=== PATIENT | female | born 1935 | race Caucasian/White ===

== ENCOUNTER → 2018-06-25 17:12 | Outpatient (CLI) | payer MEDICARE, SELFPAY ==
[2018-06-25 17:20] LABS: Bacteria Urine None Seen; WBC Urine None Seen (0-5/HPF)
[2018-06-25 17:34] LABS: Add Manual Diff / Slide Review NO; Basophils Percent Auto 0.7 % (0-2); Eosinophils Percent Auto 2.2 % (2-4); Hematocrit 35.7 % (36-46); Hemoglobin 12.2 g/dL (12.0-16.0); Lymphocytes Percent Auto 20.3 % (25-40); Mean Corpuscular HGB Conc 34.1 % (30-36); Mean Corpuscular Hemoglobin 29.2 PG (26-34); Mean Corpuscular Volume 85.8 fL (80-100); Monocytes Percent Auto 6.9 % (3-14); Neutrophils Absolute Auto 4000 /uL (3000-5900); Neutrophils Percent Auto 69.9 % (50-75); Platelet Count 349 X10^3/uL (150-400); Red Blood Cell Count 4.16 X10^6/uL (4.0-5.2); Red Cell Distribution Width 14.9 % (11.6-14.8); White Blood Cell Count 5.7 X10^3/uL (4.5-11.0)
[2018-06-25 17:57] LABS: Alanine Aminotransferase 30 IU/L (9-52); Albumin 4.7 g/dL (3.5-5.0); Albumin Globulin Ratio 1.5 (1.0-2.8); Alkaline Phosphatase 79 U/L (38-126); Aspartate Aminotransferase 36 IU/L (14-36); BUN Creatinine Ratio 23.2 (6-22); Bilirubin Total 0.5 mg/dL (0.2-1.3); Blood Urea Nitrogen 51 mg/dL (7-17); Carbon Dioxide 27 mmol/L (22-32); Chloride 98 mmol/L (98-107); Estimated Glomerular Filt Rate 21.4 mL/min (>60); Globulin 3.1 g/dL (1.7-4.1); Glucose 110 mg/dL (80-110); HEMOLYSIS 15 (0-50); Potassium 4.4 mmol/L (3.4-5.1); Sodium 138 mmol/L (137-145); Total Protein 7.8 g/dL (6.3-8.2)
[2018-06-25 18:21] LABS: Appearance Urine UA CLEAR; Bilirubin Urine UA NEGATIVE (NEGATIVE); Color Urine UA YELLOW; Glucose Urine UA NEGATIVE (Normal); Ketones Urine UA NEGATIVE (NEGATIVE); Leukocyte Esterase Urine UA NEGATIVE (NEGATIVE); Nitrite Urine UA Negative (Negative); Occult Blood Urine UA 3+ (Negative); Protein Urine UA 2+ (Negative); Urobilinogen Urine UA 0.2 E.U./dL (0.2)
[2018-06-25 18:24] LABS: Culture Indicated Urine Cult Not Indicated; RBC Urine 5-10/HPF (0-5/HPF); Squamous Epithelial Cell Urine 5-10 /HPF
[2018-06-25 19:08] LABS: Creatinine Urine Random 52.8 mg/dL; Protein (Total) Urine Random 93 mg/dL (0-12); Protein Creatinine Ratio Urine 1.76 GRAM/24H
[2018-06-28 20:41] LABS: ANCA Screen with reflex Titer Negative (Negative)
== END ==
PROVIDERS: PCP Family Medicine; Visit Provider Specialist
DX: N18.4 Chronic kidney disease, stage 4 (severe) (principal); M31.31 Wegener's granulomatosis with renal involvement
CPT/HCPCS: 36415; 80053; 81001; 82570; 84156; 85025; 86021

== ENCOUNTER → 2018-09-12 14:12 | Outpatient (CLI) | payer MEDICARE, SELFPAY ==
[2018-09-12 15:19] LABS: Add Manual Diff / Slide Review NO; Basophils Percent Auto 1.2 % (0-2); Eosinophils Percent Auto 2.6 % (2-4); Hematocrit 33.7 % (36-46); Hemoglobin 11.1 g/dL (12.0-16.0); Lymphocytes Percent Auto 22.8 % (25-40); Mean Corpuscular HGB Conc 33.1 % (30-36); Mean Corpuscular Hemoglobin 28.8 PG (26-34); Monocytes Percent Auto 7.5 % (3-14); Neutrophils Absolute Auto 3300 /uL (3000-5900); Neutrophils Percent Auto 65.9 % (50-75); Platelet Count 292 X10^3/uL (150-400); Red Blood Cell Count 3.87 X10^6/uL (4.0-5.2); Red Cell Distribution Width 14.5 % (11.6-14.8)
[2018-09-12 16:27] LABS: Alanine Aminotransferase 29 IU/L (9-52); Albumin 4.4 g/dL (3.5-5.0); Albumin Globulin Ratio 1.7 (1.0-2.8); Alkaline Phosphatase 75 U/L (38-126); Aspartate Aminotransferase 32 IU/L (14-36); BUN Creatinine Ratio 18.3 (6-22); Bilirubin Total 0.5 mg/dL (0.2-1.3); Blood Urea Nitrogen 44 mg/dL (7-17); Carbon Dioxide 23 mmol/L (22-32); Chloride 101 mmol/L (98-107); Estimated Glomerular Filt Rate 19.3 mL/min (>60); Globulin 2.6 g/dL (1.7-4.1); Glucose 87 mg/dL (80-110); HEMOLYSIS < 15 (0-50); Potassium 4.5 mmol/L (3.4-5.1); Sodium 140 mmol/L (137-145)
[2018-09-18 19:50] LABS: ANCA Screen Negative (Negative)
== END ==
PROVIDERS: Family Provider Family Medicine; PCP Family Medicine; Visit Provider Specialist
DX: M31.31 Wegener's granulomatosis with renal involvement (principal); N18.4 Chronic kidney disease, stage 4 (severe); N02.8 Recurrent and persistent hematuria with other morphologic changes
CPT/HCPCS: 36415; 80053; 82784; 82785; 85025; 86021

== ENCOUNTER → 2018-09-24 10:18 | Outpatient (CLI) | payer MEDICARE, SELFPAY ==
[2018-09-24 11:06] LABS: Add Manual Diff / Slide Review NO; Eosinophils Percent Auto 1.1 % (2-4); Hematocrit 35.5 % (36-46); Hemoglobin 12.2 g/dL (12.0-16.0); Lymphocytes Percent Auto 13.2 % (25-40); Mean Corpuscular HGB Conc 34.3 % (30-36); Mean Corpuscular Hemoglobin 29.5 PG (26-34); Mean Corpuscular Volume 86.1 fL (80-100); Monocytes Percent Auto 6.6 % (3-14); Neutrophils Absolute Auto 4300 /uL (3000-5900); Neutrophils Percent Auto 78.1 % (50-75); Platelet Count 299 X10^3/uL (150-400); Red Blood Cell Count 4.12 X10^6/uL (4.0-5.2); Red Cell Distribution Width 14.3 % (11.6-14.8); White Blood Cell Count 5.6 X10^3/uL (4.5-11.0)
[2018-09-24 12:25] LABS: Alanine Aminotransferase 29 IU/L (9-52); Albumin 4.6 g/dL (3.5-5.0); Albumin Globulin Ratio 1.5 (1.0-2.8); Alkaline Phosphatase 93 U/L (38-126); Aspartate Aminotransferase 34 IU/L (14-36); BUN Creatinine Ratio 19.2 (6-22); Bilirubin Total 0.5 mg/dL (0.2-1.3); Blood Urea Nitrogen 46 mg/dL (7-17); Calcium 9.7 mg/dL (8.4-10.2); Carbon Dioxide 23 mmol/L (22-32); Chloride 100 mmol/L (98-107); Estimated Glomerular Filt Rate 19.3 mL/min (>60); Glucose 102 mg/dL (80-110); HEMOLYSIS < 15 (0-50); Potassium 4.4 mmol/L (3.4-5.1); Sodium 137 mmol/L (137-145); Total Protein 7.6 g/dL (6.3-8.2)
== END ==
PROVIDERS: PCP Family Medicine; Visit Provider Physician Assistant
DX: R19.7 Diarrhea, unspecified (principal)
CPT/HCPCS: 36415; 80053; 85025

== ENCOUNTER → 2018-09-25 14:03 | Outpatient (CLI) | payer MEDICARE, SELFPAY ==
[2018-09-25 15:36] LABS: Appearance Urine UA CLEAR; Bilirubin Urine UA NEGATIVE (NEGATIVE); Color Urine UA YELLOW; Glucose Urine UA NEGATIVE (Normal); Ketones Urine UA NEGATIVE (NEGATIVE); Leukocyte Esterase Urine UA NEGATIVE (NEGATIVE); Nitrite Urine UA NEGATIVE (Negative); Occult Blood Urine UA 3+ (Negative); Protein Urine UA 1+ (Negative); Urobilinogen Urine UA 0.2 E.U./dL (0.2); pH Urine UA 5.5 (4.5-8.0)
[2018-09-25 15:55] LABS: Bacteria Urine Many (>30); Culture Indicated Urine Specimen Cultured; RBC Urine 10-30/HPF (0-5/HPF); WBC Urine 1-5/HPF (0-5/HPF)
[2018-09-25 16:14] LABS: Occult Blood 1 Positive (Negative); Occult Blood 2 Positive (Negative)
[2018-09-25 16:17] LABS: Sample 1 Time DATE UNKNOWN; Sample 2 time DATE UNKNOWN
== END ==
PROVIDERS: PCP Family Medicine; Visit Provider Physician Assistant
DX: R19.7 Diarrhea, unspecified (principal); R10.12 Left upper quadrant pain
CPT/HCPCS: 81001; 82270; 87015; 87045; 87077; 87086; 87147; 87186; 87427; 87493; 87899

== ENCOUNTER → 2018-09-26 10:24 | Outpatient (CLI) | payer MEDICARE, SELFPAY ==
--- NOTE | 2018-09-26 11:03 | DI.CT.S_ITS ---
PROCEDURE: CT ABDOMEN PELVIS WO CON INDICATIONS: left upper quadrant pain and diarrhea TECHNIQUE: After the administration of oral contrast, 5 mm thick sections acquired from the diaphragms to the symphysis. 5 mm coronal and sagittal reformats were performed. For radiation dose reduction, the following was used: automated exposure control, adjustment of mA and/or kV according to patient size. COMPARISON: [facility], US, ABDOMEN COMPLETE, 03/24/2017, 7:41. [facility], CT, CT-IVP, 02/28/2012, 14:04. CT, KUB - CT (PNL), 10/30/2010, 17:58. FINDINGS: Image quality: Somewhat limited by absence of intravenous contrast. Oral contrast, however, does improve quality of visualization of the bowel.. ABDOMEN: Lung bases: Lung bases are clear. Heart size is normal. Solid organs: Liver is normal in size. Gallbladder is normal. Pancreas is normal in size. Spleen is normal in size. No adrenal nodules. Both kidneys are normal in size, without hydronephrosis or nephrolithiasis. Peritoneum and bowel: Bowel loops demonstrate normal wall thickness and caliber. No free fluid or air. Oral contrast has transited through the abdomen and into the pelvis. There is no suspicion for presence of intestinal obstruction or perforation, or colitis. Nodes and vessels: No retroperitoneal or mesenteric adenopathy by size criteria. Aorta and inferior vena cava are normal in size. Miscellaneous: No ventral hernias. PELVIS: Genitourinary: Bladder wall thickness is normal. Miscellaneous: No inguinal hernias or adenopathy. Bones: No suspicious bony lesions. No vertebral body compression fractures. IMPRESSION: Nonspecific bowel gas pattern, no suspicion for underlying intestinal obstruction or perforation, or colitis. Source of current symptoms is not seen. Quality of visualization is somewhat limited by absence of intravenous contrast. Dictated by: Ervin Valero M.D. on 09/26/2018 at 11:57 Approved by: Ervin Valero M.D. on 09/26/2018 at 11:59
== END ==
PROVIDERS: PCP Family Medicine; Visit Provider Physician Assistant
DX: R10.12 Left upper quadrant pain (principal); R19.7 Diarrhea, unspecified
CPT/HCPCS: 74176

== ENCOUNTER 2018-11-04 19:34 | Emergency (ER) | payer MEDICARE, SELFPAY ==
[2018-11-04 19:44] VITALS: BP 200/83; PULSE 92; RESP 18; TEMP 36.8; O2SAT 98
--- NOTE | 2018-11-04 19:58 | ED_ITS ---
HPI - Nausea/Vomiting/Diarrhea General Chief complaint: Nausea/Vomiting/Diarrhea Stated complaint: vomiting and diarrhea, blood in stool Time Seen by Provider: 11/04/18 19:37 Source: patient Mode of arrival: ambulatory Limitations: no limitations History of Present Illness HPI Narrative: 83F non smoker presents with and chief complaint of some generalized abdominal discomfort that started last evening. The patient has had a few episodes of loose bowel with bright red blood. She thinks maybe at 1 point she passed a clot. She denies that is black and tarry. She has had no vomiting and denies any abdominal pain. She has had no fever or chills. She denies the use of blood thinners or regular use of NSAIDs. She does have a history of internal hemorrhoids. She had a colonoscopy with a automotive fuel injection servicer in [place] a few years ago and he stated she would not need another 1. She had an episode of bright red blood per rectum about 1 month ago and followed up with her primary care provider soon thereafter. The patient is not dizzy or lightheaded but feels a bit fatigued. MD complaint: diarrhea Onset (ago): hour(s) Description of Diarrhea: bloody (bright red) Associated symptoms: fatigue Related Data Home Medications Medication Instructions Recorded Confirmed Travoprost (TRAVATAN OPHTH 0.004%) 1 drp OPHTH HS #0 05/04/11 10/17/18 acetaminophen [Tylenol Extra 0 mg PO PRN PRN #0 07/09/17 10/17/18 Strength] losartan 25 mg tablet 50 mg PO DAILY tab 07/28/18 10/17/18 Previous Rx's Medication Instructions Recorded amlodipine 5 mg tablet 5 mg PO QDAY #90 tab 07/28/18 carvedilol 3.125 mg tablet 3.125 mg PO BID #180 tab 07/28/18 mirtazapine 15 mg tablet 15 mg PO QDAY #90 tabs 07/28/18 tramadol 50 mg tablet 50 mg PO BID #60 tab 07/28/18 omeprazole 20 mg capsule,delayed 20 mg PO DAILY #30 cap 09/26/18 release clonidine HCl 0.1 mg tablet 0.1 mg PO BID #60 tab 10/17/18 Allergies Allergy/AdvReac Type Severity Reaction Status Date / Time adhesive tape [ADHESIVE TAPE] Allergy Mild skin Verified 10/17/18 10:48 reaction gabapentin [GABAPENTIN] Allergy Unknown Swelling/ra Verified 10/17/18 10:48 sh amoxicillin [AMOXICILLIN] AdvReac Intermediate YEAST Verified 10/17/18 10:48 INFECTION doxycycline [DOXYCYCLINE] AdvReac Intermediate YEAST Verified 10/17/18 10:48 SYMPTOMS azithromycin [AZITHROMYCIN] AdvReac Mild DIARRHEA Verified 10/17/18 10:48 estrogens, conjugated AdvReac Mild LOCAL Verified 10/17/18 10:48 [ESTROGENS, CONJUGATED] IRRITATION WHEN TOPICAL hydrocodone [HYDROCODONE] AdvReac Mild GI UPSET Verified 10/17/18 10:48 levofloxacin [LEVOFLOXACIN] AdvReac Mild GI UPSET Verified 10/17/18 10:48 phenazopyridine AdvReac Mild GI UPSET Verified 10/17/18 10:48 [PHENAZOPYRIDINE] Review of Systems Review of Systems All systems reviewed & are unremarkable except as noted in HPI and below Constitutional Denies chills, Denies fever(s), Denies lethargy and Denies weakness Eyes Denies change in vision, Denies eye discharge, Denies irritation and Denies loss of vision ENT Ears, Nose, Mouth, and Throat: Denies change in voice, Denies neck pain and Denies sore throat Cardiovascular Denies chest pain, Denies irregular heart rhythm, Denies lightheadedness, Denies palpitations, Denies dyspnea, Denies dyspnea on exertion and Denies orthopnea Respiratory Denies cough, Denies dyspnea, Denies dyspnea on exertion and Denies wheezing Gastrointestinal Gastrointestinal: Denies abdominal pain, Reports hematochezia, Denies change in bowel habits, Reports diarrhea, Denies nausea and Denies vomiting Genitourinary Denies hematuria, Denies flank pain, Denies urinary incontinence and Denies urinary urgency Musculoskeletal Denies neck pain Integumentary/Breasts Denies pruritus, Denies erythema, Denies rash and Denies wounds Neurologic Denies confusion, Denies loss of vision and Denies weakness Psychiatric Denies anxiety, Denies confusion, Denies depression, Denies homicidal ideation and Denies suicidal ideation Endocrine Denies palpitations Hematologic/Lymphatic Denies easy bruising Allergic/Immunologic Denies wheezing [facility] Medical History CKD (chronic kidney disease) (Chronic Unknown) Diverticular disease (Chronic Unknown) Glaucoma (Chronic Unknown) Hyperlipemia (Chronic Unknown) Hypertension (Chronic Unknown) Osteoporosis (Chronic Unknown) Scoliosis (Chronic Unknown) Spinal stenosis (Chronic Unknown) Vulvar irritation (Chronic Unknown) Colon polyps (Resolved Unknown) Skin cancer (Resolved ~2004) Squamous cell carcinoma (Resolved 12/2017) Surgical History Hx of hysterectomy (Resolved Unknown) History of hip replacement (Unknown) Family History Father Heart disease Mother Osteoporosis Social History Smoking Status: Never smoker alcohol intake: never substance use type: does not use Exam Narrative Exam Narrative: GENERAL: This is a well-nourished, well-developed patient, in mild distress. HEAD: Atraumatic. Normocephalic. No temporal or scalp tenderness. EYES: No conjunctival pallor Pupils equal round and reactive. Extraocular motions intact. No scleral icterus. No injection or drainage. ENT: Nose without bleeding, purulent drainage or septal hematoma. Throat without erythema, tonsillar hypertrophy or exudate. Uvula midline. Airway patent. NECK: Trachea midline. No JVD or lymphadenopathy. Supple, nontender, no meningeal signs. CARDIOVASCULAR: Regular rate and rhythm without murmurs, gallops, or rubs. RESPIRATORY: Clear to auscultation. Breath sounds equal bilaterally. No wheezes , rales, or rhonchi. GASTROINTESTINAL: Abdomen soft, non-tender, nondistended. No hepato-splenomegaly , or palpable masses. No guarding. RECTAL: very minimal, but obvious, blood. No hemorrhoids or fissures noted, no pain on exam EXTREMITIES: No clubbing, cyanosis, or edema. No joint tenderness, effusion, or edema noted. BACK: Nontender without deformity or crepitance. No flank tenderness. NEURO: AOx3. SKIN: No rash or erythema. Initial Vital Signs Initial Vital Signs: Vital Signs Temperature 98.3 F 11/04/18 19:44 Pulse Rate 92 H 11/04/18 19:44 Respiratory Rate 18 11/04/18 19:44 Blood Pressure 200/83 H 11/04/18 19:44 Pulse Oximetry 98 11/04/18 19:44 Course Orders Ordered: ED Orders 11/04/18 19:55 Complete Blood Count AUTO DIFF Stat Comprehensive Metabolic Panel Stat Partial Thromboplastin Time Stat Prothrombin Time INR Stat Type and Screen Stat 11/04/18 20:09 XR acute abdomen series Stat 11/04/18 21:03 EKG-12 Lead Stat Discontinued Medications Ondansetron HCl (Zofran) 4 mg IV Q4HR PRN PRN Reason: Nausea And Vomiting Last Admin: 11/04/18 20:14 Dose: 4 mg Pantoprazole Sodium (Protonix) 40 mg IV NOW ONE Stop: 11/04/18 19:50 Last Admin: 11/04/18 20:13 Dose: 40 mg Reevaluation(s) Reevaluation #1: Patient remains relatively asymptomatic for duration of visit. Just prior to discharge she ambulates to the department and had a max heart rate of 104 in dropped to the low 90s by the time she returned to her bed. She denies dizziness or lightheadedness. Vital Signs - 8 hr 11/04/18 19:44 11/04/18 22:44 11/04/18 23:05 Temperature 98.3 F Pulse Rate 92 H 79 88 Respiratory Rate 18 16 16 Blood Pressure 200/83 H Blood Pressure [Right Arm] 152/60 H 153/73 H Pulse Oximetry 98 94 93 11/04/18 23:56 Temperature Pulse Rate 80 Respiratory Rate 18 Blood Pressure 150/60 H Blood Pressure [Right Arm] Pulse Oximetry 97 MDM - Nausea/Vomiting/Diarrhea Lab Data Result diagrams: 11/04/18 19:55 11/04/18 19:55 Lab Results 11/04/18 11/04/18 11/04/18 Range/Units 19:55 19:55 19:55 WBC 5.8 (4.5-11.0) X10^3/uL RBC 4.39 (4.0-5.2) X10^6/uL Hgb 12.7 (12.0-16.0) g/dL Hct 38.2 (36-46) % MCV 87.0 (80-100) fL MCH 29.0 (26-34) PG MCHC 33.3 (30-36) % RDW 14.8 (11.6-14.8) % Plt Count 295 (150-400) X10^3/uL Neut % (Auto) 76.0 H (50-75) % Lymph % (Auto) 16.0 L (25-40) % [place] % (Auto) 5.8 (3-14) % Eos % (Auto) 1.4 L (2-4) % Baso % (Auto) 0.8 (0-2) % Neut # (Auto) 4400 (2410-4719) /uL PT 10.6 (10.1-12.7) SECONDS INR 0.9 (0.9-1.3) APTT 31 (26.4-36.2) SECONDS Sodium 139 (137-145) mmol/L Potassium 4.2 (3.4-5.1) mmol/L Chloride 102 (98-107) mmol/L Carbon Dioxide 21 L (22-32) mmol/L BUN 42 H (7-17) mg/dL Creatinine 2.20 H (0.52-1.04) mg/dL Estimated GFR 21.4 L (>60) mL/min BUN/Creatinine Ratio 19.1 (6-22) Glucose 116 H (80-110) mg/dL Calcium 9.9 (8.4-10.2) mg/dL Total Bilirubin 0.6 (0.2-1.3) mg/dL AST 32 (14-36) IU/L ALT 30 (9-52) IU/L Alkaline Phosphatase 92 (38-126) U/L Total Protein 8.0 (6.3-8.2) g/dL Albumin 4.8 (3.5-5.0) g/dL Globulin 3.2 (1.7-4.1) g/dL Albumin/Globulin Ratio 1.5 (1.0-2.8) Blood Type 11/04/18 Range/Units 19:55 WBC (4.5-11.0) X10^3/uL RBC (4.0-5.2) X10^6/uL Hgb (12.0-16.0) g/dL Hct (36-46) % MCV (80-100) fL MCH (26-34) PG MCHC (30-36) % RDW (11.6-14.8) % Plt Count (150-400) X10^3/uL Neut % (Auto) (50-75) % Lymph % (Auto) (25-40) % [place] % (Auto) (3-14) % Eos % (Auto) (2-4) % Baso % (Auto) (0-2) % Neut # (Auto) (9578-8500) /uL PT (10.1-12.7) SECONDS INR (0.9-1.3) APTT (26.4-36.2) SECONDS Sodium (137-145) mmol/L Potassium (3.4-5.1) mmol/L Chloride (98-107) mmol/L Carbon Dioxide (22-32) mmol/L BUN (7-17) mg/dL Creatinine (0.52-1.04) mg/dL Estimated GFR (>60) mL/min BUN/Creatinine Ratio (6-22) Glucose (80-110) mg/dL Calcium (8.4-10.2) mg/dL Total Bilirubin (0.2-1.3) mg/dL AST (14-36) IU/L ALT (9-52) IU/L Alkaline Phosphatase (38-126) U/L Total Protein (6.3-8.2) g/dL Albumin (3.5-5.0) g/dL Globulin (1.7-4.1) g/dL Albumin/Globulin Ratio (1.0-2.8) Blood Type O Positive Discharge Plan Departure Patient Disposition: Home Clinical Impression: Rectal bleed Discharge Date/Time: 11/04/18 23:57 Interventions: ED Discharge Assessment Last Done: 11/04/18 23:56 Instructions: DI for Rectal Bleeding Activity Restrictions/Additional Instructions: *You have been diagnosed with [ acute lower GI bleed ] *What to do: *Take medications as directed *Follow up with your primary care provider in 2-3 days, call for an appointment. Let them know you were seen in the Emergency Department and that we ask that you be seen in follow up. It may be worth considering talking about the possibility of a colonoscopy with your automotive fuel injection servicer in [place] *Return to ER if you should have any new, worsening or concerning symptoms , such as [ worsening bleeding, dizziness, weakness, lightheadedness] Prescriptions: No Action losartan 25 mg tablet 50 mg PO DAILY RF: 0 carvedilol [Coreg] 3.125 mg tablet 3.125 mg PO BID Qty: 180 RF: 2 mirtazapine 15 mg tablet 15 mg PO QDAY Qty: 90 RF: 3 amlodipine [Norvasc] 5 mg tablet 5 mg PO QDAY Qty: 90 RF: 1 tramadol 50 mg tablet 50 mg PO BID Qty: 60 RF: 0 clonidine HCl 0.1 mg tablet 0.1 mg PO BID Qty: 60 RF: 3 Travoprost (TRAVATAN OPHTH 0.004%) 1 drp OPHTH HS Qty: 0 RF: 0 acetaminophen [Tylenol Extra Strength] 500 MG tablet PO PRN PRNQty: 0 RF: 0 omeprazole 20 mg capsule,delayed release(DR/EC) 20 mg PO DAILY Qty: 30 RF: 0 Referrals: Ginny Daley DO [Primary Care Provider] -
--- NOTE | 2018-11-04 20:09 | DI.RAD.S_ITS ---
PROCEDURE: XR ACUTE ABDOMEN SERIES INDICATIONS: N/V/D TECHNIQUE: One view chest and two views of the abdomen were acquired. COMPARISON: [facility], , ABDOMEN ACUTE SERIES, 12/18/2008, 9:06. FINDINGS: Surgical changes and devices: None. Chest: Lungs are clear. Heart size is enlarged. Aortic arch calcifications are seen. No pleural effusions. No pneumoperitoneum. Abdomen: Bowel gas pattern is normal. No suspicious calcifications. Visualized solid organ contours appear normal. Bones: No suspicious bony lesions. Moderate levoscoliosis of lower thoracic spine and compensatory moderate to severe dextroscoliosis of lumbar spine is seen. Alignment of spine is unchanged from 2009 study. IMPRESSION: No evidence of bowel obstruction or gross free air. No acute cardiopulmonary pathology. [id number] scoliosis not significantly changed from previous study. Dictated by: Selwyn Colon M.D. on 11/04/2018 at 20:44 Approved by: Selwyn Colon M.D. on 11/04/2018 at 20:45
[2018-11-04] MEDS: PANTOPRAZOLE 40 MG VIAL IV (20:13)
[2018-11-04] MEDS: ONDANSETRON 4 MG/2 ML INJ IV (20:14)
[2018-11-04 20:15] LABS: Add Manual Diff / Slide Review NO; Basophils Percent Auto 0.8 % (0-2); Eosinophils Percent Auto 1.4 % (2-4); Hematocrit 38.2 % (36-46); Hemoglobin 12.7 g/dL (12.0-16.0); INR 0.9 (0.9-1.3); Mean Corpuscular HGB Conc 33.3 % (30-36); Monocytes Percent Auto 5.8 % (3-14); Neutrophils Absolute Auto 4400 /uL (1500-7000); Platelet Count 295 X10^3/uL (150-400); Prothrombin Time 10.6 SECONDS (10.1-12.7); Red Blood Cell Count 4.39 X10^6/uL (4.0-5.2); Red Cell Distribution Width 14.8 % (11.6-14.8); White Blood Cell Count 5.8 X10^3/uL (4.5-11.0)
[2018-11-04 20:17] LABS: Alanine Aminotransferase 30 IU/L (9-52); Albumin 4.8 g/dL (3.5-5.0); Albumin Globulin Ratio 1.5 (1.0-2.8); Alkaline Phosphatase 92 U/L (38-126); Aspartate Aminotransferase 32 IU/L (14-36); BUN Creatinine Ratio 19.1 (6-22); Bilirubin Total 0.6 mg/dL (0.2-1.3); Blood Urea Nitrogen 42 mg/dL (7-17); Calcium 9.9 mg/dL (8.4-10.2); Carbon Dioxide 21 mmol/L (22-32); Chloride 102 mmol/L (98-107); Estimated Glomerular Filt Rate 21.4 mL/min (>60); Globulin 3.2 g/dL (1.7-4.1); Glucose 116 mg/dL (80-110); HEMOLYSIS < 15 (0-50); PTT Partial Thromboplastin Tim 31 SECONDS (26.4-36.2); Potassium 4.2 mmol/L (3.4-5.1); Sodium 139 mmol/L (137-145)
[2018-11-04 22:44] VITALS: BP 152/60; PULSE 79; RESP 16; O2SAT 94
[2018-11-04 23:05] VITALS: BP 153/73; PULSE 88; RESP 16; O2SAT 93
[2018-11-04 23:56] VITALS: BP 150/60; PULSE 80; RESP 18; O2SAT 97
== END 2018-11-04 23:57 | disposition home or self-care (01) ==
PROVIDERS: Emergency Provider Emergency Medicine; PCP Family Medicine
DX: K62.5 Hemorrhage of anus and rectum (principal)
CPT/HCPCS: 36591; 74022; 80053; 85025; 85610; 85730; 86850; 86900; 86901; 93005; 96374; 96375; 99283; 99285; C9113; J2405

== ENCOUNTER → 2018-11-14 15:00 | Outpatient (CLI) | payer MEDICARE, SELFPAY ==
[2018-11-14 16:06] LABS: Add Manual Diff / Slide Review NO; Basophils Percent Auto 1.7 % (0-2); Eosinophils Percent Auto 2.6 % (2-4); Hematocrit 35.7 % (36-46); Hemoglobin 11.7 g/dL (12.0-16.0); Mean Corpuscular HGB Conc 32.9 % (30-36); Mean Corpuscular Hemoglobin 28.8 PG (26-34); Mean Corpuscular Volume 87.4 fL (80-100); Monocytes Percent Auto 7.3 % (3-14); Neutrophils Absolute Auto 3700 /uL (1500-7000); Neutrophils Percent Auto 64.4 % (50-75); Platelet Count 326 X10^3/uL (150-400); Red Blood Cell Count 4.08 X10^6/uL (4.0-5.2); Red Cell Distribution Width 14.8 % (11.6-14.8); White Blood Cell Count 5.7 X10^3/uL (4.5-11.0)
== END ==
PROVIDERS: PCP Family Medicine; Visit Provider Family Medicine
DX: K62.5 Hemorrhage of anus and rectum (principal); Z87.19 Personal history of other diseases of the digestive system
CPT/HCPCS: 36415; 85025

== ENCOUNTER → 2018-12-03 14:47 | Outpatient (CLI) | payer MEDICARE, SELFPAY ==
[2018-12-03 15:20] LABS: Add Manual Diff / Slide Review NO; Basophils Absolute Auto 100 /uL (0-100); Basophils Percent Auto 1.5 % (0-2); Eosinophils Absolute Auto 200 /uL (0-450); Hematocrit 35.1 % (36-46); Lymphocytes Absolute Auto 1200 /uL (1100-4500); Lymphocytes Percent Auto 21.2 % (25-40); Mean Corpuscular HGB Conc 34.1 % (30-36); Mean Corpuscular Hemoglobin 29.5 PG (26-34); Mean Corpuscular Volume 86.4 fL (80-100); Monocytes Absolute Auto 400 /uL (0-900); Monocytes Percent Auto 7.2 % (3-14); Neutrophils Absolute Auto 3900 /uL (1500-7000); Neutrophils Percent Auto 67.1 % (50-75); Platelet Count 303 X10^3/uL (150-400); Red Blood Cell Count 4.06 X10^6/uL (4.0-5.2); Red Cell Distribution Width 14.8 % (11.6-14.8); White Blood Cell Count 5.8 X10^3/uL (4.5-11.0)
[2018-12-03 15:21] LABS: Appearance Urine UA CLEAR; Bilirubin Urine UA NEGATIVE (NEGATIVE); Color Urine UA YELLOW; Glucose Urine UA NEGATIVE (Negative); Ketones Urine UA NEGATIVE (NEGATIVE); Leukocyte Esterase Urine UA NEGATIVE (NEGATIVE); Nitrite Urine UA NEGATIVE (Negative); Occult Blood Urine UA 3+ (Negative); Protein Urine UA 2+ (Negative); Specific Gravity Urine UA 1.015 (1.000-1.035); Urobilinogen Urine UA 0.2 E.U./dL (0.2); pH Urine UA 5.5 (4.5-8.0)
[2018-12-03 15:28] LABS: Bacteria Urine Occasional (0-1); RBC Urine 10-30/HPF (0-5/HPF); Squamous Epithelial Cell Urine 5-10 /HPF; WBC Urine 0-1/HPF (0-5/HPF)
[2018-12-03 15:47] LABS: Protein (Total) Urine Random 82 mg/dL (0-12); Protein Creatinine Ratio Urine 0.97 GRAM/24H
[2018-12-03 15:48] LABS: Alanine Aminotransferase 19 IU/L (9-52); Albumin 4.5 g/dL (3.5-5.0); Albumin Globulin Ratio 1.5 (1.0-2.8); Alkaline Phosphatase 78 U/L (38-126); Aspartate Aminotransferase 28 IU/L (14-36); BUN Creatinine Ratio 16.2 (6-22); Bilirubin Total 0.4 mg/dL (0.2-1.3); Blood Urea Nitrogen 42 mg/dL (7-17); Calcium 9.5 mg/dL (8.4-10.2); Carbon Dioxide 25 mmol/L (22-32); Chloride 98 mmol/L (98-107); Estimated Glomerular Filt Rate 17.6 mL/min (>60); Globulin 3.1 g/dL (1.7-4.1); Glucose 118 mg/dL (80-110); HEMOLYSIS < 15 (0-50); Potassium 4.5 mmol/L (3.4-5.1); Sodium 137 mmol/L (137-145); Total Protein 7.6 g/dL (6.3-8.2)
[2018-12-06 22:04] LABS: ANCA Screen Negative (Negative)
== END ==
PROVIDERS: PCP Family Medicine; Visit Provider Specialist
DX: N18.4 Chronic kidney disease, stage 4 (severe) (principal); M31.31 Wegener's granulomatosis with renal involvement
CPT/HCPCS: 36415; 80053; 81001; 82570; 84156; 85025; 86021

== ENCOUNTER → 2018-12-16 14:13 | Outpatient (CLI) | payer MEDICARE, SELFPAY ==
[2018-12-16 15:39] LABS: Appearance Urine UA SL CLOUDY; Bilirubin Urine UA NEGATIVE (NEGATIVE); Color Urine UA YELLOW; Glucose Urine UA NEGATIVE (Negative); Ketones Urine UA NEGATIVE (NEGATIVE); Leukocyte Esterase Urine UA NEGATIVE (NEGATIVE); Nitrite Urine UA NEGATIVE (Negative); Occult Blood Urine UA 3+ (Negative); Protein Urine UA 1+ (Negative); Urobilinogen Urine UA 0.2 E.U./dL (0.2); pH Urine UA 6.5 (4.5-8.0)
[2018-12-16 16:00] LABS: RBC Urine 5-10/HPF (0-5/HPF); WBC Urine 1-5/HPF (0-5/HPF)
[2018-12-16 16:01] LABS: Amorphous Sediment Urine 1+; Bacteria Urine Moderate (10-30); Squamous Epithelial Cell Urine 10-30 /HPF
[2018-12-16 17:16] LABS: Culture Indicated Urine Cult Not Indicated
== END ==
PROVIDERS: PCP Family Medicine; Visit Provider Nurse Practitioner Family
DX: R19.7 Diarrhea, unspecified (principal); R11.2 Nausea with vomiting, unspecified
CPT/HCPCS: 81001; 81015

== ENCOUNTER → 2019-03-09 16:03 | Outpatient (CLI) | payer MEDICARE, SELFPAY ==
[2019-03-09 17:18] LABS: Add Manual Diff / Slide Review NO; Basophils Absolute Auto 100 /uL (0-100); Basophils Percent Auto 1.7 % (0-2); Eosinophils Absolute Auto 200 /uL (0-450); Eosinophils Percent Auto 3.8 % (2-4); Hematocrit 36.4 % (36-46); Hemoglobin 12.1 g/dL (12.0-16.0); Lymphocytes Absolute Auto 1200 /uL (1100-4500); Lymphocytes Percent Auto 25.5 % (25-40); Mean Corpuscular HGB Conc 33.2 % (30-36); Mean Corpuscular Volume 87.3 fL (80-100); Monocytes Absolute Auto 400 /uL (0-900); Monocytes Percent Auto 8.3 % (3-14); Neutrophils Absolute Auto 2800 /uL (1500-7000); Neutrophils Percent Auto 60.7 % (50-75); Platelet Count 322 X10^3/uL (150-400); Red Blood Cell Count 4.17 X10^6/uL (4.0-5.2); Red Cell Distribution Width 15.2 % (11.6-14.8); White Blood Cell Count 4.7 X10^3/uL (4.5-11.0)
[2019-03-09 19:38] LABS: Alanine Aminotransferase 30 IU/L (9-52); Albumin 4.5 g/dL (3.5-5.0); Albumin Globulin Ratio 1.5 (1.0-2.8); Alkaline Phosphatase 95 U/L (38-126); Aspartate Aminotransferase 29 IU/L (14-36); BUN Creatinine Ratio 18.8 (6-22); Bilirubin Total 0.3 mg/dL (0.2-1.3); Blood Urea Nitrogen 47 mg/dL (7-17); Calcium 9.2 mg/dL (8.4-10.2); Carbon Dioxide 23 mmol/L (22-32); Chloride 99 mmol/L (98-107); Estimated Glomerular Filt Rate 18.4 mL/min (>60); Globulin 3.1 g/dL (1.7-4.1); Glucose 103 mg/dL (80-110); HEMOLYSIS < 15 (0-50); Potassium 4.3 mmol/L (3.4-5.1); Sodium 136 mmol/L (137-145); Total Protein 7.6 g/dL (6.3-8.2)
[2019-03-09 19:39] LABS: Creatinine Urine Random 74.3 mg/dL; Protein (Total) Urine Random 73 mg/dL (0-12); Protein Creatinine Ratio Urine 0.98 GRAM/24H
[2019-03-09 19:52] LABS: Appearance Urine UA CLEAR; Bilirubin Urine UA NEGATIVE (NEGATIVE); Color Urine UA YELLOW; Glucose Urine UA NEGATIVE (Negative); Ketones Urine UA NEGATIVE (NEGATIVE); Leukocyte Esterase Urine UA NEGATIVE (NEGATIVE); Nitrite Urine UA NEGATIVE (Negative); Occult Blood Urine UA 3+ (Negative); Protein Urine UA 1+ (Negative); Specific Gravity Urine UA 1.015 (1.000-1.035); Urobilinogen Urine UA 0.2 E.U./dL (0.2); pH Urine UA 5.5 (4.5-8.0)
[2019-03-09 20:14] LABS: Bacteria Urine Occasional (0-1); RBC Urine 10-30/HPF (0-5/HPF); Squamous Epithelial Cell Urine 5-10 /HPF (0-5/HPF); WBC Urine 0-1/HPF (0-5/HPF)
== END ==
PROVIDERS: Specialist; PCP Family Medicine; Visit Provider Family Medicine
DX: N18.4 Chronic kidney disease, stage 4 (severe) (principal); N02.8 Recurrent and persistent hematuria with other morphologic changes; M31.31 Wegener's granulomatosis with renal involvement
CPT/HCPCS: 36415; 80053; 81001; 82570; 84100; 84156; 85025

== ENCOUNTER → 2019-04-07 14:06 | Outpatient (CLI) | payer MEDICARE, SELFPAY ==
--- NOTE | 2019-04-07 14:08 | DI.MRI.S_ITS ---
PROCEDURE: MR LUMBAR SPINE WO CON INDICATIONS: lumbar stenosis, lumbar radiculopathy TECHNIQUE: Noncontrast sagittal T1 spin echo and T2 fast echo, sagittal STIR, axial T1 and T2 fast spin echo through the lumbar spine. In cases with scoliosis, additional coronal T2 fast spin echo may be performed. COMPARISON: [facility], MR, L-SPINE WITHOUT CONTRAST, 06/25/2017, 15:07. FINDINGS: Image quality: Excellent. Alignment and Curvature: There is left lateral T1-T2 and L1-L2 subluxation. There is right lateral L3-L4 and L4-L5 subluxation. There is mild L3-L4 anterolisthesis. There is 60? of convex right scoliosis. Bone Marrow: Marrow is of normal overall signal. No acute vertebral body compression fractures. Spinal Cord: Conus medullaris terminates at the L1-2 disc level. Visualized cord demonstrates normal signal and size. Paraspinous Soft Tissues: No paravertebral masses. L1-L2: Loss of disc signal and height. Mild, diffuse disc bulge. Mild bilateral facet hypertrophy. Mild narrowing of the central canal. Mild right and moderate left neural foraminal narrowing. No definite neural impingement. L2-L3: Loss of disc signal and height. Mild, diffuse disc bulge. Moderate right and severe left facet hypertrophy. Moderate narrowing of the central canal. Mild right and moderate left neural foraminal narrowing. No definite neural impingement. L3-L4: Loss of disc signal and height. Moderate, diffuse disc bulge. Severe bilateral facet hypertrophy. Severe ligamentum flavum hypertrophy. Severe narrowing he central canal or compression of the nerve roots of the cauda equina. Moderate right and severe left neural foraminal narrowing with compression of the exiting left L3 nerve root. L4-L5: Loss of disc signal. Mild, diffuse disc bulge and severe bilateral facet hypertrophy. Moderate to severe narrowing of the central canal. Moderate right and mild left neural foraminal narrowing. L5-S1: Loss of disc signal and height. Mild diffuse disc bulge. Moderate right and mild left facet hypertrophy. Mild narrowing of the central canal. Severe right neural foraminal narrowing with compression of the exiting right L5 nerve root. IMPRESSION: 1. Severe convex right scoliosis. 2. Multilevel degenerative disease. 3. Multilevel facet arthropathy 4. Severe L3-L4 central canal narrowing. Moderate to severe L4-L5 central canal narrowing. Moderate L2-L3 central canal narrowing. Mild L1-L2 and L5-S1 central canal narrowing. 5. Moderate right and severe left L3-L4 neural foraminal narrowing. Severe right L5-S1 neural foraminal narrowing. Mild right and moderate left L1-L2 and L2-L3 neural foraminal narrowing. Moderate right and mild left L4-L5 neural foraminal narrowing. 6. Compression of exiting left L3 nerve root and the exiting right L5 nerve root secondary to neural foraminal narrowing. 7. Compression of the nerve roots of the cauda equina the level of the L3-L4 disc secondary to central canal narrowing. Dictated by: Heather Bourgeois MD, PhD on 04/07/2019 at 15:31 Approved by: Heather Bourgeois MD, PhD on 04/07/2019 at 15:39
== END ==
PROVIDERS: PCP Family Medicine; Visit Provider Family Medicine
DX: M48.061 Spinal stenosis, lumbar region without neurogenic claudication (principal); M48.07 Spinal stenosis, lumbosacral region; M51.16 Intervertebral disc disorders with radiculopathy, lumbar region; M51.17 Intervertebral disc disorders with radiculopathy, lumbosacral region; M47.26 Other spondylosis with radiculopathy, lumbar region; M47.27 Other spondylosis with radiculopathy, lumbosacral region; M41.9 Scoliosis, unspecified
CPT/HCPCS: 72148

== ENCOUNTER → 2019-04-13 15:08 | Outpatient (CLI) | payer MEDICARE, SELFPAY ==
--- NOTE | 2019-04-13 15:10 | DI.RAD.S_ITS ---
PROCEDURE: XR LUMBAR SPINE MIN 4V INDICATIONS: scoliosis TECHNIQUE: 4 views of the lumbar spine acquired. COMPARISON: [facility], , L-SPINE 2-3 VIEWS, 06/14/2011, 11:06. FINDINGS: Bones: There is diffuse osteopenia, and severe dextroscoliosis centered at the L2 level, this has progressed since the prior study. Multilevel degenerative endplate sclerosis and spurring. Diffuse facet arthropathy. Soft tissues: Overlying bowel gas pattern is normal. No suspicious soft tissue calcifications. Flexion/extension: There is decreased range of motion, with no definite evidence of abnormal motion however evaluation severely limited due to scoliosis and degenerative changes as well as osteopenia IMPRESSION: Interval progression and severe lumbar dextroscoliosis. Diffuse spondylosis and facet arthropathy. Severely suboptimal evaluation given scoliotic changes. Dictated by: Zain Ford M.D. on 04/13/2019 at 16:02 Approved by: Zain Ford M.D. on 04/13/2019 at 16:05
== END ==
PROVIDERS: PCP Family Medicine; Visit Provider Registered Nurse
DX: M41.86 Other forms of scoliosis, lumbar region (principal); M47.27 Other spondylosis with radiculopathy, lumbosacral region; D64.9 Anemia, unspecified
CPT/HCPCS: 72110

== ENCOUNTER 2019-04-21 13:03 | Outpatient (CLI) | payer MEDICARE, SELFPAY ==
[2019-04-21] VITALS (8 sets, daily range): BP systolic 127–161; BP diastolic 48–83; PULSE 71–81; RESP 16; TEMP 36.5; O2SAT 95–99
--- NOTE | 2019-04-21 13:15 | DI.RAD.S_ITS ---
PROCEDURE: PAIN L/S TRANSFORAMINAL INJECT INDICATIONS: SCOLIOSIS FINDINGS: Fluoroscopic spot filming was performed to verify placement of spinal needles at the level(s) as labeled on the films. Appropriate location(s) of the needle tip(s) was confirmed by injection of iodinated contrast. IMPRESSION: Fluoroscopy for pain management. Dictated by: Suman Capellan M.D. on 04/21/2019 at 17:05 Approved by: Suman Capellan M.D. on 04/21/2019 at 17:05
[2019-04-21] MEDS: MIDAZOLAM 5 MG/5 ML VIAL IV (14:03)
[2019-04-21] MEDS: IOPAMIDOL 15 ML VIAL 3 ML INJ (14:11)
[2019-04-21] MEDS: BUPIVACAINE 0.25% (PF) VIAL 2 ML INJ (14:12)
[2019-04-21] MEDS: BETAMETHASONE 30 MG/5 ML MDV 12 MG INJ (14:12)
--- NOTE | 2019-04-21 14:18 | PC.NURSE ---
ASSISTING PT OFF TABLE AND TRANSPORTING TO POST PROC AREA IN STABLE CONDITION
--- NOTE | 2019-04-21 14:25 | PC.NURSE ---
pt returned from post procedure awake and alert via wheelchair. Able to transfer to chair with standby assist. Resumed monitoring from Aline VELASCO.
--- NOTE | 2019-04-21 14:25 | PM.PROC.1 ---
Procedures Date/Time Date of procedure: 04/21/19 Time of procedure: 14:25 General Procedure description: PROVIDER: Daryn Roberts DO Operative Note PREOP DIAGNOSIS 1. FORAMINAL STENOSIS WITH LE SYMPTOMS, POST OP DIAGNOSIS 1. FORAMINAL STENOSIS WITH LE SYMPTOMS, PROCEDURES 1. FLUOROSCOPICALLY GUIDED CONTRAST CONTROLLED TRANSFORAMINAL EPIDURAL STEROID INJECTION - LEFT L2/3 TFESI SURGEON: Daryn Roberts DO INDICATIONS Quique is referred by Dr. Daley for treatment of Foraminal Stenosis with left LE Symptoms FINDINGS Foraminal Nerve Root Compression secondary to disc disease and facet hypertrophy DESCRIPTION OF PROCEDURE Following review of allergy and review of potential side effects and complications, including, but not necessarily limited to, infection, allergic reaction, local tissue breakdown, stroke, temporary or permanent nerve injury, paralysis, and possible , the patient indicated that the patient understood and agreed to proceed. An informed consent document was signed by the patient, witnessed by a nurse, and placed in the patient's chart. Additionally, other treatment options including medications, modalities, and physical therapy were reviewed with the patient. After review of previous anaesthesic history and IV conscious sedation the patient was deemed safe to proceed with todays procedure with IV conscious sedation as ASA class II designation. Safety time-out was performed to confirm patient ID, procedure to be performed and site of procedure. IV sedation was accomplished with a combination of 2mg of Versed was administered by the RN after DO order, titrated to patient comfort during the course of the procedure while the patient remained responsive to all verbal commands In the prone position following sterile prep and drape of the lumbar region, the left L2/3 posterior neuroforamen was identified fluoroscopically. The skin was anesthetized via a 25-gauge 1.5-inch needle with 1% lidocaine solution. At this point, a 25-gauge 3.5-inch spinal needle was atraumatically introduced and advanced under fluoroscopic guidance through the posterior left L2/3 neuroforamen to approximately the anterior aspect of the canal. Depth was confirmed on lateral view. Following negative aspiration, injection of approximately 1.5 cc of Isovue 200 under live fluoroscopy in the AP view confirmed excellent flow along the nerve root, into the epidural space without vascular or intrathecal uptake observed Radiological data, including multiple fluoroscopic views of the lumbosacral spine, reveal a spinal needle at the left L2/3 posterior neuroforamen. Subsequent views show flow of contrast material flowing superiorly and inferiorly along the nerve root confirming epidural flow. Subsequently, a test dose of 1.5 cc of 1% lidocaine solution was administered and patient was observed for two minutes for signs or symptoms of complications, including abdominal pain, shortness of breath, bilateral upper or lower extremity weakness, nausea and vomiting, prior to steroid injection. At this point, a total of 3cc or 18mg of betamethasone was injected without incident. The patient tolerated the procedure well without signs or symptoms of complications prior to transfer to the recovery area continued monitoring without incident. The patient was then transferred to the recovery area where they were observed for an appropriate time after the injection. The patient reported a VAS score of 7 prior to the procedure and a post-procedure VAS of 0. Total Fluoroscopy Time: 24.2 seconds Total Conscious Sedation Time: 24min POST OP INSTRUCTIONS The patient was provided a Pain Log to continue to record their response to the target-specific procedure prior to follow-up visit with their referring physician. Additionally, specific post-injection care instructions and a contact number to our office were provided if concerns arise regarding possible complications associated with the procedure are suspected. Daryn Roberts, Complications: none
--- NOTE | 2019-04-21 14:52 | PC.NURSE ---
Attempted walking and pt sturdy on feet.
== END 2019-04-21 15:15 ==
PROVIDERS: PCP Family Medicine; Visit Provider Physical Medicine & Rehabilitation
DX: M48.061 Spinal stenosis, lumbar region without neurogenic claudication (principal); M51.16 Intervertebral disc disorders with radiculopathy, lumbar region; M47.27 Other spondylosis with radiculopathy, lumbosacral region; M41.9 Scoliosis, unspecified
CPT/HCPCS: 64483; 99152; J0702; J2250; J3010

== ENCOUNTER → 2019-06-10 14:53 | Outpatient (CLI) | payer MEDICARE, SELFPAY ==
[2019-06-10 15:01] LABS: Bacteria Urine None Seen
[2019-06-10 15:21] LABS: Add Manual Diff / Slide Review NO; Basophils Absolute Auto 100 /uL (0-100); Basophils Percent Auto 1.3 % (0-2); Eosinophils Absolute Auto 100 /uL (0-450); Eosinophils Percent Auto 3.1 % (2-4); Hematocrit 36.8 % (36-46); Hemoglobin 12.2 g/dL (12.0-16.0); Lymphocytes Absolute Auto 800 /uL (1100-4500); Lymphocytes Percent Auto 17.8 % (25-40); Mean Corpuscular HGB Conc 33.3 % (30-36); Mean Corpuscular Volume 87.3 fL (80-100); Monocytes Absolute Auto 400 /uL (0-900); Monocytes Percent Auto 8.6 % (3-14); Neutrophils Absolute Auto 3300 /uL (1500-7000); Neutrophils Percent Auto 69.2 % (50-75); Platelet Count 327 X10^3/uL (150-400); Red Blood Cell Count 4.22 X10^6/uL (4.0-5.2); Red Cell Distribution Width 14.8 % (11.6-14.8); White Blood Cell Count 4.7 X10^3/uL (4.5-11.0)
[2019-06-10 15:35] LABS: Appearance Urine UA CLEAR; Bilirubin Urine UA NEGATIVE (NEGATIVE); Color Urine UA YELLOW; Glucose Urine UA NEGATIVE (Negative); Ketones Urine UA NEGATIVE (NEGATIVE); Leukocyte Esterase Urine UA NEGATIVE (NEGATIVE); Nitrite Urine UA NEGATIVE (Negative); Occult Blood Urine UA 3+ (Negative); Protein Urine UA 1+ (Negative); Urobilinogen Urine UA 0.2 E.U./dL (0.2)
[2019-06-10 15:48] LABS: Alanine Aminotransferase 22 IU/L (9-52); Albumin 4.6 g/dL (3.5-5.0); Albumin Globulin Ratio 1.5 (1.0-2.8); Alkaline Phosphatase 96 U/L (38-126); Aspartate Aminotransferase 30 IU/L (14-36); BUN Creatinine Ratio 21.4 (6-22); Bilirubin Total 0.5 mg/dL (0.2-1.3); Blood Urea Nitrogen 47 mg/dL (7-17); Calcium 9.6 mg/dL (8.4-10.2); Carbon Dioxide 22 mmol/L (22-32); Chloride 100 mmol/L (98-107); Estimated Glomerular Filt Rate 21.4 mL/min (>60); Glucose 97 mg/dL (80-110); HEMOLYSIS < 15 (0-50); Phosphorous 4.8 mg/dL (2.8-4.1); Potassium 4.3 mmol/L (3.4-5.1); Sodium 136 mmol/L (137-145); Total Protein 7.6 g/dL (6.3-8.2)
[2019-06-10 16:15] LABS: Hyaline Casts Urine 0-1/LPF; RBC Urine 5-10/HPF (0-5/HPF); Squamous Epithelial Cell Urine 1-5 /HPF (0-5/HPF); WBC Urine 5-10/HPF (0-5/HPF)
[2019-06-12 18:41] LABS: ANCA Screen Negative (Negative)
== END ==
PROVIDERS: PCP Family Medicine; Visit Provider Specialist
DX: N18.4 Chronic kidney disease, stage 4 (severe) (principal); N02.8 Recurrent and persistent hematuria with other morphologic changes
CPT/HCPCS: 36415; 80053; 81001; 84100; 85025; 86021

== ENCOUNTER 2019-09-17 11:15 | Outpatient (RCR) | payer MEDICARE, SELFPAY ==
--- NOTE | 2019-06-11 19:31 | PT.OIE ---
Current Diagnoses Unspecified kyphosis, thoracic region (06/10/19) Scoliosis, unspecified (06/10/19) Other spondylosis with radiculopathy, lumbosacral region (06/10/19) Spondylosis without myelopathy or radiculopathy, site unspecified (06/10/19) Spinal stenosis, site unspecified (06/10/19) Other biomechanical lesions of lumbar region (06/10/19) Past Medical History (Last Reviewed 05/08/19 @ 17:16 by Daryn Roberts DO) CKD (chronic kidney disease) (Chronic Unknown) Diverticular disease (Chronic Unknown) Glaucoma (Chronic Unknown) Hyperlipemia (Chronic Unknown) Hypertension (Chronic Unknown) Osteoporosis (Chronic Unknown) Scoliosis (Chronic Unknown) Spinal stenosis (Chronic Unknown) Vulvar irritation (Chronic Unknown) Colon polyps (Resolved Unknown) Skin cancer (Resolved ~2004) Squamous cell carcinoma (Resolved 12/2017) Past Surgical History (Last Reviewed 05/08/19 @ 17:16 by Daryn Roberts DO) Hx of hysterectomy (Resolved Unknown) History of hip replacement (Unknown) Provider Visit Care Team Role Provider Type Ginny Daley DO Primary Care Provider Physician Specialty: Family Practice Address: [address] [place] [address] Email: [email or web address] Attending Provider Advanced Industrial Relations Officer Specialty: Pain Management Address: [address] [place] [address] Email: [email or web address] Physical Therapy Initial Evaluation PT-OP-A Visit Information Start: 06/10/19 18:41 Freq: Status: Active Protocol: Document 06/10/19 13:45 HH (Rec: 06/10/19 19:01 HH [email or web address]) Out-Patient Physical Therapy Visit Information Visit Information Visit Type Initial Evaluation Visit Start Time 13:45 Visit Stop Time 14:30 Total Visit Minutes 45 Visit Number 1 Number of ENERGY PROJECT ENGINEER Visits 0 Evaluation Information Evaluation Date 06/10/19 PT-OP-B Current Condition Start: 06/10/19 18:41 Freq: Status: Active Protocol: Document 06/10/19 13:45 HH (Rec: 06/10/19 19:01 [email or web address]) Current Condition History of Current Condition Onset Date many years ago Current Complaints Scoliosis, bilateral back pain , B hip pain L>R History of Current Condition Pt presents to clinic with chronic LBP, B hip pain L>R since many years ago with unknown etiology. Pt c/o her symptoms radiating pain to her L leg constantly. She states her pain gets worse by standing / walking > 10-15 mins who has to sit or lay down to reduce her pain. Pt had a anti- inflammatory shot from Dr. Philip a month ago but her symptoms came back a week after. Pt was diagnosed with scoliosis many years ago and had a R hip replacement 7 years ago due to severe OA. Her L hip pain then started getting worse since her R RUMA and she wears heel lift insole occasionally due to LLD R>L. Prior Treatments and Tests R hip replacement 7 years ago Treatment Goals Patient/Caregiver Goals 1. to be pain free during walking and standing 2. To strengthen her L LE for stair and prolonged walking Prior Functional Status Baseline Function- ADL's Independent Baseline Function- Mobility Independent Current Functional Impairments (Reported) Functional Limitations- ADL's unable to wash dishes for more than 5 mins unable to carry heavy objects Functional Limitations- Mobility/Gait step to pattern with the use of handrails for stair climbing Personal Factors Other Personal Factors That May Effect skin cancer (without chemo/ Therapy/Recovery radiation therapy) PT-OP-C Subjective Start: 06/10/19 18:41 Freq: Status: Active Protocol: Document 06/10/19 13:45 HH (Rec: 06/10/19 19:01 [email or web address]) OP-PT Subjective Patient Comments Patient Comments My back bothers me a lot. PT-OP-D Balance Start: 06/10/19 18:41 Freq: Status: Active Protocol: Document 06/10/19 13:45 HH (Rec: 06/10/19 19:01 [email or web address]) OP-PT Balance Assessment Sitting Balance Static Sitting Balance Ability Normal Dynamic Sitting Balance Ability Normal Standing Balance Static Standing Balance Ability Fair Dynamic Standing Balance Ability Fair Balance Tests Single Limb Standing Single Limb- Right 2s Single Limb- Left 4s Barbour Fall Scale Copyright Permission PT-OP-G Mobility & Gait Start: 06/10/19 18:41 Freq: Status: Active Protocol: Document 06/10/19 13:45 HH (Rec: 06/10/19 19:01 [email or web address]) OP Gait Assessment Gait Gait Assistance Required: Independent Gait Deviations General Gait Pattern Antalgic Decreased Stride Length Decreased Feet Clearance Flexed Trunk Lateral Trunk Lean Step-to Gait Stair Climbing Evaluation Technique/Endurance Stair Climbing Direction Ascend and Descend Stair Climbing Technique Step to Step Comments Stair Climbing Comments with B rails PT-OP-H Neuro Start: 06/10/19 18:41 Freq: Status: Active Protocol: Document 06/10/19 13:45 HH (Rec: 06/10/19 19:09 [email or web address]) Deep Tendon Reflex & Clonus Assessment Deep Tendon Reflex Right Achilles Deep Tendon Reflex 2+ Normal Right Patellar Deep Tendon Reflex 2+ Normal Left Achilles Deep Tendon Reflex 2+ Normal Left Patellar Deep Tendon Reflex 1+ Diminished PT-OP-J Posture/Palpation/Skin Start: 06/10/19 18:41 Freq: Status: Active Protocol: Document 06/10/19 13:45 HH (Rec: 06/10/19 19:01 [email or web address]) Posture Evaluation Position Standing Evaluation View Anterior T-Spine Posture Fixed Scoliosis on (L) Increased Kyphosis L-Spine Posture Fixed Scoliosis on (R) Shoulder Posture (R) Elevated Weight Distribution Weight Shifted Right PT-OP-K Range of Motion Start: 06/10/19 18:41 Freq: Status: Active Protocol: Document 06/10/19 13:45 HH (Rec: 06/11/19 12:59 HH [email or web address]) Lumbar Spine Range of Motion Lumbar Spine Active Degrees Testing Position Standing Flexion 45 Extension 10 Rotation Left 25 Rotation Right 23 Lateral Flexion Left 15 Lateral Flexion Right 10 ROM Limitations Soft Tissue Tightness Bony Restriction Pain PT-OP-L Special Tests Start: 06/10/19 18:41 Freq: Status: Active Protocol: Document 06/10/19 13:45 HH (Rec: 06/10/19 19:09 [email or web address]) Special Tests Lumbar Spine Special Tests Straight Leg Raise Test Results +ve on R (pain at buttock) Comments unable to lift on LLE Standing Flexion Test Results +ve Comments L thoracic hump and R lumbar hump PT-OP-M Strength Start: 06/10/19 18:41 Freq: Status: Active Protocol: Document 06/10/19 13:45 HH (Rec: 06/10/19 19:09 [email or web address]) Hip Strength Hip Manual Muscle Testing Right Flexion (L2) 4 Good Extension (S1) 4 Good Abduction 4 Good Adduction 4 Good Left Flexion (L2) 3+ Fair+ Extension (S1) 4- Good- Abduction 3+ Fair+ Knee Strength Knee Manual Muscle Testing Right Flexion (S2) 4 Good Extension (L3) 4 Good Left Flexion (S2) 4 Good Extension (L3) 4 Good PT-OP-Q Treatments Start: 06/10/19 18:41 Freq: Status: Active Protocol: Document 06/10/19 13:45 (Rec: 06/11/19 10:16 [id number]) Therapeutic Exercises Supine Exercises R HS stretch Side right Reps/Minutes 6 x 2 Manual Therapy Treatment Soft Tissue Mobilization piriformis Body Location B piriformis Mobilization Type Cross-Friction Rolling Strumming Intensity/Depth Superficial Body Position Prone gluteal muscles Body Location B hip extensors Mobilization Type Cross-Friction Rolling Strumming Intensity/Depth Superficial Body Position Prone PT-OP-T Assessment and Plan Start: 06/10/19 18:41 Freq: Status: Active Protocol: Document 06/10/19 13:45 (Rec: 06/11/19 10:14 [id number]) Physical Therapy Assessment Rehab Potential Rehabilitation Potential Excellent Evaluation Complexity Number of Personal Factors/Comorbidities 3 or More Number of Body Systems Impaired 4 or More Clinical Presentation at Evaluation Stable Goals activity tolerance Short Term Goal (STG) pt will be able to stand > 15 mins with back pain <5/10 STG Duration 6 weeks Care Home Goal (LTG) pt will be able to stand > 30 mins with back pain <5/10 LTG Duration 12 weeks B LE strength Impairment LE weakness Short Term Goal (STG) pt will increase her B LE strength by 1/2 MMT to allow her negotiating stairs with step over pattern STG Duration 6 weeks Care Home Goal (LTG) pt will increase her B LE strength by 1 MMT to allow her negotiating stairs with step over pattern LTG Duration 12 weeks HEP Impairment Pt does not have a HEP Short Term Goal (STG) Pt will comply to HEP independently with proper mechanics STG Duration 8 weeks Assessment Summary Assessment Pt is a fragile lady presents to clinic with B back pain with radiating pain to her LLE , who also has a hx of scoliosis and R RUMA.. Upon assessment, pt presents significant fixated L thoracic and R lumbar scoliosis, followed by elevated L hip. She also demonstrates limited R hip mobility and weakness at L hip stabilizers, along with increased muscular tension on B gluteal muscles R>L. With her fixated scoliosis, postural anglican will be difficult but she will still be a good candidate for skilled therapy for overall core and trunk stabilization, and B LE strengthening in order to reduce her pain and increase her activity tolerance. Physical Therapy Plan Frequency and Duration Frequency of Treatment 2x/Week Duration of Treatment 12 weeks Plan of Care Start Date 06/10/19 Plan of Care End Date 09/09/19 Therapeutic Interventions Therapeutic Interventions Aquatic Therapy Balance Training Gait Training Home Exercise Program Joint Mobilizations Manual Therapy Neuromuscular Re-education Orthotic/Prosthetic Management Patient/Caregiver Education Self-Care/Home Management Soft Tissue Mobilization Taping Therapeutic Activities Therapeutic Exercises Modalities Cold Pack/Ice Massage Electric Stimulation Hot Packs Infrared Therapy Traction- Mechanical Ultrasound Next Visit Focus/Plan Next Note Type Treatment Note Next Visit Plan check 6 mins walk test, step up test check shoes, single leg balance, tandem finish LBP questionnaire education on posture R hip mob, nerve glide (post) seated reach seated stretch
--- NOTE | 2019-06-11 19:32 | PT.OPPOC ---
Current Diagnoses Unspecified kyphosis, thoracic region (06/10/19) Scoliosis, unspecified (06/10/19) Other spondylosis with radiculopathy, lumbosacral region (06/10/19) Spondylosis without myelopathy or radiculopathy, site unspecified (06/10/19) Spinal stenosis, site unspecified (06/10/19) Other biomechanical lesions of lumbar region (06/10/19) Provider Visit Care Team Role Provider Type Ginny Daley DO Primary Care Provider Physician Specialty: Family Practice Address: [address] [place] [address], [id number] Email: [email or web address] Attending Provider Advanced Cosmetics Machine Operator Specialty: Pain Management Address: [address] [place] [address], [id number] Email: [email or web address] Plan Of Care PT-OP-T Assessment and Plan Start: 06/10/19 18:41 Freq: Status: Active Protocol: Document 06/10/19 13:45 (Rec: 06/11/19 10:14 [email or web address]) Physical Therapy Assessment Rehab Potential Rehabilitation Potential Excellent Evaluation Complexity Number of Personal Factors/Comorbidities 3 or More Number of Body Systems Impaired 4 or More Clinical Presentation at Evaluation Stable Goals activity tolerance Short Term Goal (STG) pt will be able to stand > 15 mins with back pain <5/10 STG Duration 6 weeks Prison Goal (LTG) pt will be able to stand > 30 mins with back pain <5/10 LTG Duration 12 weeks B LE strength Impairment LE weakness Short Term Goal (STG) pt will increase her B LE strength by 1/2 MMT to allow her negotiating stairs with step over pattern STG Duration 6 weeks Health Aid Goal (LTG) pt will increase her B LE strength by 1 MMT to allow her negotiating stairs with step over pattern LTG Duration 12 weeks HEP Impairment Pt does not have a HEP Short Term Goal (STG) Pt will comply to HEP independently with proper mechanics STG Duration 8 weeks Assessment Summary Assessment Pt is a fragile lady presents to clinic with B back pain with radiating pain to her LLE , who also has a hx of scoliosis and R RUMA.. Upon assessment, pt presents significant fixated L thoracic and R lumbar scoliosis, followed by elevated L hip. She also demonstrates limited R hip mobility and weakness at L hip stabilizers, along with increased muscular tension on B gluteal muscles R>L. With her fixated scoliosis, postural mu-ism will be difficult but she will still be a good candidate for skilled therapy for overall core and trunk stabilization, and B LE strengthening in order to reduce her pain and increase her activity tolerance. Physical Therapy Plan Frequency and Duration Frequency of Treatment 2x/Week Duration of Treatment 12 weeks Plan of Care Start Date 06/10/19 Plan of Care End Date 09/09/19 Therapeutic Interventions Therapeutic Interventions Aquatic Therapy Balance Training Gait Training Home Exercise Program Joint Mobilizations Manual Therapy Neuromuscular Re-education Orthotic/Prosthetic Management Patient/Caregiver Education Self-Care/Home Management Soft Tissue Mobilization Taping Therapeutic Activities Therapeutic Exercises Modalities Cold Pack/Ice Massage Electric Stimulation Hot Packs Infrared Therapy Traction- Mechanical Ultrasound Next Visit Focus/Plan Next Note Type Treatment Note Next Visit Plan check 6 mins walk test, step up test check shoes, single leg balance, tandem finish LBP questionnaire education on posture R hip mob, nerve glide (post) seated reach seated stretch Plan of Care Dates Plan of Care Start Date 06/10/19 Plan of Care End Date 09/09/19 Please Sign and Return: I have reviewed this Plan of Care and certify that the skilled therapy services above are required to meet the patient?s needs. Physician Signature Date Printed Name and Credentials Clinical Instructor Signature Printed Name and Credentials
--- NOTE | 2019-06-12 17:05 | PT.OTN ---
Current Diagnoses Unspecified kyphosis, thoracic region (06/10/19) Scoliosis, unspecified (06/10/19) Other spondylosis with radiculopathy, lumbosacral region (06/10/19) Spondylosis without myelopathy or radiculopathy, site unspecified (06/10/19) Spinal stenosis, site unspecified (06/10/19) Other biomechanical lesions of lumbar region (06/10/19) Physical Therapy Treatment Note PT-OP-A Visit Information Start: 06/10/19 18:41 Freq: Status: Active Protocol: Document 06/12/19 14:30 HH (Rec: 06/12/19 17:05 HH [email or web address]) Out-Patient Physical Therapy Visit Information Visit Information Visit Type Treatment Note Visit Start Time 14:30 Visit Stop Time 15:15 Total Visit Minutes 45 Visit Number 2 Number of DIRECTOR CORPORATE COMPLIANCE Visits 0 PT-OP-B Current Condition Start: 06/10/19 18:41 Freq: Status: Active Protocol: Document 06/10/19 13:45 HH (Rec: 06/10/19 19:01 HH [email or web address]) Current Condition History of Current Condition Onset Date many years ago Current Complaints Scoliosis, bilateral back pain , B hip pain L>R History of Current Condition Pt presents to clinic with chronic LBP, B hip pain L>R since many years ago with unknown etiology. Pt c/o her symptoms radiating pain to her L leg constantly. She states her pain gets wose by standing / walking > 10-15 mins who has to sit or lay down to reduce her pain. Pt had a anti- inflammatory shot from Dr. Philip a month ago but her symptoms came back a week after. Pt was diagnosed with scoliosis many years ago and had a R hip replacement 7 years ago due to severe OA. Her L hip pain then started getting worse since her R RUMA and she wears heel lift insole occasionally due to LLD R>L. Prior Treatments and Tests R hip replacement 7 years ago Treatment Goals Patient/Caregiver Goals 1. to be pain free during walking and standing 2. To strengthen her L LE for stair and prolonged walking Prior Functional Status Baseline Function- ADL's Independent Baseline Function- Mobility Independent Current Functional Impairments (Reported) Functional Limitations- ADL's unable to wash dishes for more than 5 mins unable to carry heavy objects Functional Limitations- Mobility/Gait step to pattern with the use of handrails for stair climbing Personal Factors Other Personal Factors That May Effect skin cancer (without chemo/ Therapy/Recovery radiation therapy) PT-OP-C Subjective Start: 06/10/19 18:41 Freq: Status: Active Protocol: Document 06/12/19 14:30 HH (Rec: 06/12/19 17:05 [email or web address]) OP-PT Subjective Patient Comments Patient Comments my back and hip muscles got a bit sore PT-OP-D Balance Start: 06/10/19 18:41 Freq: Status: Active Protocol: Document 06/10/19 13:45 HH (Rec: 06/10/19 19:01 [email or web address]) OP-PT Balance Assessment Sitting Balance Static Sitting Balance Ability Normal Dynamic Sitting Balance Ability Normal Standing Balance Static Standing Balance Ability Fair Dynamic Standing Balance Ability Fair Balance Tests Single Limb Standing Single Limb- Right 2s Single Limb- Left 4s Barbour Fall Scale Copyright Permission PT-OP-G Mobility & Gait Start: 06/10/19 18:41 Freq: Status: Active Protocol: Document 06/10/19 13:45 HH (Rec: 06/10/19 19:01 [email or web address]) OP Gait Assessment Gait Gait Assistance Required: Independent Gait Deviations General Gait Pattern Antalgic Decreased Stride Length Decreased Feet Clearance Flexed Trunk Lateral Trunk Lean Step-to Gait Stair Climbing Evaluation Technique/Endurance Stair Climbing Direction Ascend and Descend Stair Climbing Technique Step to Step Comments Stair Climbing Comments with B rails PT-OP-H Neuro Start: 06/10/19 18:41 Freq: Status: Active Protocol: Document 06/10/19 13:45 HH (Rec: 06/10/19 19:09 [email or web address]) Deep Tendon Reflex & Clonus Assessment Deep Tendon Reflex Right Achilles Deep Tendon Reflex 2+ Normal Right Patellar Deep Tendon Reflex 2+ Normal Left Achilles Deep Tendon Reflex 2+ Normal Left Patellar Deep Tendon Reflex 1+ Diminished PT-OP-J Posture/Palpation/Skin Start: 06/10/19 18:41 Freq: Status: Active Protocol: Document 06/10/19 13:45 HH (Rec: 06/10/19 19:01 [email or web address]) Posture Evaluation Position Standing Evaluation View Anterior T-Spine Posture Fixed Scoliosis on (L) Increased Kyphosis L-Spine Posture Fixed Scoliosis on (R) Shoulder Posture (R) Elevated Weight Distribution Weight Shifted Right PT-OP-K Range of Motion Start: 06/10/19 18:41 Freq: Status: Active Protocol: Document 06/10/19 13:45 HH (Rec: 06/11/19 12:59 HH [email or web address]) Lumbar Spine Range of Motion Lumbar Spine Active Degrees Testing Position Standing Flexion 45 Extension 10 Rotation Left 25 Rotation Right 23 Lateral Flexion Left 15 Lateral Flexion Right 10 ROM Limitations Soft Tissue Tightness Bony Restriction Pain PT-OP-L Special Tests Start: 06/10/19 18:41 Freq: Status: Active Protocol: Document 06/10/19 13:45 HH (Rec: 06/10/19 19:09 [email or web address]) Special Tests Lumbar Spine Special Tests Straight Leg Raise Test Results +ve on R (pain at buttock) Comments unable to lift on LLE Standing Flexion Test Results +ve Comments L thoracic hump and R lumbar hump PT-OP-M Strength Start: 06/10/19 18:41 Freq: Status: Active Protocol: Document 06/10/19 13:45 HH (Rec: 06/10/19 19:09 [email or web address]) Hip Strength Hip Manual Muscle Testing Right Flexion (L2) 4 Good Extension (S1) 4 Good Abduction 4 Good Adduction 4 Good Left Flexion (L2) 3+ Fair+ Extension (S1) 4- Good- Abduction 3+ Fair+ Knee Strength Knee Manual Muscle Testing Right Flexion (S2) 4 Good Extension (L3) 4 Good Left Flexion (S2) 4 Good Extension (L3) 4 Good PT-OP-Q Treatments Start: 06/10/19 18:41 Freq: Status: Active Protocol: Document 06/12/19 14:30 HH (Rec: 06/12/19 17:05 HH [email or web address]) Therapeutic Exercises Supine Exercises hip wipers Side bilateral Reps/Minutes 8 x 4 Comments cues on end range and eccentric control R HS stretch Side right Reps/Minutes 6 x 2 Comments added to be HEP with belt Manual Therapy Treatment Soft Tissue Mobilization L QL Body Location l QL Mobilization Type Cross-Friction Rolling Sustained Pressure Intensity/Depth Superficial Body Position Sidelying piriformis Body Location B piriformis Mobilization Type Cross-Friction Rolling Strumming Intensity/Depth Superficial Body Position Prone Joint Mobilizations pelvic girdle inf glide Direction inferior Grade II Body Position Sidelying Reps/Duration 5 mins hip distraction Direction inferior Grade II Body Position Supine Reps/Duration 5 mins PT-OP-T Assessment and Plan Start: 06/10/19 18:41 Freq: Status: Active Protocol: Document 06/12/19 14:30 HH (Rec: 06/12/19 17:05 HH [email or web address]) Physical Therapy Assessment Assessment Summary Assessment Explained to pt and her regarding her currently scoliosis and posture with models. Added HS stretch with belt and supine hip wipers today. pt cont to be very sensitive to pressure at low back region. will cont focus on hip and lumbar movement dissociation. will add cardio equipment into POC Physical Therapy Plan Next Visit Focus/Plan Next Note Type Treatment Note Next Visit Plan check 6 mins walk test, step up test check shoes, single leg balance, tandem finish LBP questionnaire education on posture R hip mob, nerve glide (post) seated reach seated stretch focus on hip and lumbar movement dissociation. will add cardio equipment into POC
--- NOTE | 2019-06-16 12:07 | PT.OTN ---
Current Diagnoses Unspecified kyphosis, thoracic region (06/16/19) Scoliosis, unspecified (06/16/19) Other spondylosis with radiculopathy, lumbosacral region (06/16/19) Spondylosis without myelopathy or radiculopathy, site unspecified (06/16/19) Spinal stenosis, site unspecified (06/16/19) Other biomechanical lesions of lumbar region (06/16/19) Physical Therapy Treatment Note PT-OP-A Visit Information Start: 06/10/19 18:41 Freq: Status: Active Protocol: Document 06/16/19 10:30 HH (Rec: 06/16/19 11:28 HH [email or web address]) Out-Patient Physical Therapy Visit Information Visit Information Visit Type Treatment Note Visit Start Time 10:30 Visit Stop Time 11:20 Total Visit Minutes 50 Visit Number 3 Number of MANAGER EMPLOYMENT Visits 0 PT-OP-B Current Condition Start: 06/10/19 18:41 Freq: Status: Active Protocol: Document 06/10/19 13:45 HH (Rec: 06/10/19 19:01 HH [email or web address]) Current Condition History of Current Condition Onset Date many years ago Current Complaints Scoliosis, bilateral back pain , B hip pain L>R History of Current Condition Pt presents to clinic with chronic LBP, B hip pain L>R since many years ago with unknown etiology. Pt c/o her symptoms radiating pain to her L leg constantly. She states her pain gets wose by standing / walking > 10-15 mins who has to sit or lay down to reduce her pain. Pt had a anti- inflammatory shot from Dr. Philip a month ago but her symptoms came back a week after. Pt was diagnosed with scoliosis many years ago and had a R hip replacement 7 years ago due to severe OA. Her L hip pain then started getting worse since her R RUMA and she wears heel lift insole occasionally due to LLD R>L. Prior Treatments and Tests R hip replacement 7 years ago Treatment Goals Patient/Caregiver Goals 1. to be pain free during walking and standing 2. To strengthen her L LE for stair and prolonged walking Prior Functional Status Baseline Function- ADL's Independent Baseline Function- Mobility Independent Current Functional Impairments (Reported) Functional Limitations- ADL's unable to wash dishes for more than 5 mins unable to carry heavy objects Functional Limitations- Mobility/Gait step to pattern with the use of handrails for stair climbing Personal Factors Other Personal Factors That May Effect skin cancer (without chemo/ Therapy/Recovery radiation therapy) PT-OP-C Subjective Start: 06/10/19 18:41 Freq: Status: Active Protocol: Document 06/16/19 10:30 HH (Rec: 06/16/19 11:28 HH [email or web address]) OP-PT Subjective Patient Comments Patient Comments My back pain has been the same. I think i rolled my back when i was doing the hip wiper. Patient Reported Progress Same Patient Questionnaires Oswestry Low Back Index Oswestry Score 22 Oswestry Impairment 20 to 39% Impaired (Score 20- 39) PT-OP-D Balance Start: 06/10/19 18:41 Freq: Status: Active Protocol: Document 06/10/19 13:45 HH (Rec: 06/10/19 19:01 [email or web address]) OP-PT Balance Assessment Sitting Balance Static Sitting Balance Ability Normal Dynamic Sitting Balance Ability Normal Standing Balance Static Standing Balance Ability Fair Dynamic Standing Balance Ability Fair Balance Tests Single Limb Standing Single Limb- Right 2s Single Limb- Left 4s Barbour Fall Scale Copyright Permission PT-OP-G Mobility & Gait Start: 06/10/19 18:41 Freq: Status: Active Protocol: Document 06/10/19 13:45 HH (Rec: 06/10/19 19:01 [email or web address]) OP Gait Assessment Gait Gait Assistance Required: Independent Gait Deviations General Gait Pattern Antalgic Decreased Stride Length Decreased Feet Clearance Flexed Trunk Lateral Trunk Lean Step-to Gait Stair Climbing Evaluation Technique/Endurance Stair Climbing Direction Ascend and Descend Stair Climbing Technique Step to Step Comments Stair Climbing Comments with B rails PT-OP-H Neuro Start: 06/10/19 18:41 Freq: Status: Active Protocol: Document 06/10/19 13:45 HH (Rec: 06/10/19 19:09 [email or web address]) Deep Tendon Reflex & Clonus Assessment Deep Tendon Reflex Right Achilles Deep Tendon Reflex 2+ Normal Right Patellar Deep Tendon Reflex 2+ Normal Left Achilles Deep Tendon Reflex 2+ Normal Left Patellar Deep Tendon Reflex 1+ Diminished PT-OP-J Posture/Palpation/Skin Start: 06/10/19 18:41 Freq: Status: Active Protocol: Document 06/10/19 13:45 HH (Rec: 06/10/19 19:01 [email or web address]) Posture Evaluation Position Standing Evaluation View Anterior T-Spine Posture Fixed Scoliosis on (L) Increased Kyphosis L-Spine Posture Fixed Scoliosis on (R) Shoulder Posture (R) Elevated Weight Distribution Weight Shifted Right PT-OP-K Range of Motion Start: 06/10/19 18:41 Freq: Status: Active Protocol: Document 06/10/19 13:45 HH (Rec: 06/11/19 12:59 HH [email or web address]) Lumbar Spine Range of Motion Lumbar Spine Active Degrees Testing Position Standing Flexion 45 Extension 10 Rotation Left 25 Rotation Right 23 Lateral Flexion Left 15 Lateral Flexion Right 10 ROM Limitations Soft Tissue Tightness Bony Restriction Pain PT-OP-L Special Tests Start: 06/10/19 18:41 Freq: Status: Active Protocol: Document 06/10/19 13:45 HH (Rec: 06/10/19 19:09 [email or web address]) Special Tests Lumbar Spine Special Tests Straight Leg Raise Test Results +ve on R (pain at buttock) Comments unable to lift on LLE Standing Flexion Test Results +ve Comments L thoracic hump and R lumbar hump PT-OP-M Strength Start: 06/10/19 18:41 Freq: Status: Active Protocol: Document 06/10/19 13:45 HH (Rec: 06/10/19 19:09 [email or web address]) Hip Strength Hip Manual Muscle Testing Right Flexion (L2) 4 Good Extension (S1) 4 Good Abduction 4 Good Adduction 4 Good Left Flexion (L2) 3+ Fair+ Extension (S1) 4- Good- Abduction 3+ Fair+ Knee Strength Knee Manual Muscle Testing Right Flexion (S2) 4 Good Extension (L3) 4 Good Left Flexion (S2) 4 Good Extension (L3) 4 Good PT-OP-Q Treatments Start: 06/10/19 18:41 Freq: Status: Active Protocol: Document 06/16/19 10:30 HH (Rec: 06/16/19 11:28 [email or web address]) Cardio Equipment Recumbent Bicycle Duration (Minutes) 5 Seat Position 3 Therapeutic Exercises Supine Exercises hip wipers Side bilateral Reps/Minutes 8 x 4 Comments cues on neutral spine, end range and eccentric control R HS stretch Side right Reps/Minutes 8 x2 Comments added to be HEP with belt Sidelying Exercises open book Side bilateral Reps/Minutes 10 x2 Comments provided hip block, cues on thoracic rotation. Sitting Exercises seated knee extension Side bilateral Reps/Minutes 8 x 2 Comments cues on DF Manual Therapy Treatment Soft Tissue Mobilization piriformis Body Location B piriformis Mobilization Type Cross-Friction Rolling Strumming Intensity/Depth Superficial Body Position Prone Nerve Glides seated sciatic nerve glide Nerve sciatic Body Position Sitting Reps/Duration 8 x2 Comments with knee ext, Df, trunk flexion. new HEP as well PT-OP-R Modalities Start: 06/10/19 18:41 Freq: Status: Active Protocol: Document 06/16/19 10:30 HH (Rec: 06/16/19 11:28 HH [email or web address]) Hot Pack/Cold Pack Treatment Hot Pack Location lumbar Patient Position Hooklying Treatment Duration (minutes) 5 Patient Tolerance Good PT-OP-T Assessment and Plan Start: 06/10/19 18:41 Freq: Status: Active Protocol: Document 06/16/19 10:30 HH (Rec: 06/16/19 11:28 HH [email or web address]) Physical Therapy Assessment Goals Oswestry LBP questionnaire Impairment pt scores at 22/50 Mcfp Goal (LTG) Pt will score 1-19% impairment to improve her overall functional mobility with less pain LTG Duration 12 weeks activity tolerance Short Term Goal (STG) pt will be able to stand > 15 mins with back pain <5/10 Hospital Plan Administrator Goal (LTG) pt will be able to stand > 30 mins with back pain <5/10 LTG Duration 12 weeks B LE strength Impairment LE weakness Short Term Goal (STG) pt will increase her B LE strength by 1/2 MMT to allow her negotiating stairs with step over pattern STG Duration 6 weeks Hospital Plan Administrator Goal (LTG) pt will increase her B LE strength by 1 MMT to allow her negotiating stairs with step over pattern LTG Duration 12 weeks HEP Impairment Pt does not have a HEP Short Term Goal (STG) Pt will comply to HEP independently with proper mechanics STG Duration 8 weeks Assessment Summary Assessment cont hip, lumbar, thoracic ROM ex as jessica in supine position. Introduced seated sciatic nerve glide today as a HEP. Pt reports slight fatigue at the end of session. Physical Therapy Plan Next Visit Focus/Plan Next Note Type Treatment Note Next Visit Plan check 6 mins walk test, step up test check shoes, single leg supine /seated position balance, tandem R hip mob, nerve glide (post) seated reach seated stretch focus on hip and lumbar movement dissociation. will add cardio equipment into POC
--- NOTE | 2019-06-19 16:02 | PT.OTN ---
Current Diagnoses Unspecified kyphosis, thoracic region (06/19/19) Scoliosis, unspecified (06/19/19) Other spondylosis with radiculopathy, lumbosacral region (06/19/19) Spondylosis without myelopathy or radiculopathy, site unspecified (06/19/19) Spinal stenosis, site unspecified (06/19/19) Other biomechanical lesions of lumbar region (06/19/19) Physical Therapy Treatment Note PT-OP-A Visit Information Start: 06/10/19 18:41 Freq: Status: Active Protocol: Document 06/19/19 15:15 DCW (Rec: 06/19/19 16:01 DCW [id number]) Out-Patient Physical Therapy Visit Information Visit Information Visit Type Treatment Note Visit Start Time 15:15 Visit Stop Time 16:05 Total Visit Minutes 50 Visit Number 4 Number of CABLEWAY OPERATOR Visits 0 Evaluation Information Evaluation Date 06/10/19 PT-OP-B Current Condition Start: 06/10/19 18:41 Freq: Status: Active Protocol: Document 06/10/19 13:45 HH (Rec: 06/10/19 19:01 HH [email or web address]) Current Condition History of Current Condition Onset Date many years ago Current Complaints Scoliosis, bilateral back pain , B hip pain L>R History of Current Condition Pt presents to clinic with chronic LBP, B hip pain L>R since many years ago with unknown etiology. Pt c/o her symptoms radiating pain to her L leg constantly. She states her pain gets wose by standing / walking > 10-15 mins who has to sit or lay down to reduce her pain. Pt had a anti- inflammatory shot from Dr. Philip a month ago but her symptoms came back a week after. Pt was diagnosed with scoliosis many years ago and had a R hip replacement 7 years ago due to severe OA. Her L hip pain then started getting worse since her R RUMA and she wears heel lift insole occasionally due to LLD R>L. Prior Treatments and Tests R hip replacement 7 years ago Treatment Goals Patient/Caregiver Goals 1. to be pain free during walking and standing 2. To strengthen her L LE for stair and prolonged walking Prior Functional Status Baseline Function- ADL's Independent Baseline Function- Mobility Independent Current Functional Impairments (Reported) Functional Limitations- ADL's unable to wash dishes for more than 5 mins unable to carry heavy objects Functional Limitations- Mobility/Gait step to pattern with the use of handrails for stair climbing Personal Factors Other Personal Factors That May Effect skin cancer (without chemo/ Therapy/Recovery radiation therapy) PT-OP-C Subjective Start: 06/10/19 18:41 Freq: Status: Active Protocol: Document 06/19/19 15:15 DCW (Rec: 06/19/19 16:01 DCW [id number]) OP-PT Subjective Patient Comments Patient Comments It takes me a half hour to go through these three home exercises, so I really don't want any more. Plus, when I'm done, it really seems to hurt my right hip even more. PT-OP-D Balance Start: 06/10/19 18:41 Freq: Status: Active Protocol: Document 06/10/19 13:45 HH (Rec: 06/10/19 19:01 [email or web address]) OP-PT Balance Assessment Sitting Balance Static Sitting Balance Ability Normal Dynamic Sitting Balance Ability Normal Standing Balance Static Standing Balance Ability Fair Dynamic Standing Balance Ability Fair Balance Tests Single Limb Standing Single Limb- Right 2s Single Limb- Left 4s Barbour Fall Scale Copyright Permission PT-OP-G Mobility & Gait Start: 06/10/19 18:41 Freq: Status: Active Protocol: Document 06/10/19 13:45 HH (Rec: 06/10/19 19:01 [email or web address]) OP Gait Assessment Gait Gait Assistance Required: Independent Gait Deviations General Gait Pattern Antalgic Decreased Stride Length Decreased Feet Clearance Flexed Trunk Lateral Trunk Lean Step-to Gait Stair Climbing Evaluation Technique/Endurance Stair Climbing Direction Ascend and Descend Stair Climbing Technique Step to Step Comments Stair Climbing Comments with B rails PT-OP-H Neuro Start: 06/10/19 18:41 Freq: Status: Active Protocol: Document 06/10/19 13:45 HH (Rec: 06/10/19 19:09 [email or web address]) Deep Tendon Reflex & Clonus Assessment Deep Tendon Reflex Right Achilles Deep Tendon Reflex 2+ Normal Right Patellar Deep Tendon Reflex 2+ Normal Left Achilles Deep Tendon Reflex 2+ Normal Left Patellar Deep Tendon Reflex 1+ Diminished PT-OP-J Posture/Palpation/Skin Start: 06/10/19 18:41 Freq: Status: Active Protocol: Document 06/10/19 13:45 HH (Rec: 06/10/19 19:01 HH [email or web address]) Posture Evaluation Position Standing Evaluation View Anterior T-Spine Posture Fixed Scoliosis on (L) Increased Kyphosis L-Spine Posture Fixed Scoliosis on (R) Shoulder Posture (R) Elevated Weight Distribution Weight Shifted Right PT-OP-K Range of Motion Start: 06/10/19 18:41 Freq: Status: Active Protocol: Document 06/10/19 13:45 HH (Rec: 06/11/19 12:59 HH [email or web address]) Lumbar Spine Range of Motion Lumbar Spine Active Degrees Testing Position Standing Flexion 45 Extension 10 Rotation Left 25 Rotation Right 23 Lateral Flexion Left 15 Lateral Flexion Right 10 ROM Limitations Soft Tissue Tightness Bony Restriction Pain PT-OP-L Special Tests Start: 06/10/19 18:41 Freq: Status: Active Protocol: Document 06/10/19 13:45 HH (Rec: 06/10/19 19:09 [email or web address]) Special Tests Lumbar Spine Special Tests Straight Leg Raise Test Results +ve on R (pain at buttock) Comments unable to lift on LLE Standing Flexion Test Results +ve Comments L thoracic hump and R lumbar hump PT-OP-M Strength Start: 06/10/19 18:41 Freq: Status: Active Protocol: Document 06/10/19 13:45 HH (Rec: 06/10/19 19:09 [email or web address]) Hip Strength Hip Manual Muscle Testing Right Flexion (L2) 4 Good Extension (S1) 4 Good Abduction 4 Good Adduction 4 Good Left Flexion (L2) 3+ Fair+ Extension (S1) 4- Good- Abduction 3+ Fair+ Knee Strength Knee Manual Muscle Testing Right Flexion (S2) 4 Good Extension (L3) 4 Good Left Flexion (S2) 4 Good Extension (L3) 4 Good PT-OP-Q Treatments Start: 06/10/19 18:41 Freq: Status: Active Protocol: Document 06/19/19 15:15 DCW (Rec: 06/19/19 16:01 DCW [id number]) Cardio Equipment Recumbent Bicycle Duration (Minutes) 5 Resistance 2 Seat Position 4 Gym Equipment Shuttle Recovery Unilateral Squats Resistance 25# Shuttle Recovery Platform Stable Bilateral Squats Resistance 50# Shuttle Recovery Platform Stable Therapeutic Exercises Supine Exercises hip wipers Side bilateral Reps/Minutes 10x2 Comments cues on neutral spine, end range and eccentric control R HS stretch Side right Reps/Minutes 8 x2 Comments added to be HEP with belt Sidelying Exercises Clamshell Sidelying Exercise Name Clamshell Side bilateral Sitting Exercises seated knee extension Side bilateral Reps/Minutes 8 x 2 Comments cues on DF Manual Therapy Treatment Soft Tissue Mobilization piriformis Body Location B piriformis Mobilization Type Cross-Friction Rolling Strumming Intensity/Depth Superficial Body Position Prone Nerve Glides seated sciatic nerve glide Nerve sciatic Body Position Sitting Reps/Duration 8 x2 Comments with knee ext, Df, trunk flexion. new HEP as well PT-OP-R Modalities Start: 06/10/19 18:41 Freq: Status: Active Protocol: Document 06/19/19 15:15 DCW (Rec: 06/19/19 16:01 DCW [id number]) Hot Pack/Cold Pack Treatment Hot Pack Location lumbar Patient Position Hooklying Treatment Duration (minutes) 10 Patient Tolerance Good PT-OP-T Assessment and Plan Start: 06/10/19 18:41 Freq: Status: Active Protocol: Document 06/19/19 15:15 DCW (Rec: 06/19/19 16:01 DCW [id number]) Physical Therapy Assessment Goals Oswestry LBP questionnaire Impairment pt scores at 22/50 Alf Goal (LTG) Pt will score 1-19% impairment to improve her overall functional mobility with less pain LTG Duration 12 weeks activity tolerance Short Term Goal (STG) pt will be able to stand > 15 mins with back pain <5/10 Program Support Clerk Goal (LTG) pt will be able to stand > 30 mins with back pain <5/10 LTG Duration 12 weeks B LE strength Impairment LE weakness Short Term Goal (STG) pt will increase her B LE strength by 1/2 MMT to allow her negotiating stairs with step over pattern STG Duration 6 weeks Alf Goal (LTG) pt will increase her B LE strength by 1 MMT to allow her negotiating stairs with step over pattern LTG Duration 12 weeks HEP Impairment Pt does not have a HEP Short Term Goal (STG) Pt will comply to HEP independently with proper mechanics STG Duration 8 weeks Assessment Summary Assessment Therapist and pt went over her HEP to evaluate what was causing increased right hip pain. Pt was instructed to decrease the amount of stretch during her hamstring stretch and cut the reps in half, as she was putting too much force behind her pull previously. Assess next time if this has relieved her complaints with her HEP. Physical Therapy Plan Frequency and Duration Frequency of Treatment 2x/Week Duration of Treatment 12 weeks Plan of Care Start Date 06/10/19 Plan of Care End Date 09/09/19 Therapeutic Interventions Therapeutic Interventions Aquatic Therapy Balance Training Gait Training Home Exercise Program Joint Mobilizations Manual Therapy Neuromuscular Re-education Orthotic/Prosthetic Management Patient/Caregiver Education Self-Care/Home Management Soft Tissue Mobilization Taping Therapeutic Activities Therapeutic Exercises Modalities Cold Pack/Ice Massage Electric Stimulation Hot Packs Infrared Therapy Traction- Mechanical Ultrasound Next Visit Focus/Plan Next Note Type Treatment Note Next Visit Plan check 6 mins walk test, step up test check shoes, single leg supine /seated position balance, tandem R hip mob, nerve glide (post) seated reach seated stretch focus on hip and lumbar movement dissociation. will add cardio equipment into POC
--- NOTE | 2019-06-24 18:34 | PT.OTN ---
Current Diagnoses Unspecified kyphosis, thoracic region (06/24/19) Scoliosis, unspecified (06/24/19) Other spondylosis with radiculopathy, lumbosacral region (06/24/19) Spondylosis without myelopathy or radiculopathy, site unspecified (06/24/19) Spinal stenosis, site unspecified (06/24/19) Other biomechanical lesions of lumbar region (06/24/19) Physical Therapy Treatment Note PT-OP-A Visit Information Start: 06/10/19 18:41 Freq: Status: Active Protocol: Document 06/24/19 15:15 HH (Rec: 06/24/19 18:34 HH [email or web address]) Out-Patient Physical Therapy Visit Information Visit Information Visit Type Treatment Note Visit Start Time 15:15 Visit Stop Time 16:00 Total Visit Minutes 45 Visit Number 5 Number of PROP SETTER Visits 0 PT-OP-B Current Condition Start: 06/10/19 18:41 Freq: Status: Active Protocol: Document 06/10/19 13:45 HH (Rec: 06/10/19 19:01 HH [email or web address]) Current Condition History of Current Condition Onset Date many years ago Current Complaints Scoliosis, bilateral back pain , B hip pain L>R History of Current Condition Pt presents to clinic with chronic LBP, B hip pain L>R since many years ago with unknown etiology. Pt c/o her symptoms radiating pain to her L leg constantly. She states her pain gets wose by standing / walking > 10-15 mins who has to sit or lay down to reduce her pain. Pt had a anti- inflammatory shot from Dr. Philip a month ago but her symptoms came back a week after. Pt was diagnosed with scoliosis many years ago and had a R hip replacement 7 years ago due to severe OA. Her L hip pain then started getting worse since her R RUMA and she wears heel lift insole occasionally due to LLD R>L. Prior Treatments and Tests R hip replacement 7 years ago Treatment Goals Patient/Caregiver Goals 1. to be pain free during walking and standing 2. To strengthen her L LE for stair and prolonged walking Prior Functional Status Baseline Function- ADL's Independent Baseline Function- Mobility Independent Current Functional Impairments (Reported) Functional Limitations- ADL's unable to wash dishes for more than 5 mins unable to carry heavy objects Functional Limitations- Mobility/Gait step to pattern with the use of handrails for stair climbing Personal Factors Other Personal Factors That May Effect skin cancer (without chemo/ Therapy/Recovery radiation therapy) PT-OP-C Subjective Start: 06/10/19 18:41 Freq: Status: Active Protocol: Document 06/24/19 15:15 HH (Rec: 06/24/19 18:34 [email or web address]) OP-PT Subjective Patient Comments Patient Comments my back pain is around the same. Have been doing my ex everyday. PT-OP-D Balance Start: 06/10/19 18:41 Freq: Status: Active Protocol: Document 06/10/19 13:45 HH (Rec: 06/10/19 19:01 [email or web address]) OP-PT Balance Assessment Sitting Balance Static Sitting Balance Ability Normal Dynamic Sitting Balance Ability Normal Standing Balance Static Standing Balance Ability Fair Dynamic Standing Balance Ability Fair Balance Tests Single Limb Standing Single Limb- Right 2s Single Limb- Left 4s Barbour Fall Scale Copyright Permission PT-OP-G Mobility & Gait Start: 06/10/19 18:41 Freq: Status: Active Protocol: Document 06/10/19 13:45 HH (Rec: 06/10/19 19:01 [email or web address]) OP Gait Assessment Gait Gait Assistance Required: Independent Gait Deviations General Gait Pattern Antalgic Decreased Stride Length Decreased Feet Clearance Flexed Trunk Lateral Trunk Lean Step-to Gait Stair Climbing Evaluation Technique/Endurance Stair Climbing Direction Ascend and Descend Stair Climbing Technique Step to Step Comments Stair Climbing Comments with B rails PT-OP-H Neuro Start: 06/10/19 18:41 Freq: Status: Active Protocol: Document 06/10/19 13:45 HH (Rec: 06/10/19 19:09 [email or web address]) Deep Tendon Reflex & Clonus Assessment Deep Tendon Reflex Right Achilles Deep Tendon Reflex 2+ Normal Right Patellar Deep Tendon Reflex 2+ Normal Left Achilles Deep Tendon Reflex 2+ Normal Left Patellar Deep Tendon Reflex 1+ Diminished PT-OP-J Posture/Palpation/Skin Start: 06/10/19 18:41 Freq: Status: Active Protocol: Document 06/10/19 13:45 HH (Rec: 06/10/19 19:01 [email or web address]) Posture Evaluation Position Standing Evaluation View Anterior T-Spine Posture Fixed Scoliosis on (L) Increased Kyphosis L-Spine Posture Fixed Scoliosis on (R) Shoulder Posture (R) Elevated Weight Distribution Weight Shifted Right PT-OP-K Range of Motion Start: 06/10/19 18:41 Freq: Status: Active Protocol: Document 06/10/19 13:45 HH (Rec: 06/11/19 12:59 HH [email or web address]) Lumbar Spine Range of Motion Lumbar Spine Active Degrees Testing Position Standing Flexion 45 Extension 10 Rotation Left 25 Rotation Right 23 Lateral Flexion Left 15 Lateral Flexion Right 10 ROM Limitations Soft Tissue Tightness Bony Restriction Pain PT-OP-L Special Tests Start: 06/10/19 18:41 Freq: Status: Active Protocol: Document 06/10/19 13:45 HH (Rec: 06/10/19 19:09 [email or web address]) Special Tests Lumbar Spine Special Tests Straight Leg Raise Test Results +ve on R (pain at buttock) Comments unable to lift on LLE Standing Flexion Test Results +ve Comments L thoracic hump and R lumbar hump PT-OP-M Strength Start: 06/10/19 18:41 Freq: Status: Active Protocol: Document 06/10/19 13:45 HH (Rec: 06/10/19 19:09 HH [email or web address]) Hip Strength Hip Manual Muscle Testing Right Flexion (L2) 4 Good Extension (S1) 4 Good Abduction 4 Good Adduction 4 Good Left Flexion (L2) 3+ Fair+ Extension (S1) 4- Good- Abduction 3+ Fair+ Knee Strength Knee Manual Muscle Testing Right Flexion (S2) 4 Good Extension (L3) 4 Good Left Flexion (S2) 4 Good Extension (L3) 4 Good PT-OP-Q Treatments Start: 06/10/19 18:41 Freq: Status: Active Protocol: Document 06/24/19 15:15 HH (Rec: 06/24/19 18:34 HH [email or web address]) Cardio Equipment Recumbent Stepper (Sci-Fit) Duration (Minutes) 5 Gym Equipment Shuttle Recovery Unilateral Squats Resistance 25# Shuttle Recovery Platform Stable Bilateral Squats Resistance 50# Shuttle Recovery Platform Stable Therapeutic Exercises Supine Exercises supine bridge Side bilateral Reps/Minutes 10 x 3 Comments cues on gluteal engagement hip wipers Side bilateral Reps/Minutes 10x2 Comments cues on neutral spine, end range and eccentric control Sitting Exercises seated table slide Side bilateral Equipment Used towel and table Reps/Minutes 10 x 3 Comments forward and diagonal direction seated trunk reach Side bilateral Equipment Used mendoza therapy ball Reps/Minutes 10 x 3 Comments forward and diagonal direction Manual Therapy Treatment Manual Traction lumbar traction Body Position Hooklying Reps/Duration 20 secs hold x 5 Comments belt behind knees. PT-OP-R Modalities Start: 06/10/19 18:41 Freq: Status: Active Protocol: Document 06/19/19 15:15 DCW (Rec: 06/19/19 16:01 DCW [id number]) Hot Pack/Cold Pack Treatment Hot Pack Location lumbar Patient Position Hooklying Treatment Duration (minutes) 10 Patient Tolerance Good PT-OP-T Assessment and Plan Start: 06/10/19 18:41 Freq: Status: Active Protocol: Document 06/24/19 15:15 HH (Rec: 06/24/19 18:34 HH [email or web address]) Physical Therapy Assessment Goals Oswestry LBP questionnaire Impairment pt scores at 22/50 Intermediate Goal (LTG) Pt will score 1-19% impairment to improve her overall functional mobility with less pain LTG Duration 12 weeks activity tolerance Short Term Goal (STG) pt will be able to stand > 15 mins with back pain <5/10 Intermediate Goal (LTG) pt will be able to stand > 30 mins with back pain <5/10 LTG Duration 12 weeks B LE strength Impairment LE weakness Short Term Goal (STG) pt will increase her B LE strength by 1/2 MMT to allow her negotiating stairs with step over pattern STG Duration 6 weeks Intermediate Goal (LTG) pt will increase her B LE strength by 1 MMT to allow her negotiating stairs with step over pattern LTG Duration 12 weeks HEP Impairment Pt does not have a HEP Short Term Goal (STG) Pt will comply to HEP independently with proper mechanics STG Duration 8 weeks Assessment Summary Assessment Replaced nerve glide with table slide and supine wipers with bridging as HEP. Pt jessica tx well with focus on trunk ROM today. Denies pain and discomfort. Physical Therapy Plan Next Visit Focus/Plan Next Note Type Treatment Note Next Visit Plan cont B LE strengthening hip ROM and trunk ROM as jessica
--- NOTE | 2019-06-26 15:58 | PT.OTN ---
Current Diagnoses Unspecified kyphosis, thoracic region (06/26/19) Scoliosis, unspecified (06/26/19) Other spondylosis with radiculopathy, lumbosacral region (06/26/19) Spondylosis without myelopathy or radiculopathy, site unspecified (06/26/19) Spinal stenosis, site unspecified (06/26/19) Other biomechanical lesions of lumbar region (06/26/19) Physical Therapy Treatment Note PT-OP-A Visit Information Start: 06/10/19 18:41 Freq: Status: Active Protocol: Document 06/26/19 15:15 DCW (Rec: 06/26/19 15:58 DCW [id number]) Out-Patient Physical Therapy Visit Information Visit Information Visit Type Treatment Note Visit Start Time 15:15 Visit Stop Time 16:00 Total Visit Minutes 45 Visit Number 6 Number of SILO OPERATOR Visits 0 Evaluation Information Evaluation Date 06/10/19 PT-OP-B Current Condition Start: 06/10/19 18:41 Freq: Status: Active Protocol: Document 06/10/19 13:45 HH (Rec: 06/10/19 19:01 HH [email or web address]) Current Condition History of Current Condition Onset Date many years ago Current Complaints Scoliosis, bilateral back pain , B hip pain L>R History of Current Condition Pt presents to clinic with chronic LBP, B hip pain L>R since many years ago with unknown etiology. Pt c/o her symptoms radiating pain to her L leg constantly. She states her pain gets wose by standing / walking > 10-15 mins who has to sit or lay down to reduce her pain. Pt had a anti- inflammatory shot from Dr. Philip a month ago but her symptoms came back a week after. Pt was diagnosed with scoliosis many years ago and had a R hip replacement 7 years ago due to severe OA. Her L hip pain then started getting worse since her R RUMA and she wears heel lift insole occasionally due to LLD R>L. Prior Treatments and Tests R hip replacement 7 years ago Treatment Goals Patient/Caregiver Goals 1. to be pain free during walking and standing 2. To strengthen her L LE for stair and prolonged walking Prior Functional Status Baseline Function- ADL's Independent Baseline Function- Mobility Independent Current Functional Impairments (Reported) Functional Limitations- ADL's unable to wash dishes for more than 5 mins unable to carry heavy objects Functional Limitations- Mobility/Gait step to pattern with the use of handrails for stair climbing Personal Factors Other Personal Factors That May Effect skin cancer (without chemo/ Therapy/Recovery radiation therapy) PT-OP-C Subjective Start: 06/10/19 18:41 Freq: Status: Active Protocol: Document 06/26/19 15:15 DCW (Rec: 06/26/19 15:58 DCW [id number]) OP-PT Subjective Patient Comments Patient Comments I'm about the same. PT-OP-D Balance Start: 06/10/19 18:41 Freq: Status: Active Protocol: Document 06/10/19 13:45 HH (Rec: 06/10/19 19:01 [email or web address]) OP-PT Balance Assessment Sitting Balance Static Sitting Balance Ability Normal Dynamic Sitting Balance Ability Normal Standing Balance Static Standing Balance Ability Fair Dynamic Standing Balance Ability Fair Balance Tests Single Limb Standing Single Limb- Right 2s Single Limb- Left 4s Barbour Fall Scale Copyright Permission PT-OP-G Mobility & Gait Start: 06/10/19 18:41 Freq: Status: Active Protocol: Document 06/10/19 13:45 HH (Rec: 06/10/19 19:01 [email or web address]) OP Gait Assessment Gait Gait Assistance Required: Independent Gait Deviations General Gait Pattern Antalgic Decreased Stride Length Decreased Feet Clearance Flexed Trunk Lateral Trunk Lean Step-to Gait Stair Climbing Evaluation Technique/Endurance Stair Climbing Direction Ascend and Descend Stair Climbing Technique Step to Step Comments Stair Climbing Comments with B rails PT-OP-H Neuro Start: 06/10/19 18:41 Freq: Status: Active Protocol: Document 06/10/19 13:45 HH (Rec: 06/10/19 19:09 [email or web address]) Deep Tendon Reflex & Clonus Assessment Deep Tendon Reflex Right Achilles Deep Tendon Reflex 2+ Normal Right Patellar Deep Tendon Reflex 2+ Normal Left Achilles Deep Tendon Reflex 2+ Normal Left Patellar Deep Tendon Reflex 1+ Diminished PT-OP-J Posture/Palpation/Skin Start: 06/10/19 18:41 Freq: Status: Active Protocol: Document 06/10/19 13:45 HH (Rec: 06/10/19 19:01 [email or web address]) Posture Evaluation Position Standing Evaluation View Anterior T-Spine Posture Fixed Scoliosis on (L) Increased Kyphosis L-Spine Posture Fixed Scoliosis on (R) Shoulder Posture (R) Elevated Weight Distribution Weight Shifted Right PT-OP-K Range of Motion Start: 06/10/19 18:41 Freq: Status: Active Protocol: Document 06/10/19 13:45 HH (Rec: 06/11/19 12:59 HH [email or web address]) Lumbar Spine Range of Motion Lumbar Spine Active Degrees Testing Position Standing Flexion 45 Extension 10 Rotation Left 25 Rotation Right 23 Lateral Flexion Left 15 Lateral Flexion Right 10 ROM Limitations Soft Tissue Tightness Bony Restriction Pain PT-OP-L Special Tests Start: 06/10/19 18:41 Freq: Status: Active Protocol: Document 06/10/19 13:45 HH (Rec: 06/10/19 19:09 [email or web address]) Special Tests Lumbar Spine Special Tests Straight Leg Raise Test Results +ve on R (pain at buttock) Comments unable to lift on LLE Standing Flexion Test Results +ve Comments L thoracic hump and R lumbar hump PT-OP-M Strength Start: 06/10/19 18:41 Freq: Status: Active Protocol: Document 06/10/19 13:45 HH (Rec: 06/10/19 19:09 [email or web address]) Hip Strength Hip Manual Muscle Testing Right Flexion (L2) 4 Good Extension (S1) 4 Good Abduction 4 Good Adduction 4 Good Left Flexion (L2) 3+ Fair+ Extension (S1) 4- Good- Abduction 3+ Fair+ Knee Strength Knee Manual Muscle Testing Right Flexion (S2) 4 Good Extension (L3) 4 Good Left Flexion (S2) 4 Good Extension (L3) 4 Good PT-OP-Q Treatments Start: 06/10/19 18:41 Freq: Status: Active Protocol: Document 06/26/19 15:15 DCW (Rec: 06/26/19 15:58 DCW [id number]) Cardio Equipment Recumbent Bicycle Duration (Minutes) 5 Resistance 2 Seat Position 4 Gym Equipment Shuttle Recovery Unilateral Squats Resistance 25# Shuttle Recovery Platform Stable Bilateral Squats Resistance 50# Shuttle Recovery Platform Stable Therapeutic Exercises Supine Exercises supine bridge Side bilateral Reps/Minutes 10 x 3 Comments cues on gluteal engagement hip wipers Side bilateral Reps/Minutes 10x2 R HS stretch Side right Reps/Minutes 30 x2 Sitting Exercises Trunk Flexion Sitting Exercise Name Sun Salutations Resistance 1.1# Ball Reps/Minutes x5 Trunk rotation Sitting Exercise Name Trunk rotation Side bilateral Resistance 1.1# Ball Reps/Minutes x5 seated trunk reach Side bilateral Equipment Used mendoza therapy ball Reps/Minutes 10 x 3 Comments forward and diagonal direction seated knee extension Side bilateral Reps/Minutes 8 x 2 Comments cues on DF PT-OP-R Modalities Start: 06/10/19 18:41 Freq: Status: Active Protocol: Document 06/19/19 15:15 DCW (Rec: 06/19/19 16:01 DCW [id number]) Hot Pack/Cold Pack Treatment Hot Pack Location lumbar Patient Position Hooklying Treatment Duration (minutes) 10 Patient Tolerance Good PT-OP-T Assessment and Plan Start: 06/10/19 18:41 Freq: Status: Active Protocol: Document 06/26/19 15:15 DCW (Rec: 06/26/19 15:58 DCW [id number]) Physical Therapy Assessment Goals Oswestry LBP questionnaire Impairment pt scores at 22/50 Skilled Nursing Goal (LTG) Pt will score 1-19% impairment to improve her overall functional mobility with less pain LTG Duration 12 weeks activity tolerance Short Term Goal (STG) pt will be able to stand > 15 mins with back pain <5/10 Skilled Nursing Goal (LTG) pt will be able to stand > 30 mins with back pain <5/10 LTG Duration 12 weeks B LE strength Impairment LE weakness Short Term Goal (STG) pt will increase her B LE strength by 1/2 MMT to allow her negotiating stairs with step over pattern STG Duration 6 weeks Histology Tech Goal (LTG) pt will increase her B LE strength by 1 MMT to allow her negotiating stairs with step over pattern LTG Duration 12 weeks HEP Impairment Pt does not have a HEP Short Term Goal (STG) Pt will comply to HEP independently with proper mechanics STG Duration 8 weeks Assessment Summary Assessment Pt tolerated treatment well, has no current complaints or concerns. Physical Therapy Plan Frequency and Duration Frequency of Treatment 2x/Week Duration of Treatment 12 weeks Plan of Care Start Date 06/10/19 Plan of Care End Date 09/09/19 Therapeutic Interventions Therapeutic Interventions Aquatic Therapy Balance Training Gait Training Home Exercise Program Joint Mobilizations Manual Therapy Neuromuscular Re-education Orthotic/Prosthetic Management Patient/Caregiver Education Self-Care/Home Management Soft Tissue Mobilization Taping Therapeutic Activities Therapeutic Exercises Modalities Cold Pack/Ice Massage Electric Stimulation Hot Packs Infrared Therapy Traction- Mechanical Ultrasound Next Visit Focus/Plan Next Note Type Treatment Note Next Visit Plan check 6 mins walk test, step up test check shoes, single leg supine /seated position balance, tandem R hip mob, nerve glide (post) seated reach seated stretch focus on hip and lumbar movement dissociation. will add cardio equipment into POC
--- NOTE | 2019-07-01 18:41 | PT.OTN ---
Current Diagnoses Unspecified kyphosis, thoracic region (07/01/19) Scoliosis, unspecified (07/01/19) Other spondylosis with radiculopathy, lumbosacral region (07/01/19) Spondylosis without myelopathy or radiculopathy, site unspecified (07/01/19) Spinal stenosis, site unspecified (07/01/19) Other biomechanical lesions of lumbar region (07/01/19) Physical Therapy Treatment Note PT-OP-A Visit Information Start: 06/10/19 18:41 Freq: Status: Active Protocol: Document 07/01/19 17:15 AR (Rec: 07/01/19 17:26 AR [id number]) Out-Patient Physical Therapy Visit Information Visit Information Visit Type Treatment Note Visit Start Time 16:00 Visit Stop Time 17:00 Total Visit Minutes 60 Visit Number 7 Number of DIRECTOR OF SEARCH ENGINE MARKETING Visits 0 PT-OP-B Current Condition Start: 06/10/19 18:41 Freq: Status: Active Protocol: Document 06/10/19 13:45 HH (Rec: 06/10/19 19:01 HH [email or web address]) Current Condition History of Current Condition Onset Date many years ago Current Complaints Scoliosis, bilateral back pain , B hip pain L>R History of Current Condition Pt presents to clinic with chronic LBP, B hip pain L>R since many years ago with unknown etiology. Pt c/o her symptoms radiating pain to her L leg constantly. She states her pain gets wose by standing / walking > 10-15 mins who has to sit or lay down to reduce her pain. Pt had a anti- inflammatory shot from Dr. Philip a month ago but her symptoms came back a week after. Pt was diagnosed with scoliosis many years ago and had a R hip replacement 7 years ago due to severe OA. Her L hip pain then started getting worse since her R RUMA and she wears heel lift insole occasionally due to LLD R>L. Prior Treatments and Tests R hip replacement 7 years ago Treatment Goals Patient/Caregiver Goals 1. to be pain free during walking and standing 2. To strengthen her L LE for stair and prolonged walking Prior Functional Status Baseline Function- ADL's Independent Baseline Function- Mobility Independent Current Functional Impairments (Reported) Functional Limitations- ADL's unable to wash dishes for more than 5 mins unable to carry heavy objects Functional Limitations- Mobility/Gait step to pattern with the use of handrails for stair climbing Personal Factors Other Personal Factors That May Effect skin cancer (without chemo/ Therapy/Recovery radiation therapy) PT-OP-C Subjective Start: 06/10/19 18:41 Freq: Status: Active Protocol: Document 07/01/19 17:15 AR (Rec: 07/01/19 17:26 AR [id number]) OP-PT Subjective Patient Comments Patient Comments Pt reports that stairs are still challenging for her and she still has weakness in her LLE. She has been compliant with HEP but some exercises cause a pulling in R hip. PT-OP-D Balance Start: 06/10/19 18:41 Freq: Status: Active Protocol: Document 06/10/19 13:45 HH (Rec: 06/10/19 19:01 HH [email or web address]) OP-PT Balance Assessment Sitting Balance Static Sitting Balance Ability Normal Dynamic Sitting Balance Ability Normal Standing Balance Static Standing Balance Ability Fair Dynamic Standing Balance Ability Fair Balance Tests Single Limb Standing Single Limb- Right 2s Single Limb- Left 4s Barbour Fall Scale Copyright Permission PT-OP-G Mobility & Gait Start: 06/10/19 18:41 Freq: Status: Active Protocol: Document 06/10/19 13:45 HH (Rec: 06/10/19 19:01 HH [email or web address]) OP Gait Assessment Gait Gait Assistance Required: Independent Gait Deviations General Gait Pattern Antalgic Decreased Stride Length Decreased Feet Clearance Flexed Trunk Lateral Trunk Lean Step-to Gait Stair Climbing Evaluation Technique/Endurance Stair Climbing Direction Ascend and Descend Stair Climbing Technique Step to Step Comments Stair Climbing Comments with B rails PT-OP-H Neuro Start: 06/10/19 18:41 Freq: Status: Active Protocol: Document 06/10/19 13:45 HH (Rec: 06/10/19 19:09 HH [email or web address]) Deep Tendon Reflex & Clonus Assessment Deep Tendon Reflex Right Achilles Deep Tendon Reflex 2+ Normal Right Patellar Deep Tendon Reflex 2+ Normal Left Achilles Deep Tendon Reflex 2+ Normal Left Patellar Deep Tendon Reflex 1+ Diminished PT-OP-J Posture/Palpation/Skin Start: 06/10/19 18:41 Freq: Status: Active Protocol: Document 06/10/19 13:45 HH (Rec: 06/10/19 19:01 HH [email or web address]) Posture Evaluation Position Standing Evaluation View Anterior T-Spine Posture Fixed Scoliosis on (L) Increased Kyphosis L-Spine Posture Fixed Scoliosis on (R) Shoulder Posture (R) Elevated Weight Distribution Weight Shifted Right PT-OP-K Range of Motion Start: 06/10/19 18:41 Freq: Status: Active Protocol: Document 06/10/19 13:45 HH (Rec: 06/11/19 12:59 HH [email or web address]) Lumbar Spine Range of Motion Lumbar Spine Active Degrees Testing Position Standing Flexion 45 Extension 10 Rotation Left 25 Rotation Right 23 Lateral Flexion Left 15 Lateral Flexion Right 10 ROM Limitations Soft Tissue Tightness Bony Restriction Pain PT-OP-L Special Tests Start: 06/10/19 18:41 Freq: Status: Active Protocol: Document 06/10/19 13:45 HH (Rec: 06/10/19 19:09 HH [email or web address]) Special Tests Lumbar Spine Special Tests Straight Leg Raise Test Results +ve on R (pain at buttock) Comments unable to lift on LLE Standing Flexion Test Results +ve Comments L thoracic hump and R lumbar hump PT-OP-M Strength Start: 06/10/19 18:41 Freq: Status: Active Protocol: Document 06/10/19 13:45 HH (Rec: 06/10/19 19:09 HH [email or web address]) Hip Strength Hip Manual Muscle Testing Right Flexion (L2) 4 Good Extension (S1) 4 Good Abduction 4 Good Adduction 4 Good Left Flexion (L2) 3+ Fair+ Extension (S1) 4- Good- Abduction 3+ Fair+ Knee Strength Knee Manual Muscle Testing Right Flexion (S2) 4 Good Extension (L3) 4 Good Left Flexion (S2) 4 Good Extension (L3) 4 Good PT-OP-Q Treatments Start: 06/10/19 18:41 Freq: Status: Active Protocol: Document 07/01/19 17:15 AR (Rec: 07/01/19 17:26 AR [id number]) Cardio Equipment Recumbent Bicycle Duration (Minutes) 5 Resistance 2 Seat Position 4 Gym Equipment Shuttle Recovery Unilateral Squats Resistance 25# Shuttle Recovery Platform Stable Reps/Time 15 reps Bilateral Squats Details cued to avoid knee valgus Resistance 50# Shuttle Recovery Platform Stable Reps/Time 2x15 reps Therapeutic Exercises Supine Exercises supine bridge Side bilateral Reps/Minutes 10 x 2 Comments reviewed HEP. HS pain resolved with glute cueing hip wipers Side bilateral Reps/Minutes 10x2 Comments reviewed HEP, no pulling in hip now. was ed on dec ROM if pulling at home Standing Exercises step up Standing Exercise Name step up Side bilateral Equipment Used 4 step Reps/Minutes 10 reps Comments lateral trunk lean and dec stability on LLE when ascending hip hinge Standing Exercise Name hip hinge Reps/Minutes 15 reps mini squat Standing Exercise Name mini squat w chair Reps/Minutes 2x10 reps Comments cued to avoid knee valgus Manual Therapy Treatment Soft Tissue Mobilization L QL Body Location L QL Mobilization Type Myofascial Release Sustained Pressure Intensity/Depth Moderate Body Position Sidelying Comments pt reported tenderness and that's right where it hurts when she gets back pain at home Joint Mobilizations hip distraction Joint L hip Direction lateral distraction with IR Grade II Body Position Supine Reps/Duration 2 min Comments inc IR ROM after mobilization PT-OP-R Modalities Start: 06/10/19 18:41 Freq: Status: Active Protocol: Document 07/01/19 17:15 AR (Rec: 07/01/19 17:26 AR [id number]) Hot Pack/Cold Pack Treatment Hot Pack Location lumbar Patient Position Hooklying Treatment Duration (minutes) 15 Patient Tolerance Good Comments needed an extra towel added to reduce heat PT-OP-T Assessment and Plan Start: 06/10/19 18:41 Freq: Status: Active Protocol: Document 07/01/19 17:15 AR (Rec: 07/01/19 17:26 AR [id number]) Physical Therapy Assessment Goals Oswestry LBP questionnaire Impairment pt scores at 22/50 Snf Goal (LTG) Pt will score 1-19% impairment to improve her overall functional mobility with less pain LTG Duration 12 weeks activity tolerance Short Term Goal (STG) pt will be able to stand > 15 mins with back pain <5/10 Crap Shooter Goal (LTG) pt will be able to stand > 30 mins with back pain <5/10 LTG Duration 12 weeks B LE strength Impairment LE weakness Short Term Goal (STG) pt will increase her B LE strength by 1/2 MMT to allow her negotiating stairs with step over pattern STG Duration 6 weeks Crap Shooter Goal (LTG) pt will increase her B LE strength by 1 MMT to allow her negotiating stairs with step over pattern LTG Duration 12 weeks HEP Impairment Pt does not have a HEP Short Term Goal (STG) Pt will comply to HEP independently with proper mechanics STG Duration 8 weeks Assessment Summary Assessment Pt present with dec LE weakness and had difficulty with step up w/o large lateral weight shift, dave when ascending with LLE. Pt responded well to manual therapy and was educated on stretching for the area and cont to perform HEP for stabilization. Physical Therapy Plan Frequency and Duration Frequency of Treatment 2x/Week Duration of Treatment 12 weeks Plan of Care Start Date 06/10/19 Plan of Care End Date 09/09/19 Next Visit Focus/Plan Next Note Type Treatment Note Next Visit Plan inc B LE strengthening as tolerated. review STS form and add resistance band at knees to engage glut med. inc quad strenthening PT student participated in treatment with PT direct supervision and guidance and this PT was in agreement with all activities performed.
--- NOTE | 2019-07-03 12:00 | PT.OTN ---
Current Diagnoses Unspecified kyphosis, thoracic region (07/03/19) Scoliosis, unspecified (07/03/19) Other spondylosis with radiculopathy, lumbosacral region (07/03/19) Spondylosis without myelopathy or radiculopathy, site unspecified (07/03/19) Spinal stenosis, site unspecified (07/03/19) Other biomechanical lesions of lumbar region (07/03/19) Physical Therapy Treatment Note PT-OP-A Visit Information Start: 06/10/19 18:41 Freq: Status: Active Protocol: Document 07/03/19 09:45 AMB (Rec: 07/03/19 13:04 AMB [email or web address]) Out-Patient Physical Therapy Visit Information Visit Information Visit Type Treatment Note Visit Start Time 09:45 Visit Stop Time 10:40 Total Visit Minutes 55 Visit Number 8 Number of MARKET DEVELOPER Visits 0 PT-OP-B Current Condition Start: 06/10/19 18:41 Freq: Status: Active Protocol: Document 06/10/19 13:45 HH (Rec: 06/10/19 19:01 HH [email or web address]) Current Condition History of Current Condition Onset Date many years ago Current Complaints Scoliosis, bilateral back pain , B hip pain L>R History of Current Condition Pt presents to clinic with chronic LBP, B hip pain L>R since many years ago with unknown etiology. Pt c/o her symptoms radiating pain to her L leg constantly. She states her pain gets wose by standing / walking > 10-15 mins who has to sit or lay down to reduce her pain. Pt had a anti- inflammatory shot from Dr. Philip a month ago but her symptoms came back a week after. Pt was diagnosed with scoliosis many years ago and had a R hip replacement 7 years ago due to severe OA. Her L hip pain then started getting worse since her R RUMA and she wears heel lift insole occasionally due to LLD R>L. Prior Treatments and Tests R hip replacement 7 years ago Treatment Goals Patient/Caregiver Goals 1. to be pain free during walking and standing 2. To strengthen her L LE for stair and prolonged walking Prior Functional Status Baseline Function- ADL's Independent Baseline Function- Mobility Independent Current Functional Impairments (Reported) Functional Limitations- ADL's unable to wash dishes for more than 5 mins unable to carry heavy objects Functional Limitations- Mobility/Gait step to pattern with the use of handrails for stair climbing Personal Factors Other Personal Factors That May Effect skin cancer (without chemo/ Therapy/Recovery radiation therapy) PT-OP-C Subjective Start: 06/10/19 18:41 Freq: Status: Active Protocol: Document 07/03/19 09:45 AMB (Rec: 07/03/19 13:04 AMB [email or web address]) OP-PT Subjective Patient Comments Patient Comments Hoping that PT will help strengthen L LE but pain is about the same. PT-OP-D Balance Start: 06/10/19 18:41 Freq: Status: Active Protocol: Document 06/10/19 13:45 HH (Rec: 06/10/19 19:01 HH [email or web address]) OP-PT Balance Assessment Sitting Balance Static Sitting Balance Ability Normal Dynamic Sitting Balance Ability Normal Standing Balance Static Standing Balance Ability Fair Dynamic Standing Balance Ability Fair Balance Tests Single Limb Standing Single Limb- Right 2s Single Limb- Left 4s Barbour Fall Scale Copyright Permission PT-OP-G Mobility & Gait Start: 06/10/19 18:41 Freq: Status: Active Protocol: Document 06/10/19 13:45 HH (Rec: 06/10/19 19:01 HH [email or web address]) OP Gait Assessment Gait Gait Assistance Required: Independent Gait Deviations General Gait Pattern Antalgic Decreased Stride Length Decreased Feet Clearance Flexed Trunk Lateral Trunk Lean Step-to Gait Stair Climbing Evaluation Technique/Endurance Stair Climbing Direction Ascend and Descend Stair Climbing Technique Step to Step Comments Stair Climbing Comments with B rails PT-OP-H Neuro Start: 06/10/19 18:41 Freq: Status: Active Protocol: Document 06/10/19 13:45 HH (Rec: 06/10/19 19:09 HH [email or web address]) Deep Tendon Reflex & Clonus Assessment Deep Tendon Reflex Right Achilles Deep Tendon Reflex 2+ Normal Right Patellar Deep Tendon Reflex 2+ Normal Left Achilles Deep Tendon Reflex 2+ Normal Left Patellar Deep Tendon Reflex 1+ Diminished PT-OP-J Posture/Palpation/Skin Start: 06/10/19 18:41 Freq: Status: Active Protocol: Document 06/10/19 13:45 HH (Rec: 06/10/19 19:01 HH [email or web address]) Posture Evaluation Position Standing Evaluation View Anterior T-Spine Posture Fixed Scoliosis on (L) Increased Kyphosis L-Spine Posture Fixed Scoliosis on (R) Shoulder Posture (R) Elevated Weight Distribution Weight Shifted Right PT-OP-K Range of Motion Start: 06/10/19 18:41 Freq: Status: Active Protocol: Document 06/10/19 13:45 HH (Rec: 06/11/19 12:59 HH [email or web address]) Lumbar Spine Range of Motion Lumbar Spine Active Degrees Testing Position Standing Flexion 45 Extension 10 Rotation Left 25 Rotation Right 23 Lateral Flexion Left 15 Lateral Flexion Right 10 ROM Limitations Soft Tissue Tightness Bony Restriction Pain PT-OP-L Special Tests Start: 06/10/19 18:41 Freq: Status: Active Protocol: Document 06/10/19 13:45 HH (Rec: 06/10/19 19:09 HH [email or web address]) Special Tests Lumbar Spine Special Tests Straight Leg Raise Test Results +ve on R (pain at buttock) Comments unable to lift on LLE Standing Flexion Test Results +ve Comments L thoracic hump and R lumbar hump PT-OP-M Strength Start: 06/10/19 18:41 Freq: Status: Active Protocol: Document 06/10/19 13:45 HH (Rec: 06/10/19 19:09 HH [email or web address]) Hip Strength Hip Manual Muscle Testing Right Flexion (L2) 4 Good Extension (S1) 4 Good Abduction 4 Good Adduction 4 Good Left Flexion (L2) 3+ Fair+ Extension (S1) 4- Good- Abduction 3+ Fair+ Knee Strength Knee Manual Muscle Testing Right Flexion (S2) 4 Good Extension (L3) 4 Good Left Flexion (S2) 4 Good Extension (L3) 4 Good PT-OP-Q Treatments Start: 06/10/19 18:41 Freq: Status: Active Protocol: Document 07/03/19 09:45 AMB (Rec: 07/03/19 09:57 AMB [id number]) Cardio Equipment Recumbent Bicycle Duration (Minutes) 5 Resistance 3 Seat Position 4 Gym Equipment Shuttle Recovery Unilateral Squats Resistance 25# Shuttle Recovery Platform Stable Reps/Time 15 reps Bilateral Squats Details cued to avoid knee valgus Resistance 50# Shuttle Recovery Platform Stable Reps/Time 2x15 reps Therapeutic Exercises Supine Exercises supine bridge Side bilateral Reps/Minutes 10 x 2 Comments reviewed HEP. HS pain resolved with glute cueing hip wipers Side bilateral Reps/Minutes 10x2 Comments reviewed HEP, no pulling in hip now. was ed on dec ROM if pulling at home R HS stretch Side right Reps/Minutes 30 x2 Sidelying Exercises Clamshell Sidelying Exercise Name Clamshell Side bilateral Standing Exercises mini squat Standing Exercise Name mini squat w chair Reps/Minutes 2x10 reps Comments cued to avoid knee valgus Manual Therapy Treatment Soft Tissue Mobilization L QL Body Location L QL Mobilization Type Myofascial Release Sustained Pressure Intensity/Depth Moderate Body Position Sidelying Comments pt reported tenderness PT-OP-R Modalities Start: 06/10/19 18:41 Freq: Status: Active Protocol: Document 07/03/19 09:45 AMB (Rec: 07/03/19 10:01 AMB [email or web address]) Hot Pack/Cold Pack Treatment Hot Pack Location lumbar Patient Position Hooklying Treatment Duration (minutes) 15 Patient Tolerance Good Comments needed an extra towel added to reduce heat PT-OP-T Assessment and Plan Start: 06/10/19 18:41 Freq: Status: Active Protocol: Document 07/03/19 09:45 AMB (Rec: 07/05/19 09:35 AMB [email or web address]) Physical Therapy Assessment Assessment Summary Assessment Quique'xiomara L LE weakness continues to be her main concern, stairs continue to be challenging, as she is not sure how long it has been since she has gone up with an alternating gait pattern. Physical Therapy Plan Next Visit Focus/Plan Next Note Type Treatment Note Next Visit Plan inc B LE strengthening as tolerated. review STS form and inc quad strenthening
--- NOTE | 2019-07-07 12:08 | PT.OTN ---
Current Diagnoses Unspecified kyphosis, thoracic region (07/07/19) Scoliosis, unspecified (07/07/19) Other spondylosis with radiculopathy, lumbosacral region (07/07/19) Spondylosis without myelopathy or radiculopathy, site unspecified (07/07/19) Spinal stenosis, site unspecified (07/07/19) Other biomechanical lesions of lumbar region (07/07/19) Physical Therapy Treatment Note PT-OP-A Visit Information Start: 06/10/19 18:41 Freq: Status: Active Protocol: Document 07/07/19 11:20 HH (Rec: 07/07/19 12:08 [email or web address]) Out-Patient Physical Therapy Visit Information Visit Information Visit Type Treatment Note Visit Start Time 11:20 Visit Stop Time 12:00 Total Visit Minutes 40 Visit Number 9 Number of ORTHOPEDICALLY IMPAIRED TEACHER Visits 0 PT-OP-B Current Condition Start: 06/10/19 18:41 Freq: Status: Active Protocol: Document 06/10/19 13:45 HH (Rec: 06/10/19 19:01 HH [email or web address]) Current Condition History of Current Condition Onset Date many years ago Current Complaints Scoliosis, bilateral back pain , B hip pain L>R History of Current Condition Pt presents to clinic with chronic LBP, B hip pain L>R since many years ago with unknown etiology. Pt c/o her symptoms radiating pain to her L leg constantly. She states her pain gets wose by standing / walking > 10-15 mins who has to sit or lay down to reduce her pain. Pt had a anti- inflammatory shot from Dr. Philip a month ago but her symptoms came back a week after. Pt was diagnosed with scoliosis many years ago and had a R hip replacement 7 years ago due to severe OA. Her L hip pain then started getting worse since her R RUMA and she wears heel lift insole occasionally due to LLD R>L. Prior Treatments and Tests R hip replacement 7 years ago Treatment Goals Patient/Caregiver Goals 1. to be pain free during walking and standing 2. To strengthen her L LE for stair and prolonged walking Prior Functional Status Baseline Function- ADL's Independent Baseline Function- Mobility Independent Current Functional Impairments (Reported) Functional Limitations- ADL's unable to wash dishes for more than 5 mins unable to carry heavy objects Functional Limitations- Mobility/Gait step to pattern with the use of handrails for stair climbing Personal Factors Other Personal Factors That May Effect skin cancer (without chemo/ Therapy/Recovery radiation therapy) PT-OP-C Subjective Start: 06/10/19 18:41 Freq: Status: Active Protocol: Document 07/07/19 11:20 HH (Rec: 07/07/19 12:08 [email or web address]) OP-PT Subjective Patient Comments Patient Comments I started to feel better recently. Pain is less intense and i am able to do a little more. But my L leg strength is still around the same. I just need to be patient. Patient Reported Progress Improving PT-OP-D Balance Start: 06/10/19 18:41 Freq: Status: Active Protocol: Document 06/10/19 13:45 HH (Rec: 06/10/19 19:01 [email or web address]) OP-PT Balance Assessment Sitting Balance Static Sitting Balance Ability Normal Dynamic Sitting Balance Ability Normal Standing Balance Static Standing Balance Ability Fair Dynamic Standing Balance Ability Fair Balance Tests Single Limb Standing Single Limb- Right 2s Single Limb- Left 4s Barbour Fall Scale Copyright Permission PT-OP-G Mobility & Gait Start: 06/10/19 18:41 Freq: Status: Active Protocol: Document 06/10/19 13:45 HH (Rec: 06/10/19 19:01 [email or web address]) OP Gait Assessment Gait Gait Assistance Required: Independent Gait Deviations General Gait Pattern Antalgic Decreased Stride Length Decreased Feet Clearance Flexed Trunk Lateral Trunk Lean Step-to Gait Stair Climbing Evaluation Technique/Endurance Stair Climbing Direction Ascend and Descend Stair Climbing Technique Step to Step Comments Stair Climbing Comments with B rails PT-OP-H Neuro Start: 06/10/19 18:41 Freq: Status: Active Protocol: Document 06/10/19 13:45 HH (Rec: 06/10/19 19:09 [email or web address]) Deep Tendon Reflex & Clonus Assessment Deep Tendon Reflex Right Achilles Deep Tendon Reflex 2+ Normal Right Patellar Deep Tendon Reflex 2+ Normal Left Achilles Deep Tendon Reflex 2+ Normal Left Patellar Deep Tendon Reflex 1+ Diminished PT-OP-J Posture/Palpation/Skin Start: 06/10/19 18:41 Freq: Status: Active Protocol: Document 06/10/19 13:45 HH (Rec: 06/10/19 19:01 [email or web address]) Posture Evaluation Position Standing Evaluation View Anterior T-Spine Posture Fixed Scoliosis on (L) Increased Kyphosis L-Spine Posture Fixed Scoliosis on (R) Shoulder Posture (R) Elevated Weight Distribution Weight Shifted Right PT-OP-K Range of Motion Start: 06/10/19 18:41 Freq: Status: Active Protocol: Document 06/10/19 13:45 HH (Rec: 06/11/19 12:59 HH [email or web address]) Lumbar Spine Range of Motion Lumbar Spine Active Degrees Testing Position Standing Flexion 45 Extension 10 Rotation Left 25 Rotation Right 23 Lateral Flexion Left 15 Lateral Flexion Right 10 ROM Limitations Soft Tissue Tightness Bony Restriction Pain PT-OP-L Special Tests Start: 06/10/19 18:41 Freq: Status: Active Protocol: Document 06/10/19 13:45 HH (Rec: 06/10/19 19:09 [email or web address]) Special Tests Lumbar Spine Special Tests Straight Leg Raise Test Results +ve on R (pain at buttock) Comments unable to lift on LLE Standing Flexion Test Results +ve Comments L thoracic hump and R lumbar hump PT-OP-M Strength Start: 06/10/19 18:41 Freq: Status: Active Protocol: Document 06/10/19 13:45 HH (Rec: 06/10/19 19:09 [email or web address]) Hip Strength Hip Manual Muscle Testing Right Flexion (L2) 4 Good Extension (S1) 4 Good Abduction 4 Good Adduction 4 Good Left Flexion (L2) 3+ Fair+ Extension (S1) 4- Good- Abduction 3+ Fair+ Knee Strength Knee Manual Muscle Testing Right Flexion (S2) 4 Good Extension (L3) 4 Good Left Flexion (S2) 4 Good Extension (L3) 4 Good PT-OP-Q Treatments Start: 06/10/19 18:41 Freq: Status: Active Protocol: Document 07/07/19 11:20 HH (Rec: 07/07/19 12:08 HH [email or web address]) Cardio Equipment Recumbent Stepper (Sci-Fit) Duration (Minutes) 5 Resistance 1 Gym Equipment Shuttle Recovery Unilateral Squats Resistance 25# Shuttle Recovery Platform Stable Reps/Time 15 reps Therapeutic Exercises Supine Exercises supine bridge Side bilateral Reps/Minutes 10 x 2 Comments cues on heel push off Sidelying Exercises Clamshell Sidelying Exercise Name Clamshell Side bilateral Comments cues on neutral spine Standing Exercises single leg stance Side left Equipment Used 4 inch step Reps/Minutes 10 x 2 Comments tactile cues to prevent hip drp on R Neuro Re-Education Treatment Balance Activities hurdles step over Details cues on level hip Equipment hurdles Reps/Duration 8 mins Comments hurdles in flattened position hurdles step to Details cues on level hip Equipment hurdles Reps/Duration 8 mins Comments hurdles in flattened position PT-OP-R Modalities Start: 06/10/19 18:41 Freq: Status: Active Protocol: Document 07/03/19 09:45 AMB (Rec: 07/03/19 10:01 AMB [id number]) Hot Pack/Cold Pack Treatment Hot Pack Location lumbar Patient Position Hooklying Treatment Duration (minutes) 15 Patient Tolerance Good Comments needed an extra towel added to reduce heat PT-OP-T Assessment and Plan Start: 06/10/19 18:41 Freq: Status: Active Protocol: Document 07/07/19 11:20 HH (Rec: 07/07/19 12:08 HH [email or web address]) Physical Therapy Assessment Goals Oswestry LBP questionnaire Impairment pt scores at 22/50 Carton Forming Machine Helper Goal (LTG) Pt will score 1-19% impairment to improve her overall functional mobility with less pain LTG Duration 12 weeks activity tolerance Short Term Goal (STG) pt will be able to stand > 15 mins with back pain <5/10 Cart[employer] Forming Machine Helper Goal (LTG) pt will be able to stand > 30 mins with back pain <5/10 LTG Duration 12 weeks B LE strength Impairment LE weakness Short Term Goal (STG) pt will increase her B LE strength by 1/2 MMT to allow her negotiating stairs with step over pattern STG Duration 6 weeks [facility] Goal (LTG) pt will increase her B LE strength by 1 MMT to allow her negotiating stairs with step over pattern LTG Duration 12 weeks HEP Impairment Pt does not have a HEP Short Term Goal (STG) Pt will comply to HEP independently with proper mechanics STG Duration 8 weeks Assessment Summary Assessment Pt has improved progress with less pain. Focused on HEP review, single leg balance, hip stability training today. Pt stated less hip pain with heel push off during bridging. There's noticeable R hip drop during single leg stance on LLE. Manual stabilization and visual demonstration given to level her hip. Pt jessica tx well and motivated. Physical Therapy Plan Next Visit Focus/Plan Next Note Type Treatment Note Next Visit Plan Review HEP hip stability, single leg balance LLE strengthening as jessica.
--- NOTE | 2019-07-09 11:57 | PT.OTN ---
Current Diagnoses Unspecified kyphosis, thoracic region (07/09/19) Scoliosis, unspecified (07/09/19) Other spondylosis with radiculopathy, lumbosacral region (07/09/19) Spondylosis without myelopathy or radiculopathy, site unspecified (07/09/19) Spinal stenosis, site unspecified (07/09/19) Other biomechanical lesions of lumbar region (07/09/19) Physical Therapy Treatment Note PT-OP-A Visit Information Start: 06/10/19 18:41 Freq: Status: Active Protocol: Document 07/09/19 11:20 DCW (Rec: 07/09/19 11:57 DCW [id number]) Out-Patient Physical Therapy Visit Information Visit Information Visit Type Treatment Note Visit Note Pt arrived 5 min late Visit Start Time 11:20 Visit Stop Time 12:00 Total Visit Minutes 40 Visit Number 10 Number of WEATHERIZATION OPERATIONS MANAGER Visits 0 Evaluation Information Evaluation Date 06/10/19 PT-OP-B Current Condition Start: 06/10/19 18:41 Freq: Status: Active Protocol: Document 06/10/19 13:45 HH (Rec: 06/10/19 19:01 HH [email or web address]) Current Condition History of Current Condition Onset Date many years ago Current Complaints Scoliosis, bilateral back pain , B hip pain L>R History of Current Condition Pt presents to clinic with chronic LBP, B hip pain L>R since many years ago with unknown etiology. Pt c/o her symptoms radiating pain to her L leg constantly. She states her pain gets wose by standing / walking > 10-15 mins who has to sit or lay down to reduce her pain. Pt had a anti- inflammatory shot from Dr. Philip a month ago but her symptoms came back a week after. Pt was diagnosed with scoliosis many years ago and had a R hip replacement 7 years ago due to severe OA. Her L hip pain then started getting worse since her R RUMA and she wears heel lift insole occasionally due to LLD R>L. Prior Treatments and Tests R hip replacement 7 years ago Treatment Goals Patient/Caregiver Goals 1. to be pain free during walking and standing 2. To strengthen her L LE for stair and prolonged walking Prior Functional Status Baseline Function- ADL's Independent Baseline Function- Mobility Independent Current Functional Impairments (Reported) Functional Limitations- ADL's unable to wash dishes for more than 5 mins unable to carry heavy objects Functional Limitations- Mobility/Gait step to pattern with the use of handrails for stair climbing Personal Factors Other Personal Factors That May Effect skin cancer (without chemo/ Therapy/Recovery radiation therapy) PT-OP-C Subjective Start: 06/10/19 18:41 Freq: Status: Active Protocol: Document 07/09/19 11:20 DCW (Rec: 07/09/19 11:57 DCW [id number]) OP-PT Subjective Patient Comments Patient Comments Yesterday I went to a meeting that sang an hour and a half, and the chair I was sitting on made my left hip just hurt the whole time I was sitting there. Afterward, I didn't feel like I could get up and walk out, I had to stay there and try to loosen up for a while. PT-OP-D Balance Start: 06/10/19 18:41 Freq: Status: Active Protocol: Document 06/10/19 13:45 HH (Rec: 06/10/19 19:01 [email or web address]) OP-PT Balance Assessment Sitting Balance Static Sitting Balance Ability Normal Dynamic Sitting Balance Ability Normal Standing Balance Static Standing Balance Ability Fair Dynamic Standing Balance Ability Fair Balance Tests Single Limb Standing Single Limb- Right 2s Single Limb- Left 4s Barbour Fall Scale Copyright Permission PT-OP-G Mobility & Gait Start: 06/10/19 18:41 Freq: Status: Active Protocol: Document 06/10/19 13:45 HH (Rec: 06/10/19 19:01 [email or web address]) OP Gait Assessment Gait Gait Assistance Required: Independent Gait Deviations General Gait Pattern Antalgic,Decreased Stride Length,Decreased Feet Clearance,Flexed Trunk,Lateral Trunk Lean,Step-to Gait Stair Climbing Evaluation Technique/Endurance Stair Climbing Direction Ascend and Descend Stair Climbing Technique Step to Step Comments Stair Climbing Comments with B rails PT-OP-H Neuro Start: 06/10/19 18:41 Freq: Status: Active Protocol: Document 06/10/19 13:45 HH (Rec: 06/10/19 19:09 HH [email or web address]) Deep Tendon Reflex & Clonus Assessment Deep Tendon Reflex Right Achilles Deep Tendon Reflex 2+ Normal Right Patellar Deep Tendon Reflex 2+ Normal Left Achilles Deep Tendon Reflex 2+ Normal Left Patellar Deep Tendon Reflex 1+ Diminished PT-OP-J Posture/Palpation/Skin Start: 06/10/19 18:41 Freq: Status: Active Protocol: Document 06/10/19 13:45 HH (Rec: 06/10/19 19:01 HH [email or web address]) Posture Evaluation Position Standing Evaluation View Anterior T-Spine Posture Fixed Scoliosis on (L), Increased Kyphosis L-Spine Posture Fixed Scoliosis on (R) Shoulder Posture (R) Elevated Weight Distribution Weight Shifted Right PT-OP-K Range of Motion Start: 06/10/19 18:41 Freq: Status: Active Protocol: Document 06/10/19 13:45 HH (Rec: 06/11/19 12:59 HH [email or web address]) Lumbar Spine Range of Motion Lumbar Spine Active Degrees Testing Position Standing Flexion 45 Extension 10 Rotation Left 25 Rotation Right 23 Lateral Flexion Left 15 Lateral Flexion Right 10 ROM Limitations Soft Tissue Tightness,Bony Restriction,Pain PT-OP-L Special Tests Start: 06/10/19 18:41 Freq: Status: Active Protocol: Document 06/10/19 13:45 HH (Rec: 06/10/19 19:09 HH [email or web address]) Special Tests Lumbar Spine Special Tests Straight Leg Raise Test Results +ve on R (pain at buttock) Comments unable to lift on LLE Standing Flexion Test Results +ve Comments L thoracic hump and R lumbar hump PT-OP-M Strength Start: 06/10/19 18:41 Freq: Status: Active Protocol: Document 06/10/19 13:45 HH (Rec: 06/10/19 19:09 HH [email or web address]) Hip Strength Hip Manual Muscle Testing Right Flexion (L2) 4 Good Extension (S1) 4 Good Abduction 4 Good Adduction 4 Good Left Flexion (L2) 3+ Fair+ Extension (S1) 4- Good- Abduction 3+ Fair+ Knee Strength Knee Manual Muscle Testing Right Flexion (S2) 4 Good Extension (L3) 4 Good Left Flexion (S2) 4 Good Extension (L3) 4 Good PT-OP-Q Treatments Start: 06/10/19 18:41 Freq: Status: Active Protocol: Document 07/09/19 11:20 DCW (Rec: 07/09/19 11:57 DCW [id number]) Cardio Equipment Recumbent Bicycle Duration (Minutes) 5 Resistance 3 Seat Position 4 Gym Equipment Shuttle Recovery Unilateral Squats Resistance 25# Shuttle Recovery Platform Stable Reps/Time 15 reps Bilateral Squats Resistance 50# Shuttle Recovery Platform Stable Reps/Time 2x15 reps Therapeutic Exercises Supine Exercises supine bridge Side bilateral Reps/Minutes 10 x 2 Comments cues on heel push off hip wipers Supine Exercise Name bernardoield wipers Side bilateral R HS stretch Side right Reps/Minutes 30 x2 Standing Exercises single leg stance Side left Equipment Used 4 inch step Reps/Minutes 10 x 2 Comments tactile cues to prevent hip drp on R mini squat Standing Exercise Name mini squat w chair Reps/Minutes 2x10 reps Comments cued to avoid knee valgus PT-OP-R Modalities Start: 06/10/19 18:41 Freq: Status: Active Protocol: Document 07/03/19 09:45 AMB (Rec: 07/03/19 10:01 AMB [id number]) Hot Pack/Cold Pack Treatment Hot Pack Location lumbar Patient Position Hooklying Treatment Duration (minutes) 15 Patient Tolerance Good Comments needed an extra towel added to reduce heat PT-OP-T Assessment and Plan Start: 06/10/19 18:41 Freq: Status: Active Protocol: Document 07/09/19 11:20 DCW (Rec: 07/09/19 11:57 DCW [id number]) Physical Therapy Assessment Goals Oswestry LBP questionnaire Impairment pt scores at 22/50 Care Home Goal (LTG) Pt will score 1-19% impairment to improve her overall functional mobility with less pain LTG Duration 12 weeks activity tolerance Short Term Goal (STG) pt will be able to stand > 15 mins with back pain <5/10 Diving Instructor Goal (LTG) pt will be able to stand > 30 mins with back pain <5/10 LTG Duration 12 weeks B LE strength Impairment LE weakness Short Term Goal (STG) pt will increase her B LE strength by 1/2 MMT to allow her negotiating stairs with step over pattern STG Duration 6 weeks Diving Instructor Goal (LTG) pt will increase her B LE strength by 1 MMT to allow her negotiating stairs with step over pattern LTG Duration 12 weeks HEP Impairment Pt does not have a HEP Short Term Goal (STG) Pt will comply to HEP independently with proper mechanics STG Duration 8 weeks Assessment Summary Assessment Pt making slow but steady progress with LE strength. Tolerated treatment well today with minimal complaints of difficulty. Physical Therapy Plan Frequency and Duration Frequency of Treatment 2x/Week Duration of Treatment 12 weeks Plan of Care Start Date 06/10/19 Plan of Care End Date 09/09/19 Next Visit Focus/Plan Next Note Type Treatment Note Next Visit Plan Review HEP hip stability, single leg balance LLE strengthening as jessica.
--- NOTE | 2019-07-14 16:54 | PT.OTN ---
Current Diagnoses Unspecified kyphosis, thoracic region (07/14/19) Scoliosis, unspecified (07/14/19) Other spondylosis with radiculopathy, lumbosacral region (07/14/19) Spondylosis without myelopathy or radiculopathy, site unspecified (07/14/19) Spinal stenosis, site unspecified (07/14/19) Other biomechanical lesions of lumbar region (07/14/19) Physical Therapy Treatment Note PT-OP-A Visit Information Start: 06/10/19 18:41 Freq: Status: Active Protocol: Document 07/14/19 16:47 GGD (Rec: 07/14/19 16:54 GGD [email or web address]) Out-Patient Physical Therapy Visit Information Visit Information Visit Type Treatment Note Visit Start Time 14:30 Visit Stop Time 15:15 PT-OP-B Current Condition Start: 06/10/19 18:41 Freq: Status: Active Protocol: Document 06/10/19 13:45 HH (Rec: 06/10/19 19:01 HH [email or web address]) Current Condition History of Current Condition Onset Date many years ago Current Complaints Scoliosis, bilateral back pain , B hip pain L>R History of Current Condition Pt presents to clinic with chronic LBP, B hip pain L>R since many years ago with unknown etiology. Pt c/o her symptoms radiating pain to her L leg constantly. She states her pain gets wose by standing / walking > 10-15 mins who has to sit or lay down to reduce her pain. Pt had a anti- inflammatory shot from Dr. Philip a month ago but her symptoms came back a week after. Pt was diagnosed with scoliosis many years ago and had a R hip replacement 7 years ago due to severe OA. Her L hip pain then started getting worse since her R RUMA and she wears heel lift insole occasionally due to LLD R>L. Prior Treatments and Tests R hip replacement 7 years ago Treatment Goals Patient/Caregiver Goals 1. to be pain free during walking and standing 2. To strengthen her L LE for stair and prolonged walking Prior Functional Status Baseline Function- ADL's Independent Baseline Function- Mobility Independent Current Functional Impairments (Reported) Functional Limitations- ADL's unable to wash dishes for more than 5 mins unable to carry heavy objects Functional Limitations- Mobility/Gait step to pattern with the use of handrails for stair climbing Personal Factors Other Personal Factors That May Effect skin cancer (without chemo/ Therapy/Recovery radiation therapy) PT-OP-C Subjective Start: 06/10/19 18:41 Freq: Status: Active Protocol: Document 07/14/19 16:47 GGD (Rec: 07/14/19 16:54 GGD [email or web address]) OP-PT Subjective Patient Comments Patient Comments Pt states she feelling a little stronger, but pain is the same. PT-OP-D Balance Start: 06/10/19 18:41 Freq: Status: Active Protocol: Document 06/10/19 13:45 HH (Rec: 06/10/19 19:01 HH [email or web address]) OP-PT Balance Assessment Sitting Balance Static Sitting Balance Ability Normal Dynamic Sitting Balance Ability Normal Standing Balance Static Standing Balance Ability Fair Dynamic Standing Balance Ability Fair Balance Tests Single Limb Standing Single Limb- Right 2s Single Limb- Left 4s Barbour Fall Scale Copyright Permission PT-OP-G Mobility & Gait Start: 06/10/19 18:41 Freq: Status: Active Protocol: Document 06/10/19 13:45 HH (Rec: 06/10/19 19:01 HH [email or web address]) OP Gait Assessment Gait Gait Assistance Required: Independent Gait Deviations General Gait Pattern Antalgic,Decreased Stride Length,Decreased Feet Clearance,Flexed Trunk,Lateral Trunk Lean,Step-to Gait Stair Climbing Evaluation Technique/Endurance Stair Climbing Direction Ascend and Descend Stair Climbing Technique Step to Step Comments Stair Climbing Comments with B rails PT-OP-H Neuro Start: 06/10/19 18:41 Freq: Status: Active Protocol: Document 06/10/19 13:45 HH (Rec: 06/10/19 19:09 HH [email or web address]) Deep Tendon Reflex & Clonus Assessment Deep Tendon Reflex Right Achilles Deep Tendon Reflex 2+ Normal Right Patellar Deep Tendon Reflex 2+ Normal Left Achilles Deep Tendon Reflex 2+ Normal Left Patellar Deep Tendon Reflex 1+ Diminished PT-OP-J Posture/Palpation/Skin Start: 06/10/19 18:41 Freq: Status: Active Protocol: Document 06/10/19 13:45 HH (Rec: 06/10/19 19:01 HH [email or web address]) Posture Evaluation Position Standing Evaluation View Anterior T-Spine Posture Fixed Scoliosis on (L), Increased Kyphosis L-Spine Posture Fixed Scoliosis on (R) Shoulder Posture (R) Elevated Weight Distribution Weight Shifted Right PT-OP-K Range of Motion Start: 06/10/19 18:41 Freq: Status: Active Protocol: Document 06/10/19 13:45 HH (Rec: 06/11/19 12:59 HH [email or web address]) Lumbar Spine Range of Motion Lumbar Spine Active Degrees Testing Position Standing Flexion 45 Extension 10 Rotation Left 25 Rotation Right 23 Lateral Flexion Left 15 Lateral Flexion Right 10 ROM Limitations Soft Tissue Tightness,Bony Restriction,Pain PT-OP-L Special Tests Start: 06/10/19 18:41 Freq: Status: Active Protocol: Document 06/10/19 13:45 HH (Rec: 06/10/19 19:09 HH [email or web address]) Special Tests Lumbar Spine Special Tests Straight Leg Raise Test Results +ve on R (pain at buttock) Comments unable to lift on LLE Standing Flexion Test Results +ve Comments L thoracic hump and R lumbar hump PT-OP-M Strength Start: 06/10/19 18:41 Freq: Status: Active Protocol: Document 06/10/19 13:45 HH (Rec: 06/10/19 19:09 HH [email or web address]) Hip Strength Hip Manual Muscle Testing Right Flexion (L2) 4 Good Extension (S1) 4 Good Abduction 4 Good Adduction 4 Good Left Flexion (L2) 3+ Fair+ Extension (S1) 4- Good- Abduction 3+ Fair+ Knee Strength Knee Manual Muscle Testing Right Flexion (S2) 4 Good Extension (L3) 4 Good Left Flexion (S2) 4 Good Extension (L3) 4 Good PT-OP-Q Treatments Start: 06/10/19 18:41 Freq: Status: Active Protocol: Document 07/14/19 16:47 GGD (Rec: 07/14/19 16:54 GGD [email or web address]) Cardio Equipment Recumbent Bicycle Duration (Minutes) 5 Resistance 3 Seat Position 4 Gym Equipment Shuttle Recovery Unilateral Squats Resistance 25# Shuttle Recovery Platform Stable Reps/Time 15 reps Bilateral Squats Resistance 50# Shuttle Recovery Platform Stable Reps/Time 2x15 reps Therapeutic Exercises Supine Exercises hip abd Supine Exercise Name hip abd with slider sheet Side bilateral Equipment Used slider sheet Reps/Minutes 10 supine bridge Side bilateral Reps/Minutes 10 x 2 Comments cues on heel push off hip wipers Supine Exercise Name windshield wipers/ LTR Side bilateral R HS stretch Side right Reps/Minutes 30 x2 Sitting Exercises hip abd Side bilateral Resistance Level 2 Equipment Used thera band Reps/Minutes 20 Standing Exercises single leg stance Side left Equipment Used 4 inch step Reps/Minutes 10 x 2 Comments tactile cues to prevent hip drp on R mini squat Standing Exercise Name mini squat w chair Reps/Minutes 2x10 reps Comments cued to avoid knee valgus PT-OP-R Modalities Start: 06/10/19 18:41 Freq: Status: Active Protocol: Document 07/03/19 09:45 AMB (Rec: 07/03/19 10:01 AMB [id number]) Hot Pack/Cold Pack Treatment Hot Pack Location lumbar Patient Position Hooklying Treatment Duration (minutes) 15 Patient Tolerance Good Comments needed an extra towel added to reduce heat PT-OP-T Assessment and Plan Start: 06/10/19 18:41 Freq: Status: Active Protocol: Document 07/14/19 16:47 GGD (Rec: 07/14/19 16:54 GGD [email or web address]) Physical Therapy Assessment Assessment Summary Assessment PT improving slowly with flexibility. She unable to tolerate increase in shuttle squat resistance. Pt need cues for exercise technique. Physical Therapy Plan Frequency and Duration Frequency of Treatment 2x/Week Duration of Treatment 12 weeks Plan of Care Start Date 06/10/19 Plan of Care End Date 09/09/19 Next Visit Focus/Plan Next Note Type Treatment Note Next Visit Plan Review HEP hip stability, single leg balance LLE strengthening as jessica.
--- NOTE | 2019-07-19 19:59 | PT.OTN ---
Current Diagnoses Unspecified kyphosis, thoracic region (07/16/19) Scoliosis, unspecified (07/16/19) Other spondylosis with radiculopathy, lumbosacral region (07/16/19) Spondylosis without myelopathy or radiculopathy, site unspecified (07/16/19) Spinal stenosis, site unspecified (07/16/19) Other biomechanical lesions of lumbar region (07/16/19) Physical Therapy Treatment Note PT-OP-A Visit Information Start: 06/10/19 18:41 Freq: Status: Active Protocol: Document 07/16/19 13:45 AMH (Rec: 07/19/19 19:59 AMH [email or web address]) Out-Patient Physical Therapy Visit Information Visit Information Visit Type Treatment Note Visit Start Time 13:45 Visit Stop Time 14:30 Total Visit Minutes 45 Visit Number 12 Number of RN ACLS Visits 0 PT-OP-B Current Condition Start: 06/10/19 18:41 Freq: Status: Active Protocol: Document 06/10/19 13:45 HH (Rec: 06/10/19 19:01 HH [email or web address]) Current Condition History of Current Condition Onset Date many years ago Current Complaints Scoliosis, bilateral back pain , B hip pain L>R History of Current Condition Pt presents to clinic with chronic LBP, B hip pain L>R since many years ago with unknown etiology. Pt c/o her symptoms radiating pain to her L leg constantly. She states her pain gets wose by standing / walking > 10-15 mins who has to sit or lay down to reduce her pain. Pt had a anti- inflammatory shot from Dr. Philip a month ago but her symptoms came back a week after. Pt was diagnosed with scoliosis many years ago and had a R hip replacement 7 years ago due to severe OA. Her L hip pain then started getting worse since her R RUMA and she wears heel lift insole occasionally due to LLD R>L. Prior Treatments and Tests R hip replacement 7 years ago Treatment Goals Patient/Caregiver Goals 1. to be pain free during walking and standing 2. To strengthen her L LE for stair and prolonged walking Prior Functional Status Baseline Function- ADL's Independent Baseline Function- Mobility Independent Current Functional Impairments (Reported) Functional Limitations- ADL's unable to wash dishes for more than 5 mins unable to carry heavy objects Functional Limitations- Mobility/Gait step to pattern with the use of handrails for stair climbing Personal Factors Other Personal Factors That May Effect skin cancer (without chemo/ Therapy/Recovery radiation therapy) PT-OP-C Subjective Start: 06/10/19 18:41 Freq: Status: Active Protocol: Document 07/16/19 13:45 AMH (Rec: 07/19/19 19:59 AMH [email or web address]) OP-PT Subjective Patient Comments Patient Comments Pt reports she took a sleeping pill last night due to pain and she is still groggy this afternoon PT-OP-D Balance Start: 06/10/19 18:41 Freq: Status: Active Protocol: Document 06/10/19 13:45 HH (Rec: 06/10/19 19:01 HH [email or web address]) OP-PT Balance Assessment Sitting Balance Static Sitting Balance Ability Normal Dynamic Sitting Balance Ability Normal Standing Balance Static Standing Balance Ability Fair Dynamic Standing Balance Ability Fair Balance Tests Single Limb Standing Single Limb- Right 2s Single Limb- Left 4s Barbour Fall Scale Copyright Permission PT-OP-G Mobility & Gait Start: 06/10/19 18:41 Freq: Status: Active Protocol: Document 06/10/19 13:45 HH (Rec: 06/10/19 19:01 HH [email or web address]) OP Gait Assessment Gait Gait Assistance Required: Independent Gait Deviations General Gait Pattern Antalgic,Decreased Stride Length,Decreased Feet Clearance,Flexed Trunk,Lateral Trunk Lean,Step-to Gait Stair Climbing Evaluation Technique/Endurance Stair Climbing Direction Ascend and Descend Stair Climbing Technique Step to Step Comments Stair Climbing Comments with B rails PT-OP-H Neuro Start: 06/10/19 18:41 Freq: Status: Active Protocol: Document 06/10/19 13:45 HH (Rec: 06/10/19 19:09 HH [email or web address]) Deep Tendon Reflex & Clonus Assessment Deep Tendon Reflex Right Achilles Deep Tendon Reflex 2+ Normal Right Patellar Deep Tendon Reflex 2+ Normal Left Achilles Deep Tendon Reflex 2+ Normal Left Patellar Deep Tendon Reflex 1+ Diminished PT-OP-J Posture/Palpation/Skin Start: 06/10/19 18:41 Freq: Status: Active Protocol: Document 06/10/19 13:45 HH (Rec: 06/10/19 19:01 HH [email or web address]) Posture Evaluation Position Standing Evaluation View Anterior T-Spine Posture Fixed Scoliosis on (L), Increased Kyphosis L-Spine Posture Fixed Scoliosis on (R) Shoulder Posture (R) Elevated Weight Distribution Weight Shifted Right PT-OP-K Range of Motion Start: 06/10/19 18:41 Freq: Status: Active Protocol: Document 06/10/19 13:45 HH (Rec: 06/11/19 12:59 HH [email or web address]) Lumbar Spine Range of Motion Lumbar Spine Active Degrees Testing Position Standing Flexion 45 Extension 10 Rotation Left 25 Rotation Right 23 Lateral Flexion Left 15 Lateral Flexion Right 10 ROM Limitations Soft Tissue Tightness,Bony Restriction,Pain PT-OP-L Special Tests Start: 06/10/19 18:41 Freq: Status: Active Protocol: Document 06/10/19 13:45 HH (Rec: 06/10/19 19:09 HH [email or web address]) Special Tests Lumbar Spine Special Tests Straight Leg Raise Test Results +ve on R (pain at buttock) Comments unable to lift on LLE Standing Flexion Test Results +ve Comments L thoracic hump and R lumbar hump PT-OP-M Strength Start: 06/10/19 18:41 Freq: Status: Active Protocol: Document 06/10/19 13:45 HH (Rec: 06/10/19 19:09 HH [email or web address]) Hip Strength Hip Manual Muscle Testing Right Flexion (L2) 4 Good Extension (S1) 4 Good Abduction 4 Good Adduction 4 Good Left Flexion (L2) 3+ Fair+ Extension (S1) 4- Good- Abduction 3+ Fair+ Knee Strength Knee Manual Muscle Testing Right Flexion (S2) 4 Good Extension (L3) 4 Good Left Flexion (S2) 4 Good Extension (L3) 4 Good PT-OP-Q Treatments Start: 06/10/19 18:41 Freq: Status: Active Protocol: Document 07/16/19 13:45 AMH (Rec: 07/19/19 19:59 AMH [email or web address]) Cardio Equipment Recumbent Elliptical (Biodex) Duration (Minutes) 5 Resistance 2 Therapeutic Exercises Supine Exercises hip abd Supine Exercise Name hip abd with slider sheet Side bilateral Equipment Used slider sheet Reps/Minutes 10 supine bridge Side bilateral Reps/Minutes 10 x 2 Comments cues on heel push off hip wipers Supine Exercise Name windshield wipers/ LTR Side bilateral R HS stretch Side right Reps/Minutes 30 x2 Sidelying Exercises Clamshell Sidelying Exercise Name Clamshell Side bilateral Comments cues on neutral spine Sitting Exercises hip abd Side bilateral Resistance Level 2 Equipment Used thera band Reps/Minutes 20 Trunk rotation Sitting Exercise Name Trunk rotation Side bilateral Resistance 1.1# Ball Reps/Minutes x5 seated table slide Side bilateral Equipment Used towel and table Reps/Minutes 10 x 3 Comments forward and diagonal direction seated trunk reach Side bilateral Equipment Used mendoza therapy ball Reps/Minutes 10 x 3 Comments forward and diagonal direction seated knee extension Side bilateral Reps/Minutes 8 x 2 Comments cues on DF Standing Exercises single leg stance Side left Equipment Used 4 inch step Reps/Minutes 10 x 2 Comments tactile cues to prevent hip drp on R step up Standing Exercise Name step up Side bilateral Equipment Used 4 step Reps/Minutes 10 reps Comments lateral trunk lean and dec stability on LLE when ascending hip hinge Standing Exercise Name hip hinge Reps/Minutes 15 reps mini squat Standing Exercise Name mini squat w chair Reps/Minutes 2x10 reps Comments cued to avoid knee valgus PT-OP-R Modalities Start: 06/10/19 18:41 Freq: Status: Active Protocol: Document 07/03/19 09:45 AMB (Rec: 07/03/19 10:01 AMB [id number]) Hot Pack/Cold Pack Treatment Hot Pack Location lumbar Patient Position Hooklying Treatment Duration (minutes) 15 Patient Tolerance Good Comments needed an extra towel added to reduce heat PT-OP-T Assessment and Plan Start: 06/10/19 18:41 Freq: Status: Active Protocol: Document 07/16/19 13:45 AMH (Rec: 07/19/19 19:59 AMH [email or web address]) Physical Therapy Assessment Assessment Summary Assessment Moved slowly through exercises today due to pt being groggy but she tolerated ex okay today. Attempted standing hip abduction but it was too painful so we kept with supine abduction today. Physical Therapy Plan Frequency and Duration Frequency of Treatment 2x/Week Duration of Treatment 12 weeks Plan of Care Start Date 06/10/19 Plan of Care End Date 09/09/19 Next Visit Focus/Plan Next Note Type Treatment Note Next Visit Plan progress hip strengthening as able, continue to progress balance and stretches for the low back
--- NOTE | 2019-07-21 18:59 | PT.OTN ---
Current Diagnoses Unspecified kyphosis, thoracic region (07/21/19) Scoliosis, unspecified (07/21/19) Other spondylosis with radiculopathy, lumbosacral region (07/21/19) Spondylosis without myelopathy or radiculopathy, site unspecified (07/21/19) Spinal stenosis, site unspecified (07/21/19) Other biomechanical lesions of lumbar region (07/21/19) Physical Therapy Treatment Note PT-OP-A Visit Information Start: 06/10/19 18:41 Freq: Status: Active Protocol: Document 07/21/19 16:50 HH (Rec: 07/21/19 18:59 HH [email or web address]) Out-Patient Physical Therapy Visit Information Visit Information Visit Type Progress Note Visit Start Time 16:50 Visit Stop Time 17:36 Total Visit Minutes 46 Visit Number 13 Number of ERADICATOR Visits 0 PT-OP-B Current Condition Start: 06/10/19 18:41 Freq: Status: Active Protocol: Document 06/10/19 13:45 HH (Rec: 06/10/19 19:01 HH [email or web address]) Current Condition History of Current Condition Onset Date many years ago Current Complaints Scoliosis, bilateral back pain , B hip pain L>R History of Current Condition Pt presents to clinic with chronic LBP, B hip pain L>R since many years ago with unknown etiology. Pt c/o her symptoms radiating pain to her L leg constantly. She states her pain gets wose by standing / walking > 10-15 mins who has to sit or lay down to reduce her pain. Pt had a anti- inflammatory shot from Dr. Philip a month ago but her symptoms came back a week after. Pt was diagnosed with scoliosis many years ago and had a R hip replacement 7 years ago due to severe OA. Her L hip pain then started getting worse since her R RUMA and she wears heel lift insole occasionally due to LLD R>L. Prior Treatments and Tests R hip replacement 7 years ago Treatment Goals Patient/Caregiver Goals 1. to be pain free during walking and standing 2. To strengthen her L LE for stair and prolonged walking Prior Functional Status Baseline Function- ADL's Independent Baseline Function- Mobility Independent Current Functional Impairments (Reported) Functional Limitations- ADL's unable to wash dishes for more than 5 mins unable to carry heavy objects Functional Limitations- Mobility/Gait step to pattern with the use of handrails for stair climbing Personal Factors Other Personal Factors That May Effect skin cancer (without chemo/ Therapy/Recovery radiation therapy) PT-OP-C Subjective Start: 06/10/19 18:41 Freq: Status: Active Protocol: Document 07/21/19 16:50 HH (Rec: 07/21/19 18:59 HH [email or web address]) OP-PT Subjective Patient Comments Patient Comments Im doing okay. Im still doing all my exercises everyday but my pain is still around the same. PT-OP-D Balance Start: 06/10/19 18:41 Freq: Status: Active Protocol: Document 06/10/19 13:45 HH (Rec: 06/10/19 19:01 [email or web address]) OP-PT Balance Assessment Sitting Balance Static Sitting Balance Ability Normal Dynamic Sitting Balance Ability Normal Standing Balance Static Standing Balance Ability Fair Dynamic Standing Balance Ability Fair Balance Tests Single Limb Standing Single Limb- Right 2s Single Limb- Left 4s Barbour Fall Scale Copyright Permission PT-OP-G Mobility & Gait Start: 06/10/19 18:41 Freq: Status: Active Protocol: Document 06/10/19 13:45 HH (Rec: 06/10/19 19:01 [email or web address]) OP Gait Assessment Gait Gait Assistance Required: Independent Gait Deviations General Gait Pattern Antalgic,Decreased Stride Length,Decreased Feet Clearance,Flexed Trunk,Lateral Trunk Lean,Step-to Gait Stair Climbing Evaluation Technique/Endurance Stair Climbing Direction Ascend and Descend Stair Climbing Technique Step to Step Comments Stair Climbing Comments with B rails PT-OP-H Neuro Start: 06/10/19 18:41 Freq: Status: Active Protocol: Document 06/10/19 13:45 HH (Rec: 06/10/19 19:09 [email or web address]) Deep Tendon Reflex & Clonus Assessment Deep Tendon Reflex Right Achilles Deep Tendon Reflex 2+ Normal Right Patellar Deep Tendon Reflex 2+ Normal Left Achilles Deep Tendon Reflex 2+ Normal Left Patellar Deep Tendon Reflex 1+ Diminished PT-OP-J Posture/Palpation/Skin Start: 06/10/19 18:41 Freq: Status: Active Protocol: Document 06/10/19 13:45 HH (Rec: 06/10/19 19:01 [email or web address]) Posture Evaluation Position Standing Evaluation View Anterior T-Spine Posture Fixed Scoliosis on (L), Increased Kyphosis L-Spine Posture Fixed Scoliosis on (R) Shoulder Posture (R) Elevated Weight Distribution Weight Shifted Right PT-OP-K Range of Motion Start: 06/10/19 18:41 Freq: Status: Active Protocol: Document 06/10/19 13:45 HH (Rec: 06/11/19 12:59 HH [email or web address]) Lumbar Spine Range of Motion Lumbar Spine Active Degrees Testing Position Standing Flexion 45 Extension 10 Rotation Left 25 Rotation Right 23 Lateral Flexion Left 15 Lateral Flexion Right 10 ROM Limitations Soft Tissue Tightness,Bony Restriction,Pain PT-OP-L Special Tests Start: 06/10/19 18:41 Freq: Status: Active Protocol: Document 06/10/19 13:45 HH (Rec: 06/10/19 19:09 HH [email or web address]) Special Tests Lumbar Spine Special Tests Straight Leg Raise Test Results +ve on R (pain at buttock) Comments unable to lift on LLE Standing Flexion Test Results +ve Comments L thoracic hump and R lumbar hump PT-OP-M Strength Start: 06/10/19 18:41 Freq: Status: Active Protocol: Document 06/10/19 13:45 HH (Rec: 06/10/19 19:09 [email or web address]) Hip Strength Hip Manual Muscle Testing Right Flexion (L2) 4 Good Extension (S1) 4 Good Abduction 4 Good Adduction 4 Good Left Flexion (L2) 3+ Fair+ Extension (S1) 4- Good- Abduction 3+ Fair+ Knee Strength Knee Manual Muscle Testing Right Flexion (S2) 4 Good Extension (L3) 4 Good Left Flexion (S2) 4 Good Extension (L3) 4 Good PT-OP-Q Treatments Start: 06/10/19 18:41 Freq: Status: Active Protocol: Document 07/21/19 16:50 HH (Rec: 07/21/19 18:59 [email or web address]) Cardio Equipment Recumbent Stepper (Sci-Fit) Duration (Minutes) 5 Therapeutic Exercises Standing Exercises sit to stand 2 Standing Exercise Name with stagger stance Side bilateral Reps/Minutes 4 x 2 Comments to facilitate increased WB unilaterally. high knee walk Side bilateral Reps/Minutes 5 rounds next to grab bar Comments cues on balancing hip level sit to stand Standing Exercise Name with grab bar Side bilateral Reps/Minutes 5 x 3 Comments cues on avoiding knee touch Manual Therapy Treatment Soft Tissue Mobilization piriformis Mobilization Type Sustained Pressure,Trigger Point Release Intensity/Depth Moderate Body Position Sidelying Joint Mobilizations pelvic girdle inf glide Joint L pelvic girdle Grade III Body Position Sidelying Reps/Duration 10 secs hold x5 hip distraction Direction inferior Grade III Body Position Sidelying Reps/Duration 10 secs hold x5 PT-OP-R Modalities Start: 06/10/19 18:41 Freq: Status: Active Protocol: Document 07/21/19 16:50 HH (Rec: 07/21/19 18:59 HH [email or web address]) Hot Pack/Cold Pack Treatment Hot Pack Patient Position Supine Treatment Duration (minutes) 12 Patient Tolerance Good PT-OP-T Assessment and Plan Start: 06/10/19 18:41 Freq: Status: Active Protocol: Document 07/21/19 16:50 HH (Rec: 07/21/19 18:59 HH [email or web address]) Physical Therapy Assessment Goals Single leg balance Impairment Pt's SLS = <5 s unilaterally Promotions Assistant Goal (LTG) Pt will be able to stand on either L/R side >5 second to improve feet clearance during amb. LTG Duration 6 weeks Sit to stand Promotions Assistant Goal (LTG) Pt will be able to perform sit to stand from regular height without B knee valgus. LTG Duration 6 weeks Oswestry LBP questionnaire Care Home Goal (LTG) did not assess today 07/21 activity tolerance Short Term Goal (STG) Goal met 07/21 Pt is able to stand >15 mins with back pain <5/10 Promotions Assistant Goal (LTG) cont in progress pt will be able to stand >30 mins with back pain <5/10 LTG Duration 6 weeks B LE strength Promotions Assistant Goal (LTG) did not assess today 07/21: Pt will increase her B LE strength by 1 MMT to allow her negotiating stairs with step over pattern LTG Duration 6 weeks HEP Promotions Assistant Goal (LTG) goal met pt complies to HEP in a daily basis Progress Towards Goals Progress Towards Goals Slow Progress due to Activity Tolerance Assessment Summary Assessment Pt progressed slowly due to poor activity tolerance and the nature of her significant scoliosis. Pt feels pretty good today. Progressed her HEP to sit to stand and marches in place to improve her LE strength and single leg balance. Pt needed cues to prevent knee valgus. Also educated on sitting and standing posture to avoid excessive WB through LLE/ L buttock. Physical Therapy Plan Next Visit Focus/Plan Next Note Type Treatment Note Next Visit Plan review HEP reassess pt's symptoms after manual therapy cont gentle LE strengthening and hip and trunk mobility as jessica
--- NOTE | 2019-07-24 14:45 | PT-OP ANOTE ---
Patient arrived for her visit, however she also brought an info packet following a removal of skin cancer from her neck yesterday. Packet stated no exercise for the next 48 hours, and limited exercise to the affected area for 7-14 days. As she is currently within the 48 hour no-exercise window, patient and therapist decided to cancel appointment and pt will return for light therapy next week.
--- NOTE | 2019-07-28 17:20 | PT.OTN ---
Current Diagnoses Unspecified kyphosis, thoracic region (07/28/19) Scoliosis, unspecified (07/28/19) Other spondylosis with radiculopathy, lumbosacral region (07/28/19) Spondylosis without myelopathy or radiculopathy, site unspecified (07/28/19) Spinal stenosis, site unspecified (07/28/19) Other biomechanical lesions of lumbar region (07/28/19) Physical Therapy Treatment Note PT-OP-A Visit Information Start: 06/10/19 18:41 Freq: Status: Active Protocol: Document 07/28/19 14:32 HH (Rec: 07/28/19 17:20 HH [email or web address]) Out-Patient Physical Therapy Visit Information Visit Information Visit Type Treatment Note Visit Start Time 14:32 Visit Stop Time 15:15 Total Visit Minutes 43 PT-OP-B Current Condition Start: 06/10/19 18:41 Freq: Status: Active Protocol: Document 06/10/19 13:45 HH (Rec: 06/10/19 19:01 HH [email or web address]) Current Condition History of Current Condition Onset Date many years ago Current Complaints Scoliosis, bilateral back pain , B hip pain L>R History of Current Condition Pt presents to clinic with chronic LBP, B hip pain L>R since many years ago with unknown etiology. Pt c/o her symptoms radiating pain to her L leg constantly. She states her pain gets wose by standing / walking > 10-15 mins who has to sit or lay down to reduce her pain. Pt had a anti- inflammatory shot from Dr. Philip a month ago but her symptoms came back a week after. Pt was diagnosed with scoliosis many years ago and had a R hip replacement 7 years ago due to severe OA. Her L hip pain then started getting worse since her R RUMA and she wears heel lift insole occasionally due to LLD R>L. Prior Treatments and Tests R hip replacement 7 years ago Treatment Goals Patient/Caregiver Goals 1. to be pain free during walking and standing 2. To strengthen her L LE for stair and prolonged walking Prior Functional Status Baseline Function- ADL's Independent Baseline Function- Mobility Independent Current Functional Impairments (Reported) Functional Limitations- ADL's unable to wash dishes for more than 5 mins unable to carry heavy objects Functional Limitations- Mobility/Gait step to pattern with the use of handrails for stair climbing Personal Factors Other Personal Factors That May Effect skin cancer (without chemo/ Therapy/Recovery radiation therapy) PT-OP-C Subjective Start: 06/10/19 18:41 Freq: Status: Active Protocol: Document 07/28/19 14:32 HH (Rec: 07/28/19 17:20 [email or web address]) OP-PT Subjective Patient Comments Patient Comments I've been doing my ex everyday. And I started to try climbing stairs with light support on rails with alt steps. It's hard but i havent done that for years. And i realized my back pain episodes is getting less frequent Patient Reported Progress Improving PT-OP-D Balance Start: 06/10/19 18:41 Freq: Status: Active Protocol: Document 06/10/19 13:45 HH (Rec: 06/10/19 19:01 [email or web address]) OP-PT Balance Assessment Sitting Balance Static Sitting Balance Ability Normal Dynamic Sitting Balance Ability Normal Standing Balance Static Standing Balance Ability Fair Dynamic Standing Balance Ability Fair Balance Tests Single Limb Standing Single Limb- Right 2s Single Limb- Left 4s Barbour Fall Scale Copyright Permission PT-OP-G Mobility & Gait Start: 06/10/19 18:41 Freq: Status: Active Protocol: Document 06/10/19 13:45 HH (Rec: 06/10/19 19:01 [email or web address]) OP Gait Assessment Gait Gait Assistance Required: Independent Gait Deviations General Gait Pattern Antalgic,Decreased Stride Length,Decreased Feet Clearance,Flexed Trunk,Lateral Trunk Lean,Step-to Gait Stair Climbing Evaluation Technique/Endurance Stair Climbing Direction Ascend and Descend Stair Climbing Technique Step to Step Comments Stair Climbing Comments with B rails PT-OP-H Neuro Start: 06/10/19 18:41 Freq: Status: Active Protocol: Document 06/10/19 13:45 HH (Rec: 06/10/19 19:09 [email or web address]) Deep Tendon Reflex & Clonus Assessment Deep Tendon Reflex Right Achilles Deep Tendon Reflex 2+ Normal Right Patellar Deep Tendon Reflex 2+ Normal Left Achilles Deep Tendon Reflex 2+ Normal Left Patellar Deep Tendon Reflex 1+ Diminished PT-OP-J Posture/Palpation/Skin Start: 06/10/19 18:41 Freq: Status: Active Protocol: Document 06/10/19 13:45 HH (Rec: 06/10/19 19:01 [email or web address]) Posture Evaluation Position Standing Evaluation View Anterior T-Spine Posture Fixed Scoliosis on (L), Increased Kyphosis L-Spine Posture Fixed Scoliosis on (R) Shoulder Posture (R) Elevated Weight Distribution Weight Shifted Right PT-OP-K Range of Motion Start: 06/10/19 18:41 Freq: Status: Active Protocol: Document 06/10/19 13:45 HH (Rec: 06/11/19 12:59 HH [email or web address]) Lumbar Spine Range of Motion Lumbar Spine Active Degrees Testing Position Standing Flexion 45 Extension 10 Rotation Left 25 Rotation Right 23 Lateral Flexion Left 15 Lateral Flexion Right 10 ROM Limitations Soft Tissue Tightness,Bony Restriction,Pain PT-OP-L Special Tests Start: 06/10/19 18:41 Freq: Status: Active Protocol: Document 06/10/19 13:45 HH (Rec: 06/10/19 19:09 HH [email or web address]) Special Tests Lumbar Spine Special Tests Straight Leg Raise Test Results +ve on R (pain at buttock) Comments unable to lift on LLE Standing Flexion Test Results +ve Comments L thoracic hump and R lumbar hump PT-OP-M Strength Start: 06/10/19 18:41 Freq: Status: Active Protocol: Document 06/10/19 13:45 HH (Rec: 06/10/19 19:09 HH [email or web address]) Hip Strength Hip Manual Muscle Testing Right Flexion (L2) 4 Good Extension (S1) 4 Good Abduction 4 Good Adduction 4 Good Left Flexion (L2) 3+ Fair+ Extension (S1) 4- Good- Abduction 3+ Fair+ Knee Strength Knee Manual Muscle Testing Right Flexion (S2) 4 Good Extension (L3) 4 Good Left Flexion (S2) 4 Good Extension (L3) 4 Good PT-OP-Q Treatments Start: 06/10/19 18:41 Freq: Status: Active Protocol: Document 07/28/19 14:32 HH (Rec: 07/28/19 17:20 HH [email or web address]) Cardio Equipment Recumbent Bicycle Duration (Minutes) 5 Resistance 2 Therapeutic Exercises Standing Exercises stair foot tap Side bilateral Equipment Used finger support on rails Reps/Minutes 10 x3 sit to stand Standing Exercise Name without support Side bilateral Reps/Minutes 5 x 4 Comments from 21inch chair step up Standing Exercise Name step up Side bilateral Equipment Used 4 step, finger support on rails Reps/Minutes 10 reps x2 Therapeutic Activity Therapeutic Activity stair climbing Name 4 inch step Reps/Minutes 3 rounds Comments step over pattern, without UE support cga with gait belt Manual Therapy Treatment Joint Mobilizations pelvic girdle inf glide Joint L pelvic girdle Grade III Body Position Sidelying Reps/Duration 10 secs hold x5 Neuro Re-Education Treatment Balance Activities hurdles step over Surface ground level Equipment hurdles Reps/Duration 4 rounds with side bar Comments without support PT-OP-R Modalities Start: 06/10/19 18:41 Freq: Status: Active Protocol: Document 07/28/19 14:32 HH (Rec: 07/28/19 17:20 HH [email or web address]) Hot Pack/Cold Pack Treatment Hot Pack Patient Position Supine Treatment Duration (minutes) 10 Patient Tolerance Good PT-OP-T Assessment and Plan Start: 06/10/19 18:41 Freq: Status: Active Protocol: Document 07/28/19 14:32 HH (Rec: 07/28/19 17:20 [email or web address]) Physical Therapy Assessment Goals Single leg balance Impairment Pt's SLS = <5 s unilaterally Fpc Goal (LTG) Pt will be able to stand on either L/R side >5 second to improve feet clearance during amb. LTG Duration 6 weeks Sit to stand Fpc Goal (LTG) Pt will be able to perform sit to stand from regular height without B knee valgus. LTG Duration 6 weeks Oswestry LBP questionnaire Raschel Knitting Machine Operator Goal (LTG) did not assess today 07/21 activity tolerance Short Term Goal (STG) Goal met 10 Pt is able to stand >15 mins with back pain <5/10 Raschel Knitting Machine Operator Goal (LTG) cont in progress pt will be able to stand >30 mins with back pain <5/10 LTG Duration 6 weeks B LE strength Fpc Goal (LTG) did not assess today 07/21: Pt will increase her B LE strength by 1 MMT to allow her negotiating stairs with step over pattern for 6inch steps LTG Duration 6 weeks HEP [employer]chel Knitting Machine Operator Goal (LTG) goal met pt complies to HEP in a daily basis Assessment Summary Assessment Pt showed improved B LE strength who was able to perform sit to stand from 21 inch chair without UE support and knee valgus. She also started to attempt stair climbing with light UE support . Added marching in place to her HEP. Physical Therapy Plan Next Visit Focus/Plan Next Note Type Treatment Note Next Visit Plan review HEP reassess pt's symptoms after manual therapy cont gentle LE strengthening and hip and trunk mobility as jessica
--- NOTE | 2019-07-30 18:53 | PT.OTN ---
Current Diagnoses Unspecified kyphosis, thoracic region (07/30/19) Scoliosis, unspecified (07/30/19) Other spondylosis with radiculopathy, lumbosacral region (07/30/19) Spondylosis without myelopathy or radiculopathy, site unspecified (07/30/19) Spinal stenosis, site unspecified (07/30/19) Other biomechanical lesions of lumbar region (07/30/19) Physical Therapy Treatment Note PT-OP-A Visit Information Start: 06/10/19 18:41 Freq: Status: Active Protocol: Document 07/30/19 14:35 HH (Rec: 07/30/19 18:52 HH [email or web address]) Out-Patient Physical Therapy Visit Information Visit Information Visit Type Treatment Note Visit Start Time 14:35 Visit Stop Time 15:17 Total Visit Minutes 42 Visit Number 15 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 Pt c/o her symptoms radiating pain to her L leg constantly. She states her pain gets wose by standing / walking > 10-15 mins who has to sit or lay down to reduce her pain. Pt had a anti- inflammatory shot from Dr. Philip a month ago but her symptoms came back a week after. Pt was diagnosed with scoliosis many years ago and had a R hip replacement 7 years ago due to severe OA. Her L hip pain then started getting worse since her R RUMA and she wears heel lift insole occasionally due to LLD R>L. Prior Treatments and Tests R hip replacement 7 years ago Treatment Goals Patient/Caregiver Goals 1. to be pain free during walking and standing 2. To strengthen her L LE for stair and prolonged walking Prior Functional Status Baseline Function- ADL's Independent Baseline Function- Mobility Independent Current Functional Impairments (Reported) Functional Limitations- ADL's unable to wash dishes for more than 5 mins unable to carry heavy objects Functional Limitations- Mobility/Gait step to pattern with the use of handrails for stair climbing Personal Factors Other Personal Factors That May Effect skin cancer (without chemo/ Therapy/Recovery radiation therapy) PT-OP-C Subjective Start: 06/10/19 18:41 Freq: Status: Active Protocol: Document 07/30/19 14:35 HH (Rec: 07/30/19 18:52 [email or web address]) OP-PT Subjective Patient Comments Patient Comments I've been doing my sit to stand ex and marching is quite hard. PT-OP-D Balance Start: 06/10/19 18:41 Freq: Status: Active Protocol: Document 06/10/19 13:45 HH (Rec: 06/10/19 19:01 [email or web address]) OP-PT Balance Assessment Sitting Balance Static Sitting Balance Ability Normal Dynamic Sitting Balance Ability Normal Standing Balance Static Standing Balance Ability Fair Dynamic Standing Balance Ability Fair Balance Tests Single Limb Standing Single Limb- Right 2s Single Limb- Left 4s Barbour Fall Scale Copyright Permission PT-OP-G Mobility & Gait Start: 06/10/19 18:41 Freq: Status: Active Protocol: Document 06/10/19 13:45 HH (Rec: 06/10/19 19:01 [email or web address]) OP Gait Assessment Gait Gait Assistance Required: Independent Gait Deviations General Gait Pattern Antalgic,Decreased Stride Length,Decreased Feet Clearance,Flexed Trunk,Lateral Trunk Lean,Step-to Gait Stair Climbing Evaluation Technique/Endurance Stair Climbing Direction Ascend and Descend Stair Climbing Technique Step to Step Comments Stair Climbing Comments with B rails PT-OP-H Neuro Start: 06/10/19 18:41 Freq: Status: Active Protocol: Document 06/10/19 13:45 HH (Rec: 06/10/19 19:09 [email or web address]) Deep Tendon Reflex & Clonus Assessment Deep Tendon Reflex Right Achilles Deep Tendon Reflex 2+ Normal Right Patellar Deep Tendon Reflex 2+ Normal Left Achilles Deep Tendon Reflex 2+ Normal Left Patellar Deep Tendon Reflex 1+ Diminished PT-OP-J Posture/Palpation/Skin Start: 06/10/19 18:41 Freq: Status: Active Protocol: Document 06/10/19 13:45 HH (Rec: 06/10/19 19:01 [email or web address]) Posture Evaluation Position Standing Evaluation View Anterior T-Spine Posture Fixed Scoliosis on (L), Increased Kyphosis L-Spine Posture Fixed Scoliosis on (R) Shoulder Posture (R) Elevated Weight Distribution Weight Shifted Right PT-OP-K Range of Motion Start: 06/10/19 18:41 Freq: Status: Active Protocol: Document 06/10/19 13:45 HH (Rec: 06/11/19 12:59 HH [email or web address]) Lumbar Spine Range of Motion Lumbar Spine Active Degrees Testing Position Standing Flexion 45 Extension 10 Rotation Left 25 Rotation Right 23 Lateral Flexion Left 15 Lateral Flexion Right 10 ROM Limitations Soft Tissue Tightness,Bony Restriction,Pain PT-OP-L Special Tests Start: 06/10/19 18:41 Freq: Status: Active Protocol: Document 06/10/19 13:45 HH (Rec: 06/10/19 19:09 [email or web address]) Special Tests Lumbar Spine Special Tests Straight Leg Raise Test Results +ve on R (pain at buttock) Comments unable to lift on LLE Standing Flexion Test Results +ve Comments L thoracic hump and R lumbar hump PT-OP-M Strength Start: 06/10/19 18:41 Freq: Status: Active Protocol: Document 06/10/19 13:45 HH (Rec: 06/10/19 19:09 [email or web address]) Hip Strength Hip Manual Muscle Testing Right Flexion (L2) 4 Good Extension (S1) 4 Good Abduction 4 Good Adduction 4 Good Left Flexion (L2) 3+ Fair+ Extension (S1) 4- Good- Abduction 3+ Fair+ Knee Strength Knee Manual Muscle Testing Right Flexion (S2) 4 Good Extension (L3) 4 Good Left Flexion (S2) 4 Good Extension (L3) 4 Good PT-OP-Q Treatments Start: 06/10/19 18:41 Freq: Status: Active Protocol: Document 07/30/19 14:35 HH (Rec: 07/30/19 18:52 [email or web address]) Cardio Equipment Recumbent Bicycle Duration (Minutes) 5 Resistance 2 Therapeutic Exercises Standing Exercises stair foot tap Side bilateral Equipment Used finger support on rails Reps/Minutes 10 x3 sit to stand Standing Exercise Name without support Side bilateral Reps/Minutes 5 x 2 Comments from 20 inch chair step up Standing Exercise Name step up Side bilateral Equipment Used without support Reps/Minutes 10 reps x2 Therapeutic Activity Therapeutic Activity stair climbing Name 4 inch step Reps/Minutes 5 rounds Comments step over pattern, without UE support cga with gait belt Manual Therapy Treatment Joint Mobilizations pelvic girdle inf glide Joint L pelvic girdle Grade III Body Position Sidelying Reps/Duration 10 secs hold x5 Neuro Re-Education Treatment Balance Activities hurdles step over Surface ground level Equipment hurdles Reps/Duration 4 rounds without support Comments without support PT-OP-R Modalities Start: 06/10/19 18:41 Freq: Status: Active Protocol: Document 07/30/19 14:35 HH (Rec: 07/30/19 18:53 HH [email or web address]) Hot Pack/Cold Pack Treatment Hot Pack Patient Position Supine Treatment Duration (minutes) 10 Patient Tolerance Good PT-OP-T Assessment and Plan Start: 06/10/19 18:41 Freq: Status: Active Protocol: Document 07/30/19 14:35 HH (Rec: 07/30/19 18:52 HH [email or web address]) Physical Therapy Assessment Goals Single leg balance Impairment Pt's SLS = <5 s unilaterally Zigzag Stitcher Goal (LTG) Pt will be able to stand on either L/R side >5 second to improve feet clearance during amb. LTG Duration 6 weeks Sit to stand Zigzag Stitcher Goal (LTG) Pt will be able to perform sit to stand from regular height without B knee valgus. LTG Duration 6 weeks Oswestry LBP questionnaire Zigzag Stitcher Goal (LTG) did not assess today 07/21 activity tolerance Short Term Goal (STG) Goal met 07/21 Pt is able to stand >15 mins with back pain <5/10 Halfway Goal (LTG) cont in progress pt will be able to stand >30 mins with back pain <5/10 LTG Duration 6 weeks B LE strength Zigzag Stitcher Goal (LTG) did not assess today 07/21: Pt will increase her B LE strength by 1 MMT to allow her negotiating stairs with step over pattern LTG Duration 6 weeks HEP Halfway Goal (LTG) goal met pt complies to HEP in a daily basis Assessment Summary Assessment Pt was able to perform STS from regular chair without support and knee valgus. Practice hurdles and 4' stair today without support. pt is pleased with her progress. Added step down to her HEP Physical Therapy Plan Next Visit Focus/Plan Next Note Type Treatment Note Next Visit Plan review HEP reassess pt's symptoms after manual therapy cont gentle LE strengthening and hip and trunk mobility as jessica stair climbing single leg balance ex
--- NOTE | 2019-08-04 15:20 | PT.OTN ---
Current Diagnoses Unspecified kyphosis, thoracic region (08/04/19) Scoliosis, unspecified (08/04/19) Other spondylosis with radiculopathy, lumbosacral region (08/04/19) Spondylosis without myelopathy or radiculopathy, site unspecified (08/04/19) Spinal stenosis, site unspecified (08/04/19) Other biomechanical lesions of lumbar region (08/04/19) Physical Therapy Treatment Note PT-OP-A Visit Information Start: 06/10/19 18:41 Freq: Status: Active Protocol: Document 08/04/19 14:40 HH (Rec: 08/04/19 15:20 HH [email or web address]) Out-Patient Physical Therapy Visit Information Visit Information Visit Type Treatment Note Visit Start Time 14:40 Visit Stop Time 15:20 Total Visit Minutes 40 Visit Number 16 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 Pt c/o her symptoms radiating pain to her L leg constantly. She states her pain gets wose by standing / walking > 10-15 mins who has to sit or lay down to reduce her pain. Pt had a anti- inflammatory shot from Dr. Philip a month ago but her symptoms came back a week after. Pt was diagnosed with scoliosis many years ago and had a R hip replacement 7 years ago due to severe OA. Her L hip pain then started getting worse since her R RUMA and she wears heel lift insole occasionally due to LLD R>L. Prior Treatments and Tests R hip replacement 7 years ago Treatment Goals Patient/Caregiver Goals 1. to be pain free during walking and standing 2. To strengthen her L LE for stair and prolonged walking Prior Functional Status Baseline Function- ADL's Independent Baseline Function- Mobility Independent Current Functional Impairments (Reported) Functional Limitations- ADL's unable to wash dishes for more than 5 mins unable to carry heavy objects Functional Limitations- Mobility/Gait step to pattern with the use of handrails for stair climbing Personal Factors Other Personal Factors That May Effect skin cancer (without chemo/ Therapy/Recovery radiation therapy) PT-OP-C Subjective Start: 06/10/19 18:41 Freq: Status: Active Protocol: Document 08/04/19 14:40 HH (Rec: 08/04/19 15:20 HH [email or web address]) OP-PT Subjective Patient Comments Patient Comments Renee been doing all my exercises. I am able to do sit to stand 7 times in a row compared to 4 times before. Patient Reported Progress Improving PT-OP-D Balance Start: 06/10/19 18:41 Freq: Status: Active Protocol: Document 06/10/19 13:45 HH (Rec: 06/10/19 19:01 [email or web address]) OP-PT Balance Assessment Sitting Balance Static Sitting Balance Ability Normal Dynamic Sitting Balance Ability Normal Standing Balance Static Standing Balance Ability Fair Dynamic Standing Balance Ability Fair Balance Tests Single Limb Standing Single Limb- Right 2s Single Limb- Left 4s Barbour Fall Scale Copyright Permission PT-OP-G Mobility & Gait Start: 06/10/19 18:41 Freq: Status: Active Protocol: Document 06/10/19 13:45 HH (Rec: 06/10/19 19:01 [email or web address]) OP Gait Assessment Gait Gait Assistance Required: Independent Gait Deviations General Gait Pattern Antalgic,Decreased Stride Length,Decreased Feet Clearance,Flexed Trunk,Lateral Trunk Lean,Step-to Gait Stair Climbing Evaluation Technique/Endurance Stair Climbing Direction Ascend and Descend Stair Climbing Technique Step to Step Comments Stair Climbing Comments with B rails PT-OP-H Neuro Start: 06/10/19 18:41 Freq: Status: Active Protocol: Document 06/10/19 13:45 HH (Rec: 06/10/19 19:09 [email or web address]) Deep Tendon Reflex & Clonus Assessment Deep Tendon Reflex Right Achilles Deep Tendon Reflex 2+ Normal Right Patellar Deep Tendon Reflex 2+ Normal Left Achilles Deep Tendon Reflex 2+ Normal Left Patellar Deep Tendon Reflex 1+ Diminished PT-OP-J Posture/Palpation/Skin Start: 06/10/19 18:41 Freq: Status: Active Protocol: Document 06/10/19 13:45 HH (Rec: 06/10/19 19:01 [email or web address]) Posture Evaluation Position Standing Evaluation View Anterior T-Spine Posture Fixed Scoliosis on (L), Increased Kyphosis L-Spine Posture Fixed Scoliosis on (R) Shoulder Posture (R) Elevated Weight Distribution Weight Shifted Right PT-OP-K Range of Motion Start: 06/10/19 18:41 Freq: Status: Active Protocol: Document 06/10/19 13:45 HH (Rec: 06/11/19 12:59 HH [email or web address]) Lumbar Spine Range of Motion Lumbar Spine Active Degrees Testing Position Standing Flexion 45 Extension 10 Rotation Left 25 Rotation Right 23 Lateral Flexion Left 15 Lateral Flexion Right 10 ROM Limitations Soft Tissue Tightness,Bony Restriction,Pain PT-OP-L Special Tests Start: 06/10/19 18:41 Freq: Status: Active Protocol: Document 06/10/19 13:45 HH (Rec: 06/10/19 19:09 HH [email or web address]) Special Tests Lumbar Spine Special Tests Straight Leg Raise Test Results +ve on R (pain at buttock) Comments unable to lift on LLE Standing Flexion Test Results +ve Comments L thoracic hump and R lumbar hump PT-OP-M Strength Start: 06/10/19 18:41 Freq: Status: Active Protocol: Document 06/10/19 13:45 HH (Rec: 06/10/19 19:09 HH [email or web address]) Hip Strength Hip Manual Muscle Testing Right Flexion (L2) 4 Good Extension (S1) 4 Good Abduction 4 Good Adduction 4 Good Left Flexion (L2) 3+ Fair+ Extension (S1) 4- Good- Abduction 3+ Fair+ Knee Strength Knee Manual Muscle Testing Right Flexion (S2) 4 Good Extension (L3) 4 Good Left Flexion (S2) 4 Good Extension (L3) 4 Good PT-OP-Q Treatments Start: 06/10/19 18:41 Freq: Status: Active Protocol: Document 08/04/19 14:40 HH (Rec: 08/04/19 15:20 HH [email or web address]) Cardio Equipment Recumbent Bicycle Duration (Minutes) 5 Resistance 2 Gym Equipment Shuttle Recovery Bilateral Squats Resistance 75# Shuttle Recovery Platform Stable Reps/Time 12 x 3 sets Therapeutic Exercises Standing Exercises stair foot tap Side bilateral Equipment Used no support Reps/Minutes 10 x3 high knee walk Side bilateral Equipment Used without UE support, next to grab bar Reps/Minutes 3 round trips Comments cues on heel strikes Therapeutic Activity Therapeutic Activity step up Name 6 inch step Reps/Minutes 8 x 2 Comments without UE support stair climbing Name 4 inch step Reps/Minutes 5 rounds Comments step over pattern, without UE support cga with gait belt PT-OP-R Modalities Start: 06/10/19 18:41 Freq: Status: Active Protocol: Document 08/04/19 14:40 HH (Rec: 08/04/19 15:20 HH [email or web address]) Hot Pack/Cold Pack Treatment Hot Pack Patient Position Supine Treatment Duration (minutes) 8 Patient Tolerance Good PT-OP-T Assessment and Plan Start: 06/10/19 18:41 Freq: Status: Active Protocol: Document 08/04/19 14:40 HH (Rec: 08/04/19 15:20 HH [email or web address]) Physical Therapy Assessment Goals Single leg balance Impairment Pt's SLS = <5 s unilaterally Business Center Representative Goal (LTG) Pt will be able to stand on either L/R side >5 second to improve feet clearance during amb. LTG Duration 6 weeks Sit to stand Fdc Goal (LTG) Pt will be able to perform sit to stand from regular height without B knee valgus. LTG Duration 6 weeks Oswestry LBP questionnaire Business Center Representative Goal (LTG) did not assess today 07/21 activity tolerance Short Term Goal (STG) Goal met 07/21 Pt is able to stand >15 mins with back pain <5/10 Business Center Representative Goal (LTG) cont in progress pt will be able to stand >30 mins with back pain <5/10 LTG Duration 6 weeks B LE strength Fdc Goal (LTG) did not assess today 07/21: Pt will increase her B LE strength by 1 MMT to allow her negotiating stairs with step over pattern for 6inch steps LTG Duration 6 weeks HEP Business Center Representative Goal (LTG) goal met pt complies to HEP in a daily basis Assessment Summary Assessment Pt cont to progress with her activity tolerance and B LE strength. Her leg press went up to #75 x 3 sets of 12; able to do 6inches step up without UE support; high knee walk without UE support x 3rounds. However, her back pain remains the same but able to tolerate more physical activity. Physical Therapy Plan Next Visit Focus/Plan Next Note Type Treatment Note Next Visit Plan review STS, high knee walk reassess pt's symptoms after manual therapy step up/ stair climbing. cont gentle LE strengthening and hip and trunk mobility as jessica stair climbing single leg balance ex
--- NOTE | 2019-08-06 15:52 | PT.OTN ---
Current Diagnoses Unspecified kyphosis, thoracic region (08/06/19) Scoliosis, unspecified (08/06/19) Other spondylosis with radiculopathy, lumbosacral region (08/06/19) Spondylosis without myelopathy or radiculopathy, site unspecified (08/06/19) Spinal stenosis, site unspecified (08/06/19) Other biomechanical lesions of lumbar region (08/06/19) Physical Therapy Treatment Note PT-OP-A Visit Information Start: 06/10/19 18:41 Freq: Status: Active Protocol: Document 08/06/19 14:35 HH (Rec: 08/06/19 15:50 HH [email or web address]) Out-Patient Physical Therapy Visit Information Visit Information Visit Type Treatment Note Visit Start Time 14:35 Visit Stop Time 15:18 Total Visit Minutes 43 Visit Number 17 Number of BALANCING MACHINE OPERATOR Visits 0 PT-OP-B Current Condition Start: 06/10/19 18:41 Freq: Status: Active Protocol: Document 06/10/19 13:45 HH (Rec: 06/10/19 19:01 HH [email or web address]) Current Condition History of Current Condition Onset Date many years ago Current Complaints Scoliosis, bilateral back pain , B hip pain L>R History of Current Condition Pt presents to clinic with chronic LBP, B hip pain L>R since many years ago with unknown etiology. Pt c/o her symptoms radiating pain to her L leg constantly. She states her pain gets wose by standing / walking > 10-15 mins who has to sit or lay down to reduce her pain. Pt had a anti- inflammatory shot from Dr. Philip a month ago but her symptoms came back a week after. Pt was diagnosed with scoliosis many years ago and had a R hip replacement 7 years ago due to severe OA. Her L hip pain then started getting worse since her R RUMA and she wears heel lift insole occasionally due to LLD R>L. Prior Treatments and Tests R hip replacement 7 years ago Treatment Goals Patient/Caregiver Goals 1. to be pain free during walking and standing 2. To strengthen her L LE for stair and prolonged walking Prior Functional Status Baseline Function- ADL's Independent Baseline Function- Mobility Independent Current Functional Impairments (Reported) Functional Limitations- ADL's unable to wash dishes for more than 5 mins unable to carry heavy objects Functional Limitations- Mobility/Gait step to pattern with the use of handrails for stair climbing Personal Factors Other Personal Factors That May Effect skin cancer (without chemo/ Therapy/Recovery radiation therapy) PT-OP-C Subjective Start: 06/10/19 18:41 Freq: Status: Active Protocol: Document 08/06/19 14:35 HH (Rec: 08/06/19 15:50 HH [email or web address]) OP-PT Subjective Patient Comments Patient Comments Doing stairs is getting easier. But bending over at the counter seems to always aggravate my L hip pain. PT-OP-D Balance Start: 06/10/19 18:41 Freq: Status: Active Protocol: Document 06/10/19 13:45 HH (Rec: 06/10/19 19:01 [email or web address]) OP-PT Balance Assessment Sitting Balance Static Sitting Balance Ability Normal Dynamic Sitting Balance Ability Normal Standing Balance Static Standing Balance Ability Fair Dynamic Standing Balance Ability Fair Balance Tests Single Limb Standing Single Limb- Right 2s Single Limb- Left 4s Barbour Fall Scale Copyright Permission PT-OP-G Mobility & Gait Start: 06/10/19 18:41 Freq: Status: Active Protocol: Document 06/10/19 13:45 HH (Rec: 06/10/19 19:01 [email or web address]) OP Gait Assessment Gait Gait Assistance Required: Independent Gait Deviations General Gait Pattern Antalgic,Decreased Stride Length,Decreased Feet Clearance,Flexed Trunk,Lateral Trunk Lean,Step-to Gait Stair Climbing Evaluation Technique/Endurance Stair Climbing Direction Ascend and Descend Stair Climbing Technique Step to Step Comments Stair Climbing Comments with B rails PT-OP-H Neuro Start: 06/10/19 18:41 Freq: Status: Active Protocol: Document 06/10/19 13:45 HH (Rec: 06/10/19 19:09 [email or web address]) Deep Tendon Reflex & Clonus Assessment Deep Tendon Reflex Right Achilles Deep Tendon Reflex 2+ Normal Right Patellar Deep Tendon Reflex 2+ Normal Left Achilles Deep Tendon Reflex 2+ Normal Left Patellar Deep Tendon Reflex 1+ Diminished PT-OP-J Posture/Palpation/Skin Start: 06/10/19 18:41 Freq: Status: Active Protocol: Document 06/10/19 13:45 HH (Rec: 06/10/19 19:01 [email or web address]) Posture Evaluation Position Standing Evaluation View Anterior T-Spine Posture Fixed Scoliosis on (L), Increased Kyphosis L-Spine Posture Fixed Scoliosis on (R) Shoulder Posture (R) Elevated Weight Distribution Weight Shifted Right PT-OP-K Range of Motion Start: 06/10/19 18:41 Freq: Status: Active Protocol: Document 06/10/19 13:45 HH (Rec: 06/11/19 12:59 HH [email or web address]) Lumbar Spine Range of Motion Lumbar Spine Active Degrees Testing Position Standing Flexion 45 Extension 10 Rotation Left 25 Rotation Right 23 Lateral Flexion Left 15 Lateral Flexion Right 10 ROM Limitations Soft Tissue Tightness,Bony Restriction,Pain PT-OP-L Special Tests Start: 06/10/19 18:41 Freq: Status: Active Protocol: Document 06/10/19 13:45 HH (Rec: 06/10/19 19:09 [email or web address]) Special Tests Lumbar Spine Special Tests Straight Leg Raise Test Results +ve on R (pain at buttock) Comments unable to lift on LLE Standing Flexion Test Results +ve Comments L thoracic hump and R lumbar hump PT-OP-M Strength Start: 06/10/19 18:41 Freq: Status: Active Protocol: Document 06/10/19 13:45 HH (Rec: 06/10/19 19:09 [email or web address]) Hip Strength Hip Manual Muscle Testing Right Flexion (L2) 4 Good Extension (S1) 4 Good Abduction 4 Good Adduction 4 Good Left Flexion (L2) 3+ Fair+ Extension (S1) 4- Good- Abduction 3+ Fair+ Knee Strength Knee Manual Muscle Testing Right Flexion (S2) 4 Good Extension (L3) 4 Good Left Flexion (S2) 4 Good Extension (L3) 4 Good PT-OP-Q Treatments Start: 06/10/19 18:41 Freq: Status: Active Protocol: Document 08/06/19 14:35 HH (Rec: 08/06/19 15:50 HH [email or web address]) Cardio Equipment Recumbent Bicycle Duration (Minutes) 5 Resistance 2 Gym Equipment Shuttle Recovery Bilateral Squats Resistance 75#, #50 Shuttle Recovery Platform Stable Reps/Time 15 reps x 2, # 50 x 15 reps Therapeutic Exercises Supine Exercises supine hip flexion Side left Reps/Minutes 10 sec x 4 Comments self stretch as HEP Standing Exercises stair foot tap Side bilateral Equipment Used no support Reps/Minutes 12 x5 sit to stand Standing Exercise Name without support Side bilateral Reps/Minutes 5 x 3 Comments from 20 inch chair Therapeutic Activity Therapeutic Activity step up Name 6 inch step Reps/Minutes 8 x 2 Comments without UE support stair climbing Name 6 inch step Reps/Minutes 3 rounds Comments step over pattern, without UE support cga with gait belt Manual Therapy Treatment Joint Mobilizations pelvic girdle inf glide Joint L pelvic girdle Grade III Body Position Sidelying Reps/Duration 10 secs hold x5 PT-OP-R Modalities Start: 06/10/19 18:41 Freq: Status: Active Protocol: Document 08/06/19 15:50 HH (Rec: 08/06/19 15:50 HH [email or web address]) Hot Pack/Cold Pack Treatment Hot Pack Patient Position Supine Treatment Duration (minutes) 10 Patient Tolerance Good PT-OP-T Assessment and Plan Start: 06/10/19 18:41 Freq: Status: Active Protocol: Document 08/06/19 14:35 HH (Rec: 08/06/19 15:50 HH [email or web address]) Physical Therapy Assessment Goals Single leg balance Impairment Pt's SLS = <5 s unilaterally Building Repair Maintenance Supervisor Goal (LTG) Pt will be able to stand on either L/R side >5 second to improve feet clearance during amb. LTG Duration 6 weeks Sit to stand Building Repair Maintenance Supervisor Goal (LTG) Pt will be able to perform sit to stand from regular height without B knee valgus. LTG Duration 6 weeks Oswestry LBP questionnaire Building Repair Maintenance Supervisor Goal (LTG) did not assess today 07/21 activity tolerance Short Term Goal (STG) Goal met 07/21 Pt is able to stand >15 mins with back pain <5/10 Intermediate Goal (LTG) cont in progress pt will be able to stand >30 mins with back pain <5/10 LTG Duration 6 weeks B LE strength Intermediate Goal (LTG) did not assess today 07/21: Pt will increase her B LE strength by 1 MMT to allow her negotiating stairs with step over pattern LTG Duration 6 weeks HEP Building Repair Maintenance Supervisor Goal (LTG) goal met pt complies to HEP in a daily basis Assessment Summary Assessment Pt cont to show improvements with activity tolerance and LE strength. Added knee to chest HEP for glute stretch in supine. Recommended pt to change frequency to once a week now due to her improved progress. Physical Therapy Plan Next Visit Focus/Plan Next Note Type Treatment Note Next Visit Plan review STS, high knee walk reassess pt's symptoms after manual therapy step up/ stair climbing 4 or 6 '. cont gentle LE strengthening and hip and trunk mobility as jessica stair climbing single leg balance ex
--- NOTE | 2019-08-14 07:55 | PT.OTN ---
Current Diagnoses Unspecified kyphosis, thoracic region (08/13/19) Scoliosis, unspecified (08/13/19) Other spondylosis with radiculopathy, lumbosacral region (08/13/19) Spondylosis without myelopathy or radiculopathy, site unspecified (08/13/19) Spinal stenosis, site unspecified (08/13/19) Other biomechanical lesions of lumbar region (08/13/19) Physical Therapy Treatment Note PT-OP-A Visit Information Start: 06/10/19 18:41 Freq: Status: Active Protocol: Document 08/13/19 13:00 HH (Rec: 08/14/19 07:55 HH [email or web address]) Out-Patient Physical Therapy Visit Information Visit Information Visit Type Treatment Note Visit Start Time 13:00 Visit Stop Time 13:45 Total Visit Minutes 45 Visit Number 18 Number of ROLLER HAND Visits 0 PT-OP-B Current Condition Start: 06/10/19 18:41 Freq: Status: Active Protocol: Document 06/10/19 13:45 HH (Rec: 06/10/19 19:01 HH [email or web address]) Current Condition History of Current Condition Onset Date many years ago Current Complaints Scoliosis, bilateral back pain , B hip pain L>R History of Current Condition Pt presents to clinic with chronic LBP, B hip pain L>R since many years ago with unknown etiology. Pt c/o her symptoms radiating pain to her L leg constantly. She states her pain gets wose by standing / walking > 10-15 mins who has to sit or lay down to reduce her pain. Pt had a anti- inflammatory shot from Dr. Philip a month ago but her symptoms came back a week after. Pt was diagnosed with scoliosis many years ago and had a R hip replacement 7 years ago due to severe OA. Her L hip pain then started getting worse since her R RUMA and she wears heel lift insole occasionally due to LLD R>L. Prior Treatments and Tests R hip replacement 7 years ago Treatment Goals Patient/Caregiver Goals 1. to be pain free during walking and standing 2. To strengthen her L LE for stair and prolonged walking Prior Functional Status Baseline Function- ADL's Independent Baseline Function- Mobility Independent Current Functional Impairments (Reported) Functional Limitations- ADL's unable to wash dishes for more than 5 mins unable to carry heavy objects Functional Limitations- Mobility/Gait step to pattern with the use of handrails for stair climbing Personal Factors Other Personal Factors That May Effect skin cancer (without chemo/ Therapy/Recovery radiation therapy) PT-OP-C Subjective Start: 06/10/19 18:41 Freq: Status: Active Protocol: Document 08/13/19 13:00 HH (Rec: 08/14/19 07:55 HH [email or web address]) OP-PT Subjective Patient Comments Patient Comments I am able to do sit to stand from a 18inch chair at home x10 right now. Doing stair is getting easier and i could do alternate steps. Patient Reported Progress Improving PT-OP-D Balance Start: 06/10/19 18:41 Freq: Status: Active Protocol: Document 06/10/19 13:45 HH (Rec: 06/10/19 19:01 [email or web address]) OP-PT Balance Assessment Sitting Balance Static Sitting Balance Ability Normal Dynamic Sitting Balance Ability Normal Standing Balance Static Standing Balance Ability Fair Dynamic Standing Balance Ability Fair Balance Tests Single Limb Standing Single Limb- Right 2s Single Limb- Left 4s Barbour Fall Scale Copyright Permission PT-OP-G Mobility & Gait Start: 06/10/19 18:41 Freq: Status: Active Protocol: Document 06/10/19 13:45 HH (Rec: 06/10/19 19:01 [email or web address]) OP Gait Assessment Gait Gait Assistance Required: Independent Gait Deviations General Gait Pattern Antalgic,Decreased Stride Length,Decreased Feet Clearance,Flexed Trunk,Lateral Trunk Lean,Step-to Gait Stair Climbing Evaluation Technique/Endurance Stair Climbing Direction Ascend and Descend Stair Climbing Technique Step to Step Comments Stair Climbing Comments with B rails PT-OP-H Neuro Start: 06/10/19 18:41 Freq: Status: Active Protocol: Document 06/10/19 13:45 HH (Rec: 06/10/19 19:09 [email or web address]) Deep Tendon Reflex & Clonus Assessment Deep Tendon Reflex Right Achilles Deep Tendon Reflex 2+ Normal Right Patellar Deep Tendon Reflex 2+ Normal Left Achilles Deep Tendon Reflex 2+ Normal Left Patellar Deep Tendon Reflex 1+ Diminished PT-OP-J Posture/Palpation/Skin Start: 06/10/19 18:41 Freq: Status: Active Protocol: Document 06/10/19 13:45 HH (Rec: 06/10/19 19:01 [email or web address]) Posture Evaluation Position Standing Evaluation View Anterior T-Spine Posture Fixed Scoliosis on (L), Increased Kyphosis L-Spine Posture Fixed Scoliosis on (R) Shoulder Posture (R) Elevated Weight Distribution Weight Shifted Right PT-OP-K Range of Motion Start: 06/10/19 18:41 Freq: Status: Active Protocol: Document 06/10/19 13:45 HH (Rec: 06/11/19 12:59 HH [email or web address]) Lumbar Spine Range of Motion Lumbar Spine Active Degrees Testing Position Standing Flexion 45 Extension 10 Rotation Left 25 Rotation Right 23 Lateral Flexion Left 15 Lateral Flexion Right 10 ROM Limitations Soft Tissue Tightness,Bony Restriction,Pain PT-OP-L Special Tests Start: 06/10/19 18:41 Freq: Status: Active Protocol: Document 06/10/19 13:45 HH (Rec: 06/10/19 19:09 HH [email or web address]) Special Tests Lumbar Spine Special Tests Straight Leg Raise Test Results +ve on R (pain at buttock) Comments unable to lift on LLE Standing Flexion Test Results +ve Comments L thoracic hump and R lumbar hump PT-OP-M Strength Start: 06/10/19 18:41 Freq: Status: Active Protocol: Document 06/10/19 13:45 HH (Rec: 06/10/19 19:09 HH [email or web address]) Hip Strength Hip Manual Muscle Testing Right Flexion (L2) 4 Good Extension (S1) 4 Good Abduction 4 Good Adduction 4 Good Left Flexion (L2) 3+ Fair+ Extension (S1) 4- Good- Abduction 3+ Fair+ Knee Strength Knee Manual Muscle Testing Right Flexion (S2) 4 Good Extension (L3) 4 Good Left Flexion (S2) 4 Good Extension (L3) 4 Good PT-OP-Q Treatments Start: 06/10/19 18:41 Freq: Status: Active Protocol: Document 08/13/19 13:00 HH (Rec: 08/14/19 07:55 HH [email or web address]) Cardio Equipment Recumbent Stepper (Sci-Fit) Duration (Minutes) 5 Resistance 2 Gym Equipment Shuttle Recovery Bilateral Squats Resistance 75# Shuttle Recovery Platform Stable Reps/Time with hip abd band x 10r x 3 Therapeutic Exercises Standing Exercises side step Equipment Used yellow hip abd band Reps/Minutes 4 rounds Comments next to grab bar sit to stand Standing Exercise Name without support Side bilateral Equipment Used with yellow hip abd band Reps/Minutes 5 x 3 Comments 18 inch chair Therapeutic Activity Therapeutic Activity step up Name 6 inch step Reps/Minutes 8 x 2 Comments without UE support stair climbing Name 6 inch step Reps/Minutes 4 rounds Comments step over pattern, without UE support cga with gait belt PT-OP-R Modalities Start: 06/10/19 18:41 Freq: Status: Active Protocol: Document 08/13/19 13:00 HH (Rec: 08/14/19 07:55 HH [email or web address]) Hot Pack/Cold Pack Treatment Hot Pack Patient Position Supine Treatment Duration (minutes) 10 Patient Tolerance Good PT-OP-T Assessment and Plan Start: 06/10/19 18:41 Freq: Status: Active Protocol: Document 08/13/19 13:00 HH (Rec: 08/14/19 07:55 HH [email or web address]) Physical Therapy Assessment Goals Single leg balance Impairment Pt's SLS = <5 s unilaterally Speeder Operator Goal (LTG) Pt will be able to stand on either L/R side >5 second to improve feet clearance during amb. LTG Duration 6 weeks Sit to stand [facility] Goal (LTG) Pt will be able to perform sit to stand from regular height without B knee valgus. LTG Duration 6 weeks Oswestry LBP questionnaire [facility] Goal (LTG) did not assess today 07/21 activity tolerance Short Term Goal (STG) Goal met 910 Pt is able to stand >15 mins with back pain <5/10 [facility] Goal (LTG) cont in progress pt will be able to stand >30 mins with back pain <5/10 LTG Duration 6 weeks B LE strength [facility] Goal (LTG) did not assess today 07/21: Pt will increase her B LE strength by 1 MMT to allow her negotiating stairs with step over pattern LTG Duration 6 weeks HEP Speeder Operator Goal (LTG) goal met pt complies to HEP in a daily basis Assessment Summary Assessment Pt cont improved activity tolerance. Added yellow resistive band for hip abd today during STS, side steps and leg press to improve gluteal engagement. Pt cont to have L knee valgus doing step up which indicates poor L hip stability. Physical Therapy Plan Next Visit Focus/Plan Next Note Type Treatment Note Next Visit Plan review STS, high knee walk add hip stability/ strengthening ex reassess pt's symptoms after manual therapy step up/ stair climbing 4 or 6 '. cont gentle LE strengthening and hip and trunk mobility as jessica stair climbing single leg balance ex
--- NOTE | 2019-08-20 15:08 | PT.OTN ---
Current Diagnoses Unspecified kyphosis, thoracic region (08/20/19) Scoliosis, unspecified (08/20/19) Other spondylosis with radiculopathy, lumbosacral region (08/20/19) Spondylosis without myelopathy or radiculopathy, site unspecified (08/20/19) Spinal stenosis, site unspecified (08/20/19) Other biomechanical lesions of lumbar region (08/20/19) Physical Therapy Treatment Note PT-OP-A Visit Information Start: 06/10/19 18:41 Freq: Status: Active Protocol: Document 08/20/19 13:00 HH (Rec: 08/20/19 15:07 [email or web address]) Out-Patient Physical Therapy Visit Information Visit Information Visit Type Treatment Note Visit Start Time 13:00 Visit Stop Time 13:46 Total Visit Minutes 46 Visit Number 19 Number of CARCASS TRIMMER Visits 0 PT-OP-B Current Condition Start: 06/10/19 18:41 Freq: Status: Active Protocol: Document 06/10/19 13:45 HH (Rec: 06/10/19 19:01 HH [email or web address]) Current Condition History of Current Condition Onset Date many years ago Current Complaints Scoliosis, bilateral back pain , B hip pain L>R History of Current Condition Pt presents to clinic with chronic LBP, B hip pain L>R since many years ago with unknown etiology. Pt c/o her symptoms radiating pain to her L leg constantly. She states her pain gets wose by standing / walking > 10-15 mins who has to sit or lay down to reduce her pain. Pt had a anti- inflammatory shot from Dr. Philip a month ago but her symptoms came back a week after. Pt was diagnosed with scoliosis many years ago and had a R hip replacement 7 years ago due to severe OA. Her L hip pain then started getting worse since her R RUMA and she wears heel lift insole occasionally due to LLD R>L. Prior Treatments and Tests R hip replacement 7 years ago Treatment Goals Patient/Caregiver Goals 1. to be pain free during walking and standing 2. To strengthen her L LE for stair and prolonged walking Prior Functional Status Baseline Function- ADL's Independent Baseline Function- Mobility Independent Current Functional Impairments (Reported) Functional Limitations- ADL's unable to wash dishes for more than 5 mins unable to carry heavy objects Functional Limitations- Mobility/Gait step to pattern with the use of handrails for stair climbing Personal Factors Other Personal Factors That May Effect skin cancer (without chemo/ Therapy/Recovery radiation therapy) PT-OP-C Subjective Start: 06/10/19 18:41 Freq: Status: Active Protocol: Document 08/20/19 13:00 HH (Rec: 08/20/19 15:07 [email or web address]) OP-PT Subjective Patient Comments Patient Comments Renee been doing all my exercises. I dont ahve any new complaint. PT-OP-D Balance Start: 06/10/19 18:41 Freq: Status: Active Protocol: Document 06/10/19 13:45 HH (Rec: 06/10/19 19:01 [email or web address]) OP-PT Balance Assessment Sitting Balance Static Sitting Balance Ability Normal Dynamic Sitting Balance Ability Normal Standing Balance Static Standing Balance Ability Fair Dynamic Standing Balance Ability Fair Balance Tests Single Limb Standing Single Limb- Right 2s Single Limb- Left 4s Barbour Fall Scale Copyright Permission PT-OP-G Mobility & Gait Start: 06/10/19 18:41 Freq: Status: Active Protocol: Document 06/10/19 13:45 HH (Rec: 06/10/19 19:01 [email or web address]) OP Gait Assessment Gait Gait Assistance Required: Independent Gait Deviations General Gait Pattern Antalgic,Decreased Stride Length,Decreased Feet Clearance,Flexed Trunk,Lateral Trunk Lean,Step-to Gait Stair Climbing Evaluation Technique/Endurance Stair Climbing Direction Ascend and Descend Stair Climbing Technique Step to Step Comments Stair Climbing Comments with B rails PT-OP-H Neuro Start: 06/10/19 18:41 Freq: Status: Active Protocol: Document 06/10/19 13:45 HH (Rec: 06/10/19 19:09 [email or web address]) Deep Tendon Reflex & Clonus Assessment Deep Tendon Reflex Right Achilles Deep Tendon Reflex 2+ Normal Right Patellar Deep Tendon Reflex 2+ Normal Left Achilles Deep Tendon Reflex 2+ Normal Left Patellar Deep Tendon Reflex 1+ Diminished PT-OP-J Posture/Palpation/Skin Start: 06/10/19 18:41 Freq: Status: Active Protocol: Document 06/10/19 13:45 HH (Rec: 06/10/19 19:01 [email or web address]) Posture Evaluation Position Standing Evaluation View Anterior T-Spine Posture Fixed Scoliosis on (L), Increased Kyphosis L-Spine Posture Fixed Scoliosis on (R) Shoulder Posture (R) Elevated Weight Distribution Weight Shifted Right PT-OP-K Range of Motion Start: 06/10/19 18:41 Freq: Status: Active Protocol: Document 06/10/19 13:45 HH (Rec: 06/11/19 12:59 HH [email or web address]) Lumbar Spine Range of Motion Lumbar Spine Active Degrees Testing Position Standing Flexion 45 Extension 10 Rotation Left 25 Rotation Right 23 Lateral Flexion Left 15 Lateral Flexion Right 10 ROM Limitations Soft Tissue Tightness,Bony Restriction,Pain PT-OP-L Special Tests Start: 06/10/19 18:41 Freq: Status: Active Protocol: Document 06/10/19 13:45 HH (Rec: 06/10/19 19:09 [email or web address]) Special Tests Lumbar Spine Special Tests Straight Leg Raise Test Results +ve on R (pain at buttock) Comments unable to lift on LLE Standing Flexion Test Results +ve Comments L thoracic hump and R lumbar hump PT-OP-M Strength Start: 06/10/19 18:41 Freq: Status: Active Protocol: Document 06/10/19 13:45 HH (Rec: 06/10/19 19:09 [email or web address]) Hip Strength Hip Manual Muscle Testing Right Flexion (L2) 4 Good Extension (S1) 4 Good Abduction 4 Good Adduction 4 Good Left Flexion (L2) 3+ Fair+ Extension (S1) 4- Good- Abduction 3+ Fair+ Knee Strength Knee Manual Muscle Testing Right Flexion (S2) 4 Good Extension (L3) 4 Good Left Flexion (S2) 4 Good Extension (L3) 4 Good PT-OP-Q Treatments Start: 06/10/19 18:41 Freq: Status: Active Protocol: Document 08/20/19 13:00 HH (Rec: 08/20/19 15:07 [email or web address]) Gym Equipment Shuttle Recovery Bilateral Squats Resistance 75# Shuttle Recovery Platform Stable Reps/Time with hip abd band x 12r x 3 Therapeutic Exercises Standing Exercises side step Equipment Used yellow hip abd band Reps/Minutes 4 rounds Comments next to grab bar sit to stand Standing Exercise Name without support Side bilateral Equipment Used with yellow hip abd band Reps/Minutes 5 x 3 Comments from 20 inch chair single leg stance Side bilateral Reps/Minutes 5 secs x5 Gait Training Gait Activity single leg stance Description LLE stance phase Level of Assistance manual assistance Surface ground level Distance/Duration 10 mins Comments tactile cues on L hip to provide support. hurdles Description LLE stance phase Device Used hurdles Level of Assistance manual assistance Surface ground level Distance/Duration 12 mins Comments verbal cues to maintain hip level PT-OP-R Modalities Start: 06/10/19 18:41 Freq: Status: Active Protocol: Document 08/13/19 13:00 HH (Rec: 08/14/19 07:55 HH [email or web address]) Hot Pack/Cold Pack Treatment Hot Pack Patient Position Supine Treatment Duration (minutes) 10 Patient Tolerance Good PT-OP-T Assessment and Plan Start: 06/10/19 18:41 Freq: Status: Active Protocol: Document 08/20/19 13:00 HH (Rec: 08/20/19 15:07 HH [email or web address]) Physical Therapy Assessment Goals Single leg balance Impairment Pt's SLS = <5 s unilaterally Security Tester Goal (LTG) Pt will be able to stand on either L/R side >5 second to improve feet clearance during amb. LTG Duration 6 weeks Sit to stand Custodial Goal (LTG) Pt will be able to perform sit to stand from regular height without B knee valgus. LTG Duration 6 weeks Oswestry LBP questionnaire Custodial Goal (LTG) did not assess today 07/21 activity tolerance Short Term Goal (STG) Goal met 910 Pt is able to stand >15 mins with back pain <5/10 Custodial Goal (LTG) cont in progress pt will be able to stand >30 mins with back pain <5/10 LTG Duration 6 weeks B LE strength Security Tester Goal (LTG) did not assess today 07/21: Pt will increase her B LE strength by 1 MMT to allow her negotiating stairs with step over pattern LTG Duration 6 weeks HEP Custodial Goal (LTG) goal met pt complies to HEP in a daily basis Assessment Summary Assessment tx focused on LE strengthening , single leg balance and gait training. Pt cont to have excessive lateral shift to L during stance phase. Needed extensive manual cues to improve L hip stability. Pt's SLS improved to >5 s Physical Therapy Plan Next Visit Focus/Plan Next Note Type Progress Note Next Visit Plan gait training on L hip stability add hip stability/ strengthening ex reassess pt's symptoms after manual therapy step up/ stair climbing 4 or 6 '. cont gentle LE strengthening and hip and trunk mobility as jessica stair climbing single leg balance ex
--- NOTE | 2019-08-27 14:31 | PT.OTN ---
Current Diagnoses Unspecified kyphosis, thoracic region (08/27/19) Scoliosis, unspecified (08/27/19) Other spondylosis with radiculopathy, lumbosacral region (08/27/19) Spondylosis without myelopathy or radiculopathy, site unspecified (08/27/19) Spinal stenosis, site unspecified (08/27/19) Other biomechanical lesions of lumbar region (08/27/19) Physical Therapy Treatment Note PT-OP-A Visit Information Start: 06/10/19 18:41 Freq: Status: Active Protocol: Document 08/27/19 13:50 HH (Rec: 08/27/19 14:28 [email or web address]) Out-Patient Physical Therapy Visit Information Visit Information Visit Type Progress Note Visit Start Time 13:50 Visit Stop Time 14:32 Total Visit Minutes 42 Visit Number 20 Number of WOOD PREPARATION SUPERVISOR Visits 0 PT-OP-B Current Condition Start: 06/10/19 18:41 Freq: Status: Active Protocol: Document 06/10/19 13:45 HH (Rec: 06/10/19 19:01 [email or web address]) Current Condition History of Current Condition Onset Date many years ago Current Complaints Scoliosis, bilateral back pain , B hip pain L>R History of Current Condition Pt presents to clinic with chronic LBP, B hip pain L>R since many years ago with unknown etiology. Pt c/o her symptoms radiating pain to her L leg constantly. She states her pain gets wose by standing / walking > 10-15 mins who has to sit or lay down to reduce her pain. Pt had a anti- inflammatory shot from Dr. Philip a month ago but her symptoms came back a week after. Pt was diagnosed with scoliosis many years ago and had a R hip replacement 7 years ago due to severe OA. Her L hip pain then started getting worse since her R RUMA and she wears heel lift insole occasionally due to LLD R>L. Prior Treatments and Tests R hip replacement 7 years ago Treatment Goals Patient/Caregiver Goals 1. to be pain free during walking and standing 2. To strengthen her L LE for stair and prolonged walking Prior Functional Status Baseline Function- ADL's Independent Baseline Function- Mobility Independent Current Functional Impairments (Reported) Functional Limitations- ADL's unable to wash dishes for more than 5 mins unable to carry heavy objects Functional Limitations- Mobility/Gait step to pattern with the use of handrails for stair climbing Personal Factors Other Personal Factors That May Effect skin cancer (without chemo/ Therapy/Recovery radiation therapy) PT-OP-C Subjective Start: 06/10/19 18:41 Freq: Status: Active Protocol: Document 08/27/19 13:50 HH (Rec: 08/27/19 14:28 HH [id number]) OP-PT Subjective Patient Comments Patient Comments I could do all my STS upto 12 times in a row PT-OP-D Balance Start: 06/10/19 18:41 Freq: Status: Active Protocol: Document 08/27/19 13:50 HH (Rec: 08/27/19 14:29 HH [email or web address]) Balance Tests Single Limb Standing Single Limb- Right 16s Single Limb- Left 13s PT-OP-G Mobility & Gait Start: 06/10/19 18:41 Freq: Status: Active Protocol: Document 08/27/19 13:50 HH (Rec: 08/27/19 14:28 HH [id number]) Stair Climbing Evaluation Technique/Endurance Stair Climbing Direction Ascend and Descend Stair Climbing Technique Step Over Step Number of Steps Climbed 6 Stair Climbing Set # Repetitions (reps) 3 Comments Stair Climbing Comments without UE support for 4 inch, 1 UE support on R rail with step over pattern PT-OP-H Neuro Start: 06/10/19 18:41 Freq: Status: Active Protocol: Document 06/10/19 13:45 HH (Rec: 06/10/19 19:09 [email or web address]) Deep Tendon Reflex & Clonus Assessment Deep Tendon Reflex Right Achilles Deep Tendon Reflex 2+ Normal Right Patellar Deep Tendon Reflex 2+ Normal Left Achilles Deep Tendon Reflex 2+ Normal Left Patellar Deep Tendon Reflex 1+ Diminished PT-OP-J Posture/Palpation/Skin Start: 06/10/19 18:41 Freq: Status: Active Protocol: Document 06/10/19 13:45 HH (Rec: 06/10/19 19:01 HH [email or web address]) Posture Evaluation Position Standing Evaluation View Anterior T-Spine Posture Fixed Scoliosis on (L), Increased Kyphosis L-Spine Posture Fixed Scoliosis on (R) Shoulder Posture (R) Elevated Weight Distribution Weight Shifted Right PT-OP-K Range of Motion Start: 06/10/19 18:41 Freq: Status: Active Protocol: Document 06/10/19 13:45 HH (Rec: 06/11/19 12:59 HH [email or web address]) Lumbar Spine Range of Motion Lumbar Spine Active Degrees Testing Position Standing Flexion 45 Extension 10 Rotation Left 25 Rotation Right 23 Lateral Flexion Left 15 Lateral Flexion Right 10 ROM Limitations Soft Tissue Tightness,Bony Restriction,Pain PT-OP-L Special Tests Start: 06/10/19 18:41 Freq: Status: Active Protocol: Document 06/10/19 13:45 HH (Rec: 06/10/19 19:09 [email or web address]) Special Tests Lumbar Spine Special Tests Straight Leg Raise Test Results +ve on R (pain at buttock) Comments unable to lift on LLE Standing Flexion Test Results +ve Comments L thoracic hump and R lumbar hump PT-OP-M Strength Start: 06/10/19 18:41 Freq: Status: Active Protocol: Document 06/10/19 13:45 HH (Rec: 06/10/19 19:09 [email or web address]) Hip Strength Hip Manual Muscle Testing Right Flexion (L2) 4 Good Extension (S1) 4 Good Abduction 4 Good Adduction 4 Good Left Flexion (L2) 3+ Fair+ Extension (S1) 4- Good- Abduction 3+ Fair+ Knee Strength Knee Manual Muscle Testing Right Flexion (S2) 4 Good Extension (L3) 4 Good Left Flexion (S2) 4 Good Extension (L3) 4 Good PT-OP-Q Treatments Start: 06/10/19 18:41 Freq: Status: Active Protocol: Document 08/27/19 13:50 HH (Rec: 08/27/19 14:28 HH [id number]) Therapeutic Exercises Standing Exercises foot tap Side bilateral Equipment Used next to grab bar Reps/Minutes 5 mins Comments side, front and back side step Equipment Used yellow hip abd band Reps/Minutes 4 rounds Comments next to grab bar sit to stand Standing Exercise Name without support Side bilateral Equipment Used with yellow hip abd band Reps/Minutes 5 x 3 Comments from 19inch chair single leg stance Side bilateral Reps/Minutes 10 sec x 5 step up Side bilateral Equipment Used 6' step Comments cues to prevent knee valgus Therapeutic Activity Therapeutic Activity step up Name 6 inch step Reps/Minutes 8 x 2 Comments without UE support stair climbing Name 6 inch step Reps/Minutes 4 rounds Comments step over pattern, without UE support cga with gait belt PT-OP-R Modalities Start: 06/10/19 18:41 Freq: Status: Active Protocol: Document 08/13/19 13:00 HH (Rec: 08/14/19 07:55 HH [email or web address]) Hot Pack/Cold Pack Treatment Hot Pack Patient Position Supine Treatment Duration (minutes) 10 Patient Tolerance Good PT-OP-T Assessment and Plan Start: 06/10/19 18:41 Freq: Status: Active Protocol: Document 08/27/19 13:50 HH (Rec: 08/27/19 14:28 HH [id number]) Physical Therapy Assessment Goals Single leg balance Impairment Pt's SLS = <5 s unilaterally Filter Washer And Presser Goal (LTG) 08/27 goal met: pt SLS on R = 16s L= 13 s new goal SLS = 18s bilaterally LTG Duration 4 weeks Sit to stand Filter Washer And Presser Goal (LTG) 08/27 goal met: Pt is currently able to perform 12 STS without knee valgus at home and without UE LTG Duration 4 weeks activity tolerance Filter Washer And Presser Goal (LTG) cont in progress pt will be able to stand >30 mins with back pain <5/10 LTG Duration 4 week B LE strength Skilled Nursing Goal (LTG) goal met 08/27 pt is able to step over pattern on stairs without UE HEP Filter Washer And Presser Goal (LTG) goal met pt complies to HEP in a daily basis Progress Towards Goals Progress Towards Goals Progressing Toward Goals Assessment Summary Assessment Pt showed significant improvements over the past month with improved SLS R=16s, L= 13s , able to negotiate stairs with step over pattern with minimal UE support; increased strength on B LEs as well which led her to use UE support minimally for stair climbing now. Pt has improved understanding of body awareness and postural alignment to prevent knee valgus during transfers. Discussed with pt that she agrees to be d/c from PT in 2weeks due to her good progress. Physical Therapy Plan Next Visit Focus/Plan Next Note Type Treatment Note Next Visit Plan single leg balance cont step up ex hip strengthening side step
--- NOTE | 2019-09-17 11:52 | PT.OTN ---
Current Diagnoses Unspecified kyphosis, thoracic region (09/17/19) Scoliosis, unspecified (09/17/19) Other spondylosis with radiculopathy, lumbosacral region (09/17/19) Spondylosis without myelopathy or radiculopathy, site unspecified (09/17/19) Spinal stenosis, site unspecified (09/17/19) Other biomechanical lesions of lumbar region (09/17/19) Physical Therapy Treatment Note PT-OP-A Visit Information Start: 06/10/19 18:41 Freq: Status: Active Protocol: Document 09/17/19 11:44 GGD (Rec: 09/17/19 11:52 GGD [email or web address]) Out-Patient Physical Therapy Visit Information Visit Information Visit Type Treatment Note Visit Start Time 11:15 Visit Stop Time 11:41 Total Visit Minutes 26 Visit Number 21 Number of ELECTRONIC IMAGING SYSTEM OPERATOR Visits 1 PT-OP-B Current Condition Start: 06/10/19 18:41 Freq: Status: Active Protocol: Document 06/10/19 13:45 HH (Rec: 06/10/19 19:01 HH [email or web address]) Current Condition History of Current Condition Onset Date many years ago Current Complaints Scoliosis, bilateral back pain , B hip pain L>R History of Current Condition Pt presents to clinic with chronic LBP, B hip pain L>R since many years ago with unknown etiology. Pt c/o her symptoms radiating pain to her L leg constantly. She states her pain gets wose by standing / walking > 10-15 mins who has to sit or lay down to reduce her pain. Pt had a anti- inflammatory shot from Dr. Philip a month ago but her symptoms came back a week after. Pt was diagnosed with scoliosis many years ago and had a R hip replacement 7 years ago due to severe OA. Her L hip pain then started getting worse since her R RUMA and she wears heel lift insole occasionally due to LLD R>L. Prior Treatments and Tests R hip replacement 7 years ago Treatment Goals Patient/Caregiver Goals 1. to be pain free during walking and standing 2. To strengthen her L LE for stair and prolonged walking Prior Functional Status Baseline Function- ADL's Independent Baseline Function- Mobility Independent Current Functional Impairments (Reported) Functional Limitations- ADL's unable to wash dishes for more than 5 mins unable to carry heavy objects Functional Limitations- Mobility/Gait step to pattern with the use of handrails for stair climbing Personal Factors Other Personal Factors That May Effect skin cancer (without chemo/ Therapy/Recovery radiation therapy) PT-OP-C Subjective Start: 06/10/19 18:41 Freq: Status: Active Protocol: Document 09/17/19 11:44 GGD (Rec: 09/17/19 11:52 GGD [email or web address]) OP-PT Subjective Patient Comments Patient Comments Pt states she been ill last two weeks and has just started to do her HEP and energy is slowly improving. PT-OP-D Balance Start: 06/10/19 18:41 Freq: Status: Active Protocol: Document 08/27/19 13:50 HH (Rec: 08/27/19 14:29 HH [id number]) Balance Tests Single Limb Standing Single Limb- Right 16s Single Limb- Left 13s PT-OP-G Mobility & Gait Start: 06/10/19 18:41 Freq: Status: Active Protocol: Document 08/27/19 13:50 HH (Rec: 08/27/19 14:28 HH [id number]) Stair Climbing Evaluation Technique/Endurance Stair Climbing Direction Ascend and Descend Stair Climbing Technique Step Over Step Number of Steps Climbed 6 Stair Climbing Set # Repetitions (reps) 3 Comments Stair Climbing Comments without UE support for 4 inch, 1 UE support on R rail with step over pattern PT-OP-H Neuro Start: 06/10/19 18:41 Freq: Status: Active Protocol: Document 06/10/19 13:45 HH (Rec: 06/10/19 19:09 HH [email or web address]) Deep Tendon Reflex & Clonus Assessment Deep Tendon Reflex Right Achilles Deep Tendon Reflex 2+ Normal Right Patellar Deep Tendon Reflex 2+ Normal Left Achilles Deep Tendon Reflex 2+ Normal Left Patellar Deep Tendon Reflex 1+ Diminished PT-OP-J Posture/Palpation/Skin Start: 06/10/19 18:41 Freq: Status: Active Protocol: Document 06/10/19 13:45 HH (Rec: 06/10/19 19:01 HH [email or web address]) Posture Evaluation Position Standing Evaluation View Anterior T-Spine Posture Fixed Scoliosis on (L), Increased Kyphosis L-Spine Posture Fixed Scoliosis on (R) Shoulder Posture (R) Elevated Weight Distribution Weight Shifted Right PT-OP-K Range of Motion Start: 06/10/19 18:41 Freq: Status: Active Protocol: Document 06/10/19 13:45 HH (Rec: 06/11/19 12:59 HH [email or web address]) Lumbar Spine Range of Motion Lumbar Spine Active Degrees Testing Position Standing Flexion 45 Extension 10 Rotation Left 25 Rotation Right 23 Lateral Flexion Left 15 Lateral Flexion Right 10 ROM Limitations Soft Tissue Tightness,Bony Restriction,Pain PT-OP-L Special Tests Start: 06/10/19 18:41 Freq: Status: Active Protocol: Document 06/10/19 13:45 HH (Rec: 06/10/19 19:09 HH [email or web address]) Special Tests Lumbar Spine Special Tests Straight Leg Raise Test Results +ve on R (pain at buttock) Comments unable to lift on LLE Standing Flexion Test Results +ve Comments L thoracic hump and R lumbar hump PT-OP-M Strength Start: 06/10/19 18:41 Freq: Status: Active Protocol: Document 06/10/19 13:45 HH (Rec: 06/10/19 19:09 HH [email or web address]) Hip Strength Hip Manual Muscle Testing Right Flexion (L2) 4 Good Extension (S1) 4 Good Abduction 4 Good Adduction 4 Good Left Flexion (L2) 3+ Fair+ Extension (S1) 4- Good- Abduction 3+ Fair+ Knee Strength Knee Manual Muscle Testing Right Flexion (S2) 4 Good Extension (L3) 4 Good Left Flexion (S2) 4 Good Extension (L3) 4 Good PT-OP-Q Treatments Start: 06/10/19 18:41 Freq: Status: Active Protocol: Document 09/17/19 11:44 GGD (Rec: 09/17/19 11:52 GGD [email or web address]) Therapeutic Exercises Supine Exercises supine hip flexion Side left Reps/Minutes 10 sec x 4 Comments self stretch as HEP supine bridge Side bilateral Reps/Minutes 10 x 2 Comments cues on heel push off Sidelying Exercises Clamshell Sidelying Exercise Name Clamshell Side bilateral Comments cues on neutral spine Sitting Exercises Trunk Flexion Sitting Exercise Name Sun Salutations Resistance 1.1# Ball Reps/Minutes x5 Standing Exercises sit to stand 2 Side bilateral Reps/Minutes 4 x 2 Comments to facilitate increased WB unilaterally. high knee walk Side bilateral Equipment Used without UE support, next to grab bar Reps/Minutes 3 round trips single leg stance Side bilateral Reps/Minutes 10 sec x 5 PT-OP-R Modalities Start: 06/10/19 18:41 Freq: Status: Active Protocol: Document 08/13/19 13:00 HH (Rec: 08/14/19 07:55 HH [email or web address]) Hot Pack/Cold Pack Treatment Hot Pack Patient Position Supine Treatment Duration (minutes) 10 Patient Tolerance Good PT-OP-T Assessment and Plan Start: 06/10/19 18:41 Freq: Status: Active Protocol: Document 09/17/19 11:44 GGD (Rec: 09/17/19 11:52 GGD [email or web address]) Physical Therapy Assessment Goals Single leg balance Impairment Pt's SLS = <5 s unilaterally Disc Jockey Goal (LTG) 08/27 goal met: pt SLS on R = 16s L= 13 s new goal SLS = 18s bilaterally 09/17/19: pt progressing Left to 16s and right 15s LTG Duration 4 weeks Sit to stand Disc Jockey Goal (LTG) 08/27 goal met: Pt is currently able to perform 12 STS without knee valgus at home and without UE LTG Duration 4 weeks Oswestry LBP questionnaire Disc Jockey Goal (LTG) did not assess today 07/21 activity tolerance Mcfp Goal (LTG) cont in progress pt will be able to stand >30 mins with back pain <5/10 09/17/19: pt progressing able to stand 20 mins LTG Duration 4 week B LE strength Mcfp Goal (LTG) goal met 08/27 pt is able to step over pattern on stairs without UE HEP Mcfp Goal (LTG) goal met pt complies to HEP in a daily basis Assessment Summary Assessment Pt improving slowly. She had slower progress due to illness and decrease activity tolerance. She has good understanding of HEP. Physical Therapy Plan Discharge Physical Therapy Discharge Reasons Goals Met Next Visit Focus/Plan Next Note Type Discharge Summary
== END 2019-09-17 12:15 ==
LOC: PHYS 11:15
PROVIDERS: PCP Family Medicine; Visit Provider Registered Nurse
DX: M41.9 Scoliosis, unspecified (principal); M47.27 Other spondylosis with radiculopathy, lumbosacral region; M47.819 Spondylosis without myelopathy or radiculopathy, site unspecified; M99.83 Other biomechanical lesions of lumbar region; M40.204 Unspecified kyphosis, thoracic region; M48.00 Spinal stenosis, site unspecified
CPT/HCPCS: 97010; 97110; 97112; 97116; 97140; 97162; 97530

== ENCOUNTER 2019-10-10 21:22 | Emergency (ER) | payer MEDICARE, SELFPAY ==
[2019-10-10 21:30] VITALS: BP 182/87; PULSE 79; O2SAT 93
[2019-10-10 21:31] VITALS: BP 183/59; PULSE 71; RESP 10; TEMP 36.6; O2SAT 91; BMI 22.8
--- NOTE | 2019-10-10 21:31 | ED.SYNCOPE ---
HPI - Syncope General Chief Complaint: Syncope Stated Complaint: Syncope Time Seen by Provider: 10/10/19 21:23 Source: patient Mode of arrival: Ambulatory Limitations: no limitations History of Present Illness HPI narrative: 84F nonsmoker with history of hypertension and chronic kidney disease presents with multiple unprovoked syncopal episodes over the course of the day. She has been in her normal state of health up until today and denies any recent changes in medications or illness. witnessed her have a syncopal episode while sitting at the table and she quickly woke back up but stated she was feeling unwell. EMS was called and again she had a syncopal episode after abrading down to the 30s. She demonstrated no seizure-like activity a ankle quickly woke up. While getting transferred from the EMS cart she had another syncopal episode prior to being connected to our monitor. Patient lives at home, is full code. Related Data Home Medications Medication Instructions Recorded Confirmed Travoprost (TRAVATAN OPHTH 0.004%) 1 drp OPHTH HS #0 05/04/11 09/24/19 acetaminophen [Tylenol Extra 0 mg PO PRN PRN #0 07/09/17 09/24/19 Strength] amlodipine 5 mg tablet 5 mg PO BID tab 04/13/19 09/24/19 tramadol 50 mg tablet 50 mg PO BID PRN tab 04/13/19 09/24/19 carvedilol 3.125 mg tablet 6.25 mg PO BID tab 06/23/19 09/24/19 Previous Rx's Medication Instructions Recorded Disabled parking permit #1 ea 12/24/18 CMP Estriol Cream 0.2% See Rx Instructions .ROUTE 01/06/19 .COMPLEX #30 gram losartan 25 mg tablet 50 mg PO DAILY #90 tab 06/23/19 mirtazapine 15 mg tablet 15 mg PO QDAY #90 tabs 06/23/19 lidocaine 5 % topical ointment 1 applictn TOP BID PRN #30 gram 09/24/19 Allergies Allergy/AdvReac Type Severity Reaction Status Date / Time adhesive tape [ADHESIVE TAPE] Allergy Mild skin Verified 10/10/19 21:31 reaction gabapentin [GABAPENTIN] Allergy Unknown Swelling/ra Verified 10/10/19 21:31 sh amoxicillin [AMOXICILLIN] AdvReac Intermediate YEAST Verified 10/10/19 21:31 INFECTION doxycycline [DOXYCYCLINE] AdvReac Intermediate YEAST Verified 10/10/19 21:31 SYMPTOMS azithromycin [AZITHROMYCIN] AdvReac Mild DIARRHEA Verified 10/10/19 21:31 estrogens, conjugated AdvReac Mild LOCAL Verified 10/10/19 21:31 [ESTROGENS, CONJUGATED] IRRITATION WHEN TOPICAL hydrocodone [HYDROCODONE] AdvReac Mild GI UPSET Verified 10/10/19 21:31 levofloxacin [LEVOFLOXACIN] AdvReac Mild GI UPSET Verified 10/10/19 21:31 phenazopyridine AdvReac Mild GI UPSET Verified 10/10/19 21:31 [PHENAZOPYRIDINE] Review of Systems Constitutional Constitutional: Denies chills, Denies fatigue, Denies fever(s), Denies frequent falls, Denies lethargy and Denies weakness Eyes Eyes: Denies change in vision, Denies eye discharge, Denies irritation and Denies loss of vision ENT Ears, Nose, Mouth, and Throat: Denies change in voice, Denies dizziness, Denies neck pain, Denies sore throat and Denies throat swelling Cardiovascular Cardiovascular: Denies chest pain, Reports syncope, Denies irregular heart rhythm, Denies lightheadedness, Denies palpitations, Denies dyspnea, Denies dyspnea on exertion and Denies orthopnea Respiratory Respiratory: Denies cough, Denies dyspnea, Denies dyspnea on exertion and Denies wheezing Gastrointestinal Gastrointestinal: Denies abdominal pain, Denies change in bowel habits, Denies diarrhea, Denies nausea and Denies vomiting Genitourinary Genitourinary: Denies hematuria, Denies flank pain, Denies urinary incontinence and Denies urinary urgency Musculoskeletal Musculoskeletal: Denies back pain, Denies muscle weakness, Denies neck pain, Denies numbness and Denies tingling Integumentary/Breasts Skin/Breast: Denies pruritus, Denies erythema, Denies rash and Denies wounds Neurologic Neurologic: Denies behavioral changes, Denies confusion, Denies dizziness, Reports syncope, Denies frequent falls, Denies loss of vision, Denies numbness, Denies tingling and Denies weakness Psychiatric Psychiatric: Denies anxiety, Denies behavioral changes, Denies confusion, Denies depression, Denies homicidal ideation and Denies suicidal ideation Endocrine Endocrine: Denies fatigue, Denies flushing and Denies palpitations Hematologic/Lymphatic Hematologic/Lymphatic: Denies easy bruising Allergic/Immunologic Allergic/Immunologic: Denies urticaria, Denies throat swelling and Denies wheezing Patient History Medical History CKD (chronic kidney disease) (Chronic Unknown) Colon polyps (Resolved Unknown) Diverticular disease (Chronic Unknown) Glaucoma (Chronic Unknown) Hyperlipemia (Chronic Unknown) Hypertension (Chronic Unknown) Osteoporosis (Chronic Unknown) Scoliosis (Chronic Unknown) Skin cancer (Resolved ~2004) Spinal stenosis (Chronic Unknown) Squamous cell carcinoma (Resolved 12/2017) Vulvar irritation (Chronic Unknown) Surgical History History of hip replacement (Unknown) Hx of hysterectomy (Resolved Unknown) Family History Father Heart disease Mother Osteoporosis Social History Smoking Status: Never smoker alcohol intake: never substance use type: does not use alcohol intake frequency: 0-2 drinks per day Substance Use Type: does not use Exam Narrative Exam Narrative: GENERAL: [84] year old patient appears stated age. Well-nourished, well-developed patient, in mild distress. Holding an emesis bag HEAD: Atraumatic. Normocephalic. EYES: Pupils equal round and reactive. Extraocular motions intact. No scleral icterus. No injection or drainage. ENT: Nose without bleeding, purulent drainage. Throat without erythema, tonsillar hypertrophy or exudate. Airway patent. NECK: Trachea midline. Non tender CARDIOVASCULAR: Regular rate and rhythm without murmurs, gallops, or rubs. RESPIRATORY: Clear to auscultation. Breath sounds equal bilaterally. No wheezes, rales, or rhonchi. GASTROINTESTINAL: Abdomen soft, non-tender, nondistended. EXTREMITIES: No edema or joint tenderness. BACK: Nontender without deformity or crepitance. No flank tenderness. NEURO: AOx3. SKIN: No rash or erythema of visible areas Initial Vital Signs Initial Vital Signs: Vital Signs Pulse Rate 79 10/10/19 21:30 Blood Pressure 182/87 H 10/10/19 21:30 Pulse Oximetry 93 10/10/19 21:30 Course Course Course Narrative: call to Cardiology nearly immediately upon patient's arrival given evidence of AV block on rhythm strip. She was awake alert and oriented and doing well while I was on the phone with Cardiology and we initially elected to do the workup here and attempt direct admit upon completion of the evaluation. Soon after that phone call the patient had another unprovoked syncopal episode with a 10 second pause. Patient then given Glucagon 4mg, Atropine 0.5mg and Dopamine drip ordered at 2.5mcg/kg/min. Call back to [place] whom agrees scenario has escalated and patient is best served to be STAT transfer to [facility] ED. Call to ED (Dr. Garcias) to discuss the case. Patient stable for transport. He accepts patient. Patient and family aware of plan and in full agreement. Orders Ordered: ED Orders 10/10/19 21:28 EKG-12 Lead Stat Discontinued Medications Atropine Sulfate (Atropine) 0.5 mg IV NOW ONE Stop: 10/10/19 21:40 Last Admin: 10/10/19 21:42 Dose: 0.5 mg Documented by: REAGAN Glucagon (Glucagen) 1 mg IV NOW ONE Stop: 10/10/19 21:40 Last Admin: 10/10/19 21:46 Dose: 1 mg Documented by: REAGAN Glucagon (Glucagen) 3 mg IV NOW ONE Stop: 10/10/19 21:50 Last Admin: 10/10/19 21:57 Dose: 3 mg Documented by: REAGAN Sodium Chloride (Normal Saline 0.9%) 1,000 mls @ 150 mls/hr IV CONT JAYSHREE Last Infusion: 10/10/19 22:05 Dose: 150 mls/hr Documented by: Admin: 10/10/19 21:46 Dose: 150 mls/hr Documented by: REAGAN Dopamine HCl/Dextrose (Dopamine 400 Mg-D5w 250 Ml) 400 mg in 250 mls @ 4.975 mls/hr IV TITRATE JAYSHREE; Protocol Last Titration: 10/10/19 22:05 Dose: 2.5 mcg/kg/min, 4.975 mls/hr Documented by: Admin: 10/10/19 21:52 Dose: 2.5 mcg/kg/min, 4.975 mls/hr Documented by: REAGAN Vital Signs Vital signs: Vital Signs - 8 hr 10/10/19 21:31 Temperature 97.9 F Pulse Rate 71 Respiratory Rate 10 L Blood Pressure 183/59 H Pulse Oximetry 91 MDM - Syncope Lab Data Result diagrams: 10/10/19 20:25 10/10/19 20:25 Labs: Lab Results 10/10/19 10/10/19 10/10/19 Range/Units 20:25 20:25 20:25 WBC 5.9 (4.5-11.0) X10^3/uL RBC 3.88 L (4.0-5.2) X10^6/uL Hgb 11.0 L (12.0-16.0) g/dL Hct 33.6 L (36-46) % MCV 86.8 (80-100) fL MCH 28.4 (26-34) PG MCHC 32.8 (30-36) % RDW 15.6 H (11.6-14.8) % Plt Count 311 (150-400) X10^3/uL Neut % (Auto) 59.5 (50-75) % Lymph % (Auto) 27.5 (25-40) % Ashley % (Auto) 8.5 (3-14) % Eos % (Auto) 3.1 (2-4) % Baso % (Auto) 1.4 (0-2) % Neut # (Auto) 3500 (3255-9255) /uL Lymph # (Auto) 1600 (5713-8871) /uL Ashley # (Auto) 500 (0-900) /uL Eos # (Auto) 200 (0-450) /uL Baso # (Auto) 100 (0-100) /uL D-Dimer 934 H (<230) ng/mL Sodium 137 (137-145) mmol/L Potassium 4.3 (3.4-5.1) mmol/L Chloride 103 (98-107) mmol/L Carbon Dioxide 25 (22-32) mmol/L BUN 47 H (7-17) mg/dL Creatinine 2.80 H (0.52-1.04) mg/dL Estimated GFR 16.1 L (>60) mL/min BUN/Creatinine Ratio 16.8 (6-22) Glucose 121 H (80-110) mg/dL Calcium 9.2 (8.4-10.2) mg/dL Total Bilirubin 0.4 (0.2-1.3) mg/dL AST 30 (14-36) IU/L ALT 16 (<35) IU/L Alkaline Phosphatase 82 (38-126) U/L Total Creatine Kinase 57 (30-135) U/L CK-MB (CK-2) TNP CK-MB (CK-2) Rel Index TNP Troponin I < 0.012 (0.01-0.034) ng/mL B-Natriuretic Peptide 134 H (<100) Total Protein 7.5 (6.3-8.2) g/dL Albumin 4.4 (3.5-5.0) g/dL Globulin 3.1 (1.7-4.1) g/dL Albumin/Globulin Ratio 1.4 (1.0-2.8) Critical Care Time Critical Care Time Critical Care Time: Yes Total Critical Care Time: 42 Attestation: The high probability of a clinically significant, sudden or life threatening deterioration of the [CV] system(s) required my full and direct attention, intervention and personal management. The aggregate critical care time was [42] minutes. This time is in addition to time spent performing reported procedures but includes the following: [x] Data Review and interpretation [x] Patient assessment and monitoring of vital signs [x] Documentation [x] Medication orders and management Discharge Plan Departure Patient Disposition: [facility] Clinical Impression: Atypical syncope, AV heart block Discharge Date/Time: 10/10/19 22:05 Prescriptions: No Action (DME) Disabled parking permit Qty: 1 RF: 0 Travoprost (TRAVATAN OPHTH 0.004%) 1 drp OPHTH HS Qty: 0 RF: 0 acetaminophen [Tylenol Extra Strength] 500 MG tablet 0 mg PO PRN PRNQty: 0 RF: 0 CMP Estriol Cream 0.2% See Rx Instructions .ROUTE .COMPLEX Qty: 30 RF: 3 carvedilol [Coreg] 3.125 mg tablet 6.25 mg PO BID RF: 0 losartan 25 mg tablet 50 mg PO DAILY Qty: 90 RF: 3 mirtazapine 15 mg tablet 15 mg PO QDAY Qty: 90 RF: 3 lidocaine 5 % ointment 1 applictn TOP BID PRN (Reason: pain) Qty: 30 RF: 5 amlodipine [Norvasc] 5 mg tablet 5 mg PO BID RF: 0 tramadol 50 mg tablet 50 mg PO BID PRNRF: 0 Referrals: Edi,Ginny, DO [Primary Care Provider] -
[2019-10-10] MEDS: ATROPINE 1 MG/10 ML SYRINGE 0.5 MG IV (21:42)
[2019-10-10 21:44] LABS: D Dimer 934 ng/mL (<230)
[2019-10-10 21:46] LABS: Alanine Aminotransferase 16 IU/L (<35); Albumin 4.4 g/dL (3.5-5.0); Albumin Globulin Ratio 1.4 (1.0-2.8); Alkaline Phosphatase 82 U/L (38-126); Aspartate Aminotransferase 30 IU/L (14-36); BUN Creatinine Ratio 16.8 (6-22); Bilirubin Total 0.4 mg/dL (0.2-1.3); Blood Urea Nitrogen 47 mg/dL (7-17); Calcium 9.2 mg/dL (8.4-10.2); Carbon Dioxide 25 mmol/L (22-32); Chloride 103 mmol/L (98-107); Creatine Kinase 57 U/L (30-135); Estimated Glomerular Filt Rate 16.1 mL/min (>60); Globulin 3.1 g/dL (1.7-4.1); Glucose 121 mg/dL (80-110); HEMOLYSIS 17 (0-50); Potassium 4.3 mmol/L (3.4-5.1); Sodium 137 mmol/L (137-145); Total Protein 7.5 g/dL (6.3-8.2)
[2019-10-10] MEDS: SODIUM CHLORIDE 0.9% 1,000 ML 150 ML IV (21:46)
[2019-10-10] MEDS: GLUCAGON,HUMAN RECOMBINANT 1 MG/ML VIAL IV (21:46)
[2019-10-10] MEDS: ONDANSETRON 4 MG/2 ML INJ (21:48)
[2019-10-10] MEDS: DOPAMINE HCL IN DEXTROSE 5 % 400 MG/250 ML PLAST..BAG IV (21:52)
--- NOTE | 2019-10-10 21:53 | PC.NURSE ---
Pt arrived via EMS from home after having multiple syncopal episodes while sitting in recliner. Syncopized x 2 per family at home, on arrival pt syncopized x 3 in ED within 30 min. Pt placed on pacer pads and attached to cardiac monitoring on arrival. Pt nauseated. Denies CP, denies SOB. IV access x 2. EKG and labs obtained and sent. Pt HR marcella'd to 32 and rhythm strip obtained, atropine 0.5mg and glucagon 1mg given. Shortly thereafter had a 10-15 episode of asystole. MD aware and bedside. Pt medicated per JAN with additional glucagon 3mg and zofran 4mg, dopamine gtt infusing per order. Pt being STAT transferred to [facility]. Report given to JUAN Joseph-P.
[2019-10-10 21:54] LABS: B Type Natriuretic Peptide 134 (<100)
[2019-10-10 21:56] LABS: Add Manual Diff / Slide Review NO; Basophils Absolute Auto 100 /uL (0-100); Basophils Percent Auto 1.4 % (0-2); Eosinophils Absolute Auto 200 /uL (0-450); Eosinophils Percent Auto 3.1 % (2-4); Hematocrit 33.6 % (36-46); Lymphocytes Absolute Auto 1600 /uL (1100-4500); Lymphocytes Percent Auto 27.5 % (25-40); Mean Corpuscular HGB Conc 32.8 % (30-36); Mean Corpuscular Hemoglobin 28.4 PG (26-34); Mean Corpuscular Volume 86.8 fL (80-100); Monocytes Absolute Auto 500 /uL (0-900); Monocytes Percent Auto 8.5 % (3-14); Neutrophils Absolute Auto 3500 /uL (1500-7000); Neutrophils Percent Auto 59.5 % (50-75); Platelet Count 311 X10^3/uL (150-400); Red Blood Cell Count 3.88 X10^6/uL (4.0-5.2); Red Cell Distribution Width 15.6 % (11.6-14.8); White Blood Cell Count 5.9 X10^3/uL (4.5-11.0)
[2019-10-10] MEDS: GLUCAGON,HUMAN RECOMBINANT 1 MG/ML VIAL 3 MG IV (21:57)
[2019-10-10 21:58] LABS: Troponin I < 0.012 ng/mL (0.01-0.034)
[2019-10-10 22:00] VITALS: BP 179/97; PULSE 66; O2SAT 100
== END 2019-10-10 22:05 | disposition short-term general hospital (02) ==
PROVIDERS: Emergency Provider Emergency Medicine; PCP Family Medicine
DX: R55 Syncope and collapse (principal); I44.30 Unspecified atrioventricular block; I12.9 Hypertensive chronic kidney disease with stage 1 through stage 4 chronic kidney disease, or unspecified chronic kidney disease; N18.9 Chronic kidney disease, unspecified
CPT/HCPCS: 80053; 82550; 83880; 84484; 85025; 85379; 93005; 96374; 96375; 99283; 99291; J0461; J1610; J2405

== ENCOUNTER → 2019-10-23 12:00 | Outpatient (CLI) | payer MEDICARE, SELFPAY ==
[2019-10-23 12:43] LABS: Add Manual Diff / Slide Review NO; Basophils Absolute Auto 100 /uL (0-100); Basophils Percent Auto 1.1 % (0-2); Eosinophils Absolute Auto 200 /uL (0-450); Eosinophils Percent Auto 2.5 % (2-4); Hematocrit 29.8 % (36-46); Hemoglobin 10.3 g/dL (12.0-16.0); Lymphocytes Absolute Auto 700 /uL (1100-4500); Lymphocytes Percent Auto 8.9 % (25-40); Mean Corpuscular HGB Conc 34.4 % (30-36); Mean Corpuscular Hemoglobin 29.4 PG (26-34); Mean Corpuscular Volume 85.6 fL (80-100); Monocytes Absolute Auto 500 /uL (0-900); Neutrophils Absolute Auto 5900 /uL (1500-7000); Neutrophils Percent Auto 80.5 % (50-75); Platelet Count 237 X10^3/uL (150-400); Red Blood Cell Count 3.49 X10^6/uL (4.0-5.2); Red Cell Distribution Width 15.2 % (11.6-14.8); White Blood Cell Count 7.3 X10^3/uL (4.5-11.0)
[2019-10-23 12:45] LABS: Appearance Urine UA SL CLOUDY; Bilirubin Urine UA NEGATIVE (NEGATIVE); Color Urine UA YELLOW; Glucose Urine UA NEGATIVE (Negative); Ketones Urine UA NEGATIVE (NEGATIVE); Leukocyte Esterase Urine UA 2+ (NEGATIVE); Nitrite Urine UA NEGATIVE (Negative); Occult Blood Urine UA TRACE-LYSED (Negative); Protein Urine UA NEGATIVE (Negative); Specific Gravity Urine UA <=1.005 (1.000-1.035); Urobilinogen Urine UA 0.2 E.U./dL (0.2)
[2019-10-23 12:55] LABS: Amorphous Sediment Urine 1+; Bacteria Urine Many (>30); RBC Urine 0-1/HPF (0-5/HPF); Squamous Epithelial Cell Urine 5-10 /HPF (0-5/HPF); WBC Urine 5-10/HPF (0-5/HPF)
[2019-10-23 12:56] LABS: Culture Indicated Urine Specimen Cultured; Mucus Urine 1+ (Negative)
[2019-10-23 12:57] LABS: Alanine Aminotransferase 11 IU/L (<35); Albumin 3.8 g/dL (3.5-5.0); Albumin Globulin Ratio 1.5 (1.0-2.8); Alkaline Phosphatase 72 U/L (38-126); Aspartate Aminotransferase 30 IU/L (14-36); BUN Creatinine Ratio 29.7 (6-22); Bilirubin Total 0.7 mg/dL (0.2-1.3); Blood Urea Nitrogen 86 mg/dL (7-17); Calcium 9.1 mg/dL (8.4-10.2); Carbon Dioxide 20 mmol/L (22-32); Chloride 100 mmol/L (98-107); Estimated Glomerular Filt Rate 15.5 mL/min (>60); Globulin 2.5 g/dL (1.7-4.1); Glucose 102 mg/dL (80-110); HEMOLYSIS < 15 (0-50); Magnesium 2.4 mg/dL (1.6-2.3); Phosphorous 4.5 mg/dL (2.8-4.1); Potassium 4.4 mmol/L (3.4-5.1); Sodium 132 mmol/L (137-145); Total Protein 6.3 g/dL (6.3-8.2)
== END ==
PROVIDERS: PCP Family Medicine; Visit Provider Specialist
DX: N18.4 Chronic kidney disease, stage 4 (severe) (principal); M31.31 Wegener's granulomatosis with renal involvement
CPT/HCPCS: 36415; 80053; 81001; 83735; 84100; 85025; 86355; 86359; 86360; 87077; 87086; 87186

== ENCOUNTER → 2019-11-02 13:41 | Outpatient (CLI) | payer MEDICARE, SELFPAY ==
[2019-11-02 14:23] LABS: Add Manual Diff / Slide Review NO; Basophils Absolute Auto 0 /uL (0-100); Basophils Percent Auto 0.5 % (0-2); Eosinophils Absolute Auto 0 /uL (0-450); Eosinophils Percent Auto 0.1 % (2-4); Hemoglobin 9.6 g/dL (12.0-16.0); Lymphocytes Absolute Auto 600 /uL (1100-4500); Lymphocytes Percent Auto 9.2 % (25-40); Mean Corpuscular HGB Conc 34.4 % (30-36); Mean Corpuscular Hemoglobin 29.6 PG (26-34); Mean Corpuscular Volume 86.1 fL (80-100); Monocytes Absolute Auto 300 /uL (0-900); Monocytes Percent Auto 5.4 % (3-14); Neutrophils Absolute Auto 5100 /uL (1500-7000); Neutrophils Percent Auto 84.8 % (50-75); Platelet Count 286 X10^3/uL (150-400); Red Blood Cell Count 3.25 X10^6/uL (4.0-5.2); Red Cell Distribution Width 15.2 % (11.6-14.8)
[2019-11-02 14:46] LABS: Alanine Aminotransferase 17 IU/L (<35); Albumin 4.3 g/dL (3.5-5.0); Albumin Globulin Ratio 1.7 (1.0-2.8); Alkaline Phosphatase 65 U/L (38-126); Aspartate Aminotransferase 26 IU/L (14-36); BUN Creatinine Ratio 18.8 (6-22); Bilirubin Total 0.4 mg/dL (0.2-1.3); Blood Urea Nitrogen 62 mg/dL (7-17); Calcium 9.6 mg/dL (8.4-10.2); Carbon Dioxide 19 mmol/L (22-32); Chloride 101 mmol/L (98-107); Estimated Glomerular Filt Rate 13.4 mL/min (>60); Globulin 2.6 g/dL (1.7-4.1); Glucose 88 mg/dL (80-110); HEMOLYSIS < 15 (0-50); Magnesium 2.2 mg/dL (1.6-2.3); Sodium 133 mmol/L (137-145); Total Protein 6.9 g/dL (6.3-8.2)
[2019-11-02 14:56] LABS: Potassium 5.4 mmol/L (3.4-5.1)
[2019-11-05 10:25] LABS: HEMOLYSIS < 15 (0-50); Iron 68 ug/dL (37-170)
[2019-11-05 10:35] LABS: Percent Iron Saturation 25 % (15-50); Total Iron Binding Capacity 273 ug/dL (265-497); Transferrin 246 mg/dL (206-381)
[2019-11-06 12:52] LABS: Parathyroid Hormone Int 126 pg/mL (14-64)
== END ==
PROVIDERS: PCP Family Medicine; Visit Provider Specialist
DX: N18.5 Chronic kidney disease, stage 5 (principal); D63.1 Anemia in chronic kidney disease; N25.81 Secondary hyperparathyroidism of renal origin; I77.6 Arteritis, unspecified; D64.9 Anemia, unspecified
CPT/HCPCS: 36415; 80053; 83540; 83550; 83735; 83970; 84100; 85025; 86021

== ENCOUNTER 2019-11-18 13:08 | Emergency (ER) | payer MEDICARE, SELFPAY ==
[2019-11-18 13:17] VITALS: BP 175/61; PULSE 69; RESP 22; TEMP 36.8; O2SAT 96
--- NOTE | 2019-11-18 13:21 | DI.RAD.S_ITS ---
PROCEDURE: XR CHEST 1V INDICATIONS: chest pain TECHNIQUE: One view of the chest was acquired. COMPARISON: [facility], CR, XR CHEST 1 VIEW, 10/10/2019, 22:37. FINDINGS: Surgical changes and devices: Left-sided cardiac pacer/defibrillator is present. Lungs and pleura: Lungs are clear. No pleural effusions or pneumothorax. Elevation of the right diaphragm appears to be present. Mediastinum: Mediastinal contours appear normal. Heart size is normal. There is aortic atherosclerosis. Bones and chest wall: No suspicious bony lesions. Severe dextroscoliosis of the lumbar spine is not adequately characterize. Degenerative changes of the shoulders and spine are not well characterized. Overlying soft tissues appear unremarkable. IMPRESSION: Stable chest. No acute cardiopulmonary process is evident. Dictated by: Cale Green M.D. on 11/18/2019 at 12:42 Approved by: Cale Green M.D. on 11/18/2019 at 12:43
--- NOTE | 2019-11-18 13:22 | DI.CT.S_ITS ---
PROCEDURE: CT HEAD/BRAIN WO CON INDICATIONS: vision changes TECHNIQUE: Noncontrast 4.5 mm thick angled axial sections acquired from the foramen magnum to the vertex, with coronal and sagittal reformats. For radiation dose reduction, the following was used: automated exposure control, adjustment of mA and/or kV according to patient size. COMPARISON: [facility], CT, HEAD WITHOUT CONTRAST, 11/11/2011, 18:10. FINDINGS: Image quality: Excellent. CSF spaces: Basal cisterns are patent. No extra-axial fluid collections. The ventricles are symmetric in size and shape. Brain: No intracranial bleeds or masses. There is cerebral volume loss for age, with resultant ventricular and sulcal prominence. There are moderate periventricular and deep white matter chronic small vessel ischemic changes. There is intracranial internal carotid artery atherosclerosis. Skull and face: Calvarium and visualized facial bones appear intact, without suspicious lesions. Sinuses: Left maxillary sinus air-fluid level. Paranasal sinuses and mastoids otherwise clear. IMPRESSION: 1. Left maxillary sinusitis. 2. Age related volume loss and moderate small vessel ischemic change. 3. No evidence acute stroke, hemorrhage, or mass. Dictated by: Scottie Rios M.D. on 11/18/2019 at 13:50 Approved by: Scottie Rios M.D. on 11/18/2019 at 13:52
[2019-11-18 13:33] LABS: Add Manual Diff / Slide Review NO; Basophils Absolute Auto 0 /uL (0-100); Basophils Percent Auto 0.3 % (0-2); Eosinophils Absolute Auto 200 /uL (0-450); Eosinophils Percent Auto 4.1 % (2-4); Hematocrit 30.3 % (36-46); Hemoglobin 10.4 g/dL (12.0-16.0); Lymphocytes Absolute Auto 500 /uL (1100-4500); Lymphocytes Percent Auto 8.4 % (25-40); Mean Corpuscular HGB Conc 34.2 % (30-36); Mean Corpuscular Hemoglobin 29.6 PG (26-34); Mean Corpuscular Volume 86.5 fL (80-100); Monocytes Absolute Auto 300 /uL (0-900); Monocytes Percent Auto 5.5 % (3-14); Neutrophils Absolute Auto 4600 /uL (1500-7000); Neutrophils Percent Auto 81.7 % (50-75); Platelet Count 226 X10^3/uL (150-400); Red Blood Cell Count 3.51 X10^6/uL (4.0-5.2); Red Cell Distribution Width 16.1 % (11.6-14.8); White Blood Cell Count 5.6 X10^3/uL (4.5-11.0)
[2019-11-18] MEDS: ASPIRIN 81 MG CHEW TAB 324 MG PO (13:41)
[2019-11-18 13:49] LABS: Alanine Aminotransferase 17 IU/L (<35); Albumin 4.2 g/dL (3.5-5.0); Albumin Globulin Ratio 1.6 (1.0-2.8); Alkaline Phosphatase 52 U/L (38-126); Aspartate Aminotransferase 27 IU/L (14-36); BUN Creatinine Ratio 20.9 (6-22); Bilirubin Total 0.7 mg/dL (0.2-1.3); Blood Urea Nitrogen 46 mg/dL (7-17); Calcium 9.3 mg/dL (8.4-10.2); Carbon Dioxide 23 mmol/L (22-32); Chloride 102 mmol/L (98-107); Creatine Kinase 24 U/L (30-135); Estimated Glomerular Filt Rate 21.3 mL/min (>60); Globulin 2.7 g/dL (1.7-4.1); Glucose 126 mg/dL (80-110); HEMOLYSIS 23 (0-50); Lipase 348 U/L (23-300); Potassium 4.6 mmol/L (3.4-5.1); Sodium 135 mmol/L (137-145); Total Protein 6.9 g/dL (6.3-8.2)
[2019-11-18 13:55] LABS: INR 0.9 (0.9-1.3); Prothrombin Time 10.7 SECONDS (10.1-12.7)
[2019-11-18 13:58] LABS: PTT Partial Thromboplastin Tim 28 SECONDS (26.4-36.2)
[2019-11-18 13:59] LABS: Troponin I < 0.012 ng/mL (0.01-0.034)
--- NOTE | 2019-11-18 14:02 | ED_ITS ---
HPI - Chest Pain General Chief Complaint: Chest Pain Stated Complaint: CP Time Seen by Provider: 11/18/19 13:14 Source: patient and family Mode of arrival: Ambulatory Limitations: no limitations History of Present Illness HPI narrative: Patient is an 84-year-old female presenting with chest pain and some right visual changes. She actually had a pacemaker placed in September at [place] for syncopal episode. She says that she was seen evaluated by Cardiology yesterday and had a pacemaker interrogated she scheduled to have it again interrogated November 24. Today she presents with chest discomfort ongoing for the last 30 minutes started while she was lying down watching TV. Has now resolved. However at the same time she also had a kolidascope like vision change in the right eye which is now resolved and she has also had this happen before in the past. She had some slight numbness on her right side of her face as well but no weakness numbness or tingling in any other extremities no facial drooping or speech difficulty. She was seen evaluated by her staff nuclear weapons officer yesterday she is scheduled for an interrogation on November 24-[employer] pacemaker. She denies any palpitations passing out or syncopal episode MD complaint: chest pain Duration: now resolved Related Data Home Medications Medication Instructions Recorded Confirmed travoprost [Travatan Z] 1 drp OPHTHALMIC (EYE) BEDTIME #0 05/04/11 11/18/19 acetaminophen [Tylenol Extra 500 mg PO PRN PRN #0 07/09/17 11/18/19 Strength] hydralazine 50 mg tablet 50 mg PO TID 10/28/19 11/18/19 pantoprazole 40 mg tablet,delayed 40 mg PO DAILY 10/28/19 11/18/19 release carvedilol 6.25 mg PO BID 11/18/19 11/18/19 conjugated estrogens [Premarin] 0.625 mg VAGINAL DIRECTED 11/18/19 11/18/19 losartan 50 mg PO DAILY 11/18/19 11/18/19 mirtazapine 15 mg PO DAILY 11/18/19 11/18/19 prochlorperazine maleate 10 mg PO PRN PRN 11/18/19 11/18/19 Previous Rx's Medication Instructions Recorded Disabled parking permit #1 ea 12/24/18 amlodipine 10 mg tablet 10 mg PO DAILY #90 tab 11/16/19 Allergies Allergy/AdvReac Type Severity Reaction Status Date / Time adhesive tape [ADHESIVE TAPE] Allergy Mild skin Verified 11/18/19 13:21 reaction gabapentin [GABAPENTIN] Allergy Unknown Swelling/ra Verified 11/18/19 13:21 sh amoxicillin [AMOXICILLIN] AdvReac Intermediate YEAST Verified 11/18/19 13:21 INFECTION doxycycline [DOXYCYCLINE] AdvReac Intermediate YEAST Verified 11/18/19 13:21 SYMPTOMS azithromycin [AZITHROMYCIN] AdvReac Mild DIARRHEA Verified 11/18/19 13:21 estrogens, conjugated AdvReac Mild LOCAL Verified 11/18/19 13:21 [ESTROGENS, CONJUGATED] IRRITATION WHEN TOPICAL hydrocodone [HYDROCODONE] AdvReac Mild GI UPSET Verified 11/18/19 13:21 levofloxacin [LEVOFLOXACIN] AdvReac Mild GI UPSET Verified 11/18/19 13:21 phenazopyridine AdvReac Mild GI UPSET Verified 11/18/19 13:21 [PHENAZOPYRIDINE] Review of Systems Review of Systems Narrative: GENERAL: Denies chills, fatigue, malaise, fever, sweats, travel HEENT: + visual changes Denies sinus pain, ear pain, sore throat, difficulty swallowing, neck pain RESPIRATORY: Denies dyspnea, cough, wheezing, hemoptysis, sputum. CARDIOVASCULAR: See HPI GASTROINTESTINAL: Denies nausea, vomiting, abdominal pain, diarrhea, constipation, melena. : Denies dysuria, frequency, incontinence, hematuria, urinary retention, flank pain. MUSCULOSKELETAL: Denies weakness, joint pain, or bony pain SKIN: No rash, no erythema, no pruritus NEUROLOGIC: Denies weakness, dizziness, headache, numbness, change in speech, confusion PSYCHIATRIC: No concerning psychosocial issues. 12 point review of systems is negative except for those stated above and HPI Patient History Medical History CKD (chronic kidney disease) (Chronic Unknown) Colon polyps (Resolved Unknown) Diverticular disease (Chronic Unknown) Glaucoma (Chronic Unknown) Hyperlipemia (Chronic Unknown) Hypertension (Chronic Unknown) Osteoporosis (Chronic Unknown) Pacemaker (Acute) Rash and nonspecific skin eruption (Acute) Scoliosis (Chronic Unknown) Skin cancer (Resolved ~2004) Spinal stenosis (Chronic Unknown) Squamous cell carcinoma (Resolved 12/2017) Vulvar irritation (Chronic Unknown) Surgical History History of hip replacement (Unknown) Hx of hysterectomy (Resolved Unknown) Family History Father Heart disease Mother Osteoporosis Social History Smoking Status: Never smoker alcohol intake: never substance use type: does not use Smoking Status: Never smoker alcohol intake frequency: 0-2 drinks per day Substance Use Type: does not use Exam Initial Vital Signs Initial Vital Signs: Vital Signs Temperature 98.3 F 11/18/19 13:17 Pulse Rate 69 11/18/19 13:17 Respiratory Rate 22 11/18/19 13:17 Blood Pressure 175/61 H 11/18/19 13:17 Pulse Oximetry 96 11/18/19 13:17 GENERAL: Well-appearing, well-nourished and in no acute distress. HEENT: Head atraumatic,EOMI, pupils reactive, face symmetric, moist mucous membr anes CARDIOVASCULAR: Regular rate and rhythm without murmurs, rubs or gallops. RESPIRATORY: Breath sounds equal bilaterally, no wheezes rales or rhonchi. ABDOMEN: Soft, nontender. Normoactive bowel sounds all 4 quadrants. No guarding or rebound. EXTREMITIES: Normal range of motion, no clubbing or edema. Neurovascularly intact NEUROLOGICAL: Alert and oriented x4.Normal gait and speech. Cranial nerves II through XII grossly intact. Good [id number], good [id number], strength equal bilaterally, no dysarthria or aphasia, sensation in tact to soft touch bilaterally, no visual changes, no facial droop SKIN: Warm, dry, no laceration, no petechiae, no rashes or lesions. Scores NIH Stroke Scale Level of Conciousness: Alert, keenly responsive Ask month/age: Answers both questions correctly. Open/close eyes, close hand: Performs both tasks correctly Best gaze horizontal: Normal Visual boggs: No visual loss Facial palsy: Normal symetrical movement Left arm drift: No drift for full 10 sec Right arm drift: No drift for full 10 sec Left leg drift: No drift for full 10 sec Right leg drift: No drift for full 10 sec Limb ataxia: Absent Sensory on face/arms/legs: Normal, no sensory loss Best language: No aphasia, normal Dysarthria: Normal Extinction or inattention: No abnormality Total NIH Stroke scale score: 0 Course Orders Ordered: ED Orders 11/18/19 13:20 Complete Blood Count AUTO DIFF Stat Comprehensive Metabolic Panel Stat Lipase Stat Troponin & CK Cardiac Panel Stat 11/18/19 13:21 XR chest 1V Stat EKG-12 Lead Stat 11/18/19 13:22 CT head/brain wo con Stat 11/18/19 13:42 Partial Thromboplastin Time Stat Prothrombin Time INR Stat 11/18/19 16:18 Troponin I Stat Discontinued Medications Aspirin (Aspirin Chew) 324 mg PO NOW ONE Stop: 11/18/19 13:22 Last Admin: 11/18/19 13:41 Dose: 324 mg Documented by: ROBERTO CARLOS Lo Consultation #1: Dr. Moriah temple- pacemaker not interrogated yesterday can have pain around pacemaker site which is normal Time: 14:11 Vital Signs Vital signs: Vital Signs - 8 hr 11/18/19 13:17 11/18/19 14:14 11/18/19 14:36 Temperature 98.3 F Pulse Rate 69 66 67 Respiratory Rate 22 16 17 Blood Pressure 175/61 H Blood Pressure [Right Arm] 144/59 H 145/61 H Pulse Oximetry 96 93 92 11/18/19 15:00 11/18/19 17:14 Temperature Pulse Rate 59 L 66 Respiratory Rate 20 16 Blood Pressure 135/64 Blood Pressure [Right Arm] 137/58 L Pulse Oximetry 93 97 MDM - Chest Pain Lab Data Attestation: I reviewed the patient's lab results. Result diagrams: 11/18/19 13:20 11/18/19 13:20 Labs: Lab Results 11/18/19 11/18/19 11/18/19 Range/Units 13:20 13:20 13:42 WBC 5.6 (4.5-11.0) X10^3/uL RBC 3.51 L (4.0-5.2) X10^6/uL Hgb 10.4 L (12.0-16.0) g/dL Hct 30.3 L (36-46) % MCV 86.5 (80-100) fL MCH 29.6 (26-34) PG MCHC 34.2 (30-36) % RDW 16.1 H (11.6-14.8) % Plt Count 226 (150-400) X10^3/uL Neut % (Auto) 81.7 H (50-75) % Lymph % (Auto) 8.4 L (25-40) % Daggett % (Auto) 5.5 (3-14) % Eos % (Auto) 4.1 H (2-4) % Baso % (Auto) 0.3 (0-2) % Neut # (Auto) 4600 (9260-8065) /uL Lymph # (Auto) 500 L (5604-0629) /uL Daggett # (Auto) 300 (0-900) /uL Eos # (Auto) 200 (0-450) /uL Baso # (Auto) 0 (0-100) /uL PT 10.7 (10.1-12.7) SECONDS INR 0.9 (0.9-1.3) APTT 28 D (26.4-36.2) SECONDS Sodium 135 L (137-145) mmol/L Potassium 4.6 (3.4-5.1) mmol/L Chloride 102 (98-107) mmol/L Carbon Dioxide 23 (22-32) mmol/L BUN 46 H (7-17) mg/dL Creatinine 2.20 H (0.52-1.04) mg/dL Estimated GFR 21.3 L (>60) mL/min BUN/Creatinine Ratio 20.9 (6-22) Glucose 126 H (80-110) mg/dL Calcium 9.3 (8.4-10.2) mg/dL Total Bilirubin 0.7 (0.2-1.3) mg/dL AST 27 (14-36) IU/L ALT 17 (<35) IU/L Alkaline Phosphatase 52 (38-126) U/L Total Creatine Kinase 24 L (30-135) U/L CK-MB (CK-2) TNP CK-MB (CK-2) Rel Index TNP Troponin I < 0.012 (0.01-0.034) ng/mL Total Protein 6.9 (6.3-8.2) g/dL Albumin 4.2 (3.5-5.0) g/dL Globulin 2.7 (1.7-4.1) g/dL Albumin/Globulin Ratio 1.6 (1.0-2.8) Lipase 348 H (23-300) U/L 11/18/19 Range/Units 16:18 WBC (4.5-11.0) X10^3/uL RBC (4.0-5.2) X10^6/uL Hgb (12.0-16.0) g/dL Hct (36-46) % MCV (80-100) fL MCH (26-34) PG MCHC (30-36) % RDW (11.6-14.8) % Plt Count (150-400) X10^3/uL Neut % (Auto) (50-75) % Lymph % (Auto) (25-40) % Daggett % (Auto) (3-14) % Eos % (Auto) (2-4) % Baso % (Auto) (0-2) % Neut # (Auto) (8820-0718) /uL Lymph # (Auto) (9842-3731) /uL Daggett # (Auto) (0-900) /uL Eos # (Auto) (0-450) /uL Baso # (Auto) (0-100) /uL PT (10.1-12.7) SECONDS INR (0.9-1.3) APTT (26.4-36.2) SECONDS Sodium (137-145) mmol/L Potassium (3.4-5.1) mmol/L Chloride (98-107) mmol/L Carbon Dioxide (22-32) mmol/L BUN (7-17) mg/dL Creatinine (0.52-1.04) mg/dL Estimated GFR (>60) mL/min BUN/Creatinine Ratio (6-22) Glucose (80-110) mg/dL Calcium (8.4-10.2) mg/dL Total Bilirubin (0.2-1.3) mg/dL AST (14-36) IU/L ALT (<35) IU/L Alkaline Phosphatase (38-126) U/L Total Creatine Kinase (30-135) U/L CK-MB (CK-2) CK-MB (CK-2) Rel Index Troponin I < 0.012 (0.01-0.034) ng/mL Total Protein (6.3-8.2) g/dL Albumin (3.5-5.0) g/dL Globulin (1.7-4.1) g/dL Albumin/Globulin Ratio (1.0-2.8) Lipase (23-300) U/L Imaging Data CT scan - head: Radiologist's Impression: PROCEDURE: CT HEAD/BRAIN WO CON INDICATIONS: vision changes TECHNIQUE: Noncontrast 4.5 mm thick angled axial sections acquired from the foramen magnum to the vertex, with coronal and sagittal reformats. For radiation dose reduction, the following was used: automated exposure control, adjustment of mA and/or kV according to patient size. COMPARISON: [facility], CT, HEAD WITHOUT CONTRAST, 11/11/2011, 18:10. FINDINGS: Image quality: Excellent. CSF spaces: Basal cisterns are patent. No extra-axial fluid collections. The ventricles are symmetric in size and shape. Brain: No intracranial bleeds or masses. There is cerebral volume loss for age, with resultant ventricular and sulcal prominence. There are moderate periventricular and deep white matter chronic small vessel ischemic changes. There is intracranial internal carotid artery atherosclerosis. Skull and face: Calvarium and visualized facial bones appear intact, without suspicious lesions. Sinuses: Left maxillary sinus air-fluid level. Paranasal sinuses and mastoids otherwise clear. IMPRESSION: 1. Left maxillary sinusitis. 2. Age related volume loss and moderate small vessel ischemic change. 3. No evidence acute stroke, hemorrhage, or mass. Dictated by: Scottie Rios M.D. on 11/18/2019 at 13:50 Approved by: Scottie Rios M.D. on 11/18/2019 at 13: Chest x-ray: Radiologist's Impression: PROCEDURE: XR CHEST 1V INDICATIONS: chest pain TECHNIQUE: One view of the chest was acquired. COMPARISON: [facility], XR CHEST 1 VIEW, 10/10/2019, 22:37. FINDINGS: Surgical changes and devices: Left-sided cardiac pacer/defibrillator is present. Lungs and pleura: Lungs are clear. No pleural effusions or pneumothorax. Elevation of the right diaphragm appears to be present. Mediastinum: Mediastinal contours appear normal. Heart size is normal. There is aortic atherosclerosis. Bones and chest wall: No suspicious bony lesions. Severe dextroscoliosis of the lumbar spine is not adequately characterize. Degenerative changes of the shoulders and spine are not well characterized. Overlying soft tissues appear unremarkable. IMPRESSION: Stable chest. No acute cardiopulmonary process is evident. Dictated by: Cale Green M.D. on 11/18/2019 at 12:42 ECG Data Attestation: I personally reviewed and interpreted this ECG as follows: Interpretation: Paced rhythm rate 65 p.r. interval 199 QRS [address] changes similar to previous EKG MDM Narrative Medical decision making narrative: Patient has some centralized chest discomfort which she has previously had in the same place few times however this time it lasted a little bit longer. She has 2-troponins. She has no heart palpitations dizziness lightheadedness or syncopal episode. At this time no indication for emergent pacemaker interrogation she is scheduled for interrogation next week. She has been completely asymptomatic while in the emergency department. At this time I've discussed with patient and her strict return precautions and follow-up. Discharge Plan Departure Patient Disposition: Home Clinical Impression: Atypical chest pain Discharge Date/Time: 11/18/19 17:14 Instructions: DI for Atypical Chest Pain Activity Restrictions/Additional Instructions: *You have been diagnosed with atypical chest pain *What to do: You have an appointment for pacemaker interrogation on SaturdayNovember 24 it was not interrogated yesterday and no indication to interrogated today. Her blood work is overall reassuring in her chest x-ray is negative. However he still may require further outpatient testing such as a stress test, this should be discussed on Saturday. *Continue to take medications as directed *Follow up with your primary care provider in 2-3 days *Return to ER if you should have increasing chest pain shortness of breath passing out heart palpitations or any new, worsening or concerning symptoms Prescriptions: No Action (DME) Disabled parking permit Qty: 1 RF: 0 Travatan Z 0.004 % Drops 1 drp OPHTHALMIC (EYE) BEDTIME Qty: 0 RF: 0 acetaminophen [Tylenol Extra Strength] 500 MG tablet 500 mg PO PRN PRN (Reason: pain) Qty: 0 RF: 0 amlodipine 10 mg tablet 10 mg PO DAILY Qty: 90 RF: 3 pantoprazole 40 mg tablet,delayed release (DR/EC) 40 mg PO DAILY RF: 0 hydralazine 50 mg tablet 50 mg PO TID RF: 0 losartan 50 mg tablet 50 mg PO DAILY RF: 0 carvedilol 6.25 mg Tablet 6.25 mg PO BID RF: 0 prochlorperazine maleate 10 mg Tablet 10 mg PO PRN PRN (Reason: Nausea) RF: 0 Premarin 0.625 mg/gram Cream 0.625 mg VAGINAL DIRECTED RF: 0 mirtazapine 15 mg tablet 15 mg PO DAILY RF: 0 Referrals: Isaias Singh MD [Non-Staff] - Ginny Dalye DO [Primary Care Provider] -
[2019-11-18 14:14] VITALS: BP 144/59; PULSE 66; RESP 16; O2SAT 93
[2019-11-18 14:36] VITALS: BP 145/61; PULSE 67; RESP 17; O2SAT 92
[2019-11-18 15:00] VITALS: BP 137/58; PULSE 59; RESP 20; O2SAT 93
[2019-11-18 16:46] LABS: Troponin I < 0.012 ng/mL (0.01-0.034)
[2019-11-18 17:14] VITALS: BP 135/64; PULSE 66; RESP 16; O2SAT 97
== END 2019-11-18 17:14 | disposition home or self-care (01) ==
PROVIDERS: Emergency Provider Emergency Medicine; PCP Family Medicine
DX: R07.89 Other chest pain (principal); H53.8 Other visual disturbances; R20.2 Paresthesia of skin
CPT/HCPCS: 36415; 70450; 71045; 80053; 82550; 83690; 84484; 85025; 85610; 85730; 93005; 99284; 99285

== ENCOUNTER 2019-11-19 12:27 | Emergency (ER) | payer MEDICARE, SELFPAY ==
[2019-11-19] VITALS (9 sets, daily range): BP systolic 131–158; BP diastolic 56–70; PULSE 65–77; RESP 16–25; TEMP 36.3; O2SAT 96–99; BMI 22.4
--- NOTE | 2019-11-19 12:37 | DI.RAD.S_ITS ---
PROCEDURE: XR CHEST 1V INDICATIONS: chest pain TECHNIQUE: One view of the chest was acquired. COMPARISON: [facility], CR, CHEST 1 VIEW, 01/22/2017, 21:15. [facility], CR, XR CHEST 1 VIEW, 10/10/2019, 22:37. [facility], CR, XR CHEST 1V, 11/18/2019, 13:26. FINDINGS: Surgical changes and devices: There is a cardiac pacemaker. Lungs and pleura: Lungs are clear. No pleural effusions or pneumothorax. Mediastinum: Mediastinal contours appear normal. Heart size is normal. Bones and chest wall: There is scoliosis. No suspicious bony lesions. Overlying soft tissues appear unremarkable. IMPRESSION: No acute cardiopulmonary disease. Dictated by: Suman Capellan M.D. on 11/19/2019 at 13:47 Approved by: Suman Capellan M.D. on 11/19/2019 at 13:48
--- NOTE | 2019-11-19 12:58 | DI.CT.S_ITS ---
PROCEDURE: CT HEAD/BRAIN WO CON INDICATIONS: vision changes, recent pacemaker. chest pain TECHNIQUE: Noncontrast 4.5 mm thick angled axial sections acquired from the foramen magnum to the vertex, with coronal and sagittal reformats. For radiation dose reduction, the following was used: automated exposure control, adjustment of mA and/or kV according to patient size. COMPARISON: [facility], CT, CT HEAD/BRAIN WO CON, 11/18/2019, 13:27. FINDINGS: Image quality: Diagnostic. CSF spaces: Basal cisterns are patent. No extra-axial fluid collections. Ventricles are prominent in size. There is coarsening parenchymal volume loss. Brain: No midline shift. No intracranial masses or hemorrhage. Naik-white matter interface is normal. Confluent areas of low-attenuation within the periventricular and deep white matter of the supratentorial brain are similar to the previous exam. No large areas of parenchymal edema are appreciated. Skull and face: Calvarium and visualized facial bones are intact, without suspicious lesions. Sinuses: Mucosal thickening versus a mucous retention cyst appears to be present within the posterior aspect of the left inferior maxillary sinus, which is not completely evaluated. This appears to be grossly unchanged since the prior study. IMPRESSION: Stable head CT. No acute intracranial hemorrhage. Dictated by: Cale Green M.D. on 11/19/2019 at 12:41 Approved by: Cale Green M.D. on 11/19/2019 at 12:43
[2019-11-19 13:18] LABS: Add Manual Diff / Slide Review NO; Basophils Absolute Auto 100 /uL (0-100); Eosinophils Absolute Auto 300 /uL (0-450); Eosinophils Percent Auto 3.3 % (2-4); Hematocrit 34.2 % (36-46); Hemoglobin 11.3 g/dL (12.0-16.0); Lymphocytes Absolute Auto 500 /uL (1100-4500); Lymphocytes Percent Auto 6.3 % (25-40); Mean Corpuscular HGB Conc 33.2 % (30-36); Mean Corpuscular Hemoglobin 28.8 PG (26-34); Mean Corpuscular Volume 86.7 fL (80-100); Monocytes Absolute Auto 400 /uL (0-900); Monocytes Percent Auto 4.7 % (3-14); Neutrophils Absolute Auto 6800 /uL (1500-7000); Neutrophils Percent Auto 84.7 % (50-75); Platelet Count 224 X10^3/uL (150-400); Red Blood Cell Count 3.95 X10^6/uL (4.0-5.2)
[2019-11-19 13:29] LABS: INR 0.9 (0.9-1.3); Prothrombin Time 10.2 SECONDS (10.1-12.7)
[2019-11-19 13:32] LABS: PTT Partial Thromboplastin Tim 28 SECONDS (26.4-36.2)
[2019-11-19 13:33] LABS: Alanine Aminotransferase 22 IU/L (<35); Albumin 4.6 g/dL (3.5-5.0); Albumin Globulin Ratio 1.5 (1.0-2.8); Alkaline Phosphatase 64 U/L (38-126); BUN Creatinine Ratio 20.9 (6-22); Bilirubin Total 0.8 mg/dL (0.2-1.3); Blood Urea Nitrogen 48 mg/dL (7-17); Calcium 9.7 mg/dL (8.4-10.2); Carbon Dioxide 23 mmol/L (22-32); Chloride 102 mmol/L (98-107); Creatine Kinase 27 U/L (30-135); Estimated Glomerular Filt Rate 20.3 mL/min (>60); Glucose 95 mg/dL (80-110); HEMOLYSIS 48 (0-50); Lipase 334 U/L (23-300); Potassium 4.9 mmol/L (3.4-5.1); Sodium 136 mmol/L (137-145); Total Protein 7.6 g/dL (6.3-8.2)
[2019-11-19 13:39] LABS: Aspartate Aminotransferase 38 IU/L (14-36)
[2019-11-19 13:45] LABS: Troponin I < 0.012 ng/mL (0.01-0.034)
--- NOTE | 2019-11-19 13:45 | ED_ITS ---
HPI - Chest Pain General Chief Complaint: Chest Pain Stated Complaint: pace maker 1 month,pain in chest,nausea,vison dis Time Seen by Provider: 11/19/19 12:35 Source: patient Mode of arrival: Ambulatory Limitations: no limitations History of Present Illness HPI narrative: 84-year-old female nonsmoker with history of hypertension, ocular migraines, glaucoma and a recent pacemaker placement returns for the 2nd time in 2 days and a chief complaint today was about a 20 minutes episode of right eye he has a vision change that she describes as a kaleidoscope. She denies any other neurologic symptoms such as numbness, tingling or weakness. She denies any trouble with speech or focal neurologic findings. Yesterday and for the past few days she has had a few episodes of sharp and stabbing chest pain, largely at night and waking her up from sleep. She hasn't had any discomfort today. Yesterday she had a very thorough workup including a consultation with Cardiology and return precautions and plans for follow-up. MD complaint: other Duration: now resolved Onset: during rest Pain location: substernal Severity: mild Quality: sharp Pain radiation: none Relieving factors: nothing Exacerbating factors: nothing Context: recent surgery Treatments prior to arrival chest pain: none Related Data Home Medications Medication Instructions Recorded Confirmed travoprost [Travatan Z] 1 drp OPHTHALMIC (EYE) BEDTIME #0 05/04/11 11/19/19 acetaminophen [Tylenol Extra 500 mg PO PRN PRN #0 07/09/17 11/19/19 Strength] hydralazine 50 mg tablet 50 mg PO TID 10/28/19 11/19/19 pantoprazole 40 mg tablet,delayed 40 mg PO DAILY 10/28/19 11/19/19 release carvedilol 6.25 mg PO BID 11/18/19 11/19/19 conjugated estrogens [Premarin] 0.625 mg VAGINAL DIRECTED 11/18/19 11/19/19 losartan 50 mg PO DAILY 11/18/19 11/19/19 mirtazapine 15 mg PO DAILY 11/18/19 11/19/19 prochlorperazine maleate 10 mg PO PRN PRN 11/18/19 11/19/19 Previous Rx's Medication Instructions Recorded Disabled parking permit #1 ea 12/24/18 amlodipine 10 mg tablet 10 mg PO DAILY #90 tab 11/16/19 Allergies Allergy/AdvReac Type Severity Reaction Status Date / Time adhesive tape [ADHESIVE TAPE] Allergy Mild skin Verified 11/18/19 13:21 reaction gabapentin [GABAPENTIN] Allergy Unknown Swelling/ra Verified 11/18/19 13:21 sh amoxicillin [AMOXICILLIN] AdvReac Intermediate YEAST Verified 11/18/19 13:21 INFECTION doxycycline [DOXYCYCLINE] AdvReac Intermediate YEAST Verified 11/18/19 13:21 SYMPTOMS azithromycin [AZITHROMYCIN] AdvReac Mild DIARRHEA Verified 11/18/19 13:21 estrogens, conjugated AdvReac Mild LOCAL Verified 11/18/19 13:21 [ESTROGENS, CONJUGATED] IRRITATION WHEN TOPICAL hydrocodone [HYDROCODONE] AdvReac Mild GI UPSET Verified 11/18/19 13:21 levofloxacin [LEVOFLOXACIN] AdvReac Mild GI UPSET Verified 11/18/19 13:21 phenazopyridine AdvReac Mild GI UPSET Verified 11/18/19 13:21 [PHENAZOPYRIDINE] Review of Systems Constitutional Constitutional: Denies chills, Denies fatigue, Denies fever(s), Denies frequent falls, Denies lethargy and Denies weakness Eyes Eyes: Reports blurry vision, Denies change in vision, Denies eye discharge, Denies irritation and Denies loss of vision ENT Ears, Nose, Mouth, and Throat: Denies change in voice, Denies dizziness, Denies neck pain, Denies sore throat and Denies throat swelling Cardiovascular Cardiovascular: Denies chest pain, Denies irregular heart rhythm, Denies lightheadedness, Denies palpitations, Denies dyspnea, Denies dyspnea on exertion and Denies orthopnea Respiratory Respiratory: Denies cough, Denies dyspnea, Denies dyspnea on exertion and Denies wheezing Gastrointestinal Gastrointestinal: Denies abdominal pain, Denies change in bowel habits, Denies diarrhea, Denies nausea and Denies vomiting Genitourinary Genitourinary: Denies hematuria, Denies flank pain, Denies urinary incontinence and Denies urinary urgency Musculoskeletal Musculoskeletal: Denies back pain, Denies muscle weakness, Denies neck pain, Denies numbness and Denies tingling Integumentary/Breasts Skin/Breast: Denies pruritus, Denies erythema, Denies rash and Denies wounds Neurologic Neurologic: Denies behavioral changes, Denies confusion, Denies dizziness, Denies frequent falls, Denies loss of vision, Denies numbness, Denies tingling and Denies weakness Psychiatric Psychiatric: Denies anxiety, Denies behavioral changes, Denies confusion, Denies depression, Denies homicidal ideation and Denies suicidal ideation Endocrine Endocrine: Denies fatigue, Denies flushing and Denies palpitations Hematologic/Lymphatic Hematologic/Lymphatic: Denies easy bruising Allergic/Immunologic Allergic/Immunologic: Denies urticaria, Denies throat swelling and Denies wheezing Patient History Medical History CKD (chronic kidney disease) (Chronic Unknown) Colon polyps (Resolved Unknown) Diverticular disease (Chronic Unknown) Glaucoma (Chronic Unknown) Hyperlipemia (Chronic Unknown) Hypertension (Chronic Unknown) Osteoporosis (Chronic Unknown) Pacemaker (Acute) Rash and nonspecific skin eruption (Acute) Scoliosis (Chronic Unknown) Skin cancer (Resolved ~2004) Spinal stenosis (Chronic Unknown) Squamous cell carcinoma (Resolved 12/2017) Vulvar irritation (Chronic Unknown) Surgical History History of hip replacement (Unknown) Hx of hysterectomy (Resolved Unknown) Family History Father Heart disease Mother Osteoporosis Social History Smoking Status: Never smoker alcohol intake: never substance use type: does not use Smoking Status: Never smoker alcohol intake frequency: 0-2 drinks per day Substance Use Type: does not use Exam Narrative Exam Narrative: GENERAL: [84] year old patient appears stated age. Well- nourished, well-developed patient, in mild distress. HEAD: Atraumatic. Normocephalic. EYES: Pupils equal round and reactive. Extraocular motions intact. No scleral icterus. No injection or drainage. Right eye pressure 14 ENT: Nose without bleeding, purulent drainage. Throat without erythema, tonsillar hypertrophy or exudate. Airway patent. NECK: Trachea midline. Non tender CARDIOVASCULAR: Regular rate and rhythm without murmurs, gallops, or rubs. RESPIRATORY: Clear to auscultation. Breath sounds equal bilaterally. No wheezes, rales, or rhonchi. GASTROINTESTINAL: Abdomen soft, non-tender, nondistended. EXTREMITIES: No edema or joint tenderness. BACK: Nontender without deformity or crepitance. No flank tenderness. NEURO: AOx3. SKIN: No rash or erythema of visible areas Initial Vital Signs Initial Vital Signs: Vital Signs Temperature 97.4 F L 11/19/19 12:37 Pulse Rate 65 11/19/19 12:37 Respiratory Rate 18 11/19/19 12:37 Blood Pressure 158/70 H 11/19/19 12:37 Pulse Oximetry 99 11/19/19 12:37 Course Orders Ordered: ED Orders 11/19/19 12:37 XR chest 1V Stat EKG-12 Lead Stat 11/19/19 12:58 CT head/brain wo con Stat 11/19/19 13:10 Complete Blood Count AUTO DIFF Stat Comprehensive Metabolic Panel Stat Lipase Stat Partial Thromboplastin Time Stat Prothrombin Time INR Stat Troponin & CK Cardiac Panel Stat 11/19/19 13:13 D Dimer Stat 11/19/19 15:19 US periph venous low extrem bi Stat Discontinued Medications Proparacaine HCl (Parcaine 0.5% Ophth Shanique) 1 drops EYE-RIGHT NOW ONE Stop: 11/19/19 14:09 Last Admin: 11/19/19 14:16 Dose: 1 drop Documented by: HFARRINGTO Consultations Consultation #1: Discussed with the patient's procurement technician, . She suggests that the description is very similar to prior episodes of the patient h aving ocular migraines and there is nothing in the story that would prompt an emergent or urgent ophthalmological referral. Consultation #2: Attempts to interrogate pacemaker result in a possible availability of the wrap at 8:30 p.m. Consultation #3: Call to [facility] Cardiology, we share opinion that DVT/PE workup is reasonable given pleuritic type pain with risk factors of surgery, hospitalization. Will order B/L LE DVT and DDImer Patient has been interrogated and no abnormal findings. DDimer is 3950. We cannot perform a CTA here given her GFR (and lack of nephrology) and do not stock the isotope. Hospitalist at [facility] is happy to accept Time: 15:06 Vital Signs Vital signs: Vital Signs - 8 hr 11/19/19 12:37 11/19/19 13:52 11/19/19 15:10 Temperature 97.4 F L Pulse Rate 65 72 69 Respiratory Rate 18 16 Blood Pressure 158/70 H Blood Pressure [Right Arm] 136/56 L 131/56 L Pulse Oximetry 99 97 97 11/19/19 15:51 11/19/19 16:31 Temperature Pulse Rate 72 73 Respiratory Rate 19 20 Blood Pressure Blood Pressure [Right Arm] 157/67 H 147/56 H Pulse Oximetry 97 97 MDM - Chest Pain Lab Data Result diagrams: 11/19/19 13:10 11/19/19 13:10 Labs: Lab Results 11/19/19 11/19/19 11/19/19 Range/Units 13:10 13:10 13:10 WBC 8.0 (4.5-11.0) X10^3/uL RBC 3.95 L (4.0-5.2) X10^6/uL Hgb 11.3 L (12.0-16.0) g/dL Hct 34.2 L (36-46) % MCV 86.7 (80-100) fL MCH 28.8 (26-34) PG MCHC 33.2 (30-36) % RDW 16.0 H (11.6-14.8) % Plt Count 224 (150-400) X10^3/uL Neut % (Auto) 84.7 H (50-75) % Lymph % (Auto) 6.3 L (25-40) % Hutchinson % (Auto) 4.7 (3-14) % Eos % (Auto) 3.3 (2-4) % Baso % (Auto) 1.0 (0-2) % Neut # (Auto) 6800 (2660-8757) /uL Lymph # (Auto) 500 L (9491-5639) /uL Hutchinson # (Auto) 400 (0-900) /uL Eos # (Auto) 300 (0-450) /uL Baso # (Auto) 100 (0-100) /uL PT 10.2 (10.1-12.7) SECONDS INR 0.9 (0.9-1.3) APTT 28 (26.4-36.2) SECONDS D-Dimer (<230) ng/mL Sodium 136 L (137-145) mmol/L Potassium 4.9 (3.4-5.1) mmol/L Chloride 102 (98-107) mmol/L Carbon Dioxide 23 (22-32) mmol/L BUN 48 H (7-17) mg/dL Creatinine 2.30 H (0.52-1.04) mg/dL Estimated GFR 20.3 L (>60) mL/min BUN/Creatinine Ratio 20.9 (6-22) Glucose 95 (80-110) mg/dL Calcium 9.7 (8.4-10.2) mg/dL Total Bilirubin 0.8 (0.2-1.3) mg/dL AST 38 H (14-36) IU/L ALT 22 (<35) IU/L Alkaline Phosphatase 64 (38-126) U/L Total Creatine Kinase 27 L (30-135) U/L CK-MB (CK-2) TNP CK-MB (CK-2) Rel Index TNP Troponin I < 0.012 (0.01-0.034) ng/mL Total Protein 7.6 (6.3-8.2) g/dL Albumin 4.6 (3.5-5.0) g/dL Globulin 3.0 (1.7-4.1) g/dL Albumin/Globulin Ratio 1.5 (1.0-2.8) Lipase 334 H (23-300) U/L 11/19/19 Range/Units 13:13 WBC (4.5-11.0) X10^3/uL RBC (4.0-5.2) X10^6/uL Hgb (12.0-16.0) g/dL Hct (36-46) % MCV (80-100) fL MCH (26-34) PG MCHC (30-36) % RDW (11.6-14.8) % Plt Count (150-400) X10^3/uL Neut % (Auto) (50-75) % Lymph % (Auto) (25-40) % Hutchinson % (Auto) (3-14) % Eos % (Auto) (2-4) % Baso % (Auto) (0-2) % Neut # (Auto) (7797-4710) /uL Lymph # (Auto) (6752-1447) /uL Hutchinson # (Auto) (0-900) /uL Eos # (Auto) (0-450) /uL Baso # (Auto) (0-100) /uL PT (10.1-12.7) SECONDS INR (0.9-1.3) APTT (26.4-36.2) SECONDS D-Dimer 3950 H (<230) ng/mL Sodium (137-145) mmol/L Potassium (3.4-5.1) mmol/L Chloride (98-107) mmol/L Carbon Dioxide (22-32) mmol/L BUN (7-17) mg/dL Creatinine (0.52-1.04) mg/dL Estimated GFR (>60) mL/min BUN/Creatinine Ratio (6-22) Glucose (80-110) mg/dL Calcium (8.4-10.2) mg/dL Total Bilirubin (0.2-1.3) mg/dL AST (14-36) IU/L ALT (<35) IU/L Alkaline Phosphatase (38-126) U/L Total Creatine Kinase (30-135) U/L CK-MB (CK-2) CK-MB (CK-2) Rel Index Troponin I (0.01-0.034) ng/mL Total Protein (6.3-8.2) g/dL Albumin (3.5-5.0) g/dL Globulin (1.7-4.1) g/dL Albumin/Globulin Ratio (1.0-2.8) Lipase (23-300) U/L Critical Care Time Critical Care Time Critical Care Time: Yes Total Critical Care Time: 35 Attestation: The high probability of a clinically significant, sudden or life threatening deterioration of the [CV] system(s) required my full and direct attention, intervention and personal management. The aggregate critical care time was [35] minutes. This time is in addition to time spent performing reported procedures but includes the following: [x] Data Review and interpretation [x] Patient assessment and monitoring of vital signs [x] Documentation [x] Medication orders and management Discharge Plan Departure Patient Disposition: [facility] Clinical Impression: Atypical chest pain, Ocular migraine Prescriptions: No Action (DME) Disabled parking permit Qty: 1 RF: 0 Travatan Z 0.004 % Drops 1 drp OPHTHALMIC (EYE) BEDTIME Qty: 0 RF: 0 acetaminophen [Tylenol Extra Strength] 500 MG tablet 500 mg PO PRN PRN (Reason: pain) Qty: 0 RF: 0 amlodipine 10 mg tablet 10 mg PO DAILY Qty: 90 RF: 3 pantoprazole 40 mg tablet,delayed release (DR/EC) 40 mg PO DAILY RF: 0 hydralazine 50 mg tablet 50 mg PO TID RF: 0 losartan 50 mg tablet 50 mg PO DAILY RF: 0 carvedilol 6.25 mg Tablet 6.25 mg PO BID RF: 0 prochlorperazine maleate 10 mg Tablet 10 mg PO PRN PRN (Reason: Nausea) RF: 0 Premarin 0.625 mg/gram Cream 0.625 mg VAGINAL DIRECTED RF: 0 mirtazapine 15 mg tablet 15 mg PO DAILY RF: 0 Referrals: Ginny Daley DO [Primary Care Provider] -
[2019-11-19] MEDS: PROPARACAINE 0.5% OPHTH SOL 1 DROPS EYE-RIGHT (14:16)
--- NOTE | 2019-11-19 14:16 | PC.NURSE ---
eye drops given to dr dawson to adminster at time of exam
--- NOTE | 2019-11-19 15:19 | DI.US.S_ITS ---
PROCEDURE: US PERIPH VENOUS LOW EXTREM BI INDICATIONS: PLEURITIC CHEST PAIN, RECENT SURGERY, RECENT ELEV DDIMER TECHNIQUE: Real-time imaging, as well as color and pulse Doppler interrogation, were performed of the deep veins of both legs from the inguinal ligament to the popliteal fossa. COMPARISON: None. FINDINGS: Right: The common femoral, femoral and popliteal veins are normally compressible, and free of intraluminal thrombus. Color and pulse Doppler demonstrate normal phasic intravascular flow. There is normal augmentation response to distal compression maneuver. Left: The common femoral, femoral and popliteal veins are normally compressible, and free of intraluminal thrombus. Color and pulse Doppler demonstrate normal phasic intravascular flow. There is normal augmentation response to distal compression maneuver. IMPRESSION: No DVT in lower extremities. Dictated by: Suman Capellan M.D. on 11/19/2019 at 16:29 Approved by: Suman Capellan M.D. on 11/19/2019 at 16:37
[2019-11-19 15:39] LABS: D Dimer 3950 ng/mL (<230)
--- NOTE | 2019-11-19 16:55 | PC.NURSE ---
Pacemaker interrogated
--- NOTE | 2019-11-19 19:53 | PC.NURSE ---
report given to Jack Olivera RN
== END 2019-11-19 19:54 | disposition short-term general hospital (02) ==
PROVIDERS: Emergency Provider Emergency Medicine; PCP Family Medicine
DX: R07.89 Other chest pain (principal); G43.109 Migraine with aura, not intractable, without status migrainosus; Z95.0 Presence of cardiac pacemaker
CPT/HCPCS: 36415; 70450; 71045; 80053; 82550; 83690; 84484; 85025; 85379; 85610; 85730; 93005; 93970; 99285; 99291

== ENCOUNTER → 2019-11-26 13:58 | Outpatient (CLI) | payer MEDICARE, SELFPAY ==
[2019-11-26 15:35] LABS: Add Manual Diff / Slide Review NO; Basophils Absolute Auto 100 /uL (0-100); Basophils Percent Auto 1.4 % (0-2); Eosinophils Absolute Auto 300 /uL (0-450); Eosinophils Percent Auto 6.9 % (2-4); Hematocrit 29.1 % (36-46); Hemoglobin 9.7 g/dL (12.0-16.0); Lymphocytes Absolute Auto 600 /uL (1100-4500); Lymphocytes Percent Auto 12.2 % (25-40); Mean Corpuscular HGB Conc 33.2 % (30-36); Mean Corpuscular Hemoglobin 28.5 PG (26-34); Mean Corpuscular Volume 85.6 fL (80-100); Monocytes Absolute Auto 300 /uL (0-900); Monocytes Percent Auto 7.1 % (3-14); Neutrophils Absolute Auto 3300 /uL (1500-7000); Neutrophils Percent Auto 72.4 % (50-75); Platelet Count 300 X10^3/uL (150-400); Red Cell Distribution Width 15.8 % (11.6-14.8); White Blood Cell Count 4.6 X10^3/uL (4.5-11.0)
[2019-11-26 15:49] LABS: Alanine Aminotransferase 32 IU/L (<35); Albumin 4.1 g/dL (3.5-5.0); Albumin Globulin Ratio 1.5 (1.0-2.8); Alkaline Phosphatase 116 U/L (38-126); Aspartate Aminotransferase 32 IU/L (14-36); BUN Creatinine Ratio 21.5 (6-22); Bilirubin Total 0.4 mg/dL (0.2-1.3); Blood Urea Nitrogen 58 mg/dL (7-17); Calcium 9.7 mg/dL (8.4-10.2); Carbon Dioxide 20 mmol/L (22-32); Chloride 101 mmol/L (98-107); Estimated Glomerular Filt Rate 16.8 mL/min (>60); Globulin 2.8 g/dL (1.7-4.1); Glucose 101 mg/dL (80-110); HEMOLYSIS < 15 (0-50); Phosphorous 4.4 mg/dL (2.8-4.1); Potassium 4.8 mmol/L (3.4-5.1); Sodium 134 mmol/L (137-145); Total Protein 6.9 g/dL (6.3-8.2)
[2019-11-26 15:50] LABS: Iron 29 ug/dL (37-170)
[2019-11-26 16:07] LABS: Vitamin D 25 Hydroxy (D3) 25.8 ng/mL (30.0-100.0)
[2019-11-26 16:55] LABS: Folate 8.3 ng/mL (2.76-20.0); Vitamin B12 570 pg/mL (239-931)
[2019-11-26 18:24] LABS: HEMOLYSIS < 15 (0-50); Percent Iron Saturation 11 % (15-50); Total Iron Binding Capacity 267 ug/dL (265-497); Transferrin 223 mg/dL (206-381)
[2019-11-28 15:45] LABS: Parathyroid Hormone Int 60 pg/mL (14-64)
== END ==
PROVIDERS: PCP Family Medicine; Visit Provider Physician Assistant Medical
DX: N18.4 Chronic kidney disease, stage 4 (severe) (principal); D63.1 Anemia in chronic kidney disease; M31.31 Wegener's granulomatosis with renal involvement; N02.8 Recurrent and persistent hematuria with other morphologic changes; I10 Essential (primary) hypertension
CPT/HCPCS: 36415; 80053; 82306; 82607; 82746; 83540; 83550; 83970; 84100; 85025

== ENCOUNTER → 2020-01-27 10:19 | Outpatient (CLI) | payer MEDICARE, SELFPAY ==
[2020-01-27 11:03] LABS: Cholesterol 189 mg/dL (140-199); HDL Cholesterol 89 mg/dL (40-60); LDL Cholesterol Calculated 70 mg/dL (<100); Triglycerides 148 mg/dL (35-150)
== END ==
PROVIDERS: PCP Family Medicine; Referring Provider Family Medicine; Visit Provider Family Medicine
DX: I10 Essential (primary) hypertension (principal)
CPT/HCPCS: 36415; 80061

== ENCOUNTER 2020-04-04 22:45 | Observation (INO) | payer MEDICARE, SELFPAY ==
[2020-04-04 22:45] VITALS: BP 189/82; PULSE 69; RESP 18; O2SAT 97
[2020-04-04] MEDS: ONDANSETRON 4 MG/2 ML INJ (22:53)
--- NOTE | 2020-04-04 23:17 | ED_ITS ---
HPI - Fall General Chief Complaint: Fall Stated Complaint: GLF / Rt hip pain Time Seen by Provider: 04/04/20 23:04 Source: patient and EMS Mode of arrival: EMS History of Present Illness HPI Narrative: 84-year-old woman with a history of hypertension, hyperlipidemia and reflux presents after a mechanical fall after walking through a doorway where she simply stumbled and landed on her right hip suffering immediate acute pain. Medics were called and she is transported to the emergency room with concerns for right hip fracture. She has had a right hip replacement approximately 4 years ago with surgery done in telling him that time. Related Data Home Medications Medication Instructions Recorded Confirmed travoprost [Travatan Z] 1 drp OPHTHALMIC (EYE) BEDTIME #0 05/04/11 11/19/19 acetaminophen [Tylenol Extra 500 mg PO PRN PRN #0 07/09/17 11/19/19 Strength] hydralazine 50 mg tablet 50 mg PO TID 10/28/19 11/19/19 pantoprazole 40 mg tablet,delayed 40 mg PO DAILY 10/28/19 11/19/19 release carvedilol 6.25 mg PO BID 11/18/19 11/19/19 conjugated estrogens [Premarin] 0.625 mg VAGINAL DIRECTED 11/18/19 11/19/19 mirtazapine 15 mg PO DAILY 11/18/19 11/19/19 prochlorperazine maleate 10 mg PO PRN PRN 11/18/19 11/19/19 Previous Rx's Medication Instructions Recorded Disabled parking permit #1 ea 12/24/18 amlodipine 10 mg tablet 10 mg PO DAILY #90 tab 11/16/19 losartan 50 mg tablet 50 mg PO DAILY #90 tab 01/01/20 atorvastatin 20 mg tablet 20 mg PO DAILY #90 tab 01/28/20 Allergies Allergy/AdvReac Type Severity Reaction Status Date / Time adhesive tape [ADHESIVE TAPE] Allergy Mild skin Verified 11/18/19 13:21 reaction gabapentin [GABAPENTIN] Allergy Unknown Swelling/ra Verified 11/18/19 13:21 sh amoxicillin [AMOXICILLIN] AdvReac Intermediate YEAST Verified 11/18/19 13:21 INFECTION doxycycline [DOXYCYCLINE] AdvReac Intermediate YEAST Verified 11/18/19 13:21 SYMPTOMS azithromycin [AZITHROMYCIN] AdvReac Mild DIARRHEA Verified 11/18/19 13:21 estrogens, conjugated AdvReac Mild LOCAL Verified 11/18/19 13:21 [ESTROGENS, CONJUGATED] IRRITATION WHEN TOPICAL hydrocodone [HYDROCODONE] AdvReac Mild GI UPSET Verified 11/18/19 13:21 levofloxacin [LEVOFLOXACIN] AdvReac Mild GI UPSET Verified 11/18/19 13:21 phenazopyridine AdvReac Mild GI UPSET Verified 11/18/19 13:21 [PHENAZOPYRIDINE] Review of Systems Review of Systems Narrative: Pertinent positive and negative findings as per HPI Remainder of review of systems is otherwise unremarkable for Constitutional: Fevers, chills, weakness ENT: No sore throat, neck pain, ear pain CV: Chest pain, palpitations, dyspnea on exertion Respiratory: Cough, wheeze, dyspnea GI: Nausea, vomiting, diarrhea, change in bowel habits, black or bloody stools : Dysuria, hematuria, flank pain MS: Muscle weakness, numbness, joint swelling or warmth Skin: Rashes, nonhealing lesions Neuro: Syncope, dizziness, tingling Psych: Depression, anxiety, suicidal ideation Endocrine: Fatigue, heat or cold intolerance, very dry skin Heme: Easy bruising or bleeding Allergy: Seasonal rhinorrhea, itchy eyes Patient History Medical History CKD (chronic kidney disease) (Chronic Unknown) Colon polyps (Resolved Unknown) Diverticular disease (Chronic Unknown) Glaucoma (Chronic Unknown) Hip pain (Acute) Hyperlipemia (Chronic Unknown) Hypertension (Chronic Unknown) Osteoporosis (Chronic Unknown) Pacemaker (Acute) Rash and nonspecific skin eruption (Acute) Scoliosis (Chronic Unknown) Skin cancer (Resolved ~2004) Spinal stenosis (Chronic Unknown) Squamous cell carcinoma (Resolved 12/2017) Vulvar irritation (Chronic Unknown) Surgical History History of hip replacement (Unknown) Hx of hysterectomy (Resolved Unknown) Family History Father Heart disease Mother Osteoporosis Social History Smoking Status: Never smoker alcohol intake: never substance use type: does not use Smoking Status: Never smoker alcohol intake frequency: 0-2 drinks per day Substance Use Type: does not use Exam Narrative Exam Narrative: General: Mild distress distress. Able to give a complete and coherent history. Well-nourished well-developed HEENT: Moist mucous membranes, normal sclera with reactive pupils, Neck: supple Respiratory: Lungs are clear to auscultation, no wheezing no rales no rhonchi. Full and symmetrical air movement Cardiac: Regular rate and rhythm no murmurs no bruits Abdomen: Soft nontender good bowel tones, no flank pain Skin: Warm and dry, no rashes Neurologic: Grossly neurologically intact with no obvious asymmetries or abnormalities Extremities: Bruising over the lateral aspect of the left knee without significant tenderness. Right hip significantly tender with decreased range of motion externally rotated leg. Both legs are neurovascularly intact. Psych: Cooperative, appropriate insight and affect Initial Vital Signs Initial Vital Signs: Vital Signs Pulse Rate 69 04/04/20 22:45 Respiratory Rate 18 04/04/20 22:45 Blood Pressure 189/82 H 04/04/20 22:45 Pulse Oximetry 97 04/04/20 22:45 Procedures Orthopedic Joint Reduction Joint #1: Time Out Performed: Yes Side: right Joint Reduction Location: hip (Prosthetic) Analgesia: procedural sedation Technique used: traction/counter-traction and direct manipulation Post-reduction neuro exam: no change Post-reduction vascular: no change Post Reduction X-Ray Obtained: Yes Post Reduction X-Ray Results: not reduced Splint Applied: No Procedural Sedation Consent signed: Yes Time out performed: Yes Indication: fracture/dislocation reduction ASA Class: II Mallampati Airway Classification: Class II Time of Last PO Intake: 17:00 Preparation: drop machine operator applied, pulse oximeter, capnometry used, supplemental O2 applied, suction/airway equipment at bedside and IV secured IV Propofol dose (mg): 80 ED Sedation Level: Moderate (Concious) Patient Tolerated Procedure: Well Complications: none Additional Comments: Unsuccessful reduction Total of 80 mg of propofol as used. Pushed by me. Initially 20 mg than 40 than 20. Excellent sedation was obtained. Total intera sedation time is 14 minutes Course Orders Ordered: ED Orders 04/04/20 23:18 XR pelvis 1-2V Stat 04/05/20 00:23 Consult to Respiratory Therapy Evaluate & Treat 04/05/20 02:33 Complete Blood Count AUTO DIFF Stat Comprehensive Metabolic Panel Stat EKG-12 Lead Stat 04/05/20 02:38 XR hip w pel if done RT 2V Stat Sodium Chloride (Normal Saline 0.9%) 1,000 mls @ 150 mls/hr IV CONT JAYSHREE Last Admin: 04/05/20 00:42 Dose: 150 mls/hr Documented by: BRODERICK Discontinued Medications Hydromorphone HCl (Dilaudid) 0.5 mg IV NOW ONE Stop: 04/04/20 23:19 Last Admin: 04/05/20 01:53 Dose: 0.5 mg Documented by: BRODERICK Ondansetron HCl (Zofran) 4 mg IV NOW ONE Stop: 04/04/20 22:53 Last Admin: 04/04/20 22:57 Dose: Not Given Documented by: FABY Ondansetron HCl (Zofran) 4 mg IV NOW ONE Stop: 04/04/20 23:19 Last Admin: 04/05/20 01:52 Dose: 4 mg Documented by: BRODERICK Propofol (Diprivan) 200 mg IV NOW ONE Stop: 04/05/20 00:24 Last Admin: 04/05/20 01:33 Dose: 80 mg Documented by: BRODERICK Vital Signs Vital signs: Vital Signs - 8 hr 04/04/20 22:45 04/05/20 00:30 04/05/20 01:00 Pulse Rate 69 69 71 Respiratory Rate 18 14 15 Blood Pressure 189/82 H Blood Pressure [Left Arm] 152/69 H 151/65 H Pulse Oximetry 97 97 97 04/05/20 01:25 04/05/20 01:30 04/05/20 01:45 Pulse Rate 83 66 66 Respiratory Rate 18 12 14 Blood Pressure Blood Pressure [Left Arm] 187/84 H 136/58 L 126/60 Pulse Oximetry 97 96 96 04/05/20 01:55 04/05/20 02:23 04/05/20 02:28 Pulse Rate 66 Respiratory Rate 20 Blood Pressure Blood Pressure [Left Arm] 146/65 H Pulse Oximetry 94 82 L 94 MDM - Fall Medical Records Attestation: I reviewed the patient's medical records. Lab Data Lab results narrative: Preop labs have been ordered in anticipation of general anesthetic tomorrow Imaging Data hip: Attestation: I personally reviewed and interpreted this imaging study as follows: My Impression: Prosthetic hip with dislocation. No obvious periprosthetic fracture and no pelvic fracture Repeat film: Post attempted reduction, films repeated with no change. ECG Data Attestation: I personally reviewed and interpreted this ECG as follows: Interpretation: Sinus rhythm at a rate of 62 Left axis deviation No acute ischemic changes MDM Narrative Medical decision making narrative: 84-year-old woman with mechanical fall landing on her prosthetic right hip dislocating the hip with no obvious periprosthetic fractures. Unsuccessful hip reduction with propofol sedation in the emergency department. Have reviewed care with Dr. Morris, orthopedist. Asked for a lateral film as well will order this. Patient will be admitted to the hospitalist service and Dr. Damon will contact the warehouse handler to see how soon or time can be facilitated to try to reduce the hip under general anesthesia. Discharge Plan Departure Patient Disposition: Admitted as Observation Clinical Impression: Dislocation, hip Qualifiers: Encounter type: initial encounter Laterality: right Qualified Code(s): S73.004A - Unspecified dislocation of right hip, initial encounter Admit Date/Time: 04/05/20 03:08 Admit Provider: Keith Mueller
--- NOTE | 2020-04-04 23:18 | DI.RAD.S_ITS ---
PROCEDURE: XR PELVIS 1-2V INDICATIONS: fall, pain TECHNIQUE: Single view(s) of the pelvis acquired. COMPARISON: [facility], CR, XR LUMBAR SPINE MIN 4V, 04/13/2019, 15:16. [facility], CR, XR HIP W PEL IF DONE RT 2V, 04/05/2020, 1:48. FINDINGS: Bones: Dislocated right hip arthroplasty. Hardware appears intact. No fracture identified. Spondylosis, scoliosis and mild left hip joint degeneration. Soft tissues: Visualized bowel gas pattern is normal. No suspicious soft tissue calcifications. IMPRESSION: Dislocated right hip arthroplasty Dictated by: Zain Ford M.D. on 04/05/2020 at 8:40 Approved by: Zain Ford M.D. on 04/05/2020 at 8:42
[2020-04-05] VITALS (27 sets, daily range): BP systolic 126–187; BP diastolic 52–84; PULSE 60–83; RESP 10–24; TEMP 36–37; O2SAT 82–100; BMI 21.1
--- NOTE | 2020-04-05 | DI.RAD.S_ITS ---
PROCEDURE: XR HIP W PEL IF DONE RT 2V INDICATIONS: CLOSED REDUCTION OF DISLOCATED RIGHT HIP TECHNIQUE: 2 fluoroscopic images COMPARISON: None. FINDINGS: 2 fluoroscopic images demonstrate successful reduction of a dislocated total right hip prosthesis. IMPRESSION: Operative fluoroscopy utilized for successful reduction of dislocated hip prosthesis. Dictated by: Scottie Rios M.D. on 04/05/2020 at 8:05 Approved by: Scottie Rios M.D. on 04/05/2020 at 8:06
[2020-04-05] MEDS: SODIUM CHLORIDE 0.9% 1,000 ML 150 ML IV (00:42)
[2020-04-05] MEDS: propofoL 200 MG/20 ML VIAL IV (01:33)
[2020-04-05] MEDS: ONDANSETRON 4 MG/2 ML INJ IV ×3 (01:52→08:00)
[2020-04-05] MEDS: HYDROMORPHONE 0.5 MG INJ IV ×2 (01:53→03:26)
--- NOTE | 2020-04-05 02:38 | DI.RAD.S_ITS ---
PROCEDURE: XR HIP W PEL IF DONE RT 2V INDICATIONS: cross table lateral please (pre op) TECHNIQUE: Right views of the hip were acquired. [facility], 11:06. FINDINGS: Bones: Dislocated right hip arthroplasty. No fracture identified. Spondylosis and mild left hip degeneration. Soft tissues: No suspicious soft tissue calcifications or masses. IMPRESSION: Dislocated right hip arthroplasty. Dictated by: Zain Ford M.D. on 04/05/2020 at 8:51 Approved by: Zain Ford M.D. on 04/05/2020 at 8:52
[2020-04-05 04:07] LABS: Add Manual Diff / Slide Review NO; Basophils Absolute Auto 100 /uL (0-100); Eosinophils Absolute Auto 100 /uL (0-450); Hematocrit 34.9 % (36-46); Lymphocytes Absolute Auto 700 /uL (1100-4500); Lymphocytes Percent Auto 11.1 % (25-40); Mean Corpuscular HGB Conc 34.3 % (30-36); Mean Corpuscular Volume 90.6 fL (80-100); Monocytes Absolute Auto 400 /uL (0-900); Monocytes Percent Auto 6.3 % (3-14); Neutrophils Absolute Auto 5300 /uL (1500-7000); Neutrophils Percent Auto 80.6 % (50-75); Platelet Count 238 X10^3/uL (150-400); Red Blood Cell Count 3.85 X10^6/uL (4.0-5.2); Red Cell Distribution Width 15.2 % (11.6-14.8); White Blood Cell Count 6.5 X10^3/uL (4.5-11.0)
[2020-04-05 04:14] LABS: Magnesium 2.4 mg/dL (1.6-2.3)
[2020-04-05 04:15] LABS: Alanine Aminotransferase 21 IU/L (<35); Albumin 4.5 g/dL (3.5-5.0); Albumin Globulin Ratio 1.6 (1.0-2.8); Alkaline Phosphatase 71 U/L (38-126); Aspartate Aminotransferase 37 IU/L (14-36); BUN Creatinine Ratio 22.4 (6-22); Bilirubin Total 0.5 mg/dL (0.2-1.3); Blood Urea Nitrogen 59 mg/dL (7-17); Calcium 10.1 mg/dL (8.4-10.2); Carbon Dioxide 23 mmol/L (22-32); Chloride 102 mmol/L (98-107); Estimated Glomerular Filt Rate 17.3 mL/min (>60); Globulin 2.8 g/dL (1.7-4.1); Glucose 110 mg/dL (80-110); HEMOLYSIS < 15 (0-50); Potassium 4.2 mmol/L (3.4-5.1); Sodium 136 mmol/L (137-145); Total Protein 7.3 g/dL (6.3-8.2)
[2020-04-05] MEDS: SODIUM CHLORIDE 0.9% 1,000 ML 100 ML IV (04:27)
--- NOTE | 2020-04-05 05:10 | PC.NURSE ---
Addendum entered by Elisa Lindsey R.N. 04/05/20 06:48: O2 sat remains 100% on 1L/min oxygen so oxygen stopped and will continue to monitor via continuous oximetry and restart if needed. States pain is tolerable. Still having intermittent nausea but no emesis and states feeling of nausea is brief. Original Note: Patient admitted to room 207 at 0340 from ER per stretcher. Is alert and oriented except to day of month. Breath sounds CTA with oxygen at 2L/min per NC with sat of 100% so oxygen now decreased to 1L/min; on continuous pulse oximetry. HRR; placed on telemetry. BP elevated at 156/66. Complains of intermittent nausea/lightheadedness so medicated with Zofran. BT present and abdomen is soft. Voided per bedpan; denies dysuria, frequency or urgency. Reassessed pain (received IV Dilaudid in ER prior to transfer) and states pain is much more tolerable at 2/10. Does state she also has chronic left hip pain but denies that pain at this time. Bruising noted on bilateral UE, right upper thigh and left lateral knee. States she slipped and fell at home causing right hip to dislocate. Fall risk score is high and bed alarm is activated. Bilateral calf SCD's placed. On COVID precautions until results of testing returned. Patient oriented to call light and bed controls.
--- NOTE | 2020-04-05 05:59 | PM.HP.1 ---
History of Present Illness History of Present Illness Date Patient Seen: 04/05/20 Time Patient Seen: 03:55 Chief complaint: GLF / Rt hip pain Narrative: Ms. Quique Blood is an 84-year-old female with a history significant for hypertension, permanent pacemaker implantation, hyperlipidemia, diverticulosis, chronic kidney disease, degenerative disc disease with foraminal stenosis, scoliosis, right hip replacement and ocular migraines who presents to the ER following a fall home and hip pain. The patient states she was walking through a door and closing the door behind her when she rotated on her leg and I gave out under her and she collapsed to the floor. She had immediate pain in the right hip and was unable ambulate. She states she believes she may have hit her head but did not lose consciousness. She denies complaints of focal neck or back pain but relates that she aches all over. The patient denies recent changes in health status and has had no recent fevers or chills and no known COVID-19 exposures. She denies headaches or visual changes, nasal congestion or sore throat. She reports no complaints of chest pain or palpitations, shortness of breath cough or wheezing. She has had no abdominal pain and denies heartburn, nausea or vomiting. She moves her bowels regularly has no urinary complaints of urgency frequency or burning. The patient is independent in her ADLs and uses no assistive devices. Upon arrival to the ER the patient's heart rate of 69, blood pressure 189/82, respirations of 18 saturating 97% on room air. In x-rays taken of the right which finds a dislocated right total joint hip prosthesis. No labs were drawn in the ER. Attempt was made to reduce the dislocation with propofol is conscious sedation without success. The ER consulted Dr. Damon, orthopedics who agrees to accept the patient with plans to take her to the OR later today. COVID-19 screening is sent. The patient is admitted to the medicine service for hip dislocation with Dr. Damon to consult. Patient History Medical History CKD (chronic kidney disease) (Chronic Unknown) Colon polyps (Resolved Unknown) Diverticular disease (Chronic Unknown) Glaucoma (Chronic Unknown) Hip pain (Acute) Hyperlipemia (Chronic Unknown) Hypertension (Chronic Unknown) Osteoporosis (Chronic Unknown) Pacemaker (Acute) Rash and nonspecific skin eruption (Acute) Scoliosis (Chronic Unknown) Skin cancer (Resolved ~2004) Spinal stenosis (Chronic Unknown) Squamous cell carcinoma (Resolved 12/2017) Vulvar irritation (Chronic Unknown) Surgical History History of hip replacement (Unknown) Hx of hysterectomy (Resolved Unknown) Family & Social History Family History Father Heart disease Mother Osteoporosis Social History: household members spouse Prior Living Arrangements House Safety & Behavioral: Feels Safe in Current Yes Environment Been Physically Hurt or No Threatened By a Person Suicidal Ideation Description None Tobacco & Substance use: Smoking Status Never smoker alcohol intake current alcohol intake frequency holiday/special occasion Substance Use Type does not use Comment: The patient lives in a single family home with her to whom she has been for 66 years. Smoking: The patient has never used tobacco products Alcohol: The patient does not consume alcoholic beverages. Substance use: The patient does not use recreational pharmaceuticals herbal or cannabis products. Advanced directives: And direct discussion with the patient she will be made FULL CODE with her to be designated as her surrogate decision maker. Meds Home Medications and Allergies Home Medications Medication Instructions Recorded Confirmed Type travoprost [Travatan Z] 1 drp OPHTHALMIC (EYE) BEDTIME #0 05/04/11 11/19/19 History acetaminophen [Tylenol Extra 500 mg PO PRN PRN #0 07/09/17 11/19/19 History Strength] Disabled parking permit #1 ea 12/24/18 11/19/19 Rx hydralazine 50 mg tablet 50 mg PO TID 10/28/19 11/19/19 History pantoprazole 40 mg tablet,delayed 40 mg PO DAILY 10/28/19 11/19/19 History release amlodipine 10 mg tablet 10 mg PO DAILY #90 tab 11/16/19 11/19/19 Rx carvedilol 6.25 mg PO BID 11/18/19 11/19/19 History conjugated estrogens [Premarin] 0.625 mg VAGINAL DIRECTED 11/18/19 11/19/19 History mirtazapine 15 mg PO DAILY 11/18/19 11/19/19 History prochlorperazine maleate 10 mg PO PRN PRN 11/18/19 11/19/19 History losartan 50 mg tablet 50 mg PO DAILY #90 tab 01/01/20 01/01/20 Rx atorvastatin 20 mg tablet 20 mg PO DAILY #90 tab 01/28/20 Rx Allergies Allergy/AdvReac Type Severity Reaction Status Date / Time adhesive tape [ADHESIVE TAPE] Allergy Mild skin Verified 11/18/19 13:21 reaction gabapentin [GABAPENTIN] Allergy Unknown Swelling/ra Verified 11/18/19 13:21 sh amoxicillin [AMOXICILLIN] AdvReac Intermediate YEAST Verified 11/18/19 13:21 INFECTION doxycycline [DOXYCYCLINE] AdvReac Intermediate YEAST Verified 11/18/19 13:21 SYMPTOMS azithromycin [AZITHROMYCIN] AdvReac Mild DIARRHEA Verified 11/18/19 13:21 estrogens, conjugated AdvReac Mild LOCAL Verified 11/18/19 13:21 [ESTROGENS, CONJUGATED] IRRITATION WHEN TOPICAL hydrocodone [HYDROCODONE] AdvReac Mild GI UPSET Verified 11/18/19 13:21 levofloxacin [LEVOFLOXACIN] AdvReac Mild GI UPSET Verified 11/18/19 13:21 phenazopyridine AdvReac Mild GI UPSET Verified 11/18/19 13:21 [PHENAZOPYRIDINE] Review of Systems Review of Systems ROS: Yes All systems reviewed with the patient and are negative except as otherwise documented Exam Vital Signs (past 8 hours): - 04/04/20 22:45 04/05/20 00:30 04/05/20 01:00 Temperature Pulse Rate 69 69 71 Respiratory Rate 18 14 15 Blood Pressure 189/82 H Blood Pressure [Left Arm] 152/69 H 151/65 H Pulse Oximetry 97 97 97 04/05/20 01:25 04/05/20 01:30 04/05/20 01:35 Temperature Pulse Rate 83 66 69 Respiratory Rate 18 12 16 Blood Pressure Blood Pressure [Left Arm] 187/84 H 136/58 L 135/68 Pulse Oximetry 97 96 92 04/05/20 01:40 04/05/20 01:45 04/05/20 01:50 Temperature Pulse Rate 65 66 65 Respiratory Rate 20 14 24 Blood Pressure Blood Pressure [Left Arm] 154/68 H 126/60 169/67 H Pulse Oximetry 94 96 94 04/05/20 01:55 04/05/20 02:00 04/05/20 02:23 Temperature Pulse Rate 66 67 Respiratory Rate 20 20 Blood Pressure Blood Pressure [Left Arm] 146/65 H 141/65 H Pulse Oximetry 94 91 82 L 04/05/20 02:28 04/05/20 02:30 04/05/20 03:00 Temperature Pulse Rate 63 60 Respiratory Rate 24 18 Blood Pressure Blood Pressure [Left Arm] 133/62 153/64 H Pulse Oximetry 94 96 98 04/05/20 03:25 04/05/20 03:33 Temperature 97.3 F L Pulse Rate 62 67 Respiratory Rate 20 14 Blood Pressure 156/66 H Blood Pressure [Left Arm] 151/67 H Pulse Oximetry 96 96 Oxygen Delivery Method Nasal Cannula Oxygen Flow Rate 2 Narrative Exam Narrative: GENERAL APPEARANCE: well developed, frail-appearing elderly woman lying supine in bed, in no acute distress. HEENT: Atraumatic, PERRLA, conjunctiva clear, sclerae anicteric, EOMs intact without nystagmus, no rhinorrhea or epistaxis, mucous membranes are moist and pink without erythema NECK/THYROID: neck supple, preserved ROM, no carotid bruit, no thyromegaly, trachea midline. LYMPH NODES: no cervical or supraclavicular lymphadenopathy. SKIN: [place], warm and dry, areas of ecchymosis noted on the left forearm lateral left knee and is small spot on lateral right knee. HEART: regular rate and rhythm, S1-S2, no murmur, no rubs or gallops, brisk capillary refill, no edema LUNGS: clear to auscultation bilaterally, no coarseness crackles or wheezing, no cough present CHEST: Symmetrical movement, no accessory muscle use, show tidal volume. ABDOMEN: Soft, flat, no distention, no abdominal tenderness, no organomegaly, no flank or suprapubic tenderness, active bowel tones. EXTREMITIES: Shortening and external rotation of the right leg, pain on palpation right hip, distal CMS intact. NEUROLOGIC: AAO x4, no focal neurologic deficits, cranial nerves II-XII grossly intact, sensation intact to light touch, hearing grossly normal to speech. PSYCH: cooperative, appropriate with stable behavior Objective ECG Impression: Twelve lead EKG is reviewed: Sinus rhythm with a ventricular rate of 62, left axis deviation, first-degree AV block with WA interval of 200 milliseconds. Labs Result Diagrams: 04/05/20 03:50 04/05/20 03:50 Labs: Laboratory Results - last 24 hr 05/26/20 05/26/20 05/26/20 03:50 03:50 03:50 WBC 6.5 RBC 3.85 L Hgb 12.0 Hct 34.9 L MCV 90.6 MCH 31.0 MCHC 34.3 RDW 15.2 H Plt Count 238 Neut % (Auto) 80.6 H Lymph % (Auto) 11.1 L [place] % (Auto) 6.3 Eos % (Auto) 1.0 L Baso % (Auto) 1.0 Neut # (Auto) 5300 Lymph # (Auto) 700 L [place] # (Auto) 400 Eos # (Auto) 100 Baso # (Auto) 100 Sodium 136 L Potassium 4.2 Chloride 102 Carbon Dioxide 23 BUN 59 H Creatinine 2.63 H Estimated GFR 17.3 L BUN/Creatinine Ratio 22.4 H Glucose 110 Calcium 10.1 Magnesium 2.4 H Total Bilirubin 0.5 AST 37 H ALT 21 Alkaline Phosphatase 71 Total Protein 7.3 Albumin 4.5 Globulin 2.8 Albumin/Globulin Ratio 1.6 Assessment & Plan Assessment & Plan narrative: This is an 84-year-old female patient who sustained a prosthetic hip dislocation with a twisting movement and collapsing to the floor. 1. Right prosthetic hip dislocation, acute, present on admission, active. -the patient sustained a ground level fall following a twisting motion resulting in dislocation of her right prosthetic hip -the patient states her hip was replaced approximately 9 years ago and has had no prior episodes dislocation. -per report from ED provider multiple attempts were made attempting to relocate the hip under conscious sedation without success. -Dr. Damon is contacted through the emergency department and has agreed to consult, we appreciate his evaluation, recommendations and treatment. -the patient will remain NPO. -normal saline 75 cc/hour while NPO -ordered Tylenol 975 mg every 8 hours for pain. -per the Surgical orders per Dr. Damon. 2. Chronic kidney disease stage IV, present on admission, active. -labs are drawn on admission with findings of a BUN of 59 and creatinine of 2.63. EGFR is 17.3. -creatinine clearance is calculated at 12.54. -will avoid renal toxic agents and renal dose medications as indicated. -data is equivocal regarding losartan and advanced kidney disease, will continue losartan 50 mg daily. 3. Essential hypertension, chronic, present on admission, stable. -patient presents hypertensive in the ER by at 189/82, following admission to the floor she is found to be 156/66. -continue the patient's home regimen of losartan 50 mg daily, amlodipine 10 mg daily, carvedilol 6.25 mg twice daily and isosorbide 10 mg a.c. 4. Chronic back pain, degenerative disc disease with foraminal stenosis, chronic, stable. -patient reports chronic back pain I reports no exacerbation of symptoms in her fall. -requested PT and OT consult for evaluation and treatment. Isolation: Droplet, COVID-19 pending. VTE prophylaxis: Bilateral SCDs, no chemical prophylaxis with pending surgical intervention. IV fluid: Normal saline 75 cc/hour Diet: NPO pending evaluation by orthopedics Code status: FULL CODE, patient's is designated to be her surrogate decision maker. The patient is admitted to the hospital for prosthetic hip dislocation failing close reduction under conscious sedation. The patient is admitted to the hospital observation status with expected length of stay to be ill less than 2 midnights. COVID-19 COVID-19 status: Result pending Result date/Date tested (Pos, Neg/Pending): 04/05/20 Scores [facility] [place] coma scale eye opening: Spontaneous [place] coma scale verbal response: Orientated [place] coma scale motor response: Obey commands [place] coma scale total score: 15 Quality VTE Deep Vein Thrombosis/Pulmonary Embolism Present on Admission: No
--- NOTE | 2020-04-05 07:41 | PC.NURSE ---
Addendum entered by Virginie Rushing R.N. 04/05/20 12:10: Post-op: Back to floor 0930. Drowsy but awake, more alert now. Vitals stable. Denied pain in R hip, CMS+. Has already been seen by PT, and is working with OT now. Plan is for to come a bit later for caregiver training and then patient to discharge home. Original Note: Shift summary/Off floor to surgery: Patient resting quietly in bed. A&O X3. RLE shortened and externally rotated, w/ complaints of severe pain with movement. Circulation/sensation+, PP+, cap refill <2 sec. C/O slight nausea (HOB elevated as much as she could tolerated, emesis bag at hand. SpO2 on RA 94%. Patient was seen by Dr Damon in her room, and was taken off unit to OR at 0730. 3 silver-colored metal rings removed and placed in specimen cup on bedside table, door closed.
[2020-04-05] MEDS: SODIUM CHLORIDE 0.9% 1,000 ML 21 ML IV (07:57)
--- NOTE | 2020-04-05 08:23 | PM.PREOP ---
Pre-operative Note COVID-19 COVID-19 status: Result pending Interval Note History & Physical reviewed/Exam performed by Physician: Yes Changes to H&P: No
--- NOTE | 2020-04-05 08:24 | PM.HP.1 ---
History of Present Illness History of Present Illness Date Patient Seen: 04/05/20 Time Patient Seen: 08:24 Date of Onset of Symptoms: 04/04/20 Chief complaint: GLF / Rt hip pain Narrative: 84-year-old female approximately 8 years status post right total hip arthroplasty and [place] by Dr. Agosto. She states she has been doing well until last evening when while going to bed she turned awkwardly twisting or hip felt a pop and collapsed. She was brought to the emergency room where she was noted to have a dislocated arthroplasty. Attempted reduction in the emergency room was unsuccessful therefore consultation was requested. Patient History Medical History CKD (chronic kidney disease) (Chronic Unknown) Colon polyps (Resolved Unknown) Diverticular disease (Chronic Unknown) Glaucoma (Chronic Unknown) Hip pain (Acute) Hyperlipemia (Chronic Unknown) Hypertension (Chronic Unknown) Osteoporosis (Chronic Unknown) Pacemaker (Acute) Rash and nonspecific skin eruption (Acute) Scoliosis (Chronic Unknown) Skin cancer (Resolved ) Spinal stenosis (Chronic Unknown) Squamous cell carcinoma (Resolved 12/2017) Vulvar irritation (Chronic Unknown) Surgical History History of hip replacement (Unknown) Hx of hysterectomy (Resolved Unknown) Family & Social History Family History Father Heart disease Mother Osteoporosis Social History: household members spouse Prior Living Arrangements House Safety & Behavioral: Feels Safe in Current Yes Environment Been Physically Hurt or No Threatened By a Person Suicidal Ideation Description None Tobacco & Substance use: Smoking Status Never smoker alcohol intake current alcohol intake frequency holiday/special occasion Substance Use Type does not use Meds Home Medications and Allergies Home Medications Medication Instructions Recorded Confirmed Type travoprost [Travatan Z] 1 drp OPHTHALMIC (EYE) BEDTIME #0 05/04/11 11/19/19 History acetaminophen [Tylenol Extra 500 mg PO PRN PRN #0 07/09/17 11/19/19 History Strength] Disabled parking permit #1 ea 12/24/18 11/19/19 Rx hydralazine 50 mg tablet 50 mg PO TID 10/28/19 11/19/19 History pantoprazole 40 mg tablet,delayed 40 mg PO DAILY 10/28/19 11/19/19 History release amlodipine 10 mg tablet 10 mg PO DAILY #90 tab 11/16/19 11/19/19 Rx carvedilol 6.25 mg PO BID 11/18/19 11/19/19 History conjugated estrogens [Premarin] 0.625 mg VAGINAL DIRECTED 11/18/19 11/19/19 History mirtazapine 15 mg PO DAILY 11/18/19 11/19/19 History prochlorperazine maleate 10 mg PO PRN PRN 11/18/19 11/19/19 History losartan 50 mg tablet 50 mg PO DAILY #90 tab 01/01/20 01/01/20 Rx atorvastatin 20 mg tablet 20 mg PO DAILY #90 tab 01/28/20 Rx Allergies Allergy/AdvReac Type Severity Reaction Status Date / Time adhesive tape [ADHESIVE TAPE] Allergy Mild skin Verified 11/18/19 13:21 reaction gabapentin [GABAPENTIN] Allergy Unknown Swelling/ra Verified 11/18/19 13:21 sh amoxicillin [AMOXICILLIN] AdvReac Intermediate YEAST Verified 11/18/19 13:21 INFECTION doxycycline [DOXYCYCLINE] AdvReac Intermediate YEAST Verified 11/18/19 13:21 SYMPTOMS azithromycin [AZITHROMYCIN] AdvReac Mild DIARRHEA Verified 11/18/19 13:21 estrogens, conjugated AdvReac Mild LOCAL Verified 11/18/19 13:21 [ESTROGENS, CONJUGATED] IRRITATION WHEN TOPICAL hydrocodone [HYDROCODONE] AdvReac Mild GI UPSET Verified 11/18/19 13:21 levofloxacin [LEVOFLOXACIN] AdvReac Mild GI UPSET Verified 11/18/19 13:21 phenazopyridine AdvReac Mild GI UPSET Verified 11/18/19 13:21 [PHENAZOPYRIDINE] Exam Vital Signs (past 8 hours): - 04/05/20 00:30 04/05/20 01:00 04/05/20 01:25 Temperature Pulse Rate 69 71 83 Respiratory Rate 14 15 18 Blood Pressure Blood Pressure [Left Arm] 152/69 H 151/65 H 187/84 H Pulse Oximetry 97 97 97 04/05/20 01:30 04/05/20 01:35 04/05/20 01:40 Temperature Pulse Rate 66 69 65 Respiratory Rate 12 16 20 Blood Pressure Blood Pressure [Left Arm] 136/58 L 135/68 154/68 H Pulse Oximetry 96 92 94 04/05/20 01:45 04/05/20 01:50 04/05/20 01:55 Temperature Pulse Rate 66 65 66 Respiratory Rate 14 24 20 Blood Pressure Blood Pressure [Left Arm] 126/60 169/67 H 146/65 H Pulse Oximetry 96 94 94 04/05/20 02:00 04/05/20 02:23 04/05/20 02:28 Temperature Pulse Rate 67 Respiratory Rate 20 Blood Pressure Blood Pressure [Left Arm] 141/65 H Pulse Oximetry 91 82 L 94 04/05/20 02:30 04/05/20 03:00 04/05/20 03:25 Temperature Pulse Rate 63 60 62 Respiratory Rate 24 18 20 Blood Pressure Blood Pressure [Left Arm] 133/62 153/64 H 151/67 H Pulse Oximetry 96 98 96 04/05/20 03:33 04/05/20 06:49 04/05/20 07:44 Temperature 97.3 F L 96.8 F L 98.4 F Pulse Rate 67 62 65 Respiratory Rate 14 14 13 Blood Pressure 156/66 H 141/71 H 136/56 L Blood Pressure [Left Arm] Pulse Oximetry 96 100 92 Oxygen Delivery Method Room Air Oxygen Flow Rate 1 Narrative Exam Narrative: Patient is afebrile and vital signs are stable. She is awake, alert, oriented, and conversant in moderate distress due to right hip dislocation. HEENT normocephalic and atraumatic Heart regular rate rhythm Lungs clear to auscultation Abdomen benign Extremities benign with the exception of the right lower extremity held in mildly flexed and internally rotated position pain with any movement. Neurovascular exam is grossly intact. Objective ECG Impression: X Imaging AP pelvis: My impression: Right total hip arthroplasty dislocation. Implants superior stable and intact. Labs Result Diagrams: 04/05/20 03:50 04/05/20 03:50 Labs: Laboratory Results - last 24 hr 04/05/20 04/05/20 04/05/20 03:50 03:50 03:50 WBC 6.5 RBC 3.85 L Hgb 12.0 Hct 34.9 L MCV 90.6 MCH 31.0 MCHC 34.3 RDW 15.2 H Plt Count 238 Neut % (Auto) 80.6 H Lymph % (Auto) 11.1 L [place] % (Auto) 6.3 Eos % (Auto) 1.0 L Baso % (Auto) 1.0 Neut # (Auto) 5300 Lymph # (Auto) 700 L [place] # (Auto) 400 Eos # (Auto) 100 Baso # (Auto) 100 Sodium 136 L Potassium 4.2 Chloride 102 Carbon Dioxide 23 BUN 59 H Creatinine 2.63 H Estimated GFR 17.3 L BUN/Creatinine Ratio 22.4 H Glucose 110 Calcium 10.1 Magnesium 2.4 H Total Bilirubin 0.5 AST 37 H ALT 21 Alkaline Phosphatase 71 Total Protein 7.3 Albumin 4.5 Globulin 2.8 Albumin/Globulin Ratio 1.6 Assessment & Plan Assessment & Plan narrative: 84-year-old female with a dislocated right total hip arthroplasty. Plan closed reduction in the operating room under general anesthetic. We discussed potential risks and benefits, we discussed potential that this is irreducible closed and may require an open reduction which would not be performed today. Patient understands and agrees and gives informed consent. COVID-19 COVID-19 status: Result pending Quality VTE Deep Vein Thrombosis/Pulmonary Embolism Present on Admission: No
--- NOTE | 2020-04-05 08:30 | SUR.OPER ---
Addendum entered by Niya Masters R.N. 04/05/20 08:30: Safety belt at abdomen, right leg in surgeon control. Original Note: Supine on padded OR bed, head on pillow, arms secured on padded arm boards at <90 degrees abduction, legs uncrossed, safety belt at thigh, tape over blanket over lower legs.
--- NOTE | 2020-04-05 08:47 | PM.OP.1 ---
Operative Date/Time/Diagnoses Date of procedure: 04/05/20 Time of procedure: 08:47 Pre-op diagnosis: Dislocated right total hip arthroplasty Post-op diagnosis: same Procedure & Clinicians Procedure: Closed reduction total hip arthroplasty dislocation (CPT code 93085) Same procedure as scheduled: Yes Indications: 84-year-old female approximately 8 years status post right total hip arthroplasty with no problems. Going to bed last night she turned awkwardly and felt a pop in her hip and then collapsed. Brought to the emergency room where she was noted have a dislocated total hip arthroplasty. We discussed the options and she gives informed consent to proceed with closed reduction. Surgeon: Leonid Damon Click Yes if Unassisted: Yes Operative Notes Findings: Anterior dislocation easily reduced under general anesthesia Specimen(s): none sent Procedure in detail: Patient brought to the operating room and after satisfactory induction of general anesthetic (with appropriate Covid 19 precautions), placed supine on the operating table. The pelvis was secured and with gentle traction and internal rotation the dislocated hip was easily reduced. Intraoperative fluoroscopic images demonstrated concentric reduction, stable implants, and stable hip throughout range of motion. Complications: none Post-operative Condition: stable Disposition: PACU Plan for aftercare: Routine recovery and discharged to home when stable.
--- NOTE | 2020-04-05 10:11 | PM.DS.1 ---
History of Present Illness History of Present Illness Date Patient Seen: 04/05/20 Chief complaint: GLF / Rt hip pain Narrative: Written by Keith TRIPLETT: Ms. Quique Blood is an 84-year-old female with a history significant for hypertension, permanent pacemaker implantation, hyperlipidemia, diverticulosis, chronic kidney disease, degenerative disc disease with foraminal stenosis, scoliosis, right hip replacement and ocular migraines who presents to the ER following a fall home and hip pain. The patient states she was walking through a door and closing the door behind her when she rotated on her leg and I gave out under her and she collapsed to the floor. She had immediate pain in the right hip and was unable ambulate. She states she believes she may have hit her head but did not lose consciousness. She denies complaints of focal neck or back pain but relates that she aches all over. The patient denies recent changes in health status and has had no recent fevers or chills and no known COVID-19 exposures. She denies headaches or visual changes, nasal congestion or sore throat. She reports no complaints of chest pain or palpitations, shortness of breath cough or wheezing. She has had no abdominal pain and denies heartburn, nausea or vomiting. She moves her bowels regularly has no urinary complaints of urgency frequency or burning. The patient is independent in her ADLs and uses no assistive devices. Upon arrival to the ER the patient's heart rate of 69, blood pressure 189/82, respirations of 18 saturating 97% on room air. In x-rays taken of the right which finds a dislocated right total joint hip prosthesis. No labs were drawn in the ER. Attempt was made to reduce the dislocation with propofol is conscious sedation without success. The ER consulted Dr. Damon, orthopedics who agrees to accept the patient with plans to take her to the OR later today. COVID-19 screening is sent. The patient is admitted to the medicine service for hip dislocation with Dr. Damon to consult. Discharge Providers Provider Date of admission: 04/05/20 03:08 Discharge Date: 04/05/20 Primary care physician: Roman Mayberry DO Consults: 04/05/20 09:38 Consult to Discharge Planning Routine Comment: Consult to Physical Therapy Evaluate & Treat Comment: Physician Instructions: post op RUMA protocol Consult to Respiratory Therapy Evaluate & Treat Comment: Physician Instructions: Evaluate and treat Discharge provider: Krysta Silva DO Summary Hospital Course Discharge Diagnosis: 1. Acute right prosthetic hip dislocation, status post reduction, present on admission. Resolved. 2. Chronic kidney disease stage IV, present on admission. Stable. 3. Hypertension, chronic, present on admission. Stable. 4. Chronic back pain, degenerative disc disease with foraminal stenosis, chronic, present on admission. Stable. Hospital Course: Quique Blood is an 84-year-old female with a past medical history significant for hypertension, hyperlipidemia, chronic kidney disease stage IV, permanent pacemaker implantation, degenerative disc disease with foraminal stenosis, scoliosis, right hip replacement and ocular migraines who presented to the ED following a fall home and hip pain. 1. Acute right prosthetic hip dislocation, status post reduction, present on admission. Resolved. -The patient sustained a ground level fall following a twisting motion resulting in dislocation of her right prosthetic hip. Patient's hip was replaced approximately [address] Agosto of orthopedic surgery. She denies previous episodes of dislocation. -ED provider attempted reduction under conscious sedation x3 without success. -Dr. Damon reduced hip in OR. Continued post-operative and pain management per ortho. Patient worked with physical and occupational therapy and cleared for discharge by ortho. Continue anterior hip precautions indefinitely. Continued hydrocodone 2.5-5/325 mg every 6 hours as needed for severe pain. Ortho recommended patient follow-up with her previous orthopedic surgeon Dr. Agosto in next 1-2 weeks or as soon as available. 2. Chronic kidney disease stage IV, present on admission. Stable. -Initial creatinine 2.63, eGFR is 17.3 and calculated creatinine clearance 12.54 which appear to be at her baseline. -Discontinued post-op IVF to avoid fluid overload. -Avoided nephrotoxic agents and renally dosed medications. -Continued losartan 50 mg daily. 3. Hypertension, chronic, present on admission. Stable. -Patient initially hypertensive likely due to pain response. -Continued home amlodipine 10 mg daily, carvedilol 6.25 mg twice daily, hydralazine 50 mg 3 times daily, and losartan 50 mg daily, 4. Chronic back pain, degenerative disc disease with foraminal stenosis, chronic, present on admission. Stable. -Patient reports chronic back pain and left-sided hip pain but denies exacerbation of symptoms with her fall. -Continued physical and occupational therapy evaluation treatment. Exam Vital Signs (past 8 hours): - 04/05/20 02:23 04/05/20 02:28 04/05/20 02:30 Temperature Pulse Rate 63 Respiratory Rate 24 Blood Pressure Blood Pressure [Left Arm] 133/62 Pulse Oximetry 82 L 94 96 04/05/20 03:00 04/05/20 03:25 04/05/20 03:33 Temperature 97.3 F L Pulse Rate 60 62 67 Respiratory Rate 18 20 14 Blood Pressure 156/66 H Blood Pressure [Left Arm] 153/64 H 151/67 H Pulse Oximetry 98 96 96 04/05/20 06:49 04/05/20 07:44 04/05/20 09:05 Temperature 96.8 F L 98.4 F 98.6 F Pulse Rate 62 65 68 Respiratory Rate 14 13 10 L Blood Pressure 141/71 H 136/56 L 132/55 L Blood Pressure [Left Arm] Pulse Oximetry 100 92 94 04/05/20 09:10 04/05/20 09:15 04/05/20 09:20 Temperature Pulse Rate 67 68 67 Respiratory Rate 10 L 12 10 L Blood Pressure 132/60 133/55 L 139/52 L Blood Pressure [Left Arm] Pulse Oximetry 93 94 92 04/05/20 09:38 04/05/20 10:04 Temperature 97.1 F L 97.6 F Pulse Rate 63 63 Respiratory Rate 18 18 Blood Pressure 138/55 L 136/57 L Blood Pressure [Left Arm] Pulse Oximetry 95 95 Oxygen Delivery Method Room Air Oxygen Flow Rate 0 Narrative Exam Narrative: General: Elderly female sitting in bedside chair and in no acute distress, well-developed, well-nourished, appropriately interactive. HEENT: Normocephalic, atraumatic. External ears without defect. Pupils equal, round, and reactive to light and accommodation. Anicteric sclerae, moist conjunctivae, and no lid lag. Oropharynx free of erythema and cobble stoning with moist mucosa. Neck: Supple with full range of motion. No lymphadenopathy or thyromegaly. Cardiovascular: Regular rate and rhythm without murmurs, rubs, or gallops appreciated Pulmonary: Clear to auscultation bilaterally without crackles, wheezes, or rhonchi. Normal respiratory effort with no use of accessory muscles. Abdomen: Soft, bowels sounds present, nontender, nondistended. No hepatosplenomegaly or masses appreciated. Extremities: No clubbing, cyanosis, or edema. Right hip without pain to palpation and left hip with mild tenderness to palpation that is reportedly chronic. Skin: Normal temperature, turgor, and texture; no rash, ulcers, or subcutaneous nodules appreciated. Neurological: Cranial nerves grossly intact. Psychiatric: Normal mood and affect. Alert and oriented to person, place, and time. Objective Labs Result Diagrams: 04/05/20 03:50 04/05/20 03:50 Labs: Laboratory Results - last 24 hr 04/05/20 04/05/20 04/05/20 03:50 03:50 03:50 WBC 6.5 RBC 3.85 L Hgb 12.0 Hct 34.9 L MCV 90.6 MCH 31.0 MCHC 34.3 RDW 15.2 H Plt Count 238 Neut % (Auto) 80.6 H Lymph % (Auto) 11.1 L [place] % (Auto) 6.3 Eos % (Auto) 1.0 L Baso % (Auto) 1.0 Neut # (Auto) 5300 Lymph # (Auto) 700 L [place] # (Auto) 400 Eos # (Auto) 100 Baso # (Auto) 100 Sodium 136 L Potassium 4.2 Chloride 102 Carbon Dioxide 23 BUN 59 H Creatinine 2.63 H Estimated GFR 17.3 L BUN/Creatinine Ratio 22.4 H Glucose 110 Calcium 10.1 Magnesium 2.4 H Total Bilirubin 0.5 AST 37 H ALT 21 Alkaline Phosphatase 71 Total Protein 7.3 Albumin 4.5 Globulin 2.8 Albumin/Globulin Ratio 1.6 Discharge Plan Discharge Plan Patient Disposition: Home Discharge comment: You are being discharged home with home health for physical and occupational therapy. Please follow-up with your orthopedic surgeon, Dr Agosto, in the next 1 week or as soon as available regarding your right hip dislocation. Please follow the anterior hip precautions strictly. You may have to follow anterior hip precautions for the rest of your life, so you should discuss with your Dr Agosto when you see him. You have been prescribed hydrocodone 2.5-5 mg every 6 hours only as needed for severe pain. You have also been prescribed a stool softener called Colace 100 mg twice daily to help with opiate induced constipation. Discharge orders & Medications Prescriptions: New hydrocodone-acetaminophen 5-325 mg Tablet 0.5 tab PO Q4-6H Qty: 5 RF: 0 docusate sodium [DOK] 100 mg Capsule 100 mg PO BID Qty: 30 RF: 0 Continued (DME) Disabled parking permit Qty: 1 RF: 0 acetaminophen [Tylenol Extra Strength] 500 MG tablet 500 mg PO PRN PRN (Reason: pain) Qty: 0 RF: 0 amlodipine 10 mg tablet 10 mg PO DAILY Qty: 90 RF: 3 atorvastatin 20 mg tablet 20 mg PO DAILY Qty: 90 RF: 0 pantoprazole 40 mg tablet,delayed release (DR/EC) 40 mg PO DAILY RF: 0 losartan 50 mg tablet 50 mg PO DAILY Qty: 90 RF: 1 carvedilol 6.25 mg Tablet 6.25 mg PO BID RF: 0 mirtazapine 15 mg tablet 15 mg PO DAILY RF: 0 Follow up/Referrals: Alton Agosto MD [Non-Staff] - 1 Week (Follow up in 1 week or [place]. You will need to call and schedule) Roman Mayberry DO [Primary Care Provider] - 1 Week Diet/Activity/Treatments Diet: Diet as Tolerated, Low-fat, Low-sodium and Low-cholesterol Activity: Activity as tolerated with forward wheeled walker and physical and occupational therapy. Visit Report/Discharge Packet Instructions: DI for Hip Dislocation -- Adult, DI for Constipation, DI for Prescription Opioid Use, Stool Softeners, Hydrocodone/Acetaminophen (By mouth) Visit Report Forms: Patient Portal/API, Stroke Signs & Symptoms Discharge Data Primary Care Provider: Roman Mayberry Attending Provider: Keith Mueller Admit Date/Time: 04/05/20 03:08 Discharges patient from system. Discharge Date/Time: 04/05/20 15:45 Quality VTE Deep Vein Thrombosis/Pulmonary Embolism Present on Admission: No
--- NOTE | 2020-04-05 11:55 | PT.IIE ---
Addendum entered and electronically signed by Hazel Marino PT 04/05/20 12:24: BP 129/67 supine, 152/73 sitting EOB, and 141/61 after activity. SpO2 steady throughout 94-95%. Original Note: Surgery Performed Operation Date: 04/05/20 07:45 Actual Procedures p Closed Reduction Dislocated Hip(Right) - Leonid Damon MD Surgical History (Last Reviewed 04/05/20 @ 08:25 by Leonid Damon MD) History of hip replacement (Unknown) Hx of hysterectomy (Resolved Unknown) Medical History (Last Reviewed 04/05/20 @ 08:25 by Leonid Damon MD) CKD (chronic kidney disease) (Chronic Unknown) Colon polyps (Resolved Unknown) Diverticular disease (Chronic Unknown) Glaucoma (Chronic Unknown) Hip pain (Acute) Hyperlipemia (Chronic Unknown) Hypertension (Chronic Unknown) Osteoporosis (Chronic Unknown) Pacemaker (Acute) Rash and nonspecific skin eruption (Acute) Scoliosis (Chronic Unknown) Skin cancer (Resolved ~2004) Spinal stenosis (Chronic Unknown) Squamous cell carcinoma (Resolved 12/2017) Vulvar irritation (Chronic Unknown) Physical Therapy Inpatient Evaluation/Re-Eval M1 PT/OT-IP Prior Functional Status Start: 04/05/20 09:02 Freq: NEEDED Status: Active Protocol: Document 04/05/20 11:50 AW (Rec: 04/05/20 12:21 AW [id number]) Medical Review Prior Functional Status Medical History Reviewed No Diet/Fluid Consistency Regular Communication WNL. Pt is an effective verbal communicator. Mobility and Gait Pt uses a 4WW nearly 100% of the time at home. She had R RUMA 8-9 years ago which had been stable until dislocation this date. Social History Household Members spouse Living Arrangements House Number of Floors (Floors) Two Floors Number of Stairs To Enter/Railing? Level entrance to main level. Home has a daylight basement where walk-in shower is located. 14 steps to the basement level with bilateral rails. Pt states she can use the tub/shower on main level with use of recommended transfer bench until able to manage stairs safely. Home Environment Standard Height Toilet,Walk in Shower Home Equipment Four Wheel Walker Additional Social History Comment Pt lives with her , Franklyn, who will be able and available to assist as needed at discharge. M2 PT-IP Current Condition Start: 04/05/20 09:02 Freq: NEEDED Status: Active Protocol: Document 04/05/20 11:50 AW (Rec: 04/05/20 12:21 AW [id number]) Physical Therapy Current Condition Current Condition Evaluation Date 04/05/20 Treatment Diagnosis anterior dislocation R RUMA prosthesis; difficulty in walking Onset Date 04/04/20 Precautions Anterior Hip Precautions No Hip Extension,No Hip External Rotation Other Precautions No hip extension past neutral. No active hip abduction or external rotation Weight Bearing Status Weight Bearing Status Weight Bear as Tolerated M3 PT-IP Subjective Start: 04/05/20 09:02 Freq: NEEDED Status: Active Protocol: Document 04/05/20 11:50 AW (Rec: 04/05/20 12:21 AW [id number]) Subjective Physical Therapy Visit Type Type Initial Evaluation Visit Start Time 10:55 Visit Stop Time 11:40 Total Visit Minutes 45 Notes Co-tx with OT Physical Therapy Visit Comments Patient Comments Pt willing to participate with therapy Patient Goals To go home with spouse support Therapy Pain Assessment Pain When Pain Assessed During Mobility Pain Present Pain Present Pain Reported Location Right Hip Intensity 2 Scale Used Numeric (1 - 10) Pain Management Techniques Apply Cold,Timing of Activity with Medications M4 PT-IP Mobility and Gait Start: 04/05/20 09:02 Freq: NEEDED Status: Active Protocol: Document 04/05/20 11:50 AW (Rec: 04/05/20 12:21 AW [id number]) PT-Bed Mobility Assessment Supine to Sit Supine to Sit Contact Guard Assistance,1 Person Assistance PT-Transfer Assessment Sit to and From Stand Sit to and from Stand Contact Guard Assistance,1 Person Assistance,Use of Upper Extremities Equipment Transfer Assistive Device Gait Belt,Front Wheeled Walker Orthotic/Prosthetic Devices or Brace: No Transfers Transfer Destination Chair,Bedside Commode Transfer Technique Stand Step Pivot Transfer Ability Level of Assist Contact Guard Assistance,1 Person Assistance,Use of Upper Extremities Comments Mobility Comments Pt completed supine to sit from flattened bed with cues to exit bed to the left side ( as she does at home) to avoid active abduction of the right hip. She sat EOB without complaint of nausea or dizziness. She completed sit to stand CGA using FWW and was able to march in place with BUE weightbearing through the walker. Pt step pivot transferred to [facility] CGA. Once finished toileting, she stood using the walker CGA and ambulated 12 feet to the sink. She stood with and without UE support on the countertop for grooming and then ambulated ~ 12 feet to the chair. She required minimal cueing for step-to patterning and to lead with her right leg. She turned to her left in order to sit in the chair, taking small steps to avoid right hip external rotation. She transferred to the chair [facility] where she was positioned with call light and all needs within reach. Pt verbally agreed to use the call light for all mobility needs. Gait Assessment Gait Gait Assistance Required: Contact Guard Assist Distance (Feet) 12 Able to Maintain Weight Bearing Status Yes During Gait Assistive Devices Assistive Device Gait Belt,Front Wheeled Walker Orthotic/Prosthetic Devices or Brace: No Gait Deviations General Gait Pattern Antalgic,Decreased Stride Length,Decreased Feet Clearance,Flexed Trunk,Step-to Gait Factors Limiting Gait Function Factors Limiting Gait Function Decreased Activity Tolerance, Decreased Strength,Limited Range of Motion,Pain,Poor Balance Comments Gait Comments After brief education regarding anterior hip precautions, pt ambulated safely with FWW, acknowledging that she felt steadier with FWW vs 4WW. This PT will secure an order for FWW to be dispensed. Stair Climbing Assessment Comments Stair Climbing Comments Not assessed. PT-Balance Assessment Sitting Balance and Reactions Static Sitting Balance Ability Good Dynamic Sitting Balance Ability Good Standing Balance and Reactions Static Standing Balance Ability Good Dynamic Standing Balance Ability Good Device Used FWW M5 PT-IP Objective Assessments Start: 04/05/20 09:02 Freq: NEEDED Status: Active Protocol: Document 04/05/20 11:50 AW (Rec: 04/05/20 12:21 AW [email or web address]) Orientation Orientation/Cognition Level of Alertness Alert Orientation Name,Day of Week,Place, Situation Language Function Ability No Deficits Noted Safety Awareness Understands Safety Issues Memory Description No Deficits Noted Gross Range of Motion Upper Extremity ROM Assessment Within Functional Limits Lower Extremity ROM Assessment Right Impaired Strength Lower Extremity Strength Assessment Right Impaired Comments Strength Comments LLE grossly 4/5 Coordination Assessment Gross Coordination Gross Coordination WNL Sensation Assessment Sensation Gross Sensation WNL Muscle Tone Muscle Tone WNL Yes M6 PT-IP Treatment Start: 04/05/20 09:02 Freq: NEEDED Status: Active Protocol: Document 04/05/20 11:50 AW (Rec: 04/05/20 12:21 AW [id number]) Physical Therapy Treatment Education Education Provided Precautions,Weight Bearing Status,Post-Op Packet,Safety Equipment Issued Equipment Type and Company Provided education on role of PT, plan of care, weightbearing status, anterior hip precautions, and safe use of FWW. M7 PT-IP Assessment and Plan Start: 04/05/20 09:02 Freq: NEEDED Status: Active Protocol: Document 04/05/20 11:50 AW (Rec: 04/05/20 12:21 AW [id number]) PT Summary Assessment and Plan Potential Rehabilitation Potential Good Status of Condition at Evaluation Evolving Summary Impairments Pain,ROM,Strength,Balance,Bed Mobility,Transfers,Gait, Activity Tolerance Assessment Summary Quique is an 84 yo woman seen for PT evaluation on POD0 following closed reduction of anteriorly dislocated R hip prosthesis. Her R RUMA is approximately 8-9 years old and has been stable until this event. At baseline, she was modified independent with use of 4WW. On evaluation, she required CGA and verbal cues for maintenance of anterior hip precautions. PT will meet with pt and her spouse, Franklyn, at 1430 today for caregiver training. Pt will then be safe to discharge home with assist and home health PT/OT. Goals Bed Mobility Goal Independent Transfer Goal Standby Assistance,Front Wheeled Walker,Four Wheeled Walker Gait Goal Standby Assistance,Front Wheel Walker,Four Wheel Walker Gait Distance 50 Other Goals AD depending on availability and preference. Days to Meet Goals 3 Frequency of Treatment Frequency Of Treatment Twice a Day Treatment Plan Physical Therapy Treatment Plan Bed Mobility Training,Transfer Training,Gait Training, Therapeutic Exercise,Balance Retraining,Post Op Education, Discharge Planning,Hot or Cold Pack Other Recommendations and Next Treatment CGT with spouse, ther ex Focus Recommendations To Nursing Amount of Assist Needed 1 Person Assist Discharge Recommendations PT Discharge Recommendations Home with Assistance,Home Health Transportation Needs at Discharge Private Vehicle
--- NOTE | 2020-04-05 11:55 | OT.IP.EVAL ---
Surgery Performed Operation Date: 04/05/20 07:45 Actual Procedures p Closed Reduction Dislocated Hip(Right) - Leonid Damon MD Past Medical History (Last Reviewed 04/05/20 @ 08:25 by Leonid Damon MD) CKD (chronic kidney disease) (Chronic Unknown) Colon polyps (Resolved Unknown) Diverticular disease (Chronic Unknown) Glaucoma (Chronic Unknown) Hip pain (Acute) Hyperlipemia (Chronic Unknown) Hypertension (Chronic Unknown) Osteoporosis (Chronic Unknown) Pacemaker (Acute) Rash and nonspecific skin eruption (Acute) Scoliosis (Chronic Unknown) Skin cancer (Resolved ~2004) Spinal stenosis (Chronic Unknown) Squamous cell carcinoma (Resolved 12/2017) Vulvar irritation (Chronic Unknown) Surgical History (Last Reviewed 04/05/20 @ 08:25 by Leonid Damon MD) History of hip replacement (Unknown) Hx of hysterectomy (Resolved Unknown) Occupational Therapy Inpatient Evaluation/Re-Eval M1 PT/OT-IP Prior Functional Status Start: 04/05/20 13:08 Freq: NEEDED Status: Active Protocol: Document 04/05/20 10:50 [facility] (Rec: 04/05/20 13:23 [facility] [id number]) Medical Review Prior Functional Status Medical History Reviewed No Diet/Fluid Consistency Regular Communication WNL. Pt is an effective verbal communicator. Mobility and Gait Pt uses a 4WW nearly 100% of the time at home. She had R RUMA 8-9 years ago which had been stable until dislocation this date. Activities of Daily Living and IADL's Pt states completely independent with all Adl needs , did most of the IADl needs, and help to set up the pills and she does the bills. Social History Household Members spouse Living Arrangements House Number of Floors (Floors) Two Floors Number of Stairs To Enter/Railing? Level entrance to main level. Home has a daylight basement where walk-in shower is located. 14 steps to the basement level with bilateral rails. Pt states she can use the tub/shower on main level with use of recommended transfer bench until able to manage stairs safely. Home Environment Standard Height Toilet,Walk in Shower Home Equipment Four Wheel Walker Additional Social History Comment Pt lives with her , Franklyn, who will be able and available to assist as needed at discharge. M2 OT-IP Current Condition Start: 05/26/20 13:08 Freq: Status: Active Protocol: Document 04/05/20 10:50 [facility] (Rec: 04/05/20 13:23 [facility] [id number]) Occupational Therapy Current Condition Current Condition Evaluation Date 04/05/20 Treatment Diagnosis Dislocated R RUMA, s/p closed reduction total hip arthroplasty dislocation Diagnosis Onset Date 04/04/20 Post Operative Precautions Anterior Hip Precautions No Hip Extension Other Precautions Hip not to be extended past neutral and pt should not actively abduct or externally rotate right hip. Weight Bearing Status Weight Bearing Status Weight Bear as Tolerated M3 OT- IP Subjective and Pain Start: 04/05/20 13:08 Freq: Status: Active Protocol: Document 04/05/20 10:50 [facility] (Rec: 04/05/20 13:23 [facility] [id number]) OT- Subjective Occupational Therapy Visit Type Type Initial Evaluation Visit Start Time 10:50 Visit Stop Time 11:55 Total Visit Minutes 65 Occupational Therapy Visit Comments Patient Comments Pt agreed to get up, PT in for part of OT eval with pt. Patient/Caregiver Goals To go home. OT Pain Assessment Pain When Pain Assessed At Rest Pain Present Pain Present Pain Reported Location Right Hip Intensity 2 Scale Used Numeric (1 - 10) M4 OT- IP ADL's Start: 04/05/20 13:08 Freq: Status: Active Protocol: Document 04/05/20 10:50 [facility] (Rec: 04/05/20 13:23 [facility] [id number]) OT RTM-Ofps-Ojcsser General Evaluation Self-Feeding Ability Standby Assistance Areas Needing Assistance Opening Containers Comments OT Self-Feeding Comments Just needing set-up. OT ADL-Grooming General Evaluation Grooming Ability Standby Assistance Areas Needing Assistance Retrieving/Set-up of Grooming Items Comments OT Grooming Comments Pt able to brush her hair while standing with FWW at the sink. OT ADL-Oral Care Comments Oral Care Comments Pt refused. OT ADL-Dressing General Eval Lower Body Dressing Ability Moderate Assistance Assistive Devices Dressing Assistive Devices Patch Sander,Sock Aid Comments OT Dressing Comments After education with senior product marketing manager and sock aid, pt able to do LB dressing with supervision. Educated to dress her right leg first and take it out last . OT ADL-Toileting General Evaluation Toileting Ability Standby Assistance Comments OT Toileting Comments SBA while sitting on BSC. Recommended that pt wear incontinent brief initially and may want to consider getting a BSC. OT ADL-Bathing Comments OT Bathing Comments Suggested a tub transfer bench would be safer to get into and out of the tub/shower, otherwise pt has a walk in shower downstairs but would have to do a flight of steps. M5 OT- IP IADL's Start: 04/05/20 13:08 Freq: Status: Active Protocol: Document 04/05/20 10:50 [facility] (Rec: 04/05/20 13:23 [facility] [id number]) OT-Instrumental Activities of Daily Living Home Safety Awareness Awareness of Need for Assistance at Home Good Awareness Ability to Problem Solve Emergency Able to Problem Solve Situations Medication Management Medication Management Caregiver Provides Supervision Meal Preparation Meal Preparation Caregiver Provides Assist Charcoal Kiln Burner Charcoal Kiln Burner Caregiver Provides Assist M6 OT- IP Functional Cognition Start: 04/05/20 13:08 Freq: Status: Active Protocol: Document 04/05/20 10:50 [facility] (Rec: 04/05/20 13:23 [facility] [id number]) Cognitive Factors Limiting Selfcare Function Cognitive Ability Level of Alertness Alert Patient Orientation Name,Age,Birthday,Month,Date, Year,Day of Week,Place, Situation Attention Span Ability Capable of Focused Attention Ability to Follow Commands Able to Follow One Step Commands Memory Description No Deficits Noted Safety Awareness Decreased Recall of Precautions,Decreased Ability to Apply Precautions Cognitive Comments Cognitive Assessment Comments Pt appears at baseline. Due to anterior precautions initially needing education and reminders of what to follow, but afterwards able to follow and remember well. OT- Vision and Hearing OT- Hearing Assessment OT- Hearing Assessment WFL OT- Vision Assessment Visual Acuity Glasses All The Time Vision Assessment Comments Glasses at home. M7 OT- IP Mobility and Balance Start: 04/05/20 13:08 Freq: Status: Active Protocol: Document 04/05/20 10:50 [facility] (Rec: 04/05/20 13:23 [facility] [id number]) OT- Bed Mobility Assessment Supine to Sit Supine to Sit Assist Standby Assistance OT-Transfer Assessment Sit to and From Stand Sit to and from Stand Contact Guard Assistance Transfers Transfer Ability Contact Guard Assistance Technique Transfer Destination Bed,Bedside Commode,Chair Transfer Technique Stand Step Pivot Devices Transfer Assistive Devices Gait Belt,Front Wheeled Walker Comments Mobility Comments Pt has 4ww at home but states easier to use FWW here at hospital to to look into issuing one for her here. Pt just CGA with FWW and initial instructions to lead with right foot while stepping forwards and lead with the left while going backwards and bring the other leg just to and in line. OT- Balance Assessment Sitting Balance and Reactions Static Sitting Balance Ability Normal Dynamic Sitting Balance Ability Good Standing Balance and Reactions Static Standing Balance Ability Fair M8 OT- IP Objective Assessments Start: 04/05/20 13:08 Freq: Status: Active Protocol: Document 04/05/20 10:50 [facility] (Rec: 04/05/20 13:23 [facility] [id number]) OT Gross Range of Motion Upper Extremity Range of Motion ROM Impairments WFL form elbow to distal. OT Strength Comments Strength Comments At least 3+/5 throughout. M9 OT- IP Assessment and Plan Start: 04/05/20 13:08 Freq: Status: Active Protocol: Document 04/05/20 10:50 [facility] (Rec: 04/05/20 13:23 [facility] [id number]) OT Summary Assessment and Plan Potential Rehabilitation Potential Excellent Analytic Complexity at Evaluation Low Summary OT Impairments Pain,Balance,Functional Mobility,Dressing,Toileting, Bathing,Toilet Transfers, Shower Transfers,Activity Tolerance Progress Towards Goals Progressing Toward Goals Assessment Summary Pt low complexity and main barriers are steps, decreased dynamic balance, pain and now needing one person assist for Adl's and functional mobility, however minimal. Pt;s to come this afternoon to do caregiver training with PT. Pt looking to go home today. Goals Grooming Goal Independent Dressing Goal Standby Assistance Toileting Goal Standby Assistance Bathing Goal Standby Assistance Toilet Transfer Goal Standby Assistance Shower Transfer Goal Minimal Assistance Days to Meet Goals 1 Frequency of Treatment Frequency Of Treatment Once a Day Treatment Plan OT Treatment Plan ADL Training,Functional Mobility,Patient/Family Education,Discharge Planning Other Treatment Recommendations and Next Shower if pt still here. Treatment Focus Discharge Recommendations OT Discharge Recommendations Home with Assistance,Home Health Home Equipment Needs BSC, FWW , tub bench Transportation Needs at Discharge Private Vehicle
--- NOTE | 2020-04-05 16:18 | PT.IPTN ---
Surgery Performed Operation Date: 04/05/20 07:45 Actual Procedures p Closed Reduction Dislocated Hip(Right) - Leonid Damon MD Physical Therapy Treatment Note M2 PT-IP Current Condition Start: 04/05/20 09:02 Freq: NEEDED Status: Active Protocol: Document 04/05/20 11:50 AW (Rec: 04/05/20 12:21 AW [id number]) Physical Therapy Current Condition Current Condition Evaluation Date 04/05/20 Treatment Diagnosis anterior dislocation R RUMA prosthesis; difficulty in walking Onset Date 04/04/20 Precautions Anterior Hip Precautions No Hip Extension,No Hip External Rotation Other Precautions No hip extension past neutral. No active hip abduction or external rotation Weight Bearing Status Weight Bearing Status Weight Bear as Tolerated M3 PT-IP Subjective Start: 04/05/20 09:02 Freq: NEEDED Status: Active Protocol: Document 04/05/20 16:02 AW (Rec: 04/05/20 16:18 AW [id number]) Subjective Physical Therapy Visit Type Type Treatment Note Visit Start Time 14:30 Visit Stop Time 15:15 Total Visit Minutes 45 Physical Therapy Visit Comments Patient Comments Pt willing to participate with therapy Therapy Pain Assessment Pain When Pain Assessed During Mobility Pain Present Pain Present Allowed to Sleep Location right wrist Intensity 2 Scale Used Numeric (1 - 10) Description With Movement Pain Management Techniques Modification of Treatment, Timing of Activity with Medications posterior head Intensity 2 Scale Used Numeric (1 - 10) Description Aching M4 PT-IP Mobility and Gait Start: 04/05/20 09:02 Freq: NEEDED Status: Active Protocol: Document 04/05/20 16:02 AW (Rec: 04/05/20 16:18 AW [id number]) PT-Transfer Assessment Sit to and From Stand Sit to and from Stand Contact Guard Assistance,1 Person Assistance,Use of Upper Extremities Equipment Transfer Assistive Device Gait Belt,Front Wheeled Walker Orthotic/Prosthetic Devices or Brace: No Transfers Transfer Destination Chair,Toilet Transfer Technique pt ambulated with FWW Transfer Ability Level of Assist Contact Guard Assistance,1 Person Assistance,Use of Upper Extremities Comments Mobility Comments Pt completed sit to stand from chair using FWW CGA and ambulated to the bathroom where she transferred to and from the toilet using grab bars CGA. She then ambulated 30 feet to the hallway using FWW CGA and sat in a wheelchair. Due to excess height of FWW, this PT provided a 4WW but pt confirmed that she would be more comfortable and feel safer with FWW even though it was slightly too tall. She stood again with FWW CGA and returned to the bedside chair where she was positioned with call light and all needs within reach. Gait Assessment Gait Gait Assistance Required: Contact Guard Assist Distance (Feet) 30 Able to Maintain Weight Bearing Status Yes During Gait Assistive Devices Assistive Device Gait Belt,Front Wheeled Walker Orthotic/Prosthetic Devices or Brace: No Gait Deviations General Gait Pattern Antalgic,Decreased Stride Length,Decreased Feet Clearance,Flexed Trunk,Step-to Gait Factors Limiting Gait Function Factors Limiting Gait Function Decreased Activity Tolerance, Decreased Strength,Limited Range of Motion,Pain,Poor Balance Comments Gait Comments Pt and her spouse, Franklyn, were educated on anterior hip precautions and movements to avoid, including tips for bed mobility, walking forward and backward with FWW, and turning with FWW. Her spouse was able to provide an appropriate level of assist and to cue her for safe movement. Stair Climbing Assessment Comments Stair Climbing Comments Not assessed. Pt does not need to access downstairs at this time. M5 PT-IP Objective Assessments Start: 04/05/20 09:02 Freq: NEEDED Status: Active Protocol: Document 04/05/20 11:50 AW (Rec: 04/05/20 12:21 AW [id number]) Orientation Orientation/Cognition Level of Alertness Alert Orientation Name,Day of Week,Place, Situation Language Function Ability No Deficits Noted Safety Awareness Understands Safety Issues Memory Description No Deficits Noted Gross Range of Motion Upper Extremity ROM Assessment Within Functional Limits Lower Extremity ROM Assessment Right Impaired Strength Lower Extremity Strength Assessment Right Impaired Comments Strength Comments LLE grossly 4/5 Coordination Assessment Gross Coordination Gross Coordination WNL Sensation Assessment Sensation Gross Sensation WNL Muscle Tone Muscle Tone WNL Yes M6 PT-IP Treatment Start: 04/05/20 09:02 Freq: NEEDED Status: Active Protocol: Document 04/05/20 16:02 AW (Rec: 04/05/20 16:18 AW [id number]) Physical Therapy Treatment Education Education Provided Precautions,Weight Bearing Status,Post-Op Packet,Safety Equipment Issued Equipment Type and Company Pt's spouse, Franklyn, participated in caregiver training. He verbalized understanding of all precautions and provided appropriate assist throughout session. M7 PT-IP Assessment and Plan Start: 04/05/20 09:02 Freq: NEEDED Status: Active Protocol: Document 04/05/20 16:02 AW (Rec: 04/05/20 16:18 AW [id number]) PT Summary Assessment and Plan Summary Impairments Pain,ROM,Strength,Balance,Bed Mobility,Transfers,Gait, Activity Tolerance Progress Towards Goals Progressing Toward Goals Assessment Summary Quique and her spouse, Franklyn, were educated on all hip precautions, weightbearing status, and equipment recommended for home (BSC, tub transfer bench). Pt complained of headache pain and right wrist pain; RN made aware of new complaints. Pt is safe to discharge to home environment with spouse assist . Her son, Humza, has been assisting with shopping and other errands; he is also available to assist as needed. PT recommends home health therapy to reinforce acute PT teaching, survey home environment for safety/fall prevention, for BLE strengthening, and gait training. Goals Bed Mobility Goal Independent Transfer Goal Standby Assistance,Front Wheeled Walker,Four Wheeled Walker Gait Goal Standby Assistance,Front Wheel Walker,Four Wheel Walker Gait Distance 50 Other Goals AD depending on availability and preference. Days to Meet Goals 3 Frequency of Treatment Frequency Of Treatment Twice a Day Treatment Plan Physical Therapy Treatment Plan Bed Mobility Training,Transfer Training,Gait Training, Therapeutic Exercise,Balance Retraining,Post Op Education, Discharge Planning,Hot or Cold Pack Other Recommendations and Next Treatment ther ex Focus Recommendations To Nursing Amount of Assist Needed 1 Person Assist Discharge Recommendations PT Discharge Recommendations Home with Assistance,Home Health Transportation Needs at Discharge Private Vehicle
[2020-04-06 10:26] LABS: COVID19 Sendout Not Detected (Not Detect)
== END 2020-04-05 15:45 | disposition home or self-care (01) ==
LOC: ED 23:04 → AC 04-05 03:10
PROVIDERS: Orthopaedic Surgery; Admitting Provider Nurse Practitioner Adult Health; Emergency Provider Emergency Medicine; PCP Family Medicine; Visit Provider Nurse Practitioner Adult Health
PROC: (CPT 27266; principal; 2020-04-05 07:45)
DX: T84.020A Dislocation of internal right hip prosthesis, initial encounter (principal); M25.551 Pain in right hip; W01.0XXA Fall on same level from slipping, tripping and stumbling without subsequent striking against object, initial encounter; Z11.59 Encounter for screening for other viral diseases; Z95.0 Presence of cardiac pacemaker; I10 Essential (primary) hypertension; E78.5 Hyperlipidemia, unspecified; M81.0 Age-related osteoporosis without current pathological fracture; Y92.018 Other place in single-family (private) house as the place of occurrence of the external cause; N18.3 Chronic kidney disease, stage 3 (moderate); G89.29 Other chronic pain; M54.9 Dorsalgia, unspecified; K21.9 Gastro-esophageal reflux disease without esophagitis
CPT/HCPCS: 27266; 27265; 36415; 72170; 73502; 76000; 80053; 83735; 85025; 87635; 93005; 93010; 96361; 96374; 96375; 96376; 97116; 97161; 97165; 97530; 97535; 99152; 99285; G0378; J1170; J2250; J2405; J2704; J3010

== ENCOUNTER → 2020-07-06 15:25 | Outpatient (CLI) | payer MEDICARE, SELFPAY ==
[2020-04-05 04:36] VITALS: BMI 21.1
[2020-07-06 16:56] LABS: Add Manual Diff / Slide Review NO; Basophils Absolute Auto 100 /uL (0-100); Basophils Percent Auto 1.4 % (0-2); Eosinophils Absolute Auto 100 /uL (0-450); Eosinophils Percent Auto 3.2 % (2-4); Hematocrit 34.8 % (36-46); Hemoglobin 11.8 g/dL (12.0-16.0); Lymphocytes Absolute Auto 800 /uL (1100-4500); Lymphocytes Percent Auto 19.1 % (25-40); Mean Corpuscular HGB Conc 33.9 % (30-36); Mean Corpuscular Hemoglobin 30.7 PG (26-34); Mean Corpuscular Volume 90.6 fL (80-100); Monocytes Absolute Auto 300 /uL (0-900); Neutrophils Absolute Auto 2900 /uL (1500-7000); Neutrophils Percent Auto 68.3 % (50-75); Platelet Count 281 X10^3/uL (150-400); Red Blood Cell Count 3.84 X10^6/uL (4.0-5.2); Red Cell Distribution Width 14.7 % (11.6-14.8); White Blood Cell Count 4.3 X10^3/uL (4.5-11.0)
[2020-07-06 16:57] LABS: Appearance Urine UA CLEAR; Bilirubin Urine UA NEGATIVE (NEGATIVE); Color Urine UA YELLOW; Glucose Urine UA NEGATIVE (Negative); Ketones Urine UA NEGATIVE (NEGATIVE); Leukocyte Esterase Urine UA NEGATIVE (NEGATIVE); Nitrite Urine UA NEGATIVE (Negative); Occult Blood Urine UA 1+ (Negative); Protein Urine UA TRACE (Negative); Specific Gravity Urine UA <=1.005 (1.000-1.035); Urobilinogen Urine UA 0.2 E.U./dL (0.2)
[2020-07-06 17:05] LABS: pH Urine UA 5.5 (4.5-8.0)
[2020-07-06 17:06] LABS: Bacteria Urine Few (2-10); Culture Indicated Urine Cult Not Indicated; RBC Urine 0-1/HPF (0-5/HPF); Squamous Epithelial Cell Urine 1-5 /HPF (0-5/HPF); Transitional Epi Cells Urine 1-5/HPF (0-5/HPF); WBC Urine 1-5/HPF (0-5/HPF)
[2020-07-06 17:18] LABS: HEMOLYSIS < 15 (0-50); Iron 80 ug/dL (37-170); Protein (Total) Urine Random 26 mg/dL (0-12); Protein Creatinine Ratio Urine 0.41 GRAM/24H
[2020-07-06 17:24] LABS: Alanine Aminotransferase 21 IU/L (<35); Albumin 4.7 g/dL (3.5-5.0); Albumin Globulin Ratio 1.7 (1.0-2.8); Alkaline Phosphatase 66 U/L (38-126); Aspartate Aminotransferase 32 IU/L (14-36); BUN Creatinine Ratio 21.7 (6-22); Bilirubin Total 0.6 mg/dL (0.2-1.3); Blood Urea Nitrogen 47 mg/dL (7-17); Calcium 9.8 mg/dL (8.4-10.2); Carbon Dioxide 25 mmol/L (22-32); Chloride 97 mmol/L (98-107); Estimated Glomerular Filt Rate 21.7 mL/min (>60); Globulin 2.7 g/dL (1.7-4.1); Glucose 104 mg/dL (80-110); HEMOLYSIS < 15 (0-50); Magnesium 2.4 mg/dL (1.6-2.3); Phosphorous 3.9 mg/dL (2.8-4.1); Potassium 4.7 mmol/L (3.4-5.1); Sodium 131 mmol/L (137-145); Total Protein 7.4 g/dL (6.3-8.2)
[2020-07-06 17:30] LABS: Percent Iron Saturation 29 % (15-50); Total Iron Binding Capacity 275 ug/dL (265-497); Transferrin 235 mg/dL (206-381)
[2020-07-06 17:55] LABS: Ferritin 573 ng/mL (11-264)
[2020-07-07 06:13] LABS: Parathyroid Hormone Int 106 pg/mL (15-65)
== END ==
PROVIDERS: PCP Family Medicine; Referring Provider Specialist; Visit Provider Specialist
DX: A18.4 Tuberculosis of skin and subcutaneous tissue (principal); M31.31 Wegener's granulomatosis with renal involvement; D63.1 Anemia in chronic kidney disease; N18.4 Chronic kidney disease, stage 4 (severe)
CPT/HCPCS: 36415; 80053; 81001; 82570; 82728; 83540; 83550; 83735; 83970; 84100; 84156; 85025

== ENCOUNTER → 2020-10-04 10:20 | Outpatient (CLI) | payer MEDICARE, SELFPAY ==
[2020-04-05 04:36] VITALS: BMI 21.1
[2020-10-04 10:45] LABS: Add Manual Diff / Slide Review NO; Basophils Absolute Auto 100 /uL (0-100); Basophils Percent Auto 1.6 % (0-2); Eosinophils Absolute Auto 100 /uL (0-450); Eosinophils Percent Auto 2.5 % (2-4); Hematocrit 36.3 % (36-46); Lymphocytes Absolute Auto 900 /uL (1100-4500); Lymphocytes Percent Auto 19.8 % (25-40); Mean Corpuscular HGB Conc 33.2 % (30-36); Mean Corpuscular Volume 90.3 fL (80-100); Monocytes Absolute Auto 400 /uL (0-900); Monocytes Percent Auto 9.1 % (3-14); Neutrophils Absolute Auto 3000 /uL (1500-7000); Platelet Count 299 X10^3/uL (150-400); Red Blood Cell Count 4.02 X10^6/uL (4.0-5.2); Red Cell Distribution Width 13.8 % (11.6-14.8); White Blood Cell Count 4.5 X10^3/uL (4.5-11.0)
[2020-10-04 11:12] LABS: Alanine Aminotransferase 23 IU/L (<35); Albumin 4.6 g/dL (3.5-5.0); Albumin Globulin Ratio 1.4 (1.0-2.8); Alkaline Phosphatase 67 U/L (38-126); Aspartate Aminotransferase 34 IU/L (14-36); BUN Creatinine Ratio 23.9 (6-22); Bilirubin Total 0.5 mg/dL (0.2-1.3); Blood Urea Nitrogen 53 mg/dL (7-17); Calcium 10.2 mg/dL (8.4-10.2); Carbon Dioxide 28 mmol/L (22-32); Chloride 99 mmol/L (98-107); Globulin 3.2 g/dL (1.7-4.1); Glucose 98 mg/dL (80-110); HEMOLYSIS < 15 (0-50); Magnesium 2.5 mg/dL (1.6-2.3); Phosphorous 3.9 mg/dL (2.8-4.1); Potassium 4.6 mmol/L (3.4-5.1); Sodium 133 mmol/L (137-145); Total Protein 7.8 g/dL (6.3-8.2)
[2020-10-04 11:28] LABS: Appearance Urine UA CLEAR; Bilirubin Urine UA NEGATIVE (NEGATIVE); Color Urine UA YELLOW; Glucose Urine UA NEGATIVE (Negative); Ketones Urine UA NEGATIVE (NEGATIVE); Leukocyte Esterase Urine UA NEGATIVE (NEGATIVE); Nitrite Urine UA NEGATIVE (Negative); Occult Blood Urine UA 2+ (Negative); Protein Urine UA NEGATIVE (Negative); Specific Gravity Urine UA <=1.005 (1.000-1.035); Urobilinogen Urine UA 0.2 E.U./dL (0.2)
[2020-10-04 11:37] LABS: Bacteria Urine Occasional (0-1); Culture Indicated Urine Cult Not Indicated; RBC Urine 0-1/HPF (0-5/HPF); Squamous Epithelial Cell Urine 1-5 /HPF (0-5/HPF); WBC Urine 0-1/HPF (0-5/HPF)
[2020-10-05 15:11] LABS: Calcium 9.8 mg/dL (8.7-10.3); Parathyroid Hormone, Intact 89 pg/mL (15-65)
== END ==
PROVIDERS: PCP Family Medicine; Referring Provider Specialist; Visit Provider Specialist
DX: N18.4 Chronic kidney disease, stage 4 (severe) (principal); D63.1 Anemia in chronic kidney disease
CPT/HCPCS: 36415; 80053; 81001; 82310; 83735; 83970; 84100; 85025

== ENCOUNTER → 2021-01-23 15:07 | Outpatient (CLI) | payer MEDICARE, SELFPAY ==
[2020-04-05 04:36] VITALS: BMI 21.1
[2021-01-23 15:27] LABS: Bacteria Urine None Seen
[2021-01-23 16:24] LABS: Add Manual Diff / Slide Review NO; Basophils Absolute Auto 100 /uL (0-100); Basophils Percent Auto 1.3 % (0-2); Eosinophils Absolute Auto 200 /uL (0-450); Hematocrit 35.5 % (36-46); Lymphocytes Absolute Auto 800 /uL (1100-4500); Lymphocytes Percent Auto 20.1 % (25-40); Mean Corpuscular HGB Conc 33.8 % (30-36); Mean Corpuscular Hemoglobin 29.3 PG (26-34); Mean Corpuscular Volume 86.7 fL (80-100); Monocytes Absolute Auto 400 /uL (0-900); Monocytes Percent Auto 9.7 % (3-14); Neutrophils Absolute Auto 2700 /uL (1500-7000); Neutrophils Percent Auto 64.9 % (50-75); Platelet Count 269 X10^3/uL (150-400); Red Blood Cell Count 4.09 X10^6/uL (4.0-5.2); Red Cell Distribution Width 14.2 % (11.6-14.8); White Blood Cell Count 4.2 X10^3/uL (4.5-11.0)
[2021-01-23 16:31] LABS: Appearance Urine UA CLEAR; Bilirubin Urine UA NEGATIVE (NEGATIVE); Color Urine UA YELLOW; Glucose Urine UA NEGATIVE (Negative); Ketones Urine UA NEGATIVE (NEGATIVE); Leukocyte Esterase Urine UA 1+ (NEGATIVE); Nitrite Urine UA NEGATIVE (Negative); Occult Blood Urine UA 3+ (Negative); Protein Urine UA NEGATIVE (Negative); Urobilinogen Urine UA 0.2 E.U./dL (0.2)
[2021-01-23 16:44] LABS: Alanine Aminotransferase 20 IU/L (<35); Albumin 4.4 g/dL (3.5-5.0); Albumin Globulin Ratio 1.7 (1.0-2.8); Alkaline Phosphatase 75 U/L (38-126); Aspartate Aminotransferase 30 IU/L (14-36); BUN Creatinine Ratio 24.5 (6-22); Bilirubin Total 0.4 mg/dL (0.2-1.3); Blood Urea Nitrogen 52 mg/dL (7-17); Calcium 9.8 mg/dL (8.4-10.2); Carbon Dioxide 28 mmol/L (22-32); Chloride 100 mmol/L (98-107); Estimated Glomerular Filt Rate 22.2 mL/min (>60); Globulin 2.6 g/dL (1.7-4.1); Glucose 82 mg/dL (80-110); HEMOLYSIS < 15 (0-50); Magnesium 2.2 mg/dL (1.6-2.3); Phosphorous 4.1 mg/dL (2.8-4.1); Potassium 4.3 mmol/L (3.4-5.1); Sodium 133 mmol/L (137-145)
[2021-01-23 16:49] LABS: RBC Urine 1-5/HPF (0-5/HPF)
[2021-01-23 16:50] LABS: Culture Indicated Urine Cult Not Indicated; Renal Epithelial Cells Urine 1-5/HPF (0-1/HPF); Squamous Epithelial Cell Urine 10-30 /HPF (0-5/HPF); WBC Urine 10-30/HPF (0-5/HPF)
== END ==
PROVIDERS: PCP Family Medicine; Referring Provider Specialist; Visit Provider Specialist
DX: N18.4 Chronic kidney disease, stage 4 (severe) (principal)
CPT/HCPCS: 36415; 80053; 81001; 83735; 84100; 85025

== ENCOUNTER → 2021-04-14 13:07 | Outpatient (CLI) | payer MEDICARE, SELFPAY ==
[2020-04-05 04:36] VITALS: BMI 21.1
[2021-04-14 13:26] LABS: Bacteria Urine None Seen
[2021-04-14 13:55] LABS: Appearance Urine UA CLEAR; Bilirubin Urine UA NEGATIVE (NEGATIVE); Color Urine UA YELLOW; Glucose Urine UA TRACE g/dL (Negative); Ketones Urine UA NEGATIVE (NEGATIVE); Leukocyte Esterase Urine UA 1+ (NEGATIVE); Nitrite Urine UA NEGATIVE (Negative); Occult Blood Urine UA 2+ (Negative); Protein Urine UA NEGATIVE (Negative); Specific Gravity Urine UA 1.015 (1.000-1.035); Urobilinogen Urine UA 0.2 E.U./dL (0.2)
[2021-04-14 14:10] LABS: RBC Urine 5-10/HPF (0-5/HPF); WBC Urine 1-5/HPF (0-5/HPF)
[2021-04-14 14:11] LABS: Culture Indicated Urine Cult Not Indicated; Squamous Epithelial Cell Urine 5-10 /HPF (0-5/HPF)
[2021-04-14 14:16] LABS: Protein (Total) Urine Random 16 mg/dL (0-12)
[2021-04-14 14:45] LABS: Add Manual Diff / Slide Review NO; Basophils Absolute Auto 100 /uL (0-100); Basophils Percent Auto 1.8 % (0-2); Eosinophils Absolute Auto 100 /uL (0-450); Eosinophils Percent Auto 3.1 % (2-4); Hematocrit 36.5 % (36-46); Hemoglobin 12.1 g/dL (12.0-16.0); Lymphocytes Absolute Auto 800 /uL (1100-4500); Mean Corpuscular HGB Conc 33.3 % (30-36); Mean Corpuscular Hemoglobin 29.8 PG (26-34); Mean Corpuscular Volume 89.3 fL (80-100); Monocytes Absolute Auto 400 /uL (0-900); Monocytes Percent Auto 9.3 % (3-14); Neutrophils Absolute Auto 2800 /uL (1500-7000); Neutrophils Percent Auto 66.8 % (50-75); Platelet Count 281 X10^3/uL (150-400); Red Blood Cell Count 4.08 X10^6/uL (4.0-5.2); Red Cell Distribution Width 15.8 % (11.6-14.8); White Blood Cell Count 4.3 X10^3/uL (4.5-11.0)
[2021-04-14 14:59] LABS: Alanine Aminotransferase 21 IU/L (<35); Albumin 4.4 g/dL (3.5-5.0); Albumin Globulin Ratio 1.5 (1.0-2.8); Alkaline Phosphatase 83 U/L (38-126); Aspartate Aminotransferase 36 IU/L (14-36); BUN Creatinine Ratio 26.2 (6-22); Bilirubin Total 0.5 mg/dL (0.2-1.3); Blood Urea Nitrogen 53 mg/dL (7-17); Calcium 10.3 mg/dL (8.4-10.2); Carbon Dioxide 24 mmol/L (22-32); Chloride 97 mmol/L (98-107); Estimated Glomerular Filt Rate 23.5 mL/min (>60); Glucose 89 mg/dL (80-110); HEMOLYSIS < 15 (0-50); Phosphorous 3.7 mg/dL (2.8-4.1); Potassium 4.4 mmol/L (3.4-5.1); Sodium 131 mmol/L (137-145); Total Protein 7.4 g/dL (6.3-8.2)
[2021-04-14 15:14] LABS: Iron 67 ug/dL (37-170)
[2021-04-14 15:24] LABS: Percent Iron Saturation 25 % (15-50); Total Iron Binding Capacity 270 ug/dL (265-497)
[2021-04-14 15:32] LABS: Ferritin 281 ng/mL (11-264)
[2021-04-16 13:49] LABS: Calcium 10.2 mg/dL (8.7-10.3); Parathyroid Hormone, Intact 100 pg/mL (15-65)
== END ==
PROVIDERS: PCP Family Medicine; Referring Provider Specialist; Visit Provider Specialist
DX: I10 Essential (primary) hypertension (principal); D62 Acute posthemorrhagic anemia; N18.4 Chronic kidney disease, stage 4 (severe); M31.31 Wegener's granulomatosis with renal involvement
CPT/HCPCS: 36415; 80053; 81001; 82310; 82728; 83516; 83540; 83550; 83970; 84100; 84156; 85025; 86255

== ENCOUNTER → 2021-06-07 11:55 | Outpatient (CLI) | payer MEDICARE, SELFPAY ==
[2021-05-24 13:16] VITALS: BMI 21.1
--- NOTE | 2021-06-07 11:57 | DI.RAD.S_ITS ---
PROCEDURE: XR LUMBAR SPINE MIN 4V INDICATIONS: Follow up L spine TECHNIQUE: Four views of the lumbar spine were acquired including bilateral obliques. COMPARISON: [facility], CR, XR LUMBAR SPINE MIN 4V, 04/13/2019, 15:16. FINDINGS: Bones: Diffuse demineralization. There is severe dextroscoliosis with the apex at the L2 level and no gross AP subluxation. Right hip arthroplasty changes. Moderate degenerative changes in the right sacroiliac joint including subcortical cystic change and mild iliac sclerosis. Soft tissues: Overlying bowel gas pattern is normal. No suspicious soft tissue calcifications. Dual lead left-sided pacemaker. Heavy abdominal aortic calcification. Oblique images: Limited due to scoliosis and osteopenia. IMPRESSION: 1. Severe rightward scoliosis of the lumbar spine, similar in severity compared to the prior study. 2. No significant AP subluxation. 3. Right sacroiliitis. Dictated by: Larissa Galvez M.D. on 06/07/2021 at 14:06 Approved by: Larissa Galvez M.D. on 06/07/2021 at 14:35
--- NOTE | 2021-06-07 11:57 | DI.RAD.S_ITS ---
PROCEDURE: XR HIP W PEL IF DONE LT 2V INDICATIONS: pain TECHNIQUE: AP pelvis with lateral view(s) of the left hip(s). COMPARISON: [facility], CR, XR HIP W PEL IF DONE RT 2V, 04/05/2020, 1:48. [facility], CR, XR HIP W PEL IF DONE RT 2V, 04/05/2020, 8:41. FINDINGS: Bones: No fractures or dislocations. Postsurgical changes compatible with right hip arthroplasty redemonstrated. Pelvic ring appears intact. No suspicious bony lesions. Mild osseous hypertrophy noted in the left hip. Soft tissues: The visualized bowel gas pattern is normal. No suspicious soft tissue calcifications. IMPRESSION: Mild left hip osteoarthritis. Dictated by: Heather Bourgeois MD, PhD on 06/07/2021 at 13:52 Approved by: Heather Bourgeois MD, PhD on 06/07/2021 at 13:54
== END ==
PROVIDERS: PCP Family Medicine; Referring Provider Physical Medicine & Rehabilitation; Visit Provider Physical Medicine & Rehabilitation
DX: M48.07 Spinal stenosis, lumbosacral region (principal); M47.27 Other spondylosis with radiculopathy, lumbosacral region; M25.552 Pain in left hip; M70.62 Trochanteric bursitis, left hip; S73.004A Unspecified dislocation of right hip, initial encounter; M16.12 Unilateral primary osteoarthritis, left hip; M41.86 Other forms of scoliosis, lumbar region; M46.1 Sacroiliitis, not elsewhere classified
CPT/HCPCS: 72110; 73502

== ENCOUNTER → 2021-07-06 11:01 | Outpatient (CLI) | payer MEDICARE, SELFPAY ==
[2021-05-24 13:16] VITALS: BMI 21.1
[2021-07-06 11:38] LABS: Appearance Urine UA CLEAR; Bilirubin Urine UA NEGATIVE (NEGATIVE); Color Urine UA YELLOW; Glucose Urine UA TRACE g/dL (Negative); Ketones Urine UA NEGATIVE (NEGATIVE); Leukocyte Esterase Urine UA TRACE (NEGATIVE); Nitrite Urine UA NEGATIVE (Negative); Occult Blood Urine UA 3+ (Negative); Protein Urine UA NEGATIVE (Negative); Specific Gravity Urine UA <=1.005 (1.000-1.035); Urobilinogen Urine UA 0.2 E.U./dL (0.2)
[2021-07-06 11:39] LABS: Add Manual Diff / Slide Review NO; Basophils Absolute Auto 100 /uL (0-100); Eosinophils Absolute Auto 200 /uL (0-450); Eosinophils Percent Auto 2.9 % (2-4); Lymphocytes Absolute Auto 900 /uL (1100-4500); Lymphocytes Percent Auto 15.7 % (25-40); Mean Corpuscular HGB Conc 32.5 % (30-36); Mean Corpuscular Hemoglobin 28.8 PG (26-34); Mean Corpuscular Volume 88.5 fL (80-100); Monocytes Absolute Auto 500 /uL (0-900); Monocytes Percent Auto 8.3 % (3-14); Neutrophils Absolute Auto 3900 /uL (1500-7000); Neutrophils Percent Auto 72.1 % (50-75); Platelet Count 339 X10^3/uL (150-400); Red Blood Cell Count 4.18 X10^6/uL (4.0-5.2); Red Cell Distribution Width 13.6 % (11.6-14.8); White Blood Cell Count 5.4 X10^3/uL (4.5-11.0)
[2021-07-06 11:49] LABS: Bacteria Urine Moderate (10-30); Culture Indicated Urine Specimen Cultured; RBC Urine 5-10/HPF (0-5/HPF); Squamous Epithelial Cell Urine 1-5 /HPF (0-5/HPF); WBC Urine 1-5/HPF (0-5/HPF)
[2021-07-06 12:21] LABS: BUN Creatinine Ratio 18.3 (6-22); Blood Urea Nitrogen 44 mg/dL (7-17); Calcium 9.6 mg/dL (8.4-10.2); Carbon Dioxide 26 mmol/L (22-32); Chloride 99 mmol/L (98-107); Estimated Glomerular Filt Rate 19.2 mL/min (>60); Glucose 120 mg/dL (80-110); HEMOLYSIS < 15 (0-50); Sodium 135 mmol/L (137-145)
[2021-07-07 16:29] LABS: Calcium 9.7 mg/dL (8.7-10.3); Parathyroid Hormone, Intact 109 pg/mL (15-65)
== END ==
PROVIDERS: PCP Family Medicine; Referring Provider Specialist; Visit Provider Specialist
DX: N18.4 Chronic kidney disease, stage 4 (severe) (principal); M31.31 Wegener's granulomatosis with renal involvement
CPT/HCPCS: 36415; 80048; 81001; 82310; 83970; 85025; 87077; 87086

== ENCOUNTER → 2021-07-11 10:47 | Outpatient (CLI) | payer MEDICARE, SELFPAY ==
[2021-05-24 13:16] VITALS: BMI 21.1
[2021-07-11 12:03] LABS: Add Manual Diff / Slide Review NO; Basophils Absolute Auto 100 /uL (0-100); Basophils Percent Auto 1.1 % (0-2); Eosinophils Absolute Auto 200 /uL (0-450); Eosinophils Percent Auto 2.7 % (2-4); Hematocrit 35.1 % (36-46); Hemoglobin 11.7 g/dL (12.0-16.0); Lymphocytes Absolute Auto 700 /uL (1100-4500); Lymphocytes Percent Auto 12.3 % (25-40); Mean Corpuscular HGB Conc 33.2 % (30-36); Mean Corpuscular Volume 87.3 fL (80-100); Monocytes Absolute Auto 500 /uL (0-900); Monocytes Percent Auto 8.6 % (3-14); Neutrophils Absolute Auto 4300 /uL (1500-7000); Neutrophils Percent Auto 75.3 % (50-75); Platelet Count 349 X10^3/uL (150-400); Red Blood Cell Count 4.03 X10^6/uL (4.0-5.2); Red Cell Distribution Width 14.1 % (11.6-14.8); White Blood Cell Count 5.7 X10^3/uL (4.5-11.0)
[2021-07-11 12:21] LABS: Alanine Aminotransferase 18 IU/L (<35); Albumin 4.5 g/dL (3.5-5.0); Albumin Globulin Ratio 1.7 (1.0-2.8); Alkaline Phosphatase 66 U/L (38-126); Aspartate Aminotransferase 31 IU/L (14-36); BUN Creatinine Ratio 20.9 (6-22); Bilirubin Total 0.5 mg/dL (0.2-1.3); Blood Urea Nitrogen 47 mg/dL (7-17); Calcium 10.2 mg/dL (8.4-10.2); Carbon Dioxide 24 mmol/L (22-32); Chloride 99 mmol/L (98-107); Estimated Glomerular Filt Rate 20.7 mL/min (>60); Globulin 2.6 g/dL (1.7-4.1); Glucose 102 mg/dL (80-110); HEMOLYSIS < 15 (0-50); Lipase 269 U/L (23-300); Potassium 4.6 mmol/L (3.4-5.1); Sodium 134 mmol/L (137-145); Total Protein 7.1 g/dL (6.3-8.2)
== END ==
PROVIDERS: PCP Family Medicine; Referring Provider Registered Nurse; Visit Provider Registered Nurse
DX: R10.9 Unspecified abdominal pain (principal); R19.5 Other fecal abnormalities
CPT/HCPCS: 36415; 80053; 83690; 85025

== ENCOUNTER → 2021-07-12 10:11 | Outpatient (CLI) | payer MEDICARE, SELFPAY ==
[2021-05-24 13:16] VITALS: BMI 21.1
== END ==
PROVIDERS: PCP Family Medicine; Referring Provider Registered Nurse; Visit Provider Registered Nurse
DX: R19.5 Other fecal abnormalities (principal); R10.9 Unspecified abdominal pain
CPT/HCPCS: 87045; 87899

== ENCOUNTER → 2021-08-07 15:34 | Outpatient (CLI) | payer MEDICARE, SELFPAY ==
[2021-05-24 13:16] VITALS: BMI 21.1
[2021-08-07 17:24] LABS: COVID19 -Nasal RAPID Negative (Negative)
== END ==
PROVIDERS: PCP Family Medicine; Visit Provider Physical Medicine & Rehabilitation
DX: Z20.822 Contact with and (suspected) exposure to COVID-19 (principal); M48.07 Spinal stenosis, lumbosacral region; M41.9 Scoliosis, unspecified
CPT/HCPCS: 87635; 99214; C9803

== ENCOUNTER 2021-08-10 14:00 | Outpatient (CLI) | payer MEDICARE, SELFPAY ==
[2021-08-07 15:37] VITALS: BMI 21.1
[2021-08-10] VITALS (8 sets, daily range): BP systolic 134–181; BP diastolic 61–77; PULSE 68–73; RESP 10–22; TEMP 36.8–36.9; O2SAT 92–100
--- NOTE | 2021-08-10 14:07 | DI.RAD.S_ITS ---
PROCEDURE: PAIN L INTERLAMINAR/CAUDAL INJ INDICATIONS: SPONDYLOSIS COMPARISON: [facility], , PAIN L/S TRANSFORAMINAL INJECT, 04/21/2019, 14:04. FINDINGS: Fluoroscopic spot filming was performed to verify placement of a spinal needle at the L4-L5 level, as labeled on the films. Appropriate location of the needle tip was confirmed by injection of iodinated contrast. IMPRESSION: Intraprocedural examination within normal limits. Dictated by: Ace Calloway M.D. on 08/10/2021 at 15:40 Approved by: Ace Calloway M.D. on 08/10/2021 at 15:41
[2021-08-10] MEDS: MIDAZOLAM 5 MG/5 ML VIAL IV (15:03)
[2021-08-10] MEDS: BUPIVACAINE 0.25% (PF) VIAL 30 ML (15:05)
[2021-08-10] MEDS: BETAMETHASONE 30 MG/5 ML MDV 12 MG INJ (15:06)
[2021-08-10] MEDS: IOPAMIDOL 15 ML VIAL 3 ML INJ (15:06)
[2021-08-10] MEDS: DEXAMETHASONE 10 MG/ML VIAL 20 MG INJ (15:06)
--- NOTE | 2021-08-10 15:15 | P.PCN_ITS ---
Date/Time/Diagnoses Date of procedure: 08/10/21 Time of procedure: 15:15 Pre-procedure diagnosis: 1. HNP WITH RADICULAR FEATURES, 2. MULTILEVEL CENTRAL STENOSIS, Post-procedure diagnosis: same Procedure Notes Procedure: 1. FLUOROSCOPICALLY GUIDED CONTRAST CONTROLLED INTERLAMINAR EPIDURAL STEROID INJECTION - L3/4 Indications: Quique is referred by Dr. Mayberry for treatment of Bilateral Foraminal Stenosis L>R LE symptoms. Physician: Daryn Roberts Total Fluoroscopy time (seconds): 10 Total sedation minutes: 7 Complications: none Procedure in detail & Post-procedure care: FINDINGS Multilevel Central Spinal Stenosis with Nerve Root Compression DESCRIPTION OF PROCEDURE Fluoroscopically guided, contrast-controlled L3/4 translaminar epidural steroid injection. Following review of allergy and review of potential side effects and complications, including, but not necessarily limited to, infection, allergic reaction, local tissue breakdown, temporary as well as permanent nerve injury, paralysis, stroke and possible , the patient indicated that the patient understood and agreed to proceed. An informed consent document was signed by the patient, witnessed by a nurse, and placed in the patient's chart. Additionally, other treatment options including modalities, medications, and physical therapy were reviewed with the patient. After review of previous anaesthesic history and IV conscious sedation the patient was deemed safe to proceed with today?s procedure with IV conscious sedation as ASA class II designation. Safety time-out was performed to confirm patient ID, procedure to be performed and site of procedure. IV sedation was accomplished with a combination of 1mg of Versed was administered by the RN after DO order, titrated to patient comfort during the course of the procedure while the patient remained responsive to all verbal commands. In the prone position, following sterile prep and drape of the lumbar region, the L3/4 translaminar space was identified fluoroscopically. The skin was anesthetized via a 25-gauge, 1.5-inch needle with 1% lidocaine solution. At this point, a 22-gauge short bevel spinal needle was atraumatically introduced and advanced under fluoroscopic guidance into the region of the L3/4 translaminar space. Depth was confirmed on lateral view. Radiological data, including multiple fluoroscopic views of the lumbar spine, reveal a spinal needle at the L3/4 translaminar space. Lateral views then show placement of the needle in the epidural space. Subsequent views show contrast material flowing superiorly and inferiorly in the epidural space. No vascular or intrathecal uptake is observed. At this point, using loss of resistance technique with saline and air, the epidural space was entered. This was confirmed following negative aspiration with injection of approximately 1.5 cc of Isovue 200, showing excellent epidural flow without vascular or intrathecal uptake. At this point, 1cc of 1% lidocaine solution combined with 4cc or 20mg of dexamethasone and 12mg of betamethasone was injected without incident. The patient tolerated the procedure well without signs or symptoms of complications prior to transfer to the recovery area continued monitoring without incident. The patient was then transferred to the recovery area where they were observed for an appropriate period of time after the injection. The patient reported a VAS score of 6 prior to the procedure and a post- procedure VAS of 0. POST OP INSTRUCTIONS The patient was provided a Pain Log to continue to record their response to the target-specific procedure prior to follow-up visit with their referring physician. Additionally, specific post-injection care instructions and a contact number to our office were provided if concerns arise regarding possible complications associated with the procedure are suspected.
== END 2021-08-10 15:35 | disposition home or self-care (01) ==
LOC: RAD 14:07
PROVIDERS: PCP Family Medicine; Referring Provider Physical Medicine & Rehabilitation; Visit Provider Physical Medicine & Rehabilitation
DX: M51.16 Intervertebral disc disorders with radiculopathy, lumbar region (principal); M48.061 Spinal stenosis, lumbar region without neurogenic claudication
CPT/HCPCS: 62323; J0702; J1100; J2250

== ENCOUNTER 2021-08-10 16:22 | Observation (INO) | payer MEDICARE, SELFPAY ==
[2021-08-07 15:37] VITALS: BMI 21.1
[2021-08-10] VITALS (21 sets, daily range): BP systolic 130–183; BP diastolic 57–81; PULSE 61–79; RESP 12–22; TEMP 36.4–36.6; O2SAT 93–99; BMI 20.1
--- NOTE | 2021-08-10 | DI.RAD.S_ITS ---
PROCEDURE: XR HIP W PEL IF DONE RT 2V INDICATIONS: OR right hip reduction TECHNIQUE: 2 views of the hip were acquired. COMPARISON: [facility], [place], XR HIP W PEL IF DONE RT 2V, 08/10/2021, 17:25. FINDINGS: Spot fluoroscopic images demonstrating expected alignment of right hip arthroplasty, status post reduction. Dictated by: Zain Ford M.D. on 08/10/2021 at 20:41 Approved by: Zain Ford M.D. on 08/10/2021 at 20:41
--- NOTE | 2021-08-10 16:27 | ED.BACK ---
HPI - Back Pain/Injury General Chief Complaint: Weakness Stated Complaint: Right leg is numb Time Seen by Provider: 08/10/21 16:27 History of Present Illness HPI Narrative: 86-year-old female presents with weakness and inability to use her right leg soon after going home after orthopedic intervention earlier today. She has a history of central canal stenosis and had a fluoroscopy guided contrast interlaminar epidural steroid injection and bupivacaine this afternoon at about 3:00 p.m.. Her complaints prior to the procedure were bilateral foraminal stenosis with pain and radiation with left greater than right lower extremity symptoms. Procedure went well and she was discharged home, after ambulating developed above-stated symptoms. She has no pain, she denies any loss of control of bowel or bladder. She has no symptoms in her left leg and in fact states that feels much better. She is otherwise well and free of complaint Related Data Home Medications Medication Instructions Recorded Confirmed acetaminophen 500 mg tablet 500 mg PO PRN PRN #0 07/09/17 08/07/21 (Tylenol Extra Strength) carvedilol 6.25 mg tablet 6.25 mg PO BID 11/18/19 08/07/21 aspirin 81 mg tablet,delayed 81 mg PO DAILY 06/07/20 08/07/21 release (Adult Aspirin Regimen) latanoprost 0.005 % eye drops EYE-BOTH 06/07/20 08/07/21 Lidocaine patch EX INTRADERMAL 07/11/21 08/07/21 Previous Rx's Medication Instructions Recorded Disabled parking permit #1 ea 12/24/18 tramadol 50 mg tablet 50 mg PO BID PRN #60 tab 05/12/20 CMP Estradiol 0.0125% Vaginal Cream 0.5 gram TOPICAL DAILY #30 gram 07/19/20 amlodipine 10 mg tablet 10 mg PO DAILY #90 tab 11/10/20 mirtazapine 15 mg tablet See Rx Instructions .ROUTE 05/16/21 .COMPLEX #90 tab losartan 50 mg tablet See Rx Instructions .ROUTE 06/27/21 .COMPLEX #90 tab gabapentin 300 mg capsule 300 mg PO .COMPLEX #90 cap 08/07/21 Allergies Allergy/AdvReac Type Severity Reaction Status Date / Time adhesive tape [ADHESIVE TAPE] Allergy Mild skin Verified 08/10/21 14:40 reaction gabapentin [GABAPENTIN] Allergy Unknown Swelling/ra Verified 08/10/21 14:40 sh amoxicillin [AMOXICILLIN] AdvReac Intermediate YEAST Verified 08/10/21 14:40 INFECTION doxycycline [DOXYCYCLINE] AdvReac Intermediate YEAST Verified 08/10/21 14:40 SYMPTOMS azithromycin [AZITHROMYCIN] AdvReac Mild DIARRHEA Verified 08/10/21 14:40 estrogens, conjugated AdvReac Mild LOCAL Verified 08/10/21 14:40 [ESTROGENS, CONJUGATED] IRRITATION WHEN TOPICAL hydrocodone [HYDROCODONE] AdvReac Mild GI UPSET Verified 08/10/21 14:40 levofloxacin [LEVOFLOXACIN] AdvReac Mild GI UPSET Verified 08/10/21 14:40 phenazopyridine AdvReac Mild GI UPSET Verified 08/10/21 14:40 [PHENAZOPYRIDINE] Review of Systems Review of Systems Narrative: GENERAL: Denies chills, fatigue, malaise, fever, sweats. HEENT: Denies sinus pain, ear pain, sore throat, difficulty swallowing, dizziness. RESPIRATORY: Denies dyspnea, cough, wheezing, hemoptysis, sputum. CARDIOVASCULAR: Denies chest pain, palpitations, orthopnea, edema, GASTROINTESTINAL: Denies nausea, vomiting, abdominal pain, diarrhea, constipation, melena. : Denies dysuria, frequency, incontinence, hematuria, urinary retention. MUSCULOSKELETAL: See HPI SKIN: Denies rash, skin lesions, or other NEUROLOGIC: See HPI PSYCHIATRIC: No concerning psychosocial issues. 12 point review of systems is negative except for those stated above Patient History Medical History Abdominal pain CKD (chronic kidney disease) (Unknown) Colon polyps (Unknown) Diarrhea Diverticular disease (Unknown) Glaucoma (Unknown) Greater trochanteric bursitis of left hip Hip pain Hyperlipemia (Unknown) Hypertension (Unknown) Impacted cerumen of both ears Loose stools Osteoporosis (Unknown) Pacemaker Rash and nonspecific skin eruption Scoliosis (Unknown) Skin cancer (~2005) Spinal stenosis (Unknown) 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) Vulvar irritation (Unknown) Surgical History History of hip replacement (Unknown) Hx of hysterectomy (Unknown) Family History Father Heart disease Mother Osteoporosis Social History household members: spouse Smoking Status: Never smoker alcohol intake: current substance use type: does not use Smoking Status: Never smoker alcohol intake frequency: holidays/special occasions only Substance Use Type: does not use Exam Narrative Exam Narrative: GEN: AOx3 and in mild distress EYES: Pupils are equal, round, and reactive to light and accommodation. Extraoccular muscles are intact bilaterally. There is no subconjunctival hemorrhage or exudate. CHEST: Lungs are clear to auscultation bilaterally and free of wheezes, rales, or rhonchi. Heart rate is regular rhythm, there are no murmurs, clicks, rubs, or gallops. There is no chest wall tenderness. ABD: Abdomen is soft and nontender. There is no guarding or rebound. Bowel sounds are normal in all 4 quadrants. There is no mass or organomegaly. EXT: Initially no pain, as block wore off she complains of pain in R hip. Closed, isolated and N/V in tact NEURO: Right lower extremity with profound weakness, 1/5 strength with significant numbness and tingling. She has no saddle anesthesia, no obvious shortening or rotation SKIN: Warm, pink, and dry. No erythema or rash Initial Vital Signs Initial Vital Signs: Vital Signs Temperature 97.5 F L 08/10/21 16:30 Pulse Rate 67 08/10/21 16:30 Respiratory Rate 18 08/10/21 16:30 Blood Pressure 182/75 H 08/10/21 16:30 Pulse Oximetry 95 08/10/21 16:30 Procedures Orthopedic Joint Reduction Joint #1: Time Out Performed: Yes Side: right Joint Reduction Location: hip Analgesia: procedural sedation Technique used: traction/counter-traction and direct manipulation Post-reduction neuro exam: intact and no change Post-reduction vascular: intact Post Reduction X-Ray Obtained: Yes Post Reduction X-Ray Results: not reduced Procedural Sedation Consent signed: Yes Time out performed: Yes Indication: fracture/dislocation reduction ASA Class: III Mallampati Airway Classification: Class II Preparation: cardiac rehabilitation specialist applied, pulse oximeter, capnometry used, supplemental O2 applied, suction/airway equipment at bedside and IV secured IV Propofol dose (mg): 60 Intraservice time/total sedation time (min): 12 ED Sedation Level: Moderate (Concious) Complications: Respiratory Depression-Repositioning Required Course Orders Ordered: ED Orders 08/10/21 17:22 XR hip w pel if done RT 2V Stat 08/10/21 18:28 COVID19 -Nasal swab/Pre-Proc Stat 08/10/21 18:29 XR hip RT 1V Stat Discontinued Medications Propofol (Propofol 200 Mg/20 Ml Vial) 45 mg 1 mg/kg (45 mg) IV NOW ONE Stop: 08/10/21 17:53 Last Admin: 08/10/21 18:42 Dose: Not Given Documented by: DANNA Propofol (Propofol 200 Mg/20 Ml Vial) 60 mg IV NOW ONE Stop: 08/10/21 18:19 Last Admin: 08/10/21 18:18 Dose: 60 mg Documented by: DANNA Consultations Consultation #1: Call placed to Dr. Roberts who immediately came to the department to perform evaluation. He had been attempting to reach the patient at home after hearing that she had called his office. Her symptoms are already improving, strength is returning as is sensation, recommendation is to observe for another 1-2 hours with expectation that symptoms completely resolved. He is available for consultation moving forward should it be needed Consultation #2: call to ortho (Alex) after unsuccessful reduction. Will take to OR Vital Signs Vital signs: Vital Signs - 8 hr 08/10/21 16:30 08/10/21 18:11 08/10/21 18:15 Temperature 97.5 F L Pulse Rate 67 70 72 Respiratory Rate 18 Blood Pressure 182/75 H 183/81 H Pulse Oximetry 95 95 94 08/10/21 18:20 08/10/21 18:21 08/10/21 18:25 Temperature Pulse Rate 71 70 61 Respiratory Rate 20 Blood Pressure 149/63 H 131/60 Pulse Oximetry 97 97 99 08/10/21 18:30 08/10/21 18:33 08/10/21 18:35 Temperature Pulse Rate 63 79 64 Respiratory Rate 16 12 16 Blood Pressure 137/63 Pulse Oximetry 99 98 08/10/21 18:36 08/10/21 18:40 08/10/21 18:45 Temperature Pulse Rate 63 66 65 Respiratory Rate 18 13 16 Blood Pressure 155/70 H 147/67 H 151/67 H Pulse Oximetry 97 96 96 08/10/21 18:50 08/10/21 18:55 08/10/21 19:00 Temperature Pulse Rate 62 68 73 Respiratory Rate 12 16 22 Blood Pressure 145/65 H 167/66 H 168/78 H Pulse Oximetry 96 95 94 08/10/21 19:30 Temperature Pulse Rate 70 Respiratory Rate 18 Blood Pressure 159/68 H Pulse Oximetry 93 MDM - Back Pain/Injury Lab Data Labs: Lab Results 08/10/21 Range/Units 18:28 SARS-CoV-2 (PCR) Negative (Negative) Point of Care Testing Test Results Not applicable MDM Narrative Medical decision making narrative: Patient presented from home with numb and weak right leg after procedure. As bupivacaine block wore off she started developing pain in her right anterior hip an x-ray confirmed the dislocation. I attempted reduction with propofol fall (40 mg then 20 mg) but was unsuccessful. Orthopedic surgery has been consulted will take to the OR for reduction Discharge Plan Departure Patient Disposition: Admitted to Surgery Clinical Impression: Dislocation of hip, right, closed Admit Date/Time: 08/10/21 19:33 Admit Provider: iMchelle Johnson
--- NOTE | 2021-08-10 17:22 | DI.RAD.S_ITS ---
PROCEDURE: XR HIP W PEL IF DONE RT 2V INDICATIONS: R hip pain TECHNIQUE: 2 views of the hip were acquired. COMPARISON: [facility], , XR HIP W PEL IF DONE LT 2V, 06/07/2021, 11:53. FINDINGS: Bones: There has been dislocation of a right total hip arthroplasty with superior displacement of the femoral component. No evidence of fracture or hardware loosening. Pelvic rim appears intact. Overall decreased osseous mineralization present. There is degenerative changes noted in the lower lumbar spine. Soft tissues: No suspicious soft tissue calcifications or masses. IMPRESSION: Dislocated right total hip arthroplasty without evidence of fracture Approved by: Shree Garcias M.D. on 08/10/2021 at 16:55
[2021-08-10] MEDS: propofoL 200 MG/20 ML VIAL 60 MG IV (18:18)
--- NOTE | 2021-08-10 18:29 | DI.RAD.S_ITS ---
PROCEDURE: XR HIP RT 1V INDICATIONS: attempt reduction, likely still out TECHNIQUE: Single views of the hip were acquired. COMPARISON: [facility], CR, XR HIP W PEL IF DONE RT 2V, 08/10/2021, 17:25. FINDINGS: Bones: Persistent dislocation of right hip arthroplasty. Hardware appears intact. Overall, similar appearance to the prior study at 1725 hours. No fracture. Soft tissues: No suspicious soft tissue calcifications or masses. IMPRESSION: Persistent right hip arthroplasty dislocation. Dictated by: Zain Ford M.D. on 08/10/2021 at 18:47 Approved by: Zain Ford M.D. on 08/10/2021 at 18:48
[2021-08-10 19:37] LABS: COVID19 -Nasal RAPID Negative (Negative)
--- NOTE | 2021-08-10 19:55 | PM.HP.1 ---
History of Present Illness History of Present Illness Date Patient Seen: 08/10/21 Time Patient Seen: 19:50 Date of Onset of Symptoms: 08/10/21 Chief complaint: Right leg is numb Narrative: Were this is a 86-year-old female who is about 10 years after a right total hip arthroplasty which was done open [place]. She has a history of right hip dislocation about a year ago which was an anterior dislocation and was reduced with general anesthesia. She also has chronic problems with her low back and had an injection with Dr. Roberts today. She had some numbness and weakness into her right leg and was attempting to get out of the car and get into her house today when she was unable to control her right leg and dislocated her hip. Patient History Medical History Abdominal pain CKD (chronic kidney disease) (Unknown) Colon polyps (Unknown) Diarrhea Diverticular disease (Unknown) Glaucoma (Unknown) Greater trochanteric bursitis of left hip Hip pain Hyperlipemia (Unknown) Hypertension (Unknown) Impacted cerumen of both ears Loose stools Osteoporosis (Unknown) Pacemaker Rash and nonspecific skin eruption Scoliosis (Unknown) Skin cancer (~2004) Spinal stenosis (Unknown) 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) Vulvar irritation (Unknown) Surgical History History of hip replacement (Unknown) Hx of hysterectomy (Unknown) Family & Social History Family History Father Heart disease Mother Osteoporosis Social History: household members spouse Safety & Behavioral: Feels Safe in Current Yes Environment Been Physically Hurt or No Threatened By a Person Tobacco & Substance use: Smoking Status Never smoker alcohol intake current alcohol intake frequency holiday/special occasion Substance Use Type does not use Meds Home Medications and Allergies Home Medications Medication Instructions Recorded Confirmed Type acetaminophen 500 mg tablet 500 mg PO PRN PRN #0 07/09/17 08/07/21 History (Tylenol Extra Strength) Disabled parking permit #1 ea 12/24/18 08/07/21 Rx carvedilol 6.25 mg tablet 6.25 mg PO BID 11/18/19 08/07/21 History tramadol 50 mg tablet 50 mg PO BID PRN #60 tab 05/12/20 08/07/21 Rx aspirin 81 mg tablet,delayed 81 mg PO DAILY 06/07/20 08/07/21 History release (Adult Aspirin Regimen) latanoprost 0.005 % eye drops EYE-BOTH 06/07/20 08/07/21 History CMP Estradiol 0.0125% Vaginal Cream 0.5 gram TOPICAL DAILY #30 gram 07/19/20 08/07/21 Rx amlodipine 10 mg tablet 10 mg PO DAILY #90 tab 11/10/20 08/07/21 Rx mirtazapine 15 mg tablet See Rx Instructions .ROUTE 05/16/21 08/07/21 Rx .COMPLEX #90 tab losartan 50 mg tablet See Rx Instructions .ROUTE 06/27/21 08/07/21 Rx .COMPLEX #90 tab Lidocaine patch EX INTRADERMAL 07/11/21 08/07/21 History gabapentin 300 mg capsule 300 mg PO .COMPLEX #90 cap 08/07/21 08/07/21 Rx Allergies Allergy/AdvReac Type Severity Reaction Status Date / Time adhesive tape [ADHESIVE TAPE] Allergy Mild skin Verified 08/10/21 14:40 reaction gabapentin [GABAPENTIN] Allergy Unknown Swelling/ra Verified 08/10/21 14:40 sh amoxicillin [AMOXICILLIN] AdvReac Intermediate YEAST Verified 08/10/21 14:40 INFECTION doxycycline [DOXYCYCLINE] AdvReac Intermediate YEAST Verified 08/10/21 14:40 SYMPTOMS azithromycin [AZITHROMYCIN] AdvReac Mild DIARRHEA Verified 08/10/21 14:40 estrogens, conjugated AdvReac Mild LOCAL Verified 08/10/21 14:40 [ESTROGENS, CONJUGATED] IRRITATION WHEN TOPICAL hydrocodone [HYDROCODONE] AdvReac Mild GI UPSET Verified 08/10/21 14:40 levofloxacin [LEVOFLOXACIN] AdvReac Mild GI UPSET Verified 08/10/21 14:40 phenazopyridine AdvReac Mild GI UPSET Verified 08/10/21 14:40 [PHENAZOPYRIDINE] Review of Systems Review of Systems Narrative: She denies shortness of breath lightheadedness or chest pain prior to her dislocation. She has chronic severe low back pain. She notes progressive height loss and progressive deformity of her lumbar spine. No new abdominal pain or shortness of breath. She does have known chronic kidney problems. Exam Vital Signs (past 8 hours): - 08/10/21 16:30 08/10/21 18:11 08/10/21 18:15 Temperature 97.5 F L Pulse Rate 67 70 72 Respiratory Rate 18 Blood Pressure 182/75 H 183/81 H Pulse Oximetry 95 95 94 08/10/21 18:20 08/10/21 18:21 08/10/21 18:25 Temperature Pulse Rate 71 70 61 Respiratory Rate 20 Blood Pressure 149/63 H 131/60 Pulse Oximetry 97 97 99 08/10/21 18:30 08/10/21 18:33 08/10/21 18:35 Temperature Pulse Rate 63 79 64 Respiratory Rate 16 12 16 Blood Pressure 137/63 Pulse Oximetry 99 98 08/10/21 18:36 08/10/21 18:40 08/10/21 18:45 Temperature Pulse Rate 63 66 65 Respiratory Rate 18 13 16 Blood Pressure 155/70 H 147/67 H 151/67 H Pulse Oximetry 97 96 96 08/10/21 18:50 08/10/21 18:55 08/10/21 19:00 Temperature Pulse Rate 62 68 73 Respiratory Rate 12 16 22 Blood Pressure 145/65 H 167/66 H 168/78 H Pulse Oximetry 96 95 94 08/10/21 19:30 Temperature Pulse Rate 70 Respiratory Rate 18 Blood Pressure 159/68 H Pulse Oximetry 93 Oxygen Delivery Method Room Air Oxygen Flow Rate 1 Narrative Exam Narrative: HEENT is benign she is resting comfortably in bed, cor is regular rate and rhythm, lungs are clear, abdomen soft and benign, the right leg is obviously foreshortened it is in a position of external rotation she is able to fire her toe flexors and extensors, her calfs are soft bilaterally she has pain with attempted range of motion in the right hip her left lower extremity is unremarkable Objective Labs Labs: Laboratory Results - last 24 hr 08/10/21 18:28 SARS-CoV-2 (PCR) Negative X-rays show an anterior right hip dislocation with a total hip arthroplasty. No evidence of loosening. Assessment & Plan Assessment and plan (1) Dislocation of hip, right, closed: Status: Acute Plan: I have recommended a closed and reduction with anesthesia. The procedure alternatives risks benefits and complications were discussed in detail. She was on reducible in the emergency room and will take her the operating room for closed reduction. She potentially can go home if it reduces adequately and she is clinically stable. She needs to be careful to avoid redislocation. Time Spent With Patient Critical Care time: I spent a total of [] minutes of critical care time on this patient's care today; this time is exclusive of procedural time.
--- NOTE | 2021-08-10 20:03 | PM.OP.1 ---
Operative Date/Time/Diagnoses Date of procedure: 08/10/21 Time of procedure: 20:10 Pre-op diagnosis: Right hip dislocation anterior history of right total hip arthroplasty Post-op diagnosis: same Procedure & Clinicians Procedure: Closed reduction right hip Same procedure as scheduled: Yes Indications: This 86-year-old female who had a spine injection today had weakness in her right leg and dislocated her right hip. She has a history of a right total hip arthroplasty with 1 prior dislocation. Surgeon: Michelle Johnson Click Yes if Unassisted: Yes Anesthesia Type: General Operative Notes Findings: Anterior dislocation fairly easily reduced with longitudinal traction and internal rotation, concentrate reduction on fluoroscopy Closure Type: primary Specimen(s): none sent Blood products transfused: none Procedure in detail: Patient is brought the operating room. She underwent induction of a general anesthesia. A time-out was performed. She was carefully transferred to the OR table. Her hip was reduced with combination of longitudinal traction and internal rotation. Some mild countertraction was required. She did not require paralysis. A definitive reduction sensation was noted. Fluoroscopy confirmed concentric reduction. Hip was stable to gentle range of motion including external rotation to about 45? in extension. She tolerated the procedure well. Complications: none Post-operative Condition: stable Plan for aftercare: Weight-bearing as tolerated on the right lower extremity. Avoid maximum extension and external rotation. Okay for flexion. Okay to discharge to home. She can follow up with her primary surgeon Dr. Hernandez [place] [facility] [place] needs to exercise some anterior hip precautions.
[2021-08-10] MEDS: LACTATED RINGERS 1,000 ML 42 ML IV (20:05)
--- NOTE | 2021-08-10 20:19 | SUR.OPER ---
Supine on padded OR bed, head on pillow, arms secured on padded arm boards at <90 degrees abduction, legs uncrossed, safety belt at thigh, tape over blanket over lower legs.
--- NOTE | 2021-08-10 20:20 | SUR.OPER ---
Supine on padded OR bed, head on pillow, arms at sides, legs uncrossed and controlled by surgeon.
== END 2021-08-10 21:00 | disposition home or self-care (01) ==
LOC: ED 19:20 → AC 19:35
PROVIDERS: Admitting Provider Orthopaedic Surgery; Emergency Provider Emergency Medicine; PCP Family Medicine; Referring Provider Emergency Medicine; Visit Provider Orthopaedic Surgery
PROC: (CPT 27266; principal; 2021-08-10 19:30)
DX: T84.020A Dislocation of internal right hip prosthesis, initial encounter (principal); R53.1 Weakness; Z95.0 Presence of cardiac pacemaker; N18.4 Chronic kidney disease, stage 4 (severe); I10 Essential (primary) hypertension; E78.5 Hyperlipidemia, unspecified; Z20.822 Contact with and (suspected) exposure to COVID-19; M51.16 Intervertebral disc disorders with radiculopathy, lumbar region; M48.061 Spinal stenosis, lumbar region without neurogenic claudication
CPT/HCPCS: 27266; 27265; 62323; 73501; 73502; 76000; 87635; 99152; 99284; 99291; C9803; G0378; J0702; J1100; J2250; J2704; J3010

== ENCOUNTER → 2021-10-11 14:41 | Outpatient (CLI) | payer MEDICARE, SELFPAY ==
[2021-08-07 15:37] VITALS: BMI 21.1
[2021-10-11 15:44] LABS: Bilirubin Urine UA NEGATIVE (NEGATIVE); Color Urine UA YELLOW; Glucose Urine UA NEGATIVE (Negative); Ketones Urine UA NEGATIVE (NEGATIVE); Leukocyte Esterase Urine UA TRACE (NEGATIVE); Nitrite Urine UA NEGATIVE (Negative); Occult Blood Urine UA 3+ (Negative); Protein Urine UA TRACE (Negative); Urobilinogen Urine UA 0.2 E.U./dL (0.2)
[2021-10-11 15:45] LABS: Appearance Urine UA Slightly Cloudy; pH Urine UA 5.5 (4.5-8.0)
[2021-10-11 16:01] LABS: RBC Urine 5-10/HPF (0-5/HPF)
[2021-10-11 16:03] LABS: Amorphous Sediment Urine 1+; Bacteria Urine Moderate (10-30); Culture Indicated Urine Specimen Cultured; Mucus Urine 1+ (Negative); Squamous Epithelial Cell Urine 5-10 /HPF (0-5/HPF); WBC Urine 5-10/HPF (0-5/HPF)
[2021-10-11 16:21] LABS: Add Manual Diff / Slide Review NO; Basophils Absolute Auto 100 /uL (0-100); Basophils Percent Auto 1.2 % (0-2); Eosinophils Absolute Auto 200 /uL (0-450); Eosinophils Percent Auto 4.1 % (2-4); Hematocrit 35.3 % (36-46); Hemoglobin 11.7 g/dL (12.0-16.0); Lymphocytes Absolute Auto 1000 /uL (1100-4500); Lymphocytes Percent Auto 21.7 % (25-40); Mean Corpuscular HGB Conc 33.2 % (30-36); Mean Corpuscular Hemoglobin 28.7 PG (26-34); Mean Corpuscular Volume 86.3 fL (80-100); Monocytes Absolute Auto 400 /uL (0-900); Monocytes Percent Auto 9.3 % (3-14); Neutrophils Absolute Auto 3000 /uL (1500-7000); Neutrophils Percent Auto 63.7 % (50-75); Platelet Count 300 X10^3/uL (150-400); Red Blood Cell Count 4.09 X10^6/uL (4.0-5.2); Red Cell Distribution Width 15.2 % (11.6-14.8); White Blood Cell Count 4.6 X10^3/uL (4.5-11.0)
[2021-10-11 17:42] LABS: Iron 42 ug/dL (37-170)
[2021-10-11 17:46] LABS: Alanine Aminotransferase 15 IU/L (<35); Albumin 4.5 g/dL (3.5-5.0); Albumin Globulin Ratio 1.6 (1.0-2.8); Alkaline Phosphatase 76 U/L (38-126); Aspartate Aminotransferase 29 IU/L (14-36); BUN Creatinine Ratio 17.3 (6-22); Bilirubin Total 0.4 mg/dL (0.2-1.3); Blood Urea Nitrogen 41 mg/dL (7-17); Carbon Dioxide 23 mmol/L (22-32); Chloride 102 mmol/L (98-107); Estimated Glomerular Filt Rate 19.5 mL/min (>60); Globulin 2.8 g/dL (1.7-4.1); Glucose 82 mg/dL (80-110); HEMOLYSIS < 15 (0-50); Phosphorous 3.8 mg/dL (2.8-4.1); Potassium 4.4 mmol/L (3.4-5.1); Sodium 137 mmol/L (137-145); Total Protein 7.3 g/dL (6.3-8.2)
[2021-10-11 17:52] LABS: Percent Iron Saturation 16 % (15-50); Total Iron Binding Capacity 270 ug/dL (265-497)
[2021-10-12 11:13] LABS: Calcium 9.9 mg/dL (8.7-10.3); Parathyroid Hormone, Intact 101 pg/mL (15-65)
== END ==
PROVIDERS: PCP Family Medicine; Referring Provider Specialist; Visit Provider Specialist
DX: N18.4 Chronic kidney disease, stage 4 (severe) (principal); D63.1 Anemia in chronic kidney disease
CPT/HCPCS: 36415; 80053; 81001; 82310; 83540; 83550; 83970; 84100; 85025; 87086

== ENCOUNTER 2021-10-23 16:49 | Observation (INO) | payer MEDICARE, SELFPAY ==
[2021-08-07 15:37] VITALS: BMI 21.1
[2021-10-23] VITALS (23 sets, daily range): BP systolic 89–185; BP diastolic 43–77; PULSE 60–77; RESP 11–26; TEMP 36.2–36.6; O2SAT 92–97; BMI 19.5
--- NOTE | 2021-10-23 | DI.RAD.S_ITS ---
PROCEDURE: XR HIP W PEL IF DONE RT 2V INDICATIONS: R hip dislocation TECHNIQUE: 2 fluoroscopic images of the right hip. COMPARISON: [facility], CR, XR HIP W PEL IF DONE RT 2V, 10/23/2021, 17:02. FINDINGS: Interval reduction of the previously demonstrated right hip arthroplasty dislocation. IMPRESSION: Successful reduction of the patient's hip dislocation. Dictated by: Brandon Saeed M.D. on 10/23/2021 at 21:21 Approved by: Brandon Saeed M.D. on 10/23/2021 at 21:22
--- NOTE | 2021-10-23 17:00 | DI.RAD.S_ITS ---
PROCEDURE: XR HIP W PEL IF DONE RT 2V INDICATIONS: pain right hip TECHNIQUE: 2 views of the hip were acquired. COMPARISON: [facility], CR, XR HIP W PEL IF DONE RT 2V, 08/10/2021, 20:18. FINDINGS: Bones: There is a right hip arthroplasty dislocation. The femoral head component is dislocated superior and anterior to the acetabular component. Generalized decrease in osseous mineralization noted. No evidence of fracture. Soft tissues: No suspicious soft tissue calcifications or masses. IMPRESSION: Right hip arthroplasty dislocation. Approved by: Shree Garcias M.D. on 10/23/2021 at 16:31
--- NOTE | 2021-10-23 17:27 | ED_ITS ---
HPI - Extremity Injury (Lower) General Chief Complaint: Extremity Injury, Lower Stated Complaint: dislocated hip Time Seen by Provider: 10/23/21 16:55 Source: patient and EMS Mode of arrival: EMS History of Present Illness HPI Narrative: Patient is an 86-year-old female here for evaluation of what is most likely a right hip dislocation. She does have a prosthetic hip. Her initial surgery was 12 years ago. This is her 3rd dislocation since the surgery. She states that earlier today she felt a pop in her hip. She does not remember exactly which she was doing at the time. She states that she did not have much discomfort. This evening she was standing in the kitchen and she states she could not move because of pain. She feels like that her hip is dislocated. She did not fall. Related Data Home Medications Medication Instructions Recorded Confirmed acetaminophen 500 mg tablet 500 mg PO PRN PRN #0 07/09/17 10/03/21 (Tylenol Extra Strength) carvedilol 6.25 mg tablet 6.25 mg PO BID 11/18/19 10/03/21 aspirin 81 mg tablet,delayed 81 mg PO DAILY 06/07/20 10/03/21 release (Adult Aspirin Regimen) latanoprost 0.005 % eye drops EYE-BOTH 06/07/20 10/03/21 Lidocaine patch EX INTRADERMAL 07/11/21 10/03/21 Previous Rx's Medication Instructions Recorded Disabled parking permit #1 ea 12/24/18 tramadol 50 mg tablet 50 mg PO BID PRN #60 tab 05/12/20 amlodipine 10 mg tablet 10 mg PO DAILY #90 tab 11/10/20 CMP Estradiol 0.0125% Vaginal Cream 0.5 g TOPICAL DAILY #30 gram 08/17/21 mirtazapine 15 mg tablet See Rx Instructions .ROUTE 08/18/21 .COMPLEX #90 tab losartan 50 mg tablet See Rx Instructions .ROUTE 09/26/21 .COMPLEX #90 tab gabapentin 100 mg capsule 100 mg PO BEDTIME #60 cap 10/03/21 pravastatin 80 mg tablet 80 mg PO BEDTIME #90 tab 10/03/21 Allergies Allergy/AdvReac Type Severity Reaction Status Date / Time adhesive tape [ADHESIVE TAPE] Allergy Mild skin Verified 10/23/21 17:31 reaction amoxicillin [AMOXICILLIN] AdvReac Intermediate YEAST Verified 10/23/21 17:31 INFECTION doxycycline [DOXYCYCLINE] AdvReac Intermediate YEAST Verified 10/23/21 17:31 SYMPTOMS azithromycin [AZITHROMYCIN] AdvReac Mild DIARRHEA Verified 10/23/21 17:31 estrogens, conjugated AdvReac Mild LOCAL Verified 10/23/21 17:31 [ESTROGENS, CONJUGATED] IRRITATION WHEN TOPICAL hydrocodone [HYDROCODONE] AdvReac Mild GI UPSET Verified 10/23/21 17:31 levofloxacin [LEVOFLOXACIN] AdvReac Mild GI UPSET Verified 10/23/21 17:31 phenazopyridine AdvReac Mild GI UPSET Verified 10/23/21 17:31 [PHENAZOPYRIDINE] Review of Systems Musculoskeletal Musculoskeletal: Reports system reviewed and no additional complaints, except as documented and Reports as per HPI Integumentary/Breasts Skin/Breast: Reports system reviewed and no additional complaints, except as documented Neurologic Neurologic: Reports system reviewed and no additional complaints, except as documented Hematologic/Lymphatic On Anticoagulants: No Patient History Medical History Abdominal pain Chronic low back pain with bilateral sciatica CKD (chronic kidney disease) (Unknown) Colon polyps (Unknown) Diarrhea Diverticular disease (Unknown) Glaucoma (Unknown) Greater trochanteric bursitis of left hip Hip pain Hyperlipemia (Unknown) Hypertension (Unknown) Impacted cerumen of both ears Loose stools Osteoporosis (Unknown) Pacemaker Rash and nonspecific skin eruption Scoliosis (Unknown) Skin cancer (~2005) Spinal stenosis (Unknown) 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) Vulvar irritation (Unknown) Surgical History History of hip replacement (Unknown) Hx of hysterectomy (Unknown) Family History Father Heart disease Mother Osteoporosis Social History household members: spouse Smoking Status: Never smoker alcohol intake: current substance use type: does not use Smoking Status: Never smoker alcohol intake frequency: holidays/special occasions only Substance Use Type: does not use Exam Initial Vital Signs Initial Vital Signs: Vital Signs Temperature 97.1 F L 10/23/21 16:50 Pulse Rate 60 10/23/21 16:50 Respiratory Rate 18 10/23/21 16:50 Blood Pressure 185/77 H 10/23/21 16:50 Pulse Oximetry 94 10/23/21 16:50 HENMT Head: normal to inspection and normocephalic Resp Effort & Inspection: normal respiratory effort Auscultation: clear to auscultation bilaterally Cardio Rate: regular rate Rhythm: regular rhythm Pulses: dorsalis pedis present on the right Skin General: no rashes or lesions noted and elasticity normal Neuro Sensory Exam: no sensory deficits noted Extrem Other: Patient does have discomfort with palpation of the right hemipelvis. She does have a shortened right lower extremity. Psych Appearance: grossly normal and well kempt Procedures Orthopedic Joint Reduction Joint #1: Time Out Performed: Yes Side: right Joint Reduction Location: hip Analgesia: procedural sedation Technique used: traction/counter-traction Post-reduction neuro exam: no change Post-reduction vascular: no change Post Reduction X-Ray Obtained: Yes Post Reduction X-Ray Results: not reduced Patient Tolerated Procedure: Well and No complications Procedural Sedation Consent signed: Yes Time out performed: Yes Indication: fracture/dislocation reduction ASA Class: II Mallampati Airway Classification: Class II Preparation: radiographer mammographer applied, pulse oximeter, capnometry used, supplemental O2 applied, suction/airway equipment at bedside and IV secured IV Propofol dose (mg): 70 Intraservice time/total sedation time (min): 15 ED Sedation Level: Moderate (Concious) Patient Tolerated Procedure: Well and No complications Course Orders Ordered: ED Orders 10/23/21 16:55 COVID19 -Nasal swab/Pre-Proc Stat 10/23/21 17:00 XR hip w pel if done RT 2V Stat 10/23/21 17:27 RT Consult Eval and Treat Now 10/23/21 18:02 XR pelvis 1-2V Stat 10/23/21 18:03 Basic Metabolic Panel Stat Complete Blood Count AUTO DIFF Stat Sodium Chloride (Normal Saline 0.9%) 1,000 mls @ 125 mls/hr IV CONT JAYSHREE Last Admin: 10/23/21 17:38 Dose: 125 mls/hr Documented by: AMEE Morphine Sulfate (Morphine 2 Mg/Ml Inj) 2 mg IV Q1HR PRN PRN Reason: Pain, Severe (7-10) Ondansetron HCl (Ondansetron 4 Mg/2 Ml Inj) 4 mg IV Q6HR PRN PRN Reason: Nausea And Vomiting Stop: 10/25/21 23:59 Discontinued Medications Propofol (Propofol 200 Mg/20 Ml Vial) 100 mg IV NOW ONE Stop: 10/23/21 17:28 Last Admin: 10/23/21 18:29 Dose: 60 mg Documented by: AMEE Vital Signs Vital signs: Vital Signs - 8 hr 10/23/21 16:50 10/23/21 16:53 10/23/21 17:00 Temperature 97.1 F L Pulse Rate 60 68 60 Respiratory Rate 18 Blood Pressure 185/77 H 185/77 H 156/69 H Pulse Oximetry 94 93 96 10/23/21 17:30 10/23/21 17:45 10/23/21 17:50 Temperature Pulse Rate 61 62 63 Respiratory Rate 12 14 Blood Pressure 167/71 H 152/65 H 162/55 H Pulse Oximetry 96 94 95 10/23/21 17:55 10/23/21 18:00 10/23/21 18:05 Temperature Pulse Rate 63 64 60 Respiratory Rate 26 H 19 19 Blood Pressure 118/58 L 125/58 L 138/64 Pulse Oximetry 97 97 95 10/23/21 18:10 10/23/21 18:11 10/23/21 18:15 Temperature Pulse Rate 60 65 60 Respiratory Rate 15 16 17 Blood Pressure 133/60 132/63 Pulse Oximetry 96 95 10/23/21 18:20 10/23/21 18:25 Temperature Pulse Rate 60 60 Respiratory Rate 16 12 Blood Pressure 144/65 H 142/58 H Pulse Oximetry 96 96 MDM - Extremity Injury (Lower) Lab Data Labs: Lab Results 10/23/21 Range/Units 16:55 SARS-CoV-2 (PCR) Negative (Negative) Point of Care Testing Test Results Not applicable Imaging Data Extremity x-ray #1: Radiologist's Impression: [address] [address] XRay Report Signed Patient: Quique Blood MR#: [id number] : 1935 Acct:[id number] Age/Sex: 86 / F Date of Service: 10/23/21 Loc: ED Accession Number: [id number] ?? Procedure: XR hip w pel if done RT 2V Ordering Provider: Alton Martin D.O. PROCEDURE:? XR HIP W PEL IF DONE RT 2V ? INDICATIONS:? pain right hip ? TECHNIQUE:? 2 views of the hip were acquired.? ? COMPARISON:? [facility], CR, XR HIP W PEL IF DONE RT 2V, 08/10/2021, 20:18. ? FINDINGS:? ? Bones:? There is a right hip arthroplasty dislocation.? The femoral head component is dislocated superior and anterior to the acetabular component.? Generalized decrease in osseous mineralization noted.? No evidence of fracture. ? Soft tissues:? No suspicious soft tissue calcifications or masses.? ? IMPRESSION:? Right hip arthroplasty dislocation. ? ? ? Approved by: Shree Garcias M.D. on 10/23/2021 at 16:31? Pelvis x-ray: Radiologist's Impression: Quique Blood??86??F??1935 ? Allergy/Adv: adhesive tape, amoxicillin, doxycycline, azithromycin, estrogens, conjugated, hydrocodone, levofloxacin, phenazopyridine (More??) Close Pelvis X-Ray (Signed) Brandon Saeed - 10/23/21 Hip X-Ray (Signed) Shree Garcias - 10/23/21 Telemetry Strips 08/10/21 Hip X-Ray (Signed) Zain Ford - 08/10/21 Hip X-Ray (Signed) Shree Garcias - 08/10/21 Injection Lumbar, Sacrum (Signed) Ace Calloway - 08/10/21 Hip X-Ray (Signed) Zain Ford - 08/10/21 Lumbar Spine X-Ray (Signed) Larissa Galvez - 06/07/21 Hip X-Ray (Signed) Heather Bourgeois - 06/07/21 Telemetry Strips 04/05/20 Hip X-Ray (Signed) Zain Ford - 04/05/20 Hip X-Ray (Signed) Scottie Rios - 04/05/20 Pelvis X-Ray (Signed) Zain Ford - 04/04/20 DI Result CC 11/20/19 Vascular Ultrasound (Signed) Juancho Capellan - 11/19/[address] (Signed) [place] - 11/19/19 Chest X-Ray (Signed) Juancho Capellan - 11/19/[address] (Signed) Scottie Rios - 11/18/19 Chest X-Ray (Signed) [place] - 11/18/19 Telemetry Strips 10/10/19 Injection Lumbar, Sacrum (Signed) MariliaJuancho caraballo - 04/21/19 Lumbar Spine X-Ray (Signed) LoganZain - 04/13/19 Lumbar Spine MRI (Signed) Heather Bourgeois - 04/07/19 Chest/Abdomen X-ray (Signed) Selwyn Colon - 11/04/18 Abdomen/Pelvis CT (Signed) Ervin Valero - 09/26/18 Radiology - Historical 03/24/17 Radiology - Historical 01/22/17 Launch?Image [address] [address] XRay Report Signed Patient: Quique Blood MR#: [id number] : 1935 Acct:[id number] Age/Sex: 86 / F Date of Service: 10/23/21 Loc: ED Accession Number: [id number] ?? Procedure: XR pelvis 1-2V Ordering Provider: Alton Martin D.O. PROCEDURE:? XR PELVIS 1-2V ? INDICATIONS:? ATTEMPTED RELOCATION ? TECHNIQUE:? AP view(s) of the pelvis acquired.? ? COMPARISON:? [facility], CR, XR HIP W PEL IF DONE RT 2V, 10/23/2021, 17:02.? [facility], CR, XR PELVIS 1-2V, 04/04/2020, 23:18. ? FINDINGS:? ? Bones:? Redemonstrated right hip arthroplasty dislocation.? The remaining visualized osseous structures appear maintained.? No suspicious bony lesions.? ? Soft tissues:? Visualized bowel gas pattern is normal.? No suspicious soft tissue calcifications.? ? IMPRESSION:? Redemonstrated right hip arthroplasty dislocation. ? ? Dictated by: Brandon Saeed M.D. on 10/23/2021 at 18:31 ? ? Approved by: Brandon Saeed M.D. on 10/23/2021 at 18:33?? MDM Narrative Medical decision making narrative: Patient does have a right anterior and superior hip dislocation. Attempted reduction with procedural sedation is unsuccessful here in the emergency dep artment. There is no signs of any fractures. Discussed the case with Dr. Johnson on-call for orthopedics he will come and evaluate the patient emergency department and most likely take to the operating room for closed reduction. This was discussed with the patient and her at bedside. They expressed understanding and agreement. Discharge Plan Departure Patient Disposition: Admitted as Observation Clinical Impression: Dislocation, hip closed
[2021-10-23] MEDS: SODIUM CHLORIDE 0.9% 1,000 ML 125 ML IV (17:38)
[2021-10-23 17:41] LABS: COVID19 -Nasal RAPID Negative (Negative)
--- NOTE | 2021-10-23 18:02 | DI.RAD.S_ITS ---
PROCEDURE: XR PELVIS 1-2V INDICATIONS: ATTEMPTED RELOCATION TECHNIQUE: AP view(s) of the pelvis acquired. COMPARISON: [facility], SHIKHA, XR HIP W PEL IF DONE RT 2V, 10/23/2021, 17:02. [facility], SHIKHA, XR PELVIS 1-2V, 04/04/2020, 23:18. FINDINGS: Bones: Redemonstrated right hip arthroplasty dislocation. The remaining visualized osseous structures appear maintained. No suspicious bony lesions. Soft tissues: Visualized bowel gas pattern is normal. No suspicious soft tissue calcifications. IMPRESSION: Redemonstrated right hip arthroplasty dislocation. Dictated by: Brandon Saeed M.D. on 10/23/2021 at 18:31 Approved by: Brandon Saeed M.D. on 10/23/2021 at 18:33
[2021-10-23] MEDS: propofoL 200 MG/20 ML VIAL 100 MG IV (18:29)
[2021-10-23 18:48] LABS: Add Manual Diff / Slide Review NO; Basophils Absolute Auto 100 /uL (0-100); Basophils Percent Auto 1.3 % (0-2); Eosinophils Absolute Auto 200 /uL (0-450); Eosinophils Percent Auto 3.4 % (2-4); Hematocrit 37.3 % (36-46); Hemoglobin 12.5 g/dL (12.0-16.0); Lymphocytes Absolute Auto 1200 /uL (1100-4500); Lymphocytes Percent Auto 21.7 % (25-40); Mean Corpuscular HGB Conc 33.5 % (30-36); Mean Corpuscular Hemoglobin 28.7 PG (26-34); Mean Corpuscular Volume 85.7 fL (80-100); Monocytes Absolute Auto 500 /uL (0-900); Monocytes Percent Auto 8.9 % (3-14); Neutrophils Absolute Auto 3500 /uL (1500-7000); Neutrophils Percent Auto 64.7 % (50-75); Platelet Count 340 X10^3/uL (150-400); Red Blood Cell Count 4.35 X10^6/uL (4.0-5.2); Red Cell Distribution Width 15.1 % (11.6-14.8); White Blood Cell Count 5.5 X10^3/uL (4.5-11.0)
[2021-10-23 19:00] LABS: BUN Creatinine Ratio 18.3 (6-22); Blood Urea Nitrogen 50 mg/dL (7-17); Carbon Dioxide 22 mmol/L (22-32); Chloride 100 mmol/L (98-107); Estimated Glomerular Filt Rate 16.5 mL/min (>60); Glucose 97 mg/dL (80-110); HEMOLYSIS 17 (0-50); Potassium 4.6 mmol/L (3.4-5.1); Sodium 137 mmol/L (137-145)
--- NOTE | 2021-10-23 20:02 | PM.HP.1 ---
History of Present Illness History of Present Illness Date Patient Seen: 10/23/21 Time Patient Seen: 20:02 Date of Onset of Symptoms: 10/23/21 Chief complaint: dislocated hip Narrative: This is an 86-year-old female who had a right total hip arthroplasty done up in [place] by Dr. Agosto. She has had a history of right hip anterior dislocations. The most recent of which was in July. She was referred back to Dr. Agosto but has followed up in [place]. She was at home today in her kitchen she was standing she twisted she felt a pop and she noted the onset of pain in her right hip. She did have 1 pop also earlier in the day. She was unable to weightbear on her right leg and she was transported to [facility] Room for evaluation. An attempted closed reduction in the emergency room was unsuccessful and she is brought the operating room for closed reduction with general anesthesia. She notes that she has chronic back problems and her backs is getting progressively worse. She has chronic back pain but not severe chronic hip pain. Patient History Medical History Abdominal pain Chronic low back pain with bilateral sciatica CKD (chronic kidney disease) (Unknown) Colon polyps (Unknown) Diarrhea Diverticular disease (Unknown) Glaucoma (Unknown) Greater trochanteric bursitis of left hip Hip pain Hyperlipemia (Unknown) Hypertension (Unknown) Impacted cerumen of both ears Loose stools Osteoporosis (Unknown) Pacemaker Rash and nonspecific skin eruption Scoliosis (Unknown) Skin cancer (~2005) Spinal stenosis (Unknown) 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) Vulvar irritation (Unknown) Surgical History History of hip replacement (Unknown) Hx of hysterectomy (Unknown) Family & Social History Family History Father Heart disease Mother Osteoporosis Social History: household members spouse Safety & Behavioral: Feels Safe in Current Yes Environment Been Physically Hurt or No Threatened By a Person Tobacco & Substance use: Smoking Status Never smoker alcohol intake current alcohol intake frequency holiday/special occasion Substance Use Type does not use Meds Home Medications and Allergies Home Medications Medication Instructions Recorded Confirmed Type acetaminophen 500 mg tablet 500 mg PO PRN PRN #0 07/09/17 10/03/21 History (Tylenol Extra Strength) Disabled parking permit #1 ea 12/24/18 10/03/21 Rx carvedilol 6.25 mg tablet 6.25 mg PO BID 11/18/19 10/03/21 History tramadol 50 mg tablet 50 mg PO BID PRN #60 tab 05/12/20 10/03/21 Rx aspirin 81 mg tablet,delayed 81 mg PO DAILY 06/07/20 10/03/21 History release (Adult Aspirin Regimen) latanoprost 0.005 % eye drops EYE-BOTH 06/07/20 10/03/21 History amlodipine 10 mg tablet 10 mg PO DAILY #90 tab 11/10/20 10/03/21 Rx Lidocaine patch EX INTRADERMAL 07/11/21 10/03/21 History CMP Estradiol 0.0125% Vaginal Cream 0.5 g TOPICAL DAILY #30 gram 08/17/21 10/03/21 Rx mirtazapine 15 mg tablet See Rx Instructions .ROUTE 08/18/21 10/03/21 Rx .COMPLEX #90 tab losartan 50 mg tablet See Rx Instructions .ROUTE 09/26/21 10/03/21 Rx .COMPLEX #90 tab gabapentin 100 mg capsule 100 mg PO BEDTIME #60 cap 10/03/21 10/03/21 Rx pravastatin 80 mg tablet 80 mg PO BEDTIME #90 tab 10/03/21 10/03/21 Rx Allergies Allergy/AdvReac Type Severity Reaction Status Date / Time adhesive tape [ADHESIVE TAPE] Allergy Mild skin Verified 10/23/21 17:31 reaction amoxicillin [AMOXICILLIN] AdvReac Intermediate YEAST Verified 10/23/21 17:31 INFECTION doxycycline [DOXYCYCLINE] AdvReac Intermediate YEAST Verified 10/23/21 17:31 SYMPTOMS azithromycin [AZITHROMYCIN] AdvReac Mild DIARRHEA Verified 10/23/21 17:31 estrogens, conjugated AdvReac Mild LOCAL Verified 10/23/21 17:31 [ESTROGENS, CONJUGATED] IRRITATION WHEN TOPICAL hydrocodone [HYDROCODONE] AdvReac Mild GI UPSET Verified 10/23/21 17:31 levofloxacin [LEVOFLOXACIN] AdvReac Mild GI UPSET Verified 10/23/21 17:31 phenazopyridine AdvReac Mild GI UPSET Verified 10/23/21 17:31 [PHENAZOPYRIDINE] Review of Systems Review of Systems Narrative: No recent decline in her health, no new chest pain abdominal pain or difficulty breathing. She has not had recent dizziness progressive weakness or falls. Exam Vital Signs (past 8 hours): - 10/23/21 16:50 10/23/21 16:53 10/23/21 17:00 Temperature 97.1 F L Pulse Rate 60 68 60 Respiratory Rate 18 Blood Pressure 185/77 H 185/77 H 156/69 H Pulse Oximetry 94 93 96 10/23/21 17:30 10/23/21 17:45 10/23/21 17:50 Temperature Pulse Rate 61 62 63 Respiratory Rate 12 14 Blood Pressure 167/71 H 152/65 H 162/55 H Pulse Oximetry 96 94 95 10/23/21 17:55 10/23/21 18:00 10/23/21 18:05 Temperature Pulse Rate 63 64 60 Respiratory Rate 26 H 19 19 Blood Pressure 118/58 L 125/58 L 138/64 Pulse Oximetry 97 97 95 10/23/21 18:10 10/23/21 18:11 10/23/21 18:15 Temperature Pulse Rate 60 65 60 Respiratory Rate 15 16 17 Blood Pressure 133/60 132/63 Pulse Oximetry 96 95 10/23/21 18:20 10/23/21 18:25 10/23/21 18:30 Temperature Pulse Rate 60 60 61 Respiratory Rate 16 12 22 Blood Pressure 144/65 H 142/58 H 137/64 Pulse Oximetry 96 96 97 10/23/21 19:00 Temperature Pulse Rate 60 Respiratory Rate 11 L Blood Pressure 147/67 H Pulse Oximetry 97 Oxygen Delivery Method Room Air Narrative Exam Narrative: She is alert she is oriented HEENT is benign, lungs are clear cor regular rate and rhythm abdomen soft and benign, her right leg is externally rotated and slightly foreshortened, there is significant bruising in the anterior aspect of her right hip, she can fire her toe flexors and extensors there is decreased range of motion in the right leg and foot secondary to her dislocation, her calf is soft and benign bilaterally. Objective Labs Result Diagrams: 10/23/21 18:45 10/23/21 18:45 Labs: Laboratory Results - last 24 hr 10/23/21 10/23/21 10/23/21 16:55 18:45 18:45 WBC 5.5 RBC 4.35 Hgb 12.5 Hct 37.3 MCV 85.7 MCH 28.7 MCHC 33.5 RDW 15.1 H Plt Count 340 Neut % (Auto) 64.7 Lymph % (Auto) 21.7 L [place] % (Auto) 8.9 Eos % (Auto) 3.4 Baso % (Auto) 1.3 Neut # (Auto) 3500 Lymph # (Auto) 1200 [place] # (Auto) 500 Eos # (Auto) 200 Baso # (Auto) 100 Sodium 137 Potassium 4.6 Chloride 100 Carbon Dioxide 22 BUN 50 H Creatinine 2.73 H Estimated GFR 16.5 L BUN/Creatinine Ratio 18.3 Glucose 97 Calcium 11.0 H SARS-CoV-2 (PCR) Negative x-rays show an anterior right hip dislocation with previous total hip arthroplasty. Femoral component and acetabular component appears stable. Assessment & Plan Assessment and plan (1) Dislocation, hip closed: Status: Acute (2) Chronic low back pain with bilateral sciatica: Qualifiers: Back pain laterality: right Qualified Code(s): M54.41 - Lumbago with sciatica, right side; M54.42 - Lumbago with sciatica, left side; G89.29 - Other chronic pain Status: Acute (3) Dislocation of hip, right, closed: Qualifiers: Encounter type: sequela Qualified Code(s): S73.004S - Unspecified dislocation of right hip, sequela Status: Acute Plan I have recommended a closed reduction of her right hip. This is her 3rd anterior dislocation. She is having progressive problems with her low back and has a substantial problem with her back. She did have a fairly long period of instability prior to her recent recurrent dislocations. She is 86 and would prefer non operative management other than a reduction if at all possible. I told her ultimately we could get copies of her previous surgical notes for further evaluation of the complexity of potential revision. The procedure alternatives risks benefits and complications were discussed in detail. Spoke with the in her and told her that likely we can get it with a closed reduction and I am not planning for open reduction or revision tonight. Time Spent With Patient Time with patient: less than 30 minutes Critical Care time: I spent a total of [] minutes of critical care time on this patient's care today; this time is exclusive of procedural time.
--- NOTE | 2021-10-23 20:12 | PM.OP.1 ---
Operative Date/Time/Diagnoses Date of procedure: 10/23/21 Time of procedure: 20:30 Pre-op diagnosis: Right hip dislocation anterior Post-op diagnosis: same Procedure & Clinicians Procedure: Closed reduction right hip anterior dislocation Same procedure as scheduled: Yes Indications: This is 86-year-old female with a history of a right total hip arthroplasty done in [place]. She has had a previous dislocation of her hip and this is her 3rd dislocation within a year. A closed reduction was attempted in the emergency room. It was unsuccessful and she was brought to the operating room for closed reduction with general anesthesia. Surgeon: Michelle Johnson Click Yes if Unassisted: Yes Anesthesia Type: General Operative Notes Findings: Hip was easily reduced with longitudinal traction and internal rotation. It was clearly an anterior dislocation with some instability with maximum extension and external rotation. Closure Type: not applicable Specimen(s): none sent Blood products transfused: none Procedure in detail: Patient was brought to the operating room. A time-out was performed. General anesthesia was induced. The hip was carefully reduced with combination of longitudinal traction and maximum internal rotation. A minimal amount of counter traction was required. Leg length was restored. Both an AP and lateral showed a concentric reduction. Fluoroscopy was used to confirm the reduction. Patient was gently tested and noted to be stable in flexion adduction and internal rotation. She was stable to at least 45? of external rotation. Complications: none Post-operative Condition: stable Disposition: same day surgery Plan for aftercare: Avoid hyper extension and maximum external rotation. Avoid falls. Hip is safest in a flexed position.
--- NOTE | 2021-10-23 20:57 | SUR.OPER ---
Supine on padded OR bed, head on pillow, arms padded and tucked at sides, legs uncrossed, safety belt at thigh, tape over blanket over lower legs .
--- NOTE | 2021-10-23 21:43 | SUR.PHASEII ---
Discharge instructions reviewed with .
== END 2021-10-23 21:30 | disposition home or self-care (01) ==
LOC: ED 18:50 → AC 19:00
PROVIDERS: Admitting Provider Orthopaedic Surgery; Emergency Provider Emergency Medicine; PCP Family Medicine; Referring Provider Emergency Medicine; Visit Provider Orthopaedic Surgery
PROC: (CPT 27266; principal; 2021-10-23 21:00)
DX: M24.451 Recurrent dislocation, right hip (principal); Z96.641 Presence of right artificial hip joint; G89.29 Other chronic pain; M54.50 Low back pain, unspecified; M54.32 Sciatica, left side; M54.31 Sciatica, right side; I10 Essential (primary) hypertension; Z95.0 Presence of cardiac pacemaker; Z20.822 Contact with and (suspected) exposure to COVID-19
CPT/HCPCS: 27266; 27265; 36415; 72170; 73502; 76000; 80048; 85025; 87635; 96361; 96374; 99152; 99284; 99285; C9803; G0378; J2704

== ENCOUNTER 2021-12-03 19:40 | Emergency (ER) | payer MEDICARE, SELFPAY ==
[2021-11-24 11:41] VITALS: BMI 21.1
[2021-12-03 19:48] VITALS: BP 185/79; PULSE 78; RESP 20; TEMP 36.6; O2SAT 99
[2021-12-03 19:59] VITALS: PULSE 68; RESP 15; O2SAT 96
[2021-12-03 20:00] VITALS: PULSE 68; RESP 14; O2SAT 96
--- NOTE | 2021-12-03 20:08 | ED_ITS ---
HPI - Abdominal Pain General Chief Complaint: Abdominal Pain Stated Complaint: Frequency/urgency/low abd pain x1 day Time Seen by Provider: 12/03/21 19:53 Source: patient and family Mode of arrival: Wheelchair History of Present Illness HPI narrative: 86-year-old female nonsmoker with history of chronic kidney disease presents with her in the chief complaint of urinary frequency and urgency along with suprapubic discomfort for least the past few days along with nausea for a few weeks. She has no fever or chills. She has no significant dysuria or hematuria. She denies any back or flank pain. She has had no chest pain or s hortness of breath. She is not dizzy nor weak or lightheaded. Related Data Home Medications Medication Instructions Recorded Confirmed acetaminophen 500 mg tablet 500 mg PO PRN PRN #0 07/09/17 11/29/21 (Tylenol Extra Strength) carvedilol 6.25 mg tablet 6.25 mg PO BID 11/18/19 11/29/21 aspirin 81 mg tablet,delayed 81 mg PO DAILY 06/07/20 11/29/21 release (Adult Aspirin Regimen) latanoprost 0.005 % eye drops EYE-BOTH 06/07/20 11/29/21 Previous Rx's Medication Instructions Recorded Disabled parking permit #1 ea 12/24/18 CMP Estradiol 0.0125% Vaginal Cream 0.5 g TOPICAL DAILY #30 gram 08/17/21 losartan 50 mg tablet See Rx Instructions .ROUTE 09/26/21 .COMPLEX #90 tab pravastatin 80 mg tablet 80 mg PO BEDTIME #90 tab 10/03/21 amlodipine 10 mg tablet See Rx Instructions .ROUTE 10/25/21 .COMPLEX #90 tab mirtazapine 15 mg tablet See Rx Instructions .ROUTE 11/15/21 .COMPLEX #90 tab Lidocaine patch EX #30 ea 11/24/21 tramadol 50 mg tablet See Rx Instructions PO .COMPLEX 11/24/21 PRN #120 tab cefuroxime axetil 500 mg tablet 500 mg PO BID #14 tab 12/03/21 ondansetron 4 mg disintegrating 4 mg PO TID-QID PRN #10 tab 12/03/21 tablet Allergies Allergy/AdvReac Type Severity Reaction Status Date / Time adhesive tape [ADHESIVE TAPE] Allergy Mild skin Verified 11/29/21 13:39 reaction amoxicillin [AMOXICILLIN] AdvReac Intermediate YEAST Verified 11/29/21 13:39 INFECTION doxycycline [DOXYCYCLINE] AdvReac Intermediate YEAST Verified 11/29/21 13:39 SYMPTOMS azithromycin [AZITHROMYCIN] AdvReac Mild DIARRHEA Verified 11/29/21 13:39 estrogens, conjugated AdvReac Mild LOCAL Verified 11/29/21 13:39 [ESTROGENS, CONJUGATED] IRRITATION WHEN TOPICAL hydrocodone [HYDROCODONE] AdvReac Mild GI UPSET Verified 11/29/21 13:39 levofloxacin [LEVOFLOXACIN] AdvReac Mild GI UPSET Verified 11/29/21 13:39 phenazopyridine AdvReac Mild GI UPSET Verified 11/29/21 13:39 [PHENAZOPYRIDINE] Review of Systems Review of Systems Narrative: GENERAL: Denies chills, fatigue, malaise, fever, sweats. HEENT: Denies sinus pain, ear pain, sore throat, difficulty swallowing, dizziness. RESPIRATORY: Denies dyspnea, cough, wheezing, hemoptysis, sputum. CARDIOVASCULAR: Denies chest pain, palpitations, orthopnea, edema, GASTROINTESTINAL: See HPI : See HPI MUSCULOSKELETAL: denies weakness, joint pain, or bony pain SKIN: Denies rash, skin lesions, or other NEUROLOGIC: Denies weakness, headache, numbness, change in speech, confusion, seizures, incoordination. PSYCHIATRIC: No concerning psychosocial issues. 12 point review of systems is negative except for those stated above Patient History Medical History Abdominal pain Chronic low back pain with bilateral sciatica CKD (chronic kidney disease) (Unknown) Colon polyps (Unknown) Diarrhea Diverticular disease (Unknown) Glaucoma (Unknown) Greater trochanteric bursitis of left hip Hip pain Hyperlipemia (Unknown) Hypertension (Unknown) Impacted cerumen of both ears Loose stools Osteoporosis (Unknown) Pacemaker Rash and nonspecific skin eruption Scoliosis (Unknown) Skin cancer (~2005) Spinal stenosis (Unknown) 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) Vulvar irritation (Unknown) Surgical History History of hip replacement (Unknown) Hx of hysterectomy (Unknown) Family History Father Heart disease Mother Osteoporosis Social History household members: spouse Smoking Status: Never smoker alcohol intake: current substance use type: does not use Smoking Status: Never smoker alcohol intake frequency: holidays/special occasions only Substance Use Type: does not use Exam Narrative Exam Narrative: GENERAL: [86 year old patient appears stated age. Well-developed patient, in mild distress. HEAD: Atraumatic. Normocephalic. EYES: Pupils equal round and reactive. Extraocular motions intact. No scleral icterus. No injection or drainage. ENT: Moist mucous membranes Nose without bleeding, purulent drainage. Throat without erythema, tonsillar hypertrophy or exudate. Airway patent. NECK: Trachea midline. Non tender CARDIOVASCULAR: Regular rate and rhythm without murmurs, gallops, or rubs. RESPIRATORY: Clear to auscultation. Breath sounds equal bilaterally. No wheezes, rales, or rhonchi. GASTROINTESTINAL: Abdomen soft, mild suprapubic tenderness nondistended. EXTREMITIES: No edema or joint tenderness. BACK: Nontender without deformity or crepitance. No flank tenderness. No CVA tenderness NEURO: AOx3. SKIN: No rash or erythema of visible areas Initial Vital Signs Initial Vital Signs: Vital Signs Temperature 97.9 F 12/03/21 19:48 Pulse Rate 78 12/03/21 19:48 Respiratory Rate 20 12/03/21 19:48 Blood Pressure 185/79 H 12/03/21 19:48 Pulse Oximetry 99 12/03/21 19:48 Course Orders Ordered: ED Orders 12/03/21 19:47 EKG-12 Lead Stat 12/03/21 20:15 Complete Blood Count AUTO DIFF Stat Comprehensive Metabolic Panel Stat Lipase Stat 12/03/21 20:30 Urine Culture Stat Urine Microscopic Stat Discontinued Medications Cefazolin Sodium (Cephalexin 250 Mg Prepack) 1 bottle MISC SEEINSTR ONE Stop: 12/03/21 21:20 Sodium Chloride (Normal Saline 0.9%) 500 mls @ 1,000 mls/hr IV BOLUS ONE Stop: 12/03/21 21:07 Last Infusion: 12/03/21 21:19 Dose: 0 mls/hr Documented by: Admin: 12/03/21 20:43 Dose: 1,000 mls/hr Documented by: KAI Ondansetron HCl (Ondansetron 4 Mg Odt Prepack) 1 bottle MISC SEEINSTR ONE Stop: 12/03/21 21:20 Vital Signs Vital signs: Vital Signs - 8 hr 12/03/21 19:48 12/03/21 19:59 12/03/21 20:00 Temperature 97.9 F Pulse Rate 78 68 68 Respiratory Rate 20 15 14 Blood Pressure 185/79 H Pulse Oximetry 99 96 96 12/03/21 20:30 12/03/21 20:48 Temperature 98.2 F Pulse Rate 70 Respiratory Rate Blood Pressure 183/79 H Pulse Oximetry 95 MDM - Abdominal Pain Lab Data Result diagrams: 12/03/21 20:15 12/03/21 20:15 Labs: Lab Results 12/03/21 12/03/21 12/03/21 Range/Units 20:15 20:15 20:30 WBC 5.7 (4.5-11.0) X10^3/uL RBC 3.94 L (4.0-5.2) X10^6/uL Hgb 11.2 L (12.0-16.0) g/dL Hct 32.9 L (36-46) % MCV 83.4 (80-100) fL MCH 28.3 (26-34) PG MCHC 33.9 (30-36) % RDW 14.2 (11.6-14.8) % Plt Count 313 (150-400) X10^3/uL Neut % (Auto) 70.2 (50-75) % Lymph % (Auto) 15.5 L (25-40) % [place] % (Auto) 10.1 (3-14) % Eos % (Auto) 3.0 (2-4) % Baso % (Auto) 1.2 (0-2) % Neut # (Auto) 4000 (9226-1058) /uL Lymph # (Auto) 900 L (2059-0996) /uL [place] # (Auto) 600 (0-900) /uL Eos # (Auto) 200 (0-450) /uL Baso # (Auto) 100 (0-100) /uL Sodium 132 L (137-145) mmol/L Potassium 4.6 (3.4-5.1) mmol/L Chloride 100 (98-107) mmol/L Carbon Dioxide 24 (22-32) mmol/L BUN 47 H (7-17) mg/dL Creatinine 2.37 H (0.52-1.04) mg/dL Estimated GFR 19.5 L (>60) mL/min BUN/Creatinine Ratio 19.8 (6-22) Glucose 97 (80-110) mg/dL Calcium 10.3 H (8.4-10.2) mg/dL Total Bilirubin 0.5 (0.2-1.3) mg/dL AST 30 (14-36) IU/L ALT 14 (<35) IU/L Alkaline Phosphatase 68 (38-126) U/L Total Protein 7.7 (6.3-8.2) g/dL Albumin 4.5 (3.5-5.0) g/dL Globulin 3.2 (1.7-4.1) g/dL Albumin/Globulin Ratio 1.4 (1.0-2.8) Lipase 408 H (23-300) U/L Urine RBC 1-5/hpf (0-5/HPF) Urine WBC >100/hpf H (0-5/HPF) Ur Squamous Epith Cells 1-5 /hpf (0-5/HPF) Urine Bacteria Moderate (10-30) H (None) Ur Culture Indicated? Specimen cultured Point of care testing: Urine Dip Bedside Urine Glucose Negative Bedside Urine Bilirubin - Negative Bedside Urine Ketone - Negative Urine Specific [place] 1.015 Bedside Urine Occult Blood +++ Bedside Urine pH 6.0 Bedside Urine Protein + 30 Bedside Urine Urobilinogen - Negative Bedside Urine Nitrite - Negative Bedside Urine Leukocytes +++ 500 Esterase MDM Narrative Medical decision making narrative: Patient has reassuring history and physical exam. She is well-appearing, pain is well tolerated and she is tolerating orals. Vital signs are reassuring and labs are at her baseline. She has classic symptoms and very convincing urine for a UTI, she has had some nausea and feels a bit weak hence my decision to treat for pyelonephritis. Extensive return precautions given and questions have been answered to her apparent satisfaction Discharge Plan Departure Patient Disposition: Home Clinical Impression: Acute UTI, Nausea Instructions: DI for Urinary Tract Infection (UTI), Nausea and Vomiting-Adult Activity Restrictions/Additional Instructions: *You have been diagnosed with [urinary tract infection and nausea. Your history, physical exam, labs are very reassuring *What to do: *Please continue to take your regular medications as directed. [x ] New medication prescriptions sent to your pharmacy: [[facility] ] [ ] New medication written as a paper prescription [ ] No new medications given *Please follow up with your primary care provider in 2-3 days, call for an appointment. Let them know you were seen in the Emergency Department and that we ask that you be seen in follow up. We will electronically transmit a record of today's note if your PCP is in our system *If you do not have a primary care provider please contact the [facility] Resource line at [phone]. They will ask some questions about your medical history and help get you set up with a doctor in the community. *Return to Emergency Department if you should have any new, worsening or concerning symptoms, such as [fever greater than 101 F, shaking chills, worsening pain, persistent vomiting or other bothersome symptoms] Prescriptions: New cefuroxime axetil 500 mg tablet 500 mg PO BID Qty: 14 0RF ondansetron 4 mg tablet,disintegrating 4 mg PO TID-QID PRN (Reason: nausea and vomiting) Qty: 10 0RF No Action (DME) Disabled parking permit Qty: 1 0RF Dose Instruction: As directed Rx Instructions: As directed acetaminophen [Tylenol Extra Strength] 500 MG tablet 500 mg PO PRN PRN (Reason: pain) Qty: 0 0RF CMP Estradiol 0.0125% Vaginal Cream 0.5 g topical DAILY Qty: 30 5RF Rx Instructions: Apply to irritated areas on the external genitalia every day losartan 50 mg tablet See Rx Instructions .ROUTE .COMPLEX Qty: 90 0RF Dose Instruction: TAKE ONE TABLET BY MOUTH ONE TIME DAILY Rx Instructions: TAKE ONE TABLET BY MOUTH ONE TIME DAILY amlodipine 10 mg tablet See Rx Instructions .ROUTE .COMPLEX Qty: 90 0RF Dose Instruction: TAKE ONE TABLET BY MOUTH ONE TIME DAILY Rx Instructions: TAKE ONE TABLET BY MOUTH ONE TIME DAILY mirtazapine 15 mg tablet See Rx Instructions .ROUTE .COMPLEX Qty: 90 0RF Dose Instruction: TAKE ONE TABLET BY MOUTH ONE TIME DAILY Rx Instructions: TAKE ONE TABLET BY MOUTH ONE TIME DAILY latanoprost 0.005 % drops EYE-BOTH 0RF aspirin [Adult Aspirin Regimen] 81 mg tablet,delayed release (DR/EC) 81 mg PO DAILY 0RF pravastatin 80 mg tablet 80 mg PO BEDTIME Qty: 90 3RF tramadol 50 mg tablet See Rx Instructions PO .COMPLEX PRN (Reason: pain) Qty: 120 0RF Rx Instructions: Take 1-2 tablets for pain, PO, PRN; (DME) Lidocaine patch EX See Rx Instructions .Route .MEDSUPPLY Qty: 30 5RF Rx Instructions: 5% patch on skin daily PRN for pain carvedilol 6.25 mg Tablet 6.25 mg PO BID 0RF Referrals: Roman Mayberry DO [Primary Care Provider] -
[2021-12-03 20:30] VITALS: BP 183/79; PULSE 70; O2SAT 95
[2021-12-03 20:30] LABS: Add Manual Diff / Slide Review NO; Basophils Absolute Auto 100 /uL (0-100); Basophils Percent Auto 1.2 % (0-2); Eosinophils Absolute Auto 200 /uL (0-450); Hematocrit 32.9 % (36-46); Hemoglobin 11.2 g/dL (12.0-16.0); Lymphocytes Absolute Auto 900 /uL (1100-4500); Lymphocytes Percent Auto 15.5 % (25-40); Mean Corpuscular HGB Conc 33.9 % (30-36); Mean Corpuscular Hemoglobin 28.3 PG (26-34); Mean Corpuscular Volume 83.4 fL (80-100); Monocytes Absolute Auto 600 /uL (0-900); Monocytes Percent Auto 10.1 % (3-14); Neutrophils Absolute Auto 4000 /uL (1500-7000); Neutrophils Percent Auto 70.2 % (50-75); Platelet Count 313 X10^3/uL (150-400); Red Blood Cell Count 3.94 X10^6/uL (4.0-5.2); Red Cell Distribution Width 14.2 % (11.6-14.8); White Blood Cell Count 5.7 X10^3/uL (4.5-11.0)
[2021-12-03 20:33] LABS: Alanine Aminotransferase 14 IU/L (<35); Albumin 4.5 g/dL (3.5-5.0); Albumin Globulin Ratio 1.4 (1.0-2.8); Alkaline Phosphatase 68 U/L (38-126); Aspartate Aminotransferase 30 IU/L (14-36); BUN Creatinine Ratio 19.8 (6-22); Bilirubin Total 0.5 mg/dL (0.2-1.3); Blood Urea Nitrogen 47 mg/dL (7-17); Calcium 10.3 mg/dL (8.4-10.2); Carbon Dioxide 24 mmol/L (22-32); Chloride 100 mmol/L (98-107); Estimated Glomerular Filt Rate 19.5 mL/min (>60); Globulin 3.2 g/dL (1.7-4.1); Glucose 97 mg/dL (80-110); Lipase 408 U/L (23-300); Sodium 132 mmol/L (137-145); Total Protein 7.7 g/dL (6.3-8.2)
[2021-12-03 20:35] LABS: HEMOLYSIS 53 (0-50); Potassium 4.6 mmol/L (3.4-5.1)
[2021-12-03] MEDS: SODIUM CHLORIDE 0.9% 500 ML 1000 ML IV (20:43)
[2021-12-03 20:48] VITALS: TEMP 36.8
[2021-12-03 20:58] LABS: RBC Urine 1-5/HPF (0-5/HPF)
[2021-12-03 20:59] LABS: Bacteria Urine Moderate (10-30); Culture Indicated Urine Specimen Cultured; Squamous Epithelial Cell Urine 1-5 /HPF (0-5/HPF); WBC Urine >100/HPF (0-5/HPF)
[2021-12-03] MEDS: cephALEXin 250 MG PREPACK 1 BOTTLE MISC (21:32)
[2021-12-03] MEDS: ONDANSETRON 4 MG ODT PREPACK 1 BOTTLE MISC (21:33)
[2021-12-03 21:44] VITALS: BP 166/71; PULSE 71; RESP 16; TEMP 36.6; O2SAT 99
== END 2021-12-03 21:45 | disposition home or self-care (01) ==
PROVIDERS: Emergency Provider Emergency Medicine; PCP Family Medicine
DX: N39.0 Urinary tract infection, site not specified (principal); R11.0 Nausea
CPT/HCPCS: 36415; 80053; 81003; 81015; 83690; 85025; 87077; 87086; 96360; 99284

== ENCOUNTER 2021-12-13 08:48 | Emergency (ER) | payer MEDICARE, SELFPAY ==
[2021-11-24 11:41] VITALS: BMI 21.1
--- NOTE | 2021-12-13 09:10 | ED_ITS ---
HPI - General Adult General Chief complaint: Abdominal Pain Stated complaint: Bowel issue. Constipated Time Seen by Provider: 12/13/21 09:03 Source: patient and family () Mode of arrival: Family Vehicle Limitations: no limitations History of Present Illness HPI narrative: Patient is an 86-year-old female here for evaluation of which she states is constipation. She has lower abdominal discomfort that potentially is been there since she was seen here in the emergency department several days ago and diagno sed with urinary tract infection. She recently completed a course of antibiotics for this. Last evening she felt like she needed to have a bowel movement and was sitting on the toilet but only passed a very small amount of stool. She stated that this did seem to ease her symptoms somewhat. No vo miting. No fevers. No urinary symptoms. She states that she feels like there is stool in the rectum ready to come out but just cannot pass it. Does not feel she is having abdominal distension. Has had a hysterectomy in the past but no other abdominal surgeries. Related Data Home Medications Medication Instructions Recorded Confirmed acetaminophen 500 mg tablet 500 mg PO PRN PRN #0 07/09/17 11/29/21 (Tylenol Extra Strength) carvedilol 6.25 mg tablet 6.25 mg PO BID 11/18/19 11/29/21 aspirin 81 mg tablet,delayed 81 mg PO DAILY 06/07/20 11/29/21 release (Adult Aspirin Regimen) latanoprost 0.005 % eye drops EYE-BOTH 06/07/20 11/29/21 Previous Rx's Medication Instructions Recorded Disabled parking permit #1 ea 12/24/18 CMP Estradiol 0.0125% Vaginal Cream 0.5 g TOPICAL DAILY #30 gram 08/17/21 losartan 50 mg tablet See Rx Instructions .ROUTE 09/26/21 .COMPLEX #90 tab pravastatin 80 mg tablet 80 mg PO BEDTIME #90 tab 10/03/21 amlodipine 10 mg tablet See Rx Instructions .ROUTE 10/25/21 .COMPLEX #90 tab mirtazapine 15 mg tablet See Rx Instructions .ROUTE 11/15/21 .COMPLEX #90 tab Lidocaine patch EX #30 ea 11/24/21 tramadol 50 mg tablet See Rx Instructions PO .COMPLEX 11/24/21 PRN #120 tab cefuroxime axetil 500 mg tablet 500 mg PO BID #14 tab 01/23/22 ondansetron 4 mg disintegrating 4 mg PO TID-QID PRN #10 tab 12/03/21 tablet Allergies Allergy/AdvReac Type Severity Reaction Status Date / Time adhesive tape [ADHESIVE TAPE] Allergy Mild skin Verified 11/29/21 13:39 reaction amoxicillin [AMOXICILLIN] AdvReac Intermediate YEAST Verified 11/29/21 13:39 INFECTION doxycycline [DOXYCYCLINE] AdvReac Intermediate YEAST Verified 11/29/21 13:39 SYMPTOMS azithromycin [AZITHROMYCIN] AdvReac Mild DIARRHEA Verified 11/29/21 13:39 estrogens, conjugated AdvReac Mild LOCAL Verified 11/29/21 13:39 [ESTROGENS, CONJUGATED] IRRITATION WHEN TOPICAL hydrocodone [HYDROCODONE] AdvReac Mild GI UPSET Verified 11/29/21 13:39 levofloxacin [LEVOFLOXACIN] AdvReac Mild GI UPSET Verified 11/29/21 13:39 phenazopyridine AdvReac Mild GI UPSET Verified 11/29/21 13:39 [PHENAZOPYRIDINE] Review of Systems Constitutional Constitutional: Denies fever(s) Cardiovascular Cardiovascular: Reports system reviewed and no additional complaints, except as documented Respiratory Respiratory: Reports system reviewed and no additional complaints, except as documented Gastrointestinal Gastrointestinal: Reports as per HPI and Reports system reviewed and no additional complaints, except as documented Genitourinary Genitourinary: Denies dysuria Musculoskeletal Musculoskeletal: Denies back pain Integumentary/Breasts Skin/Breast: Reports system reviewed and no additional complaints, except as documented Neurologic Neurologic: Reports system reviewed and no additional complaints, except as documented Hematologic/Lymphatic On Anticoagulants: No Patient History Medical History Abdominal pain Chronic low back pain with bilateral sciatica CKD (chronic kidney disease) (Unknown) Colon polyps (Unknown) Diarrhea Diverticular disease (Unknown) Glaucoma (Unknown) Greater trochanteric bursitis of left hip Hip pain Hyperlipemia (Unknown) Hypertension (Unknown) Impacted cerumen of both ears Loose stools Osteoporosis (Unknown) Pacemaker Rash and nonspecific skin eruption Scoliosis (Unknown) Skin cancer (~2005) Spinal stenosis (Unknown) 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) Vulvar irritation (Unknown) Surgical History History of hip replacement (Unknown) Hx of hysterectomy (Unknown) Family History Father Heart disease Mother Osteoporosis Social History household members: spouse Smoking Status: Never smoker alcohol intake: current substance use type: does not use Smoking Status: Never smoker alcohol intake frequency: holidays/special occasions only Substance Use Type: does not use Exam Initial Vital Signs Initial Vital Signs: Vital Signs Temperature 98.3 F 12/13/21 09:15 Pulse Rate 69 12/13/21 09:15 Respiratory Rate 18 12/13/21 09:15 Blood Pressure 174/75 H 12/13/21 09:15 Pulse Oximetry 95 12/13/21 09:15 HENMT Head: normal to inspection and normocephalic Resp Effort & Inspection: normal respiratory effort Cardio Rate: regular rate GI Inspection: non-distended Palpation: soft and tender (Bilateral lower abdomen) Neuro General: patient alert, patient awake and moves all extremities Extrem General: normal to inspection and capillary refill normal Psych Appearance: grossly normal and well kempt Course Orders Ordered: Discontinued Medications Sodium Biphosphate/Sodium Phosphate (Fleets Enema) 1 each UT NOW ONE Stop: 12/13/21 10:01 Last Admin: 12/13/21 12:05 Dose: 1 each Documented by: URIEL Vital Signs Vital signs: Vital Signs - 8 hr 12/13/21 13:44 Pulse Rate 69 Respiratory Rate 14 Blood Pressure 157/70 H Pulse Oximetry 96 Medical Decision Making Lab Data Lab results reviewed: Yes I reviewed the patient's lab results. Result diagrams: 12/13/21 09:45 12/13/21 09:45 Labs: Lab Results 12/13/21 12/13/21 12/13/21 Range/Units 09:45 09:45 09:45 WBC 5.9 (4.5-11.0) X10^3/uL RBC 4.15 (4.0-5.2) X10^6/uL Hgb 11.7 L (12.0-16.0) g/dL Hct 34.7 L (36-46) % MCV 83.6 (80-100) fL MCH 28.2 (26-34) PG MCHC 33.7 (30-36) % RDW 14.3 (11.6-14.8) % Plt Count 309 (150-400) X10^3/uL Neut % (Auto) 83.5 H (50-75) % Lymph % (Auto) 8.7 L (25-40) % Wayne % (Auto) 5.2 (3-14) % Eos % (Auto) 1.5 L (2-4) % Baso % (Auto) 1.1 (0-2) % Neut # (Auto) 5000 (2708-7594) /uL Lymph # (Auto) 500 L (3457-7926) /uL Wayne # (Auto) 300 (0-900) /uL Eos # (Auto) 100 (0-450) /uL Baso # (Auto) 100 (0-100) /uL Sodium 132 L (137-145) mmol/L Potassium 4.6 (3.4-5.1) mmol/L Chloride 98 (98-107) mmol/L Carbon Dioxide 27 (22-32) mmol/L BUN 40 H (7-17) mg/dL Creatinine 2.07 H (0.52-1.04) mg/dL Estimated GFR 22.8 L (>60) mL/min BUN/Creatinine Ratio 19.3 (6-22) Glucose 110 (80-110) mg/dL Lactate 0.8 (0.7-2.1) mmol/L Calcium 10.3 H (8.4-10.2) mg/dL Total Bilirubin 0.6 (0.2-1.3) mg/dL AST 34 (14-36) IU/L ALT 19 (<35) IU/L Alkaline Phosphatase 71 (38-126) U/L Total Protein 7.9 (6.3-8.2) g/dL Albumin 4.6 (3.5-5.0) g/dL Globulin 3.3 (1.7-4.1) g/dL Albumin/Globulin Ratio 1.4 (1.0-2.8) Lipase 357 H (23-300) U/L Imaging Data CT scan - abdomen/pelvis: Radiologist's Impression: [address] [address] [address] Scan Report Signed Patient: Quique Blood MR#: [id number] : 1935 Acct:[id number] Age/Sex: 86 / F Date of Service: 12/13/21 Loc: ED Accession Number: [id number] ?? Procedure: CT kidney ureter bladder (KUB) Ordering Provider: Alton Martin D.O. PROCEDURE:? CT KIDNEY URETER BLADDER (KUB) ? INDICATIONS:? eval for obstruction ? TECHNIQUE:? Axial sections were acquired from the lung bases to the pubic symphysis.? Coronal and sagittal reformats were performed.? For radiation dose reduction, the following was used: ?automated exposure control, adjustment of mA and/or kV according to patient size.? ? COMPARISON:? [facility], CT, CT ABDOMEN PELVIS WO CON, 09/26/2018, 11:09.? [facility], US, US ABDOMEN COMPLETE, 10/11/2019, 9:38. ? FINDINGS:? Image quality:? Excellent.? Evaluation of the solid parenchymal organs is limited without IV contrast. ? Lung bases:? Small consolidation at the right cardiophrenic angle.? Mild atelectasis or scarring.? No pleural effusion.? ? Heart:? Right atrial and right ventricular leads. ? URINARY: Right Kidney:? Suspect mild hydronephrosis.? However, this appears unchanged compared to 2018.? Extrarenal pelvis.? Suspect peripelvic cysts.? No stones. Right Ureter:? No hydroureter.? ? Left Kidney: ? No definite stones.? No hydronephrosis.? Renal artery vascular calcifications.? Small renal cysts.? Suspect small peripelvic cysts. Left Ureter:? No hydroureter.? ? Bladder:? Normal wall thickness. No stones. ? ? ? ABDOMEN: Liver:? Unremarkable.? ? Gallbladder:? Unremarkable.? ? Biliary ducts:? Unremarkable.? ? Pancreas:? Unremarkable.? ? Spleen:? Unremarkable.? ? Adrenal Glands:? Unremarkable.? ? ? Stomach and Bowel:? Prominent stool in the anal canal and rectum, ().? The sigmoid colon is not distended.? Diverticulosis.? There is no transition point to sugg est small bowel obstruction.? However, there appears to be fecalization within the small bowel may be due to slow transit.? The stomach is not distended.? The appendix is not dilated. Peritoneum:? No abnormal intraperitoneal fluid.? No free air.? ? Ventral Wall: ? No hernia.? Abdominal Nodes:? No enlarged retroperitoneal or mesenteric lymph nodes.? Vessels:? Aorta and inferior vena cava are normal in size.? Severe plaque. ? PELVIS: Pelvic Organs:? Unremarkable.? ? Pelvic Nodes: Unremarkable. Miscellaneous: No inguinal hernias are seen.? Sarcopenia.? ? ? Bones:? Severe dextroscoliosis.? Advanced DDD.? Right hip arthroplasty.? Bones appear osteopenic. ? IMPRESSION:? 1. Prominent stool at the anal canal and rectum.? This may be impacted.? No upstream bowel dilatation. ? 2. Fecalization within the small bowel which may be due to slow transit.? No transition identified point to suggest small bowel obstruction. ? 3. Suspect mild right hydronephrosis.? However, this is overall similar to 2018. Additionally, right extrarenal pelvis and peripelvic cysts.? This could be seen in UPJ obstruction.? This could be further evaluated with CT IVP if clinically feasible and indicated.? Renal ultrasound may be helpful. ? 4. No definite kidney stones.? ? ? 5. Small consolidation at the right lung base.? This could be compressive atelectasis or pneumonia.? ? Dictated by: Catrachito Carranza M.D. on 12/13/2021 at 9:43 ? ? Approved by: Catrachito Carranza M.D. on 12/13/2021 at 9:58? MDM Narrative Medical decision making narrative: CT scan is consistent with constipation and that is consistent with her clinical presentation. Patient was given an enema and she did pass quite a bit of hard stool when she states she feels much better after this. No indication for antibiotics. No indication for further workup here in the emergency department. I had a discussion with the patient and her regarding laxatives and medications she can take at home to help with constipation. She was given return precautions. She expressed understanding and agreement. Discharge Plan Departure Patient Disposition: Home Clinical Impression: Constipation Instructions: DI for Constipation Activity Restrictions/Additional Instructions: I do recommend that you use the laxatives like we discussed and also increase your fiber supplement. Continue all of your medications as directed. Contact your primary doctor for follow-up and return to the emergency department for any new or worsening symptoms. Prescriptions: No Action (DME) Disabled parking permit Qty: 1 0RF Dose Instruction: As directed Rx Instructions: As directed acetaminophen [Tylenol Extra Strength] 500 MG tablet 500 mg PO PRN PRN (Reason: pain) Qty: 0 0RF CMP Estradiol 0.0125% Vaginal Cream 0.5 g topical DAILY Qty: 30 5RF Rx Instructions: Apply to irritated areas on the external genitalia every day losartan 50 mg tablet See Rx Instructions .ROUTE .COMPLEX Qty: 90 0RF Dose Instruction: TAKE ONE TABLET BY MOUTH ONE TIME DAILY Rx Instructions: TAKE ONE TABLET BY MOUTH ONE TIME DAILY amlodipine 10 mg tablet See Rx Instructions .ROUTE .COMPLEX Qty: 90 0RF Dose Instruction: TAKE ONE TABLET BY MOUTH ONE TIME DAILY Rx Instructions: TAKE ONE TABLET BY MOUTH ONE TIME DAILY mirtazapine 15 mg tablet See Rx Instructions .ROUTE .COMPLEX Qty: 90 0RF Dose Instruction: TAKE ONE TABLET BY MOUTH ONE TIME DAILY Rx Instructions: TAKE ONE TABLET BY MOUTH ONE TIME DAILY latanoprost 0.005 % drops EYE-BOTH 0RF aspirin [Adult Aspirin Regimen] 81 mg tablet,delayed release (DR/EC) 81 mg PO DAILY 0RF pravastatin 80 mg tablet 80 mg PO BEDTIME Qty: 90 3RF tramadol 50 mg tablet See Rx Instructions PO .COMPLEX PRN (Reason: pain) Qty: 120 0RF Rx Instructions: Take 1-2 tablets for pain, PO, PRN; (DME) Lidocaine patch EX See Rx Instructions .Route .MEDSUPPLY Qty: 30 5RF Rx Instructions: 5% patch on skin daily PRN for pain carvedilol 6.25 mg Tablet 6.25 mg PO BID 0RF cefuroxime axetil 500 mg tablet 500 mg PO BID Qty: 14 0RF ondansetron 4 mg tablet,disintegrating 4 mg PO TID-QID PRN (Reason: nausea and vomiting) Qty: 10 0RF Referrals: Roman Mayberry DO [Primary Care Provider] -
[2021-12-13 09:15] VITALS: BP 174/75; PULSE 69; RESP 18; TEMP 36.8; O2SAT 95; BMI 20.9
--- NOTE | 2021-12-13 09:15 | DI.CT.S_ITS ---
PROCEDURE: CT KIDNEY URETER BLADDER (KUB) INDICATIONS: eval for obstruction TECHNIQUE: Axial sections were acquired from the lung bases to the pubic symphysis. Coronal and sagittal reformats were performed. For radiation dose reduction, the following was used: automated exposure control, adjustment of mA and/or kV according to patient size. COMPARISON: [facility], CT, CT ABDOMEN PELVIS WO CON, 09/26/2018, 11:09. [facility], US, US ABDOMEN COMPLETE, 10/11/2019, 9:38. FINDINGS: Image quality: Excellent. Evaluation of the solid parenchymal organs is limited without IV contrast. Lung bases: Small consolidation at the right cardiophrenic angle. Mild atelectasis or scarring. No pleural effusion. Heart: Right atrial and right ventricular leads. URINARY: Right Kidney: Suspect mild hydronephrosis. However, this appears unchanged compared to 2018. Extrarenal pelvis. Suspect peripelvic cysts. No stones. Right Ureter: No hydroureter. Left Kidney: No definite stones. No hydronephrosis. Renal artery vascular calcifications. Small renal cysts. Suspect small peripelvic cysts. Left Ureter: No hydroureter. Bladder: Normal wall thickness. No stones. ABDOMEN: Liver: Unremarkable. Gallbladder: Unremarkable. Biliary ducts: Unremarkable. Pancreas: Unremarkable. Spleen: Unremarkable. Adrenal Glands: Unremarkable. Stomach and Bowel: Prominent stool in the anal canal and rectum, (5/32). The sigmoid colon is not distended. Diverticulosis. There is no transition point to suggest small bowel obstruction. However, there appears to be fecalization within the small bowel may be due to slow transit. The stomach is not distended. The appendix is not dilated. Peritoneum: No abnormal intraperitoneal fluid. No free air. Ventral Wall: No hernia. Abdominal Nodes: No enlarged retroperitoneal or mesenteric lymph nodes. Vessels: Aorta and inferior vena cava are normal in size. Severe plaque. PELVIS: Pelvic Organs: Unremarkable. Pelvic Nodes: Unremarkable. Miscellaneous: No inguinal hernias are seen. Sarcopenia. Bones: Severe dextroscoliosis. Advanced DDD. Right hip arthroplasty. Bones appear osteopenic. IMPRESSION: 1. Prominent stool at the anal canal and rectum. This may be impacted. No upstream bowel dilatation. 2. Fecalization within the small bowel which may be due to slow transit. No transition identified point to suggest small bowel obstruction. 3. Suspect mild right hydronephrosis. However, this is overall similar to 2018. Additionally, right extrarenal pelvis and peripelvic cysts. This could be seen in UPJ obstruction. This could be further evaluated with CT IVP if clinically feasible and indicated. Renal ultrasound may be helpful. 4. No definite kidney stones. 5. Small consolidation at the right lung base. This could be compressive atelectasis or pneumonia. Dictated by: Catrachito Carranza M.D. on 12/13/2021 at 9:43 Approved by: Catrachito Carranza M.D. on 12/13/2021 at 9:58
[2021-12-13 09:56] LABS: Add Manual Diff / Slide Review NO; Basophils Absolute Auto 100 /uL (0-100); Basophils Percent Auto 1.1 % (0-2); Eosinophils Absolute Auto 100 /uL (0-450); Eosinophils Percent Auto 1.5 % (2-4); Hematocrit 34.7 % (36-46); Hemoglobin 11.7 g/dL (12.0-16.0); Lymphocytes Absolute Auto 500 /uL (1100-4500); Lymphocytes Percent Auto 8.7 % (25-40); Mean Corpuscular HGB Conc 33.7 % (30-36); Mean Corpuscular Hemoglobin 28.2 PG (26-34); Mean Corpuscular Volume 83.6 fL (80-100); Monocytes Absolute Auto 300 /uL (0-900); Monocytes Percent Auto 5.2 % (3-14); Neutrophils Absolute Auto 5000 /uL (1500-7000); Neutrophils Percent Auto 83.5 % (50-75); Platelet Count 309 X10^3/uL (150-400); Red Blood Cell Count 4.15 X10^6/uL (4.0-5.2); Red Cell Distribution Width 14.3 % (11.6-14.8); White Blood Cell Count 5.9 X10^3/uL (4.5-11.0)
[2021-12-13 10:10] LABS: Lactate (Lactic Acid) 0.8 mmol/L (0.7-2.1)
[2021-12-13 10:11] LABS: Alanine Aminotransferase 19 IU/L (<35); Albumin 4.6 g/dL (3.5-5.0); Albumin Globulin Ratio 1.4 (1.0-2.8); Alkaline Phosphatase 71 U/L (38-126); Aspartate Aminotransferase 34 IU/L (14-36); BUN Creatinine Ratio 19.3 (6-22); Bilirubin Total 0.6 mg/dL (0.2-1.3); Blood Urea Nitrogen 40 mg/dL (7-17); Calcium 10.3 mg/dL (8.4-10.2); Carbon Dioxide 27 mmol/L (22-32); Chloride 98 mmol/L (98-107); Estimated Glomerular Filt Rate 22.8 mL/min (>60); Globulin 3.3 g/dL (1.7-4.1); Glucose 110 mg/dL (80-110); HEMOLYSIS < 15 (0-50); Lipase 357 U/L (23-300); Potassium 4.6 mmol/L (3.4-5.1); Sodium 132 mmol/L (137-145); Total Protein 7.9 g/dL (6.3-8.2)
[2021-12-13] MEDS: FLEETS ENEMA 1 EACH PR (12:05)
[2021-12-13 13:44] VITALS: BP 157/70; PULSE 69; RESP 14; O2SAT 96
== END 2021-12-13 13:44 | disposition home or self-care (01) ==
PROVIDERS: Emergency Provider Emergency Medicine; PCP Family Medicine
DX: K59.00 Constipation, unspecified (principal)
CPT/HCPCS: 36415; 74176; 80053; 83605; 83690; 85025; 99284

== ENCOUNTER → 2021-12-19 16:55 | Outpatient (CLI) | payer MEDICARE, SELFPAY ==
[2021-11-24 11:41] VITALS: BMI 21.1
[2021-12-19 18:11] LABS: Add Manual Diff / Slide Review NO; Basophils Absolute Auto 100 /uL (0-100); Eosinophils Absolute Auto 100 /uL (0-450); Eosinophils Percent Auto 2.5 % (2-4); Hematocrit 36.4 % (36-46); Hemoglobin 12.2 g/dL (12.0-16.0); Lymphocytes Absolute Auto 600 /uL (1100-4500); Lymphocytes Percent Auto 11.3 % (25-40); Mean Corpuscular HGB Conc 33.5 % (30-36); Mean Corpuscular Hemoglobin 28.3 PG (26-34); Mean Corpuscular Volume 84.3 fL (80-100); Monocytes Absolute Auto 400 /uL (0-900); Monocytes Percent Auto 7.9 % (3-14); Neutrophils Absolute Auto 4100 /uL (1500-7000); Neutrophils Percent Auto 77.3 % (50-75); Platelet Count 344 X10^3/uL (150-400); Red Blood Cell Count 4.31 X10^6/uL (4.0-5.2); Red Cell Distribution Width 14.4 % (11.6-14.8); White Blood Cell Count 5.4 X10^3/uL (4.5-11.0)
[2021-12-19 18:21] LABS: Alanine Aminotransferase 17 IU/L (<35); Albumin 4.8 g/dL (3.5-5.0); Albumin Globulin Ratio 1.4 (1.0-2.8); Alkaline Phosphatase 80 U/L (38-126); Aspartate Aminotransferase 41 IU/L (14-36); BUN Creatinine Ratio 21.2 (6-22); Bilirubin Total 0.6 mg/dL (0.2-1.3); Blood Urea Nitrogen 43 mg/dL (7-17); Calcium 10.4 mg/dL (8.4-10.2); Carbon Dioxide 25 mmol/L (22-32); Chloride 98 mmol/L (98-107); Estimated Glomerular Filt Rate 23.3 mL/min (>60); Globulin 3.5 g/dL (1.7-4.1); Glucose 107 mg/dL (80-110); HEMOLYSIS < 15 (0-50); Potassium 4.7 mmol/L (3.4-5.1); Sodium 132 mmol/L (137-145); Total Protein 8.3 g/dL (6.3-8.2)
== END ==
PROVIDERS: PCP Family Medicine; Referring Provider Registered Nurse; Visit Provider Registered Nurse
DX: R53.83 Other fatigue (principal); R39.9 Unspecified symptoms and signs involving the genitourinary system; N39.0 Urinary tract infection, site not specified
CPT/HCPCS: 36415; 80053; 85025; 87086

== ENCOUNTER 2022-01-12 15:12 | Observation (INO) | payer MEDICARE, SELFPAY ==
[2021-11-24 11:41] VITALS: BMI 21.1
[2022-01-12] VITALS (69 sets, daily range): BP systolic 108–180; BP diastolic 51–79; PULSE 59–86; RESP 7–26; TEMP 36.3–36.8; O2SAT 63–99; BMI 20.1
--- NOTE | 2022-01-12 | DI.RAD.S_ITS ---
PROCEDURE: XR HIP W PEL IF DONE RT 2V INDICATIONS: INTRA OP RELOCATION TECHNIQUE: 2 intraoperative views of the hip were acquired. COMPARISON: [facility], CR, XR HIP W PEL IF DONE RT 2V, 01/12/2022, 15:24. FINDINGS: Right hip arthroplasty has been relocated. IMPRESSION: Relocation of right hip arthroplasty. Dictated by: Riley Almodovar M.D. on 01/12/2022 at 22:00 Approved by: Riley Almodovar M.D. on 01/12/2022 at 22:00
--- NOTE | 2022-01-12 15:14 | DI.RAD.S_ITS ---
PROCEDURE: XR HIP W PEL IF DONE RT 2V INDICATIONS: fall, pain, shortened, external rotation TECHNIQUE: AP pelvis with lateral view of the right hip. COMPARISON: [facility], CR, XR PELVIS WITH LATERAL HIP RIGHT, 11/22/2021, 13:36. [facility], CR, XR HIP W PEL IF DONE RT 2V, 10/23/2021, 21:55. FINDINGS: Bones: Postsurgical changes are seen from right hip arthroplasty. The femoral head component is dislocated proximally and anterolaterally relative to the acetabular cup. The right femur is externally rotated. No osseous fracture is seen. Degenerative changes are seen at the right greater than left sacroiliac joints. Degenerative changes also noted in the lumbar spine. Soft tissues: The visualized bowel gas pattern is normal. No suspicious soft tissue calcifications. IMPRESSION: Dislocation of the femoral head component of the right hip prosthesis from the acetabular component. No acute osseous fracture identified. Dictated by: Juan Olivas M.D. on 01/12/2022 at 16:21 Approved by: Juan Olivas M.D. on 01/12/2022 at 16:23
--- NOTE | 2022-01-12 15:16 | ED.FALL ---
HPI - Fall General Chief Complaint: Fall Stated Complaint: Ground level fall Time Seen by Provider: 01/12/22 15:14 Source: patient, EMS and old records reviewed Mode of arrival: EMS Limitations: no limitations History of Present Illness HPI Narrative: This is an 86-year-old female who had a ground level fall reaching for her coat. Patient fell and has pain in her right hip, it is shortened and externally rotation and she has pain with any movement. No numbness or tingling. Patient has a history of prior hip replacement as well as dislocation times in March of 2020 in July of 2021. Patient had attempted reduction in the department both times which was unsuccessful and went to the OR for reduction. She is not anticoagulated anything greater than aspirin. She takes medication for cholesterol, blood pressure and has a history of chronic kidney disease with baseline GFR around 20. Patient has multiple allergies to medications to antibiotics, estrogen, adhesive tape and including hydrocodone. Patient received 20 mg of ketamine 100 fentanyl en route. Related Data Home Medications Medication Instructions Recorded Confirmed acetaminophen 500 mg tablet 500 mg PO PRN PRN #0 07/09/17 12/29/21 (Tylenol Extra Strength) carvedilol 6.25 mg tablet 6.25 mg PO BID 11/18/19 12/29/21 aspirin 81 mg tablet,delayed 81 mg PO DAILY 06/07/20 12/29/21 release (Adult Aspirin Regimen) latanoprost 0.005 % eye drops EYE-BOTH 06/07/20 12/29/21 Previous Rx's Medication Instructions Recorded Disabled parking permit #1 ea 12/24/18 CMP Estradiol 0.0125% Vaginal Cream 0.5 g TOPICAL DAILY #30 gram 08/17/21 pravastatin 80 mg tablet 80 mg PO BEDTIME #90 tab 10/03/21 amlodipine 10 mg tablet See Rx Instructions .ROUTE 10/25/21 .COMPLEX #90 tab mirtazapine 15 mg tablet See Rx Instructions .ROUTE 11/15/21 .COMPLEX #90 tab tramadol 50 mg tablet See Rx Instructions PO .COMPLEX 11/24/21 PRN #120 tab cefuroxime axetil 500 mg tablet 500 mg PO BID #14 tab 12/03/21 ondansetron 4 mg disintegrating 4 mg PO TID-QID PRN #10 tab 12/03/21 tablet Lidocaine patch EX #30 ea 02/03/22 nitrofurantoin macrocrystal 100 mg 100 mg PO BID #10 cap 12/14/21 capsule losartan 50 mg tablet See Rx Instructions .ROUTE 12/26/21 .COMPLEX #90 tab Allergies Allergy/AdvReac Type Severity Reaction Status Date / Time adhesive tape [ADHESIVE TAPE] Allergy Mild skin Verified 12/29/21 11:56 reaction amoxicillin [AMOXICILLIN] AdvReac Intermediate YEAST Verified 12/29/21 11:56 INFECTION doxycycline [DOXYCYCLINE] AdvReac Intermediate YEAST Verified 12/29/21 11:56 SYMPTOMS azithromycin [AZITHROMYCIN] AdvReac Mild DIARRHEA Verified 12/29/21 11:56 estrogens, conjugated AdvReac Mild LOCAL Verified 12/29/21 11:56 [ESTROGENS, CONJUGATED] IRRITATION WHEN TOPICAL hydrocodone [HYDROCODONE] AdvReac Mild GI UPSET Verified 12/29/21 11:56 levofloxacin [LEVOFLOXACIN] AdvReac Mild GI UPSET Verified 12/29/21 11:56 phenazopyridine AdvReac Mild GI UPSET Verified 12/29/21 11:56 [PHENAZOPYRIDINE] Review of Systems Review of Systems ROS Unobtainable: All systems reviewed & are unremarkable except as noted in HPI and below Patient History Medical History (Updated 01/12/22 @ 17:48 by Nella Streeter DO) Abdominal pain Blood in urine Chronic low back pain with bilateral sciatica CKD (chronic kidney disease) (Unknown) Colon polyps (Unknown) Diarrhea Diverticular disease (Unknown) Glaucoma (Unknown) Greater trochanteric bursitis of left hip Hip pain Hyperlipemia (Unknown) Hypertension (Unknown) Impacted cerumen of both ears Loose stools Osteoporosis (Unknown) Pacemaker Rash and nonspecific skin eruption Scoliosis (Unknown) Skin cancer (~2005) Spinal stenosis (Unknown) 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) UTI (urinary tract infection) Vaginal candidiasis Vulvar irritation (Unknown) Surgical History History of hip replacement (Unknown) Hx of hysterectomy (Unknown) Family History Father Heart disease Mother Osteoporosis Social History household members: spouse Smoking Status: Never smoker alcohol intake: current substance use type: does not use Smoking Status: Never smoker alcohol intake frequency: holidays/special occasions only Substance Use Type: does not use Exam Narrative Exam Narrative: GEN: Patient appears in mild distress. HEAD: No evidence of trauma, no raccoon/Petit sign. NECK: Nontender, painless range of motion, trachea midline Negative Nexus criteria, there is no midline line tenderness, distracting injury, altered mental status, neuro deficit, recent EtOH. EYES: PERRLA, EOMI ENT: External inspection normal, trachea is midline, TM's are normal no hemotypanum, Nares are clear, no septal hematoma, no dental or oral injury, airway is normal and with normal occlusion, No bony tenderness RESP: Chest is nontender and has symmetric movement, no ecchymosis, breath sounds are normal no crackles, wheezes or rales CVS: Heart sounds are normal, no murmur noted, No JVD. ABG/GI: Nontender, soft, normal bowel sounds, no distention, no organomegaly, pelvic rock is negative NEURO: Oriented AOx3, neuro is grossly intact, sensation and motor is normal all 4 extremities moving, cranial nerves II through XII are intact, GCS is 15 PSYCH: Normal mood and affect SKIN: Intact, warm and dry, no crepitus and without decubitus BACK: No CVA tenderness, no vertebral tenderness, no step-off's, no crepitus EXT: Atraumatic, rate is as tender, her right lower extremity is shortened and externally rotated with 2+ tibialis. No pedal edema, normal color and temperature, normal range of motion of all other extremities. Initial Vital Signs Initial Vital Signs: Vital Signs Temperature 97.4 F L 01/12/22 15:19 Pulse Rate 68 01/12/22 15:19 Respiratory Rate 16 01/12/22 15:19 Blood Pressure 108/79 01/12/22 15:19 Pulse Oximetry 97 01/12/22 15:19 Procedures Procedural Sedation Time of procedure: 17:20 Consent signed: Yes Time out performed: Yes Indication: fracture/dislocation reduction ASA Class: II Mallampati Airway Classification: Class II Time of Last PO Intake: 11:30 Preparation: playground monitor applied, pulse oximeter, capnometry used, supplemental O2 applied, suction/airway equipment at bedside and IV secured IV Propofol dose (mg): 80 Intraservice time/total sedation time (min): 35 ED Sedation Level: Moderate (Concious) Patient Tolerated Procedure: Well Complications: Respiratory Depression-Repositioning Required Interventions: Airway repositioned and Assist by BVM Additional Comments: Patient received propofol 40 mg, patient's sedation was inadequate and she was still resisting the orthopedic surgeon and speaking, she received additional 20 mg followed by a 2nd additional 20 mg for 80 mg total. Scores GCS Samira coma scale eye opening: Spontaneous [place] coma scale verbal response: Orientated Samira coma scale motor response: Obey commands Samira coma scale total score: 15 Course Orders Ordered: ED Orders 01/12/22 15:14 XR hip w pel if done RT 2V Stat 01/12/22 15:20 CBC Auto Diff [Complete Blood Count AUTO DIFF] Stat CMP [Comprehensive Metabolic Panel] Stat COVID19 -Nasal swab/Pre-Proc Stat PTT [Partial Thromboplastin Time] Stat Prothrombin Time INR Stat 01/12/22 17:37 XR pelvis 1-2V Stat Discontinued Medications Ondansetron HCl (Ondansetron 4 Mg/2 Ml Inj) 4 mg IV NOW ONE Stop: 01/12/22 15:38 Last Admin: 01/12/22 15:48 Dose: 4 mg Documented by: RLHUGHI Propofol (Propofol 200 Mg/20 Ml Vial) 95 mg 2 mg/kg (95 mg) IV NOW ONE Stop: 01/12/22 16:50 Consultations Consultation #1: Dr. Johnson, orthopedic surgery. Discussed case. Has a patient right hip dislocation she has had several priors in the past has had an unsuccessful reductions in the ER and gone to OR. After discussion with Dr. Johnson would like to attempt conscious sedation here in the department but with Dr. Johnson assisting with the actual reduction. This seems quite appropriate. Discussed with patient she is agreeable. Time: 16:35 Vital Signs Vital signs: Vital Signs - 8 hr 01/12/22 15:19 01/12/22 15:20 01/12/22 15:21 Temperature 97.4 F L Pulse Rate 68 62 61 Respiratory Rate 16 9 L 11 L Blood Pressure 108/79 157/67 H Pulse Oximetry 97 90 L 92 01/12/22 15:30 01/12/22 15:35 01/12/22 15:40 Temperature Pulse Rate 64 61 86 Respiratory Rate 13 13 18 Blood Pressure 180/72 H Pulse Oximetry 98 97 98 01/12/22 15:45 01/12/22 15:50 01/12/22 15:55 Temperature Pulse Rate 60 62 62 Respiratory Rate 12 14 14 Blood Pressure Pulse Oximetry 99 99 96 01/12/22 16:00 01/12/22 16:05 01/12/22 16:10 Temperature Pulse Rate 60 60 60 Respiratory Rate 10 L 12 15 Blood Pressure 146/67 H Pulse Oximetry 95 90 L 93 01/12/22 16:15 01/12/22 16:20 01/12/22 16:25 Temperature Pulse Rate 60 60 60 Respiratory Rate 15 13 7 L Blood Pressure Pulse Oximetry 95 95 98 01/12/22 16:30 01/12/22 16:35 01/12/22 16:40 Temperature Pulse Rate 60 60 60 Respiratory Rate 11 L 14 20 Blood Pressure 161/68 H 154/69 H 157/70 H Pulse Oximetry 98 99 99 01/12/22 16:45 01/12/22 16:50 01/12/22 16:55 Temperature Pulse Rate 60 59 L 60 Respiratory Rate 17 13 19 Blood Pressure 164/72 H 165/71 H 166/75 H Pulse Oximetry 99 98 99 01/12/22 17:00 01/12/22 17:05 01/12/22 17:10 Temperature Pulse Rate 60 60 60 Respiratory Rate 18 16 13 Blood Pressure 161/74 H 171/71 H 151/67 H Pulse Oximetry 99 99 99 01/12/22 17:15 01/12/22 17:19 01/12/22 17:20 Temperature Pulse Rate 60 65 Respiratory Rate 14 21 Blood Pressure 150/67 H 171/76 H Pulse Oximetry 99 99 MDM - Fall Lab Data Result diagrams: 01/12/22 15:20 01/12/22 15:20 Labs: Lab Results 01/12/22 01/12/22 01/12/22 Range/Units 15:20 15:20 15:20 WBC 4.3 L (4.5-11.0) X10^3/uL RBC 4.17 (4.0-5.2) X10^6/uL Hgb 11.6 L (12.0-16.0) g/dL Hct 34.9 L (36-46) % MCV 83.6 (80-100) fL MCH 27.9 (26-34) PG MCHC 33.4 (30-36) % RDW 14.9 H (11.6-14.8) % Plt Count 306 (150-400) X10^3/uL Neut % (Auto) 57.4 (50-75) % Lymph % (Auto) 23.3 L (25-40) % [place] % (Auto) 11.8 (3-14) % Eos % (Auto) 5.6 H (2-4) % Baso % (Auto) 1.9 (0-2) % Neut # (Auto) 2400 (9865-0842) /uL Lymph # (Auto) 1000 L (0264-8073) /uL [place] # (Auto) 500 (0-900) /uL Eos # (Auto) 200 (0-450) /uL Baso # (Auto) 100 (0-100) /uL PT 10.2 (10.1-12.7) SECONDS INR 0.9 (0.9-1.3) APTT 32 (26.4-36.2) SECONDS Sodium 133 L (137-145) mmol/L Potassium 4.6 (3.4-5.1) mmol/L Chloride 98 (98-107) mmol/L Carbon Dioxide 28 (22-32) mmol/L BUN 46 H (7-17) mg/dL Creatinine 2.13 H (0.52-1.04) mg/dL Estimated GFR 22.0 L (>60) mL/min BUN/Creatinine Ratio 21.6 (6-22) Glucose 101 (80-110) mg/dL Calcium 10.1 (8.4-10.2) mg/dL Total Bilirubin 0.4 (0.2-1.3) mg/dL AST 34 (14-36) IU/L ALT 19 (<35) IU/L Alkaline Phosphatase 71 (38-126) U/L Total Protein 7.8 (6.3-8.2) g/dL Albumin 4.6 (3.5-5.0) g/dL Globulin 3.2 (1.7-4.1) g/dL Albumin/Globulin Ratio 1.4 (1.0-2.8) SARS-CoV-2 (PCR) (Negative) 01/12/22 Range/Units 15:20 WBC (4.5-11.0) X10^3/uL RBC (4.0-5.2) X10^6/uL Hgb (12.0-16.0) g/dL Hct (36-46) % MCV (80-100) fL MCH (26-34) PG MCHC (30-36) % RDW (11.6-14.8) % Plt Count (150-400) X10^3/uL Neut % (Auto) (50-75) % Lymph % (Auto) (25-40) % [place] % (Auto) (3-14) % Eos % (Auto) (2-4) % Baso % (Auto) (0-2) % Neut # (Auto) (8191-6408) /uL Lymph # (Auto) (7356-4286) /uL [place] # (Auto) (0-900) /uL Eos # (Auto) (0-450) /uL Baso # (Auto) (0-100) /uL PT (10.1-12.7) SECONDS INR (0.9-1.3) APTT (26.4-36.2) SECONDS Sodium (137-145) mmol/L Potassium (3.4-5.1) mmol/L Chloride (98-107) mmol/L Carbon Dioxide (22-32) mmol/L BUN (7-17) mg/dL Creatinine (0.52-1.04) mg/dL Estimated GFR (>60) mL/min BUN/Creatinine Ratio (6-22) Glucose (80-110) mg/dL Calcium (8.4-10.2) mg/dL Total Bilirubin (0.2-1.3) mg/dL AST (14-36) IU/L ALT (<35) IU/L Alkaline Phosphatase (38-126) U/L Total Protein (6.3-8.2) g/dL Albumin (3.5-5.0) g/dL Globulin (1.7-4.1) g/dL Albumin/Globulin Ratio (1.0-2.8) SARS-CoV-2 (PCR) Negative (Negative) Point of Care Testing Test Results Not applicable Imaging Data Extremity x-ray #1: Radiologist's Impression: Close Pelvis X-Ray 01/12/22 Hip X-Ray (Signed) Juan Olivas - 01/12/22 Abdomen/Pelvis CT (Signed) Catrachito Carranza - 02/02/22 Telemetry Strips 10/23/21 Pelvis X-Ray (Signed) StonewallJabier bynumddie - 10/23/21 Hip X-Ray (Signed) Garcias,Shree - 10/23/21 Hip X-Ray (Signed) ChristopheBrandon - 10/23/21 Telemetry Strips 08/10/21 Hip X-Ray (Signed) FordZain - 08/10/21 Hip X-Ray (Signed) Shree Garcias - 08/10/21 Injection Lumbar, Sacrum (Signed) Ace Calloway - 08/10/21 Hip X-Ray (Signed) Zain Ford - 08/10/21 Lumbar Spine X-Ray (Signed) Larissa Galvez - 06/07/21 Hip X-Ray (Signed) Heather Bourgeois - 06/07/21 Telemetry Strips 04/05/20 Hip X-Ray (Signed) Zain Ford - 04/05/20 Hip X-Ray (Signed) Scottie Rios - 04/05/20 Pelvis X-Ray (Signed) Zain Ford - 04/04/20 DI Result CC 11/20/19 Vascular Ultrasound (Signed) Juancho Capellan - 11/19/[address] (Signed) [place] - 11/19/19 Chest X-Ray (Signed) Juancho Capellan - 11/19/[address] (Signed) Scottie Rios - 11/18/19 Chest X-Ray (Signed) [place] - 11/18/19 Telemetry Strips 10/10/19 Injection Lumbar, Sacrum (Signed) Juancho Capellan - 04/21/19 Lumbar Spine X-Ray (Signed) Zain Ford - 04/13/19 Lumbar Spine MRI (Signed) Heather Bourgeois - 04/07/19 Chest/Abdomen X-ray (Signed) Selwyn Colon - 11/04/18 Abdomen/Pelvis CT (Signed) Ervin Valero - 09/26/[address] [address] XRay Report Signed Patient: Quique Blood MR#: [id number] : 1935 Acct:[id number] Age/Sex: 86 / F Date of Service: 01/12/22 Loc: ED Accession Number: [id number] ?? Procedure: XR hip w pel if done RT 2V Ordering Provider: Nella Streeter D.O. PROCEDURE:? XR HIP W PEL IF DONE RT 2V ? INDICATIONS:? fall, pain, shortened, external rotation ? TECHNIQUE:? AP pelvis with lateral view of the right hip. ? COMPARISON:? [facility], CR, XR PELVIS WITH LATERAL HIP RIGHT, 11/22/2021, 13:36.? [facility], CR, XR HIP W PEL IF DONE RT 2V, 10/23/2021, 21:55. ? FINDINGS:? ? Bones:? Postsurgical changes are seen from right hip arthroplasty.? The femoral head component is dislocated proximally and anterolaterally relative to the acetabular cup.? The right femur is externally rotated.? No osseous fracture is seen.? Degenerative changes are seen at the right greater than left sacroiliac joints.? Degenerative changes also noted in the lumbar spine. ? Soft tissues:? The visualized bowel gas pattern is normal.? No suspicious soft tissue calcifications.? ? IMPRESSION:? Dislocation of the femoral head component of the right hip prosthesis from the acetabular component.? No acute osseous fracture identified. ? ? Dictated by: Juan Olivas M.D. on 01/12/2022 at 16:21 ? ? Approved by: Juan Olivas M.D. on 01/12/2022 at 16:23?? MDM Narrative Medical decision making narrative: This is an 86-year-old female who comes with right hip dislocation. Patient has had prior attempts in the emergency department that ultimately required reduction in the OR. Spoke with Orthopedic surgery who would like to attempt reduction here in the department with myself doing moderate sedation and Dr. Johnson performing reduction. This was not successful plan to take patient to the OR. Patient's COVID swab was negative, she has chronic kidney disease which appears stable. She does not have any other injuries appreciated from her fall patient has had multiple hip dislocations in the past she is neurovascularly intact pre and post attempted reduction. Critical Care Time Critical Care Time Attestation: The high probability of a clinically significant, sudden or life threatening deterioration of the [cardiac,pulm] system(s) required my full and direct attention, intervention and personal management. The aggregate critical care time was [35] minutes. This time is in addition to time spent performing reported procedures but includes the following: [x] Data Review and interpretation [x] Patient assessment and monitoring of vital signs [x] Documentation [x] Medication orders and management Discharge Plan Departure Patient Disposition: Admitted to Surgery Clinical Impression: CKD (chronic kidney disease) Dislocation, hip closed Qualifiers: Encounter type: initial encounter Laterality: right Qualified Code(s): S73.004A - Unspecified dislocation of right hip, initial encounter Admit Date/Time: 01/12/22 17:48 Admit Provider: Michelle Johnson
[2022-01-12 15:34] LABS: Add Manual Diff / Slide Review NO; Basophils Absolute Auto 100 /uL (0-100); Basophils Percent Auto 1.9 % (0-2); Eosinophils Absolute Auto 200 /uL (0-450); Eosinophils Percent Auto 5.6 % (2-4); Hematocrit 34.9 % (36-46); Hemoglobin 11.6 g/dL (12.0-16.0); Lymphocytes Absolute Auto 1000 /uL (1100-4500); Lymphocytes Percent Auto 23.3 % (25-40); Mean Corpuscular HGB Conc 33.4 % (30-36); Mean Corpuscular Hemoglobin 27.9 PG (26-34); Mean Corpuscular Volume 83.6 fL (80-100); Monocytes Absolute Auto 500 /uL (0-900); Monocytes Percent Auto 11.8 % (3-14); Neutrophils Absolute Auto 2400 /uL (1500-7000); Neutrophils Percent Auto 57.4 % (50-75); Platelet Count 306 X10^3/uL (150-400); Red Blood Cell Count 4.17 X10^6/uL (4.0-5.2); Red Cell Distribution Width 14.9 % (11.6-14.8); White Blood Cell Count 4.3 X10^3/uL (4.5-11.0)
[2022-01-12 15:46] LABS: COVID19 -Nasal RAPID Negative (Negative); INR 0.9 (0.9-1.3); Prothrombin Time 10.2 SECONDS (10.1-12.7)
[2022-01-12] MEDS: ONDANSETRON 4 MG/2 ML INJ IV ×2 (15:48→22:14)
[2022-01-12 15:49] LABS: PTT Partial Thromboplastin Tim 32 SECONDS (26.4-36.2)
[2022-01-12 15:57] LABS: Alanine Aminotransferase 19 IU/L (<35); Albumin 4.6 g/dL (3.5-5.0); Albumin Globulin Ratio 1.4 (1.0-2.8); Alkaline Phosphatase 71 U/L (38-126); Aspartate Aminotransferase 34 IU/L (14-36); BUN Creatinine Ratio 21.6 (6-22); Bilirubin Total 0.4 mg/dL (0.2-1.3); Blood Urea Nitrogen 46 mg/dL (7-17); Calcium 10.1 mg/dL (8.4-10.2); Carbon Dioxide 28 mmol/L (22-32); Chloride 98 mmol/L (98-107); Globulin 3.2 g/dL (1.7-4.1); Glucose 101 mg/dL (80-110); HEMOLYSIS < 15 (0-50); Potassium 4.6 mmol/L (3.4-5.1); Sodium 133 mmol/L (137-145); Total Protein 7.8 g/dL (6.3-8.2)
[2022-01-12] MEDS: propofoL 200 MG/20 ML VIAL 95 MG IV (17:30)
--- NOTE | 2022-01-12 17:37 | DI.RAD.S_ITS ---
PROCEDURE: XR PELVIS 1-2V INDICATIONS: post reduction TECHNIQUE: 1 view of the pelvis acquired. COMPARISON: [facility], CR, XR HIP W PEL IF DONE RT 2V, 01/12/2022, 15:24. [facility], CR, XR PELVIS 1-2V, 10/23/2021, 17:56. FINDINGS: Bones: There is persistent anterolateral dislocation of a right hip prosthesis. No discrete acute fracture identified. No new suspicious periprosthetic lucencies. No suspicious bony lesions. Soft tissues: Visualized bowel gas pattern is normal. No suspicious soft tissue calcifications. IMPRESSION: 1. 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 Dictated by: Manny Mcgovern M.D. on 01/12/2022 at 18:30 Approved by: Manny Mcgovern M.D. on 01/12/2022 at 18:32
[2022-01-12] MEDS: LACTATED RINGERS 1,000 ML 84 ML IV (21:04)
--- NOTE | 2022-01-12 21:06 | SUR.HOLD ---
01/12/222044 Picked up in ER, pt identified name//correct hip. wide awake and alert. clothes and belongings with ,including rings (3). to preop holding. iv set up for OR. Seen By anesthesia. warm blankets on, and scd left leg. csm RLE wnl. 2104* awaiting DR Johnson.
--- NOTE | 2022-01-12 21:19 | P.HP_ITS ---
History of Present Illness History of Present Illness Date Patient Seen: 01/12/22 Time Patient Seen: 18:00 Date of Onset of Symptoms: 01/12/22 Chief complaint: Ground level fall Narrative: This is an 86-year-old who is known to me who has a history of right total hip arthroplasty which was done up in [place]. She has a history of multiple anterior dislocations. She was with her today she twisted in a round posteriorly and noted the onset of right hip pain. He brought her to the emergency room. She has had multiple dislocations within the last year. Her primary orthopedist is Dr. Hernandez. Patient History Medical History Abdominal pain Blood in urine Chronic low back pain with bilateral sciatica CKD (chronic kidney disease) (Unknown) Colon polyps (Unknown) Diarrhea Diverticular disease (Unknown) Glaucoma (Unknown) Greater trochanteric bursitis of left hip Hip pain Hyperlipemia (Unknown) Hypertension (Unknown) Impacted cerumen of both ears Loose stools Osteoporosis (Unknown) Pacemaker Rash and nonspecific skin eruption Scoliosis (Unknown) Skin cancer (~2005) Spinal stenosis (Unknown) 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) UTI (urinary tract infection) Vaginal candidiasis Vulvar irritation (Unknown) Surgical History History of hip replacement (Unknown) Hx of hysterectomy (Unknown) Family & Social History Family History Father Heart disease Mother Osteoporosis Social History: household members spouse Safety & Behavioral: Feels Safe in Current Yes Environment Been Physically Hurt or No Threatened By a Person Tobacco & Substance use: Smoking Status Never smoker alcohol intake current alcohol intake frequency holiday/special occasion Substance Use Type does not use Meds Home Medications and Allergies Home Medications Medication Instructions Recorded Confirmed Type acetaminophen 500 mg tablet 500 mg PO PRN PRN #0 07/09/17 12/29/21 History (Tylenol Extra Strength) Disabled parking permit #1 ea 12/24/18 12/29/21 Rx carvedilol 6.25 mg tablet 6.25 mg PO BID 11/18/19 12/29/21 History aspirin 81 mg tablet,delayed 81 mg PO DAILY 06/07/20 12/29/21 History release (Adult Aspirin Regimen) latanoprost 0.005 % eye drops EYE-BOTH 06/07/20 12/29/21 History CMP Estradiol 0.0125% Vaginal Cream 0.5 g TOPICAL DAILY #30 gram 08/17/21 12/29/21 Rx pravastatin 80 mg tablet 80 mg PO BEDTIME #90 tab 10/03/21 12/29/21 Rx amlodipine 10 mg tablet See Rx Instructions .ROUTE 10/25/21 12/29/21 Rx .COMPLEX #90 tab mirtazapine 15 mg tablet See Rx Instructions .ROUTE 11/15/21 12/29/21 Rx .COMPLEX #90 tab tramadol 50 mg tablet See Rx Instructions PO .COMPLEX 11/24/21 12/29/21 Rx PRN #120 tab cefuroxime axetil 500 mg tablet 500 mg PO BID #14 tab 12/03/21 12/29/21 Rx ondansetron 4 mg disintegrating 4 mg PO TID-QID PRN #10 tab 12/03/21 12/29/21 Rx tablet Lidocaine patch EX #30 ea 12/14/21 12/29/21 Rx nitrofurantoin macrocrystal 100 mg 100 mg PO BID #10 cap 12/14/21 12/29/21 Rx capsule losartan 50 mg tablet See Rx Instructions .ROUTE 12/26/21 12/29/21 Rx .COMPLEX #90 tab Allergies Allergy/AdvReac Type Severity Reaction Status Date / Time adhesive tape [ADHESIVE TAPE] Allergy Mild skin Verified 01/12/22 20:54 reaction amoxicillin [AMOXICILLIN] AdvReac Intermediate YEAST Verified 01/12/22 20:54 INFECTION doxycycline [DOXYCYCLINE] AdvReac Intermediate YEAST Verified 01/12/22 20:54 SYMPTOMS azithromycin [AZITHROMYCIN] AdvReac Mild DIARRHEA Verified 01/12/22 20:54 estrogens, conjugated AdvReac Mild LOCAL Verified 01/12/22 20:54 [ESTROGENS, CONJUGATED] IRRITATION WHEN TOPICAL hydrocodone [HYDROCODONE] AdvReac Mild GI UPSET Verified 01/12/22 20:54 levofloxacin [LEVOFLOXACIN] AdvReac Mild GI UPSET Verified 01/12/22 20:54 phenazopyridine AdvReac Mild GI UPSET Verified 01/12/22 20:54 [PHENAZOPYRIDINE] Exam Vital Signs (past 8 hours): - 01/12/22 15:19 01/12/22 15:20 01/12/22 15:21 Temperature 97.4 F L Pulse Rate 68 62 61 Respiratory Rate 16 9 L 11 L Blood Pressure 108/79 157/67 H Pulse Oximetry 97 90 L 92 01/12/22 15:30 01/12/22 15:35 01/12/22 15:40 Temperature Pulse Rate 64 61 86 Respiratory Rate 13 13 18 Blood Pressure 180/72 H Pulse Oximetry 98 97 98 01/12/22 15:45 01/12/22 15:50 01/12/22 15:55 Temperature Pulse Rate 60 62 62 Respiratory Rate 12 14 14 Blood Pressure Pulse Oximetry 99 99 96 01/12/22 16:00 01/12/22 16:05 01/12/22 16:10 Temperature Pulse Rate 60 60 60 Respiratory Rate 10 L 12 15 Blood Pressure 146/67 H Pulse Oximetry 95 90 L 93 01/12/22 16:15 01/12/22 16:20 01/12/22 16:25 Temperature Pulse Rate 60 60 60 Respiratory Rate 15 13 7 L Blood Pressure Pulse Oximetry 95 95 98 01/12/22 16:30 01/12/22 16:35 01/12/22 16:40 Temperature Pulse Rate 60 60 60 Respiratory Rate 11 L 14 20 Blood Pressure 161/68 H 154/69 H 157/70 H Pulse Oximetry 98 99 99 01/12/22 16:45 01/12/22 16:50 01/12/22 16:55 Temperature Pulse Rate 60 59 L 60 Respiratory Rate 17 13 19 Blood Pressure 164/72 H 165/71 H 166/75 H Pulse Oximetry 99 98 99 01/12/22 17:00 01/12/22 17:05 01/12/22 17:10 Temperature Pulse Rate 60 60 60 Respiratory Rate 18 16 13 Blood Pressure 161/74 H 171/71 H 151/67 H Pulse Oximetry 99 99 99 01/12/22 17:15 01/12/22 17:19 01/12/22 17:20 Temperature Pulse Rate 60 65 Respiratory Rate 14 21 Blood Pressure 150/67 H 171/76 H Pulse Oximetry 99 99 01/12/22 17:50 01/12/22 17:54 01/12/22 17:55 Temperature Pulse Rate 60 60 60 Respiratory Rate 13 16 25 H Blood Pressure 143/65 H 153/71 H Pulse Oximetry 98 98 01/12/22 18:00 01/12/22 18:05 01/12/22 18:10 Temperature Pulse Rate 67 61 60 Respiratory Rate 12 26 H 16 Blood Pressure 166/70 H 158/71 H 166/68 H Pulse Oximetry 93 94 93 01/12/22 18:15 01/12/22 18:20 01/12/22 18:25 Temperature Pulse Rate 60 60 60 Respiratory Rate 14 10 L 12 Blood Pressure 156/70 H 153/70 H 159/70 H Pulse Oximetry 95 93 94 01/12/22 18:30 01/12/22 18:35 01/12/22 18:40 Temperature Pulse Rate 62 65 65 Respiratory Rate 10 L 13 13 Blood Pressure 158/68 H 169/71 H 158/69 H Pulse Oximetry 94 93 91 01/12/22 18:45 01/12/22 18:50 01/12/22 18:55 Temperature Pulse Rate 74 73 61 Respiratory Rate 11 L 18 13 Blood Pressure 153/65 H 180/79 H Pulse Oximetry 94 93 92 01/12/22 19:00 01/12/22 19:05 01/12/22 19:10 Temperature Pulse Rate 66 64 79 Respiratory Rate 13 14 21 Blood Pressure 164/71 H Pulse Oximetry 91 92 93 01/12/22 19:15 01/12/22 19:20 01/12/22 19:25 Temperature Pulse Rate 67 64 61 Respiratory Rate 24 14 11 L Blood Pressure Pulse Oximetry 94 93 93 01/12/22 19:30 01/12/22 19:35 01/12/22 19:40 Temperature Pulse Rate 65 65 63 Respiratory Rate 10 L 16 16 Blood Pressure 151/66 H Pulse Oximetry 91 94 93 01/12/22 19:45 01/12/22 19:50 01/12/22 19:55 Temperature Pulse Rate 63 63 63 Respiratory Rate 16 10 L 12 Blood Pressure Pulse Oximetry 95 95 93 01/12/22 20:00 01/12/22 20:05 01/12/22 20:10 Temperature Pulse Rate 66 63 63 Respiratory Rate 11 L 10 L 15 Blood Pressure 159/72 H Pulse Oximetry 92 94 96 01/12/22 20:15 01/12/22 20:20 01/12/22 20:25 Temperature Pulse Rate 65 63 63 Respiratory Rate 13 15 15 Blood Pressure Pulse Oximetry 94 93 94 01/12/22 20:30 01/12/22 20:55 Temperature 98.3 F Pulse Rate 63 63 Respiratory Rate 13 18 Blood Pressure 159/75 H 157/65 H Pulse Oximetry 93 95 Oxygen Delivery Method Room Air Narrative Exam Narrative: HEENT is benign lungs are clear cor regular rate rhythm abdomen soft benign examination of her right hip shows a foreshortened right hip which is maximally externally rotated Objective Labs Result Diagrams: 01/12/22 15:20 01/12/22 15:20 Labs: Laboratory Results - last 24 hr 01/12/22 01/12/22 01/12/22 15:20 15:20 15:20 WBC 4.3 L RBC 4.17 Hgb 11.6 L Hct 34.9 L MCV 83.6 MCH 27.9 MCHC 33.4 RDW 14.9 H Plt Count 306 Neut % (Auto) 57.4 Lymph % (Auto) 23.3 L Sullivan % (Auto) 11.8 Eos % (Auto) 5.6 H Baso % (Auto) 1.9 Neut # (Auto) 2400 Lymph # (Auto) 1000 L Sullivan # (Auto) 500 Eos # (Auto) 200 Baso # (Auto) 100 PT 10.2 INR 0.9 APTT 32 Sodium 133 L Potassium 4.6 Chloride 98 Carbon Dioxide 28 BUN 46 H Creatinine 2.13 H Estimated GFR 22.0 L BUN/Creatinine Ratio 21.6 Glucose 101 Calcium 10.1 Total Bilirubin 0.4 AST 34 ALT 19 Alkaline Phosphatase 71 Total Protein 7.8 Albumin 4.6 Globulin 3.2 Albumin/Globulin Ratio 1.4 SARS-CoV-2 (PCR) 01/12/22 15:20 WBC RBC Hgb Hct MCV MCH MCHC RDW Plt Count Neut % (Auto) Lymph % (Auto) Sullivan % (Auto) Eos % (Auto) Baso % (Auto) Neut # (Auto) Lymph # (Auto) Sullivan # (Auto) Eos # (Auto) Baso # (Auto) PT INR APTT Sodium Potassium Chloride Carbon Dioxide BUN Creatinine Estimated GFR BUN/Creatinine Ratio Glucose Calcium Total Bilirubin AST ALT Alkaline Phosphatase Total Protein Albumin Globulin Albumin/Globulin Ratio SARS-CoV-2 (PCR) Negative Assessment & Plan Assessment and plan (1) Dislocation, hip closed: Qualifiers: Encounter type: initial encounter Laterality: right Qualified Code(s): S73.004A - Unspecified dislocation of right hip, initial encounter Status: Acute Plan I have recommended closed reduction of her right hip. She has multiple dislocations ultimately she may require revision of her right hip as she is having severe instability. She has previously been reducible in a closed manner. I did attempt to do a closed reduction with the assistance of the emergency room physician providing anesthesia. We were unable to get adequate sedation to get her hip reduced closed. Will take her to the operating room for better anesthesia and a right hip closed reduction. Procedure alternatives risks benefits and complications were discussed with family. We have had multiple discussions before about the potential need for ultimate revision. Not planning to proceed with open surgery tonight but she may need that in the future. Time Spent With Patient Critical Care time: I spent a total of [] minutes of critical care time on this patient's care today; this time is exclusive of procedural time.
--- NOTE | 2022-01-12 21:36 | PM.OP.1 ---
Operative Date/Time/Diagnoses Date of procedure: 01/12/22 Time of procedure: 21:15 Pre-op diagnosis: Right hip anterior dislocation Post-op diagnosis: same Procedure & Clinicians Procedure: Closed reduction right hip anterior dislocation Same procedure as scheduled: Yes Indications: This is 86-year-old female with a history of multiple right hip anterior dislocation she is brought the operating room for closed reduction. She had an attempted closed reduction in the emergency room but was having fairly severe spasms we had difficulty controlling with anesthesia in the ER she is brought the operating room for closed reduction with anesthesia. Surgeon: Michelle Johnson Anesthesia Type: General Operative Notes Findings: Closed reduction without difficulty with longitudinal traction and internal rotation. Radiographs confirmed concentric reduction, patient was stable maximum flexion internal rotation and 80 duction, no obvious instability with even external rotation of 60? in full extension Closure Type: primary Specimen(s): none sent Blood products transfused: none Procedure in detail: Patient brought the operating room she underwent induction of a general anesthesia. Her hip was carefully reduced with combination of longitudinal traction in internal rotation. It did require to reduction maneuvers with internal rotation and longitudinal traction. A definitive clunk with mass was palpable. I checked both the AP and lateral image it was a concentric reduction. I placed the patient through range of motion and she was noted to be stable particularly in flexion and abduction in internal rotation. With gentle stress she was not reducible with external rotation. She was transferred to recovery room in satisfactory condition. Complications: none Post-operative Condition: stable Plan for aftercare: Weight-bearing as tolerated right lower extremity avoid maximum extension and external rotation. Admission overnight for medical stabilization with plan to discharge to home likely tomorrow. Ultimately she may require revision to a more constrained liner.
--- NOTE | 2022-01-12 22:06 | SUR.OPER ---
Supine on padded OR bed, head on pillow, arms at patients sides at <90 degrees abduction, legs uncrossed. RN Bending Roll Hand, STONE [employer], and Surgeon at patients side throughout procedure.
--- NOTE | 2022-01-12 23:33 | SUR.PHASEII ---
Addendum entered by Arely Patton R.N. 01/12/22 23:46: [id number]- patient has walker at home and verbalized i have alot of tramadol if needed Original Note: 01/12/22-2249- home instructions completed with patient and spouse. questions answered. Dr Johnson here at bedside to answer question if followup needed per inquiry. to F/u in 2 weeks-info added to home instructions along with Dr Johnson's phone number. vss. feels ready to dress and go home. no changes rt hip//csm RLE. no dressings . no urge to void. iv out. dressed with help. 2315-lab called and printed copies of labs done today at hospital. lab phone number given out in case needs to contact lab in am if more labs were needed-per Krystin HarveySTAFF GENETIC COUNSELOR-asked lab earlier to save blood for tommorrow in case further labs needed. pt states readiness for discharge. has paperwork for home. 2325-Discharged to home to spouses care and car with all belongings. barby returned to patient on discharge by spouse (in cup in coat pocket)-patient aware as placed in car. encouraged to call MD if any problems/questions or concerns occur once discharged.
== END 2022-01-12 23:25 | disposition home or self-care (01) ==
LOC: ED 17:48 → AC 17:49
PROVIDERS: Admitting Provider Orthopaedic Surgery; Emergency Provider Emergency Medicine; PCP Family Medicine; Referring Provider Emergency Medicine; Visit Provider Orthopaedic Surgery
PROC: (CPT 27266; principal; 2022-01-12 20:30)
DX: T84.020A Dislocation of internal right hip prosthesis, initial encounter (principal); N18.4 Chronic kidney disease, stage 4 (severe)
CPT/HCPCS: 27266; 27250; 72170; 73502; 76000; 80053; 85025; 85610; 85730; 87635; 96361; 96374; 96376; 99152; 99153; 99285; 99291; C9803; G0378; J2405; J2704; J3010

== ENCOUNTER 2022-01-16 09:17 | Emergency (ER) | payer MEDICARE, SELFPAY ==
[2021-11-24 11:41] VITALS: BMI 21.1
[2022-01-16] VITALS (15 sets, daily range): BP systolic 143–170; BP diastolic 66–72; PULSE 65–76; RESP 16; TEMP 36.7; O2SAT 94–96; BMI 20.1
--- NOTE | 2022-01-16 09:58 | ED.NAVMDI ---
HPI - Nausea/Vomiting/Diarrhea General Chief complaint: Nausea/Vomiting/Diarrhea Stated complaint: nausea/vomiting/constipation x4 days Time Seen by Provider: 01/16/22 09:58 Source: patient Mode of arrival: Wheelchair History of Present Illness HPI Narrative: Patient is an 86-year-old female history of hypertension she takes aspirin, she had right anterior hip dislocation on 01/12/2022 she was taken to the OR for reduction. As she was nauseous afterwards and given Zofran. She has since been constipated. She has had some small hard bowel movements but not very much. She has been taking prune juice and over the counter stool softeners. She denies any chest pain or shortness of breath. She denies any painful or frequent urination. She has previously been constipated. She was seen here on 12/13/2021 for constipation. She was given an enema at that time and had success. Also CT showed constipation at that time. Related Data Home Medications Medication Instructions Recorded Confirmed acetaminophen 500 mg tablet 500 mg PO PRN PRN #0 07/09/17 12/29/21 (Tylenol Extra Strength) carvedilol 6.25 mg tablet 6.25 mg PO BID 11/18/19 12/29/21 aspirin 81 mg tablet,delayed 81 mg PO DAILY 06/07/20 12/29/21 release (Adult Aspirin Regimen) latanoprost 0.005 % eye drops EYE-BOTH 06/07/20 12/29/21 Previous Rx's Medication Instructions Recorded Disabled parking permit #1 ea 12/24/18 CMP Estradiol 0.0125% Vaginal Cream 0.5 g TOPICAL DAILY #30 gram 08/17/21 pravastatin 80 mg tablet 80 mg PO BEDTIME #90 tab 10/03/21 amlodipine 10 mg tablet See Rx Instructions .ROUTE 10/25/21 .COMPLEX #90 tab mirtazapine 15 mg tablet See Rx Instructions .ROUTE 11/15/21 .COMPLEX #90 tab tramadol 50 mg tablet See Rx Instructions PO .COMPLEX 11/24/21 PRN #120 tab cefuroxime axetil 500 mg tablet 500 mg PO BID #14 tab 12/03/21 ondansetron 4 mg disintegrating 4 mg PO TID-QID PRN #10 tab 12/03/21 tablet Lidocaine patch EX #30 ea 12/14/21 nitrofurantoin macrocrystal 100 mg 100 mg PO BID #10 cap 12/14/21 capsule losartan 50 mg tablet See Rx Instructions .ROUTE 12/26/21 .COMPLEX #90 tab lactulose 10 gram oral packet 20 g PO DAILY PRN #5 ea 01/16/22 Allergies Allergy/AdvReac Type Severity Reaction Status Date / Time adhesive tape [ADHESIVE TAPE] Allergy Mild skin Verified 01/12/22 20:54 reaction amoxicillin [AMOXICILLIN] AdvReac Intermediate YEAST Verified 01/12/22 20:54 INFECTION doxycycline [DOXYCYCLINE] AdvReac Intermediate YEAST Verified 01/12/22 20:54 SYMPTOMS azithromycin [AZITHROMYCIN] AdvReac Mild DIARRHEA Verified 01/12/22 20:54 estrogens, conjugated AdvReac Mild LOCAL Verified 01/12/22 20:54 [ESTROGENS, CONJUGATED] IRRITATION WHEN TOPICAL hydrocodone [HYDROCODONE] AdvReac Mild GI UPSET Verified 01/12/22 20:54 levofloxacin [LEVOFLOXACIN] AdvReac Mild GI UPSET Verified 01/12/22 20:54 phenazopyridine AdvReac Mild GI UPSET Verified 01/12/22 20:54 [PHENAZOPYRIDINE] Review of Systems Review of Systems Narrative: GENERAL: Denies chills, fatigue, malaise, fever, sweats, travel HEENT: Denies sinus pain, ear pain, sore throat, difficulty swallowing, neck pain RESPIRATORY: Denies dyspnea, cough, wheezing, hemoptysis, sputum. CARDIOVASCULAR: Denies chest pain, palpitations, orthopnea, edema GASTROINTESTINAL: See HPI : Denies dysuria, frequency, incontinence, hematuria, urinary retention, flank pain. MUSCULOSKELETAL: See HPI SKIN: No rash, no erythema, no pruritus NEUROLOGIC: Denies weakness, dizziness, headache, numbness, change in speech, confusion PSYCHIATRIC: No concerning psychosocial issues. 12 point review of systems is negative except for those stated above and HPI Patient History Medical History Abdominal pain Blood in urine Chronic low back pain with bilateral sciatica CKD (chronic kidney disease) (Unknown) Colon polyps (Unknown) Diarrhea Diverticular disease (Unknown) Glaucoma (Unknown) Greater trochanteric bursitis of left hip Hip pain Hyperlipemia (Unknown) Hypertension (Unknown) Impacted cerumen of both ears Loose stools Osteoporosis (Unknown) Pacemaker Rash and nonspecific skin eruption Scoliosis (Unknown) Skin cancer (~2004) Spinal stenosis (Unknown) 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) UTI (urinary tract infection) Vaginal candidiasis Vulvar irritation (Unknown) Surgical History History of hip replacement (Unknown) Hx of hysterectomy (Unknown) Family History Father Heart disease Mother Osteoporosis Social History household members: spouse Smoking Status: Never smoker alcohol intake: current substance use type: does not use Smoking Status: Never smoker alcohol intake frequency: holidays/special occasions only Substance Use Type: does not use Exam Initial Vital Signs Initial Vital Signs: Vital Signs Pulse Rate 68 01/16/22 09:28 Pulse Oximetry 95 01/16/22 09:28 GENERAL: Alert 86-year-old female in no acute distress. HEENT: Head atraumatic,EOMI, pupils reactive, face symmetric, moist mucous membranes CARDIOVASCULAR: Regular rate and rhythm without murmurs, rubs or gallops. RESPIRATORY: Breath sounds equal bilaterally, no wheezes rales or rhonchi. ABDOMEN: Soft, mild diffuse tenderness no guarding no rebound : No CVA tenderness EXTREMITIES: Normal range of motion, no clubbing or edema. Neurovascularly intact NEUROLOGICAL: Alert and oriented x4.Normal gait and speech. SKIN: Warm, dry, no laceration, no petechiae, no rashes or lesions. Course Orders Ordered: ED Orders 01/16/22 10:05 XR abdomen min 2V Stat Complete Blood Count AUTO DIFF Stat Comprehensive Metabolic Panel Stat Lipase Stat 01/16/22 13:14 CT abdomen pelvis wo con Stat Discontinued Medications Sodium Chloride (Normal Saline 0.9%) 1,000 mls @ 1,000 mls/hr IV CONT JAYSHREE Last Infusion: 01/16/22 13:41 Dose: 0 mls/hr Documented by: Admin: 01/16/22 11:13 Dose: 1,000 mls/hr Documented by: EDMUNDONEMeghan Magnesium Citrate (Magnesium Citrate 300 Ml Solution) 300 ml PO NOW ONE Stop: 01/16/22 15:01 Last Admin: 01/16/22 15:32 Dose: 300 ml Documented by: EDMUNDONER Mineral Oil (Mineral Oil 1 Each Enema) 1 each NH NOW ONE Stop: 01/16/22 11:57 Last Admin: 01/16/22 12:12 Dose: 1 each Documented by: LAURA Vital Signs Vital signs: Vital Signs - 8 hr 01/16/22 11:00 01/16/22 11:30 01/16/22 12:00 Pulse Rate 68 65 71 Blood Pressure Pulse Oximetry 96 96 94 01/16/22 12:14 01/16/22 13:58 01/16/22 13:59 Pulse Rate 74 67 67 Blood Pressure 157/70 H 159/71 H Pulse Oximetry 95 95 95 01/16/22 14:00 01/16/22 14:30 01/16/22 15:00 Pulse Rate 67 70 76 Blood Pressure 154/69 H 143/66 H 152/71 H Pulse Oximetry 95 95 96 MDM - Nausea/Vomiting/Diarrhea Lab Data Result diagrams: 01/16/22 10:05 01/16/22 10:05 Labs: Lab Results 01/16/22 01/16/22 Range/Units 10:05 10:05 WBC 8.6 (4.5-11.0) X10^3/uL RBC 3.97 L (4.0-5.2) X10^6/uL Hgb 11.1 L (12.0-16.0) g/dL Hct 33.0 L (36-46) % MCV 83.1 (80-100) fL MCH 27.9 (26-34) PG MCHC 33.6 (30-36) % RDW 15.3 H (11.6-14.8) % Plt Count 256 (150-400) X10^3/uL Neut % (Auto) 90.7 H (50-75) % Lymph % (Auto) 5.7 L (25-40) % Custer % (Auto) 3.4 (3-14) % Eos % (Auto) 0.0 L (2-4) % Baso % (Auto) 0.2 (0-2) % Neut # (Auto) 7800 H (7855-3547) /uL Lymph # (Auto) 500 L (5125-5435) /uL Custer # (Auto) 300 (0-900) /uL Eos # (Auto) 0 (0-450) /uL Baso # (Auto) 0 (0-100) /uL Sodium 136 L (137-145) mmol/L Potassium 4.2 (3.4-5.1) mmol/L Chloride 98 (98-107) mmol/L Carbon Dioxide 29 (22-32) mmol/L BUN 37 H (7-17) mg/dL Creatinine 2.26 H (0.52-1.04) mg/dL Estimated GFR 20.6 L (>60) mL/min BUN/Creatinine Ratio 16.4 (6-22) Glucose 119 H (80-110) mg/dL Calcium 10.3 H (8.4-10.2) mg/dL Total Bilirubin 0.7 (0.2-1.3) mg/dL AST 33 (14-36) IU/L ALT 18 (<35) IU/L Alkaline Phosphatase 60 (38-126) U/L Total Protein 8.1 (6.3-8.2) g/dL Albumin 4.7 (3.5-5.0) g/dL Globulin 3.4 (1.7-4.1) g/dL Albumin/Globulin Ratio 1.4 (1.0-2.8) Lipase 89 (23-300) U/L Imaging Data Abdominal x-ray: Radiologist's Impression: PROCEDURE:? XR ABDOMEN MIN 2V ? INDICATIONS:? n/v constipation ? TECHNIQUE:? 2 views of the abdomen were acquired.? ? COMPARISON:? [facility], CT, CT KIDNEY URETER BLADDER (KUB), 12/13/2021, 9:28.? [facility], CR, ABDOMEN 1 VIEW, 02/28/2012, 14:04. ? FINDINGS:? Surgical changes and devices:? left-sided cardiac pacer device is in place.? Status post right total hip arthroplasty. ? Bowel:? No pneumoperitoneum.? The bowel gas pattern is nonspecific with moderate amount of fecal material seen in the region of the descending colon and rectum.? There is also a moderate amount of fecal material in the expected location of the proximal ascending colon.? No radiographic evidence to suggest abnormal wall thickening.? No differential air-fluid levels identified..? Lung bases appear clear. ? Soft tissues:? No masses; visualized solid organ contours appear normal in size.? No suspicious abdominal calcifications.? ? Bones:? No suspicious bony abnormalities.? Severe dextro scoliosis of the mid lumbar spine. ? IMPRESSION:? Nonobstructive bowel gas pattern with moderate amount of fecal material projecting over the proximal ascending colon, descending colon, and rectum. ? ? Dictated by: Colt Vogel M.D. on 01/16/2022 at 10:49 ? ? CT scan - abdomen/pelvis: Radiologist's Impression: PROCEDURE:? CT ABDOMEN PELVIS WO CON ? INDICATIONS:? pain nausea ? TECHNIQUE:? Axial sections were acquired from the lung bases to the pubic symphysis.? Coronal and sagittal reformats were performed.? For radiation dose reduction, the following was used: ?automated exposure control, adjustment of mA and/or kV according to patient size.? ? COMPARISON:? [facility], CT, CT KIDNEY URETER BLADDER (KUB), 12/13/2021, 9:28.? [facility], CT, CT ABDOMEN PELVIS WO CON, 09/26/2018, 11:09. ? FINDINGS:? Image quality: Portions of the lower pelvis are suboptimally evaluated secondary to metallic streak artifact from hip arthroplasty. ? Lung bases:? Unremarkable.? ? Heart:? The heart is enlarged. ? URINARY: Right Kidney: ? No stones or hydronephrosis.? Mild atrophy. Right Ureter:? No hydroureter.? ? Left Kidney: ? No stones or hydronephrosis.? Mild atrophy. Left Ureter:? No hydroureter.? ? Bladder:? Bladder is markedly distended. ? ABDOMEN: Liver:? Unremarkable.? ? Gallbladder:? Unremarkable.? ? Biliary ducts:? Unremarkable.? ? Pancreas:? Unremarkable.? ? Spleen:? Unremarkable.? ? Adrenal Glands:? Unremarkable.? ? ? Stomach and Bowel:? Stomach, small bowel loops, and colon are unremarkable.? Colonic diverticula are present without associated inflammatory change.? Prominent colonic stool. ? Peritoneum:? No abnormal intraperitoneal fluid.? No free air.? ? Ventral Wall: ? No hernia.? Abdominal Nodes:? No enlarged retroperitoneal or mesenteric lymph nodes.? Vessels:? Aorta and inferior vena cava are normal in size.? ? PELVIS: Pelvic Organs:? Unremarkable.? ? Pelvic Nodes: Unremarkable. Miscellaneous: No inguinal hernias are seen. ? ? ? Bones:? Marked rightward scoliotic curvature. ? IMPRESSION:? ? Diverticulosis. ? No renal or ureteral stones. ? Prominent stool suggestive of constipation without obstruction. ? Dictated by: Kirti Forrester M.D. on 01/16/2022 at 14:36 ? ? MDM Narrative Medical decision making narrative: Patient continues to have nausea and mild abdominal discomfort. X-ray does show constipation. However patient does not have any rectal pressure. Reassuring kidney function is at baseline. She did not have any success with an enema. Decision to do a CT without contrast which again confirms constipation. She is given a bottle of magnesium citrate and had prescription for lactulose. Constipation is likely secondary to medication with recent procedure. Discharge Plan Departure Patient Disposition: Home Clinical Impression: Constipation Instructions: DI for Constipation Activity Restrictions/Additional Instructions: *You have been diagnosed with constipation *What to do: At this time you are constipated. It may be from medication they were previously taking. Increase water intake, decreased walking tolerance *Continue to take medications as directed Magnesium citrate take half a bottle today if you have not had a bowel movement then take another half a bottle in the morning. Colace 1 tablet twice a day as needed for constipation Lactulose 1 packet 1 was daily if needed for constipation--> SENT TO [facility] *Follow up with your primary care provider in 2-3 days or call [phone] *Return to ER if you should have increasing abdominal pain persistent vomiting or any new, worsening or concerning symptoms Prescriptions: New lactulose 10 gram packet 20 g PO DAILY PRN (Reason: constipation) Qty: 5 0RF No Action (DME) Disabled parking permit Qty: 1 0RF Dose Instruction: As directed Rx Instructions: As directed acetaminophen [Tylenol Extra Strength] 500 MG tablet 500 mg PO PRN PRN (Reason: pain) Qty: 0 0RF CMP Estradiol 0.0125% Vaginal Cream 0.5 g topical DAILY Qty: 30 5RF Rx Instructions: Apply to irritated areas on the external genitalia every day amlodipine 10 mg tablet See Rx Instructions .ROUTE .COMPLEX Qty: 90 0RF Dose Instruction: TAKE ONE TABLET BY MOUTH ONE TIME DAILY Rx Instructions: TAKE ONE TABLET BY MOUTH ONE TIME DAILY mirtazapine 15 mg tablet See Rx Instructions .ROUTE .COMPLEX Qty: 90 0RF Dose Instruction: TAKE ONE TABLET BY MOUTH ONE TIME DAILY Rx Instructions: TAKE ONE TABLET BY MOUTH ONE TIME DAILY losartan 50 mg tablet See Rx Instructions .ROUTE .COMPLEX Qty: 90 0RF Dose Instruction: TAKE ONE TABLET BY MOUTH ONE TIME DAILY Rx Instructions: TAKE ONE TABLET BY MOUTH ONE TIME DAILY latanoprost 0.005 % drops EYE-BOTH 0RF aspirin [Adult Aspirin Regimen] 81 mg tablet,delayed release (DR/EC) 81 mg PO DAILY 0RF pravastatin 80 mg tablet 80 mg PO BEDTIME Qty: 90 3RF tramadol 50 mg tablet See Rx Instructions PO .COMPLEX PRN (Reason: pain) Qty: 120 0RF Rx Instructions: Take 1-2 tablets for pain, PO, PRN; nitrofurantoin macrocrystal 100 mg capsule 100 mg PO BID Qty: 10 0RF Rx Instructions: must administer with a meal/food (DME) Lidocaine patch EX See Rx Instructions .Route .MEDSUPPLY Qty: 30 5RF Rx Instructions: 5% patch on skin daily PRN for pain carvedilol 6.25 mg Tablet 6.25 mg PO BID 0RF cefuroxime axetil 500 mg tablet 500 mg PO BID Qty: 14 0RF ondansetron 4 mg tablet,disintegrating 4 mg PO TID-QID PRN (Reason: nausea and vomiting) Qty: 10 0RF Referrals: Roman Mayberry DO [Primary Care Provider] -
--- NOTE | 2022-01-16 10:05 | DI.RAD.S_ITS ---
PROCEDURE: XR ABDOMEN MIN 2V INDICATIONS: n/v constipation TECHNIQUE: 2 views of the abdomen were acquired. COMPARISON: [facility], CT, CT KIDNEY URETER BLADDER (KUB), 12/13/2021, 9:28. [facility], CR, ABDOMEN 1 VIEW, 02/28/2012, 14:04. FINDINGS: Surgical changes and devices: left-sided cardiac pacer device is in place. Status post right total hip arthroplasty. Bowel: No pneumoperitoneum. The bowel gas pattern is nonspecific with moderate amount of fecal material seen in the region of the descending colon and rectum. There is also a moderate amount of fecal material in the expected location of the proximal ascending colon. No radiographic evidence to suggest abnormal wall thickening. No differential air-fluid levels identified.. Lung bases appear clear. Soft tissues: No masses; visualized solid organ contours appear normal in size. No suspicious abdominal calcifications. Bones: No suspicious bony abnormalities. Severe dextro scoliosis of the mid lumbar spine. IMPRESSION: Nonobstructive bowel gas pattern with moderate amount of fecal material projecting over the proximal ascending colon, descending colon, and rectum. Dictated by: Colt Vogel M.D. on 01/16/2022 at 10:49 Approved by: Colt Vogel M.D. on 01/16/2022 at 10:52
[2022-01-16] MEDS: SODIUM CHLORIDE 0.9% 1,000 ML 1000 ML IV (11:13)
[2022-01-16 11:22] LABS: Add Manual Diff / Slide Review NO; Basophils Absolute Auto 0 /uL (0-100); Basophils Percent Auto 0.2 % (0-2); Eosinophils Absolute Auto 0 /uL (0-450); Hemoglobin 11.1 g/dL (12.0-16.0); Lymphocytes Absolute Auto 500 /uL (1100-4500); Lymphocytes Percent Auto 5.7 % (25-40); Mean Corpuscular HGB Conc 33.6 % (30-36); Mean Corpuscular Hemoglobin 27.9 PG (26-34); Mean Corpuscular Volume 83.1 fL (80-100); Monocytes Absolute Auto 300 /uL (0-900); Monocytes Percent Auto 3.4 % (3-14); Neutrophils Absolute Auto 7800 /uL (1500-7000); Neutrophils Percent Auto 90.7 % (50-75); Platelet Count 256 X10^3/uL (150-400); Red Blood Cell Count 3.97 X10^6/uL (4.0-5.2); Red Cell Distribution Width 15.3 % (11.6-14.8); White Blood Cell Count 8.6 X10^3/uL (4.5-11.0)
[2022-01-16 11:34] LABS: Alanine Aminotransferase 18 IU/L (<35); Albumin 4.7 g/dL (3.5-5.0); Albumin Globulin Ratio 1.4 (1.0-2.8); Alkaline Phosphatase 60 U/L (38-126); Aspartate Aminotransferase 33 IU/L (14-36); BUN Creatinine Ratio 16.4 (6-22); Bilirubin Total 0.7 mg/dL (0.2-1.3); Blood Urea Nitrogen 37 mg/dL (7-17); Calcium 10.3 mg/dL (8.4-10.2); Carbon Dioxide 29 mmol/L (22-32); Chloride 98 mmol/L (98-107); Estimated Glomerular Filt Rate 20.6 mL/min (>60); Globulin 3.4 g/dL (1.7-4.1); Glucose 119 mg/dL (80-110); HEMOLYSIS < 15 (0-50); Lipase 89 U/L (23-300); Potassium 4.2 mmol/L (3.4-5.1); Sodium 136 mmol/L (137-145); Total Protein 8.1 g/dL (6.3-8.2)
[2022-01-16] MEDS: MINERAL OIL 1 EACH ENEMA PR (12:12)
--- NOTE | 2022-01-16 13:14 | DI.CT.S_ITS ---
PROCEDURE: CT ABDOMEN PELVIS WO CON INDICATIONS: pain nausea TECHNIQUE: Axial sections were acquired from the lung bases to the pubic symphysis. Coronal and sagittal reformats were performed. For radiation dose reduction, the following was used: automated exposure control, adjustment of mA and/or kV according to patient size. COMPARISON: [facility], CT, CT KIDNEY URETER BLADDER (KUB), 12/13/2021, 9:28. [facility], CT, CT ABDOMEN PELVIS WO CON, 09/26/2018, 11:09. FINDINGS: Image quality: Portions of the lower pelvis are suboptimally evaluated secondary to metallic streak artifact from hip arthroplasty. Lung bases: Unremarkable. Heart: The heart is enlarged. URINARY: Right Kidney: No stones or hydronephrosis. Mild atrophy. Right Ureter: No hydroureter. Left Kidney: No stones or hydronephrosis. Mild atrophy. Left Ureter: No hydroureter. Bladder: Bladder is markedly distended. ABDOMEN: Liver: Unremarkable. Gallbladder: Unremarkable. Biliary ducts: Unremarkable. Pancreas: Unremarkable. Spleen: Unremarkable. Adrenal Glands: Unremarkable. Stomach and Bowel: Stomach, small bowel loops, and colon are unremarkable. Colonic diverticula are present without associated inflammatory change. Prominent colonic stool. Peritoneum: No abnormal intraperitoneal fluid. No free air. Ventral Wall: No hernia. Abdominal Nodes: No enlarged retroperitoneal or mesenteric lymph nodes. Vessels: Aorta and inferior vena cava are normal in size. PELVIS: Pelvic Organs: Unremarkable. Pelvic Nodes: Unremarkable. Miscellaneous: No inguinal hernias are seen. Bones: Marked rightward scoliotic curvature. IMPRESSION: Diverticulosis. No renal or ureteral stones. Prominent stool suggestive of constipation without obstruction. Dictated by: Kirti Forrester M.D. on 01/16/2022 at 14:36 Approved by: Kirti Forrester M.D. on 01/16/2022 at 14:53
[2022-01-16] MEDS: MAGNESIUM CITRATE 300 ML SOLUTION PO (15:32)
== END 2022-01-16 15:44 | disposition home or self-care (01) ==
PROVIDERS: Emergency Provider Emergency Medicine; PCP Family Medicine
DX: K59.00 Constipation, unspecified (principal)
CPT/HCPCS: 36415; 74019; 74176; 80053; 83690; 85025; 96360; 96361; 99284; 99285

== ENCOUNTER → 2022-04-23 12:46 | Outpatient (CLI) | payer MEDICARE, SELFPAY ==
[2021-11-24 11:41] VITALS: BMI 21.1
[2022-04-23 13:50] LABS: Appearance Urine UA CLEAR; Bilirubin Urine UA NEGATIVE (NEGATIVE); Color Urine UA YELLOW; Glucose Urine UA NEGATIVE (Negative); Ketones Urine UA NEGATIVE (NEGATIVE); Leukocyte Esterase Urine UA TRACE (NEGATIVE); Nitrite Urine UA NEGATIVE (Negative); Occult Blood Urine UA 3+ (Negative); Protein Urine UA 2+ (Negative); Urobilinogen Urine UA 0.2 E.U./dL (0.2); pH Urine UA 5.5 (4.5-8.0)
[2022-04-23 13:56] LABS: RBC Urine 30-100/HPF (0-5/HPF)
[2022-04-23 13:57] LABS: Bacteria Urine Moderate (10-30); Culture Indicated Urine Cult Not Indicated; Squamous Epithelial Cell Urine 10-30 /HPF (0-5/HPF); WBC Urine 1-5/HPF (0-5/HPF)
[2022-04-23 14:11] LABS: Add Manual Diff / Slide Review NO; Basophils Absolute Auto 100 /uL (0-100); Basophils Percent Auto 1.2 % (0-2); Eosinophils Absolute Auto 100 /uL (0-450); Eosinophils Percent Auto 2.5 % (2-4); Hematocrit 31.9 % (36-46); Hemoglobin 10.9 g/dL (12.0-16.0); Lymphocytes Absolute Auto 500 /uL (1100-4500); Lymphocytes Percent Auto 11.6 % (25-40); Mean Corpuscular HGB Conc 34.2 % (30-36); Mean Corpuscular Hemoglobin 28.6 PG (26-34); Mean Corpuscular Volume 83.5 fL (80-100); Monocytes Absolute Auto 300 /uL (0-900); Monocytes Percent Auto 8.2 % (3-14); Neutrophils Absolute Auto 3200 /uL (1500-7000); Neutrophils Percent Auto 76.5 % (50-75); Platelet Count 287 X10^3/uL (150-400); Red Blood Cell Count 3.82 X10^6/uL (4.0-5.2); Red Cell Distribution Width 14.4 % (11.6-14.8); White Blood Cell Count 4.2 X10^3/uL (4.5-11.0)
[2022-04-23 14:40] LABS: Alanine Aminotransferase 14 IU/L (<35); Albumin 4.4 g/dL (3.5-5.0); Albumin Globulin Ratio 1.3 (1.0-2.8); Alkaline Phosphatase 87 U/L (38-126); Aspartate Aminotransferase 29 IU/L (14-36); BUN Creatinine Ratio 19.5 (6-22); Bilirubin Total 0.4 mg/dL (0.2-1.3); Blood Urea Nitrogen 57 mg/dL (7-17); Calcium 9.5 mg/dL (8.4-10.2); Carbon Dioxide 24 mmol/L (22-32); Chloride 99 mmol/L (98-107); Estimated Glomerular Filt Rate 15 mL/min (>60); Globulin 3.5 g/dL (1.7-4.1); Glucose 106 mg/dL (80-110); HEMOLYSIS < 15 (0-50); Magnesium 2.5 mg/dL (1.6-2.3); Phosphorous 4.3 mg/dL (2.8-4.1); Potassium 4.3 mmol/L (3.4-5.1); Sodium 133 mmol/L (137-145); Total Protein 7.9 g/dL (6.3-8.2)
[2022-04-23 22:31] LABS: Creatinine Urine Random 67.6 mg/dL; Protein (Total) Urine Random 79 mg/dL (0-12); Protein Creatinine Ratio Urine 1.16 GRAM/24H
[2022-04-24 11:42] LABS: Calcium 9.2 mg/dL (8.7-10.3); Parathyroid Hormone, Intact 103 pg/mL (15-65)
== END ==
PROVIDERS: PCP Family Medicine; Referring Provider Specialist; Visit Provider Specialist
DX: N18.4 Chronic kidney disease, stage 4 (severe) (principal)
CPT/HCPCS: 36415; 80053; 81001; 82310; 82570; 83735; 83970; 84100; 84156; 85025

== ENCOUNTER → 2022-07-10 13:42 | Outpatient (CLI) | payer MEDICARE, SELFPAY ==
[2021-11-24 11:41] VITALS: BMI 21.1
[2022-07-10 14:28] LABS: Add Manual Diff / Slide Review NO; Basophils Absolute Auto 100 /uL (0-100); Basophils Percent Auto 2.1 % (0-2); Eosinophils Absolute Auto 200 /uL (0-450); Hematocrit 31.8 % (36-46); Hemoglobin 10.6 g/dL (12.0-16.0); Lymphocytes Absolute Auto 700 /uL (1100-4500); Lymphocytes Percent Auto 13.9 % (25-40); Mean Corpuscular HGB Conc 33.2 % (30-36); Mean Corpuscular Hemoglobin 27.5 PG (26-34); Mean Corpuscular Volume 82.7 fL (80-100); Monocytes Absolute Auto 500 /uL (0-900); Monocytes Percent Auto 8.8 % (3-14); Neutrophils Absolute Auto 3900 /uL (1500-7000); Neutrophils Percent Auto 72.2 % (50-75); Platelet Count 311 X10^3/uL (150-400); Red Blood Cell Count 3.85 X10^6/uL (4.0-5.2); Red Cell Distribution Width 16.7 % (11.6-14.8); White Blood Cell Count 5.4 X10^3/uL (4.5-11.0)
[2022-07-10 14:57] LABS: Alanine Aminotransferase 15 IU/L (<35); Albumin 4.2 g/dL (3.5-5.0); Albumin Globulin Ratio 1.5 (1.0-2.8); Alkaline Phosphatase 77 U/L (38-126); Aspartate Aminotransferase 27 IU/L (14-36); BUN Creatinine Ratio 19.9 (6-22); Bilirubin Total 0.5 mg/dL (0.2-1.3); Blood Urea Nitrogen 49 mg/dL (7-17); Calcium 9.4 mg/dL (8.4-10.2); Carbon Dioxide 24 mmol/L (22-32); Chloride 98 mmol/L (98-107); Estimated Glomerular Filt Rate 19 mL/min (>60); Globulin 2.8 g/dL (1.7-4.1); Glucose 103 mg/dL (80-110); HEMOLYSIS < 15 (0-50); Magnesium 2.2 mg/dL (1.6-2.3); Phosphorous 4.3 mg/dL (2.8-4.1); Potassium 4.6 mmol/L (3.4-5.1); Sodium 132 mmol/L (137-145)
[2022-07-10 17:19] LABS: Appearance Urine UA CLEAR; Bilirubin Urine UA NEGATIVE (NEGATIVE); Color Urine UA YELLOW; Glucose Urine UA NEGATIVE (Negative); Ketones Urine UA NEGATIVE (NEGATIVE); Leukocyte Esterase Urine UA NEGATIVE (NEGATIVE); Nitrite Urine UA NEGATIVE (Negative); Occult Blood Urine UA 2+ (Negative); Protein Urine UA 2+ (Negative); Specific Gravity Urine UA <=1.005 (1.000-1.035); Urobilinogen Urine UA 0.2 E.U./dL (0.2)
[2022-07-10 17:25] LABS: pH Urine UA 6.5 (4.5-8.0)
[2022-07-10 17:39] LABS: RBC Urine 1-5/HPF (0-5/HPF); WBC Urine 0-1/HPF (0-5/HPF)
[2022-07-10 17:41] LABS: Bacteria Urine Moderate (10-30); Culture Indicated Urine Specimen Cultured; Squamous Epithelial Cell Urine 0-1 /HPF (0-5/HPF)
[2022-07-10 19:30] LABS: Creatinine Urine Random 60.3 mg/dL; Protein (Total) Urine Random 100 mg/dL (0-12); Protein Creatinine Ratio Urine 1.65 GRAM/24H
[2022-07-11 09:56] LABS: Calcium 9.5 mg/dL (8.7-10.3); Parathyroid Hormone, Intact 114 pg/mL (15-65)
== END ==
PROVIDERS: PCP Family Medicine; Referring Provider Specialist; Visit Provider Specialist
DX: N18.4 Chronic kidney disease, stage 4 (severe) (principal)
CPT/HCPCS: 36415; 80053; 81001; 82310; 82570; 83735; 83970; 84100; 84156; 85025; 87086

== ENCOUNTER → 2022-10-26 13:07 | Outpatient (CLI) | payer MEDICARE, SELFPAY ==
[2021-11-24 11:41] VITALS: BMI 21.1
[2022-10-26 14:27] LABS: Add Manual Diff / Slide Review NO; Basophils Absolute Auto 100 /uL (0-100); Basophils Percent Auto 2.2 % (0-2); Eosinophils Absolute Auto 200 /uL (0-450); Eosinophils Percent Auto 4.3 % (2-4); Hematocrit 33.9 % (36-46); Hemoglobin 11.1 g/dL (12.0-16.0); Lymphocytes Absolute Auto 500 /uL (1100-4500); Lymphocytes Percent Auto 13.9 % (25-40); Mean Corpuscular HGB Conc 32.6 % (30-36); Mean Corpuscular Hemoglobin 27.7 PG (26-34); Mean Corpuscular Volume 85.1 fL (80-100); Monocytes Absolute Auto 300 /uL (0-900); Monocytes Percent Auto 7.9 % (3-14); Neutrophils Absolute Auto 2800 /uL (1500-7000); Neutrophils Percent Auto 71.7 % (50-75); Platelet Count 344 X10^3/uL (150-400); Red Blood Cell Count 3.99 X10^6/uL (4.0-5.2); Red Cell Distribution Width 14.8 % (11.6-14.8)
[2022-10-26 14:59] LABS: Appearance Urine UA CLEAR; Bilirubin Urine UA NEGATIVE (NEGATIVE); Color Urine UA YELLOW; Glucose Urine UA NEGATIVE (Negative); Ketones Urine UA NEGATIVE (NEGATIVE); Leukocyte Esterase Urine UA NEGATIVE (NEGATIVE); Nitrite Urine UA NEGATIVE (Negative); Occult Blood Urine UA 3+ (Negative); Protein Urine UA 2+ (Negative); Urobilinogen Urine UA 0.2 E.U./dL (0.2)
[2022-10-26 15:04] LABS: Alanine Aminotransferase 18 IU/L (<35); Albumin 4.5 g/dL (3.5-5.0); Albumin Globulin Ratio 1.5 (1.0-2.8); Alkaline Phosphatase 86 U/L (38-126); Aspartate Aminotransferase 28 IU/L (14-36); BUN Creatinine Ratio 19.5 (6-22); Bilirubin Total 0.5 mg/dL (0.2-1.3); Blood Urea Nitrogen 60 mg/dL (7-17); Calcium 9.7 mg/dL (8.4-10.2); Carbon Dioxide 22 mmol/L (22-32); Chloride 98 mmol/L (98-107); Estimated Glomerular Filt Rate 14 mL/min (>60); Globulin 3.1 g/dL (1.7-4.1); Glucose 91 mg/dL (80-110); HEMOLYSIS < 15 (0-50); Magnesium 2.7 mg/dL (1.6-2.3); Phosphorous 4.7 mg/dL (2.8-4.1); Potassium 4.9 mmol/L (3.4-5.1); Sodium 133 mmol/L (137-145); Total Protein 7.6 g/dL (6.3-8.2)
[2022-10-26 15:39] LABS: pH Urine UA 5.5 (4.5-8.0)
[2022-10-26 16:03] LABS: RBC Urine 10-30/HPF (0-5/HPF); Squamous Epithelial Cell Urine 10-30 /HPF (0-5/HPF); WBC Urine 1-5/HPF (0-5/HPF)
[2022-10-26 16:04] LABS: Bacteria Urine Few (2-10)
[2022-10-26 16:05] LABS: Culture Indicated Urine Cult Not Indicated
[2022-10-26 16:12] LABS: Creatinine Urine Random 67.6 mg/dL; Protein (Total) Urine Random 109 mg/dL (0-12); Protein Creatinine Ratio Urine 1.61 GRAM/24H
[2022-10-28 10:53] LABS: Parathyroid Hormone, Intact 116 pg/mL (15-65)
== END ==
PROVIDERS: PCP Family Medicine; Referring Provider Specialist; Visit Provider Specialist
DX: N18.4 Chronic kidney disease, stage 4 (severe) (principal); E21.1 Secondary hyperparathyroidism, not elsewhere classified; D63.1 Anemia in chronic kidney disease
CPT/HCPCS: 36415; 80053; 81003; 81015; 82310; 82570; 83735; 83970; 84100; 84156; 85025

== ENCOUNTER → 2022-12-26 15:21 | Outpatient (CLI) | payer MEDICARE, SELFPAY ==
[2022-11-14 14:17] VITALS: BMI 21.1
[2022-12-26 16:40] LABS: Add Manual Diff / Slide Review NO; Basophils Absolute Auto 100 /uL (0-100); Basophils Percent Auto 1.6 % (0-2); Eosinophils Absolute Auto 400 /uL (0-450); Eosinophils Percent Auto 8.3 % (2-4); Hematocrit 28.4 % (36-46); Hemoglobin 9.6 g/dL (12.0-16.0); Lymphocytes Absolute Auto 700 /uL (1100-4500); Lymphocytes Percent Auto 14.2 % (25-40); Mean Corpuscular HGB Conc 33.8 % (30-36); Mean Corpuscular Hemoglobin 28.3 PG (26-34); Mean Corpuscular Volume 83.9 fL (80-100); Monocytes Absolute Auto 500 /uL (0-900); Monocytes Percent Auto 10.4 % (3-14); Neutrophils Absolute Auto 3000 /uL (1500-7000); Neutrophils Percent Auto 65.5 % (50-75); Platelet Count 317 X10^3/uL (150-400); Red Blood Cell Count 3.39 X10^6/uL (4.0-5.2); Red Cell Distribution Width 15.1 % (11.6-14.8); White Blood Cell Count 4.6 X10^3/uL (4.5-11.0)
[2022-12-26 17:03] LABS: BUN Creatinine Ratio 15.5 (6-22); Blood Urea Nitrogen 52 mg/dL (7-17); Calcium 9.4 mg/dL (8.4-10.2); Carbon Dioxide 20 mmol/L (22-32); Chloride 95 mmol/L (98-107); Estimated Glomerular Filt Rate 13 mL/min (>60); Glucose 97 mg/dL (80-110); HEMOLYSIS < 15 (0-50); Phosphorous 4.3 mg/dL (2.8-4.1); Sodium 129 mmol/L (137-145)
[2022-12-26 17:21] LABS: Appearance Urine UA CLEAR; Bilirubin Urine UA NEGATIVE (NEGATIVE); Color Urine UA YELLOW; Glucose Urine UA NEGATIVE (Negative); Ketones Urine UA NEGATIVE (NEGATIVE); Leukocyte Esterase Urine UA NEGATIVE (NEGATIVE); Nitrite Urine UA NEGATIVE (Negative); Occult Blood Urine UA 2+ (Negative); Protein Urine UA 2+ (Negative); Urobilinogen Urine UA 0.2 E.U./dL (0.2)
[2022-12-26 17:23] LABS: pH Urine UA 5.5 (4.5-8.0)
[2022-12-26 17:32] LABS: Creatinine Urine Random 80.5 mg/dL; Protein (Total) Urine Random 134 mg/dL (0-12); Protein Creatinine Ratio Urine 1.66 GRAM/24H
[2022-12-26 17:44] LABS: Amorphous Sediment Urine 1+; Bacteria Urine Moderate (10-30); Culture Indicated Urine Specimen Cultured; RBC Urine 5-10/HPF (0-5/HPF); Squamous Epithelial Cell Urine 5-10 /HPF (0-5/HPF); WBC Urine 1-5/HPF (0-5/HPF)
== END ==
PROVIDERS: PCP Family Medicine; Referring Provider Specialist; Visit Provider Specialist
DX: N18.4 Chronic kidney disease, stage 4 (severe) (principal)
CPT/HCPCS: 36415; 80048; 81001; 82570; 84100; 84156; 85025; 87086

== ENCOUNTER → 2023-03-05 14:32 | Outpatient (CLI) | payer MEDICARE, SELFPAY ==
[2022-11-14 14:17] VITALS: BMI 21.1
[2023-03-05 15:10] LABS: Add Manual Diff / Slide Review NO; Basophils Absolute Auto 100 /uL (0-100); Basophils Percent Auto 2.4 % (0-2); Eosinophils Absolute Auto 500 /uL (0-450); Eosinophils Percent Auto 8.1 % (2-4); Hematocrit 32.8 % (36-46); Hemoglobin 10.9 g/dL (12.0-16.0); Lymphocytes Absolute Auto 900 /uL (1100-4500); Lymphocytes Percent Auto 16.4 % (25-40); Mean Corpuscular HGB Conc 33.1 % (30-36); Mean Corpuscular Hemoglobin 27.4 PG (26-34); Mean Corpuscular Volume 82.8 fL (80-100); Monocytes Absolute Auto 500 /uL (0-900); Monocytes Percent Auto 8.8 % (3-14); Neutrophils Absolute Auto 3600 /uL (1500-7000); Neutrophils Percent Auto 64.3 % (50-75); Platelet Count 265 X10^3/uL (150-400); Red Blood Cell Count 3.96 X10^6/uL (4.0-5.2); Red Cell Distribution Width 15.8 % (11.6-14.8); White Blood Cell Count 5.6 X10^3/uL (4.5-11.0)
[2023-03-05 15:19] LABS: Appearance Urine UA CLEAR; Bilirubin Urine UA NEGATIVE (NEGATIVE); Color Urine UA YELLOW; Glucose Urine UA NEGATIVE (Negative); Ketones Urine UA NEGATIVE (NEGATIVE); Leukocyte Esterase Urine UA NEGATIVE (NEGATIVE); Nitrite Urine UA NEGATIVE (Negative); Occult Blood Urine UA 2+ (Negative); Protein Urine UA 2+ (Negative); Specific Gravity Urine UA 1.015 (1.000-1.035); Urobilinogen Urine UA 0.2 E.U./dL (0.2)
[2023-03-05 15:27] LABS: Bacteria Urine Few (2-10); Culture Indicated Urine Cult Not Indicated; RBC Urine 1-5/HPF (0-5/HPF); Squamous Epithelial Cell Urine 1-5 /HPF (0-5/HPF); WBC Urine 1-5/HPF (0-5/HPF)
[2023-03-05 15:33] LABS: BUN Creatinine Ratio 16.4 (6-22); Blood Urea Nitrogen 56 mg/dL (7-17); Calcium 9.6 mg/dL (8.4-10.2); Carbon Dioxide 21 mmol/L (22-32); Chloride 99 mmol/L (98-107); Estimated Glomerular Filt Rate 13 mL/min (>60); Glucose 94 mg/dL (80-110); HEMOLYSIS < 15 (0-50); Phosphorous 4.3 mg/dL (2.8-4.1); Potassium 4.5 mmol/L (3.4-5.1); Sodium 133 mmol/L (137-145)
[2023-03-05 15:57] LABS: Creatinine Urine Random 66.4 mg/dL; Protein (Total) Urine Random 117 mg/dL (0-12); Protein Creatinine Ratio Urine 1.76 GRAM/24H
== END ==
PROVIDERS: PCP Family Medicine; Referring Provider Specialist; Visit Provider Specialist
DX: N18.4 Chronic kidney disease, stage 4 (severe) (principal)
CPT/HCPCS: 36415; 80048; 81001; 82570; 84100; 84156; 85025

== ENCOUNTER 2023-05-02 20:01 | Emergency (ER) | payer MEDICARE, SELFPAY ==
[2022-11-14 14:17] VITALS: BMI 21.1
[2023-05-02 20:12] VITALS: BP 148/67; PULSE 65; RESP 20; TEMP 36.5; O2SAT 96; BMI 20.1
--- NOTE | 2023-05-02 20:21 | DI.RAD.S_ITS ---
PROCEDURE: XR HIP W PEL IF DONE RT 2V INDICATIONS: pain in hip, hip locked up TECHNIQUE: AP pelvis with AP and lateral views of the right hip. COMPARISON: [facility], CR, XR HIP W PEL IF DONE RT 2V, 01/12/2022, 15:24. [facility], CR, XR HIP W PEL IF DONE RT 2V, 01/12/2022, 22:41. FINDINGS: Bones: No fractures or dislocations. A right hip prosthesis is redemonstrated. No suspicious periprosthetic lucencies. Pelvic ring appears intact. There is sclerosis redemonstrated within the left femoral head. Soft tissues: The visualized bowel gas pattern is normal. No suspicious soft tissue calcifications. IMPRESSION: 1. No fracture or dislocation. 2. No evidence of hardware failure. 2. 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 Dictated by: Manny Mcgovern M.D. on 05/02/2023 at 21:45 Approved by: Manny Mcgovern M.D. on 05/02/2023 at 21:48
--- NOTE | 2023-05-02 22:48 | ED.EXTPRO ---
HPI - Extremity Problem General Chief complaint: Extremity Problem,Nontraumatic Stated complaint: rt hip pain Time Seen by Provider: 05/02/23 22:47 Source: patient and family Mode of arrival: Wheelchair History of Present Illness HPI Narrative: Patient is a nimisha 87-year-old female history of chronic kidney disease pacemaker presents today with sudden onset of right hip pain. She reports that the right hip is dislocated few times. She was sitting in a chair went to get up to go dinner and had instant pain and spasm. She reports that now she is able to stand and ambulate. She did not fall. No numbness tingling weakness. Overall feeling better. Related Data Home Medications Medication Instructions Recorded Confirmed acetaminophen 500 mg tablet 500 mg PO PRN PRN pain ##0 07/09/17 03/01/23 (Tylenol Extra Strength) carvedilol 6.25 mg tablet 6.25 mg PO BID 11/18/19 03/01/23 aspirin 81 mg tablet,delayed 81 mg PO DAILY 06/07/20 03/01/23 release (Adult Aspirin Regimen) latanoprost 0.005 % eye drops EYE-BOTH 06/07/20 03/01/23 Previous Rx's Medication Instructions Recorded Disabled parking permit #1 ea 12/24/18 Lidocaine patch EX #30 ea 12/14/21 lactulose 10 gram oral packet 20 g PO DAILY PRN constipation #5 01/16/22 ea mirtazapine 15 mg tablet See Rx Instructions .Route 11/20/22 .COMPLEX #90 tabs pravastatin 80 mg tablet See Rx Instructions .Route 12/04/22 .COMPLEX #90 tabs CMP Estradiol 0.0125% Vaginal Cream 0.5 g topical DAILY #30 grams 02/22/23 losartan 50 mg tablet See Rx Instructions .Route 03/01/23 .COMPLEX #90 tabs amlodipine 10 mg tablet See Rx Instructions .Route 04/29/23 .COMPLEX #90 tabs Allergies Allergy/AdvReac Type Severity Reaction Status Date / Time adhesive tape [ADHESIVE TAPE] Allergy Mild skin Verified 03/01/23 11:34 reaction amoxicillin [AMOXICILLIN] AdvReac Intermediate YEAST Verified 03/01/23 11:34 INFECTION doxycycline [DOXYCYCLINE] AdvReac Intermediate YEAST Verified 03/01/23 11:34 SYMPTOMS azithromycin [AZITHROMYCIN] AdvReac Mild DIARRHEA Verified 03/01/23 11:34 estrogens, conjugated AdvReac Mild LOCAL Verified 03/01/23 11:34 [ESTROGENS, CONJUGATED] IRRITATION WHEN TOPICAL hydrocodone [HYDROCODONE] AdvReac Mild GI UPSET Verified 03/01/23 11:34 levofloxacin [LEVOFLOXACIN] AdvReac Mild GI UPSET Verified 03/01/23 11:34 phenazopyridine AdvReac Mild GI UPSET Verified 03/01/23 11:34 [PHENAZOPYRIDINE] Review of Systems Review of Systems ROS Unobtainable: All systems reviewed & are unremarkable except as noted in HPI and below Patient History Medical History Abdominal pain Actinic keratosis of left cheek All medications reviewed Blood in urine Body posture problem Cervical somatic dysfunction Chronic left shoulder pain Chronic low back pain with bilateral sciatica CKD (chronic kidney disease) (Unknown) Colon polyps (Unknown) Cranial somatic dysfunction Diarrhea Diverticular disease (Unknown) Excessive cerumen in both ear canals Fistula of artery Glaucoma (Unknown) Greater trochanteric bursitis of left hip Hip pain Hyperlipemia (Unknown) Hypertension (Unknown) Iliotibial band syndrome, left leg Impacted cerumen of both ears Loose stools Nausea Osteoporosis (Unknown) Pacemaker Pelvic somatic dysfunction POLST (Physician Orders for Life-Sustaining Treatment) Rash and nonspecific skin eruption Sacral region somatic dysfunction Scoliosis (Unknown) Segmental and somatic dysfunction of abdomen and other regions Segmental and somatic dysfunction of rib cage Skin cancer (~2005) Skin lesion of cheek Somatic dysfunction of lower extremity Spinal stenosis (Unknown) 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) Upper extremity somatic dysfunction UTI (urinary tract infection) Vaginal candidiasis Vulvar irritation (Unknown) Surgical History History of hip replacement (Unknown) Hx of hysterectomy (Unknown) Family History Father Heart disease Mother Osteoporosis Social History household members: spouse Smoking Status: Never smoker alcohol intake: current substance use type: does not use Smoking Status: Never smoker alcohol intake frequency: holidays/special occasions only Substance Use Type: does not use Exam Initial Vital Signs Initial Vital Signs: Vital Signs Temperature 97.7 F 05/02/23 20:12 Pulse Rate 65 05/02/23 20:12 Respiratory Rate 20 05/02/23 20:12 Blood Pressure 148/67 H 05/02/23 20:12 Pulse Oximetry 96 05/02/23 20:12 Oxygen Delivery Method Room Air 05/02/23 20:12 GENERAL: Alert very pleasant 87-year-old female CARDIOVASCULAR: peripheral pulses in tact, cap refill <2 sec RESPIRATORY: No respiratory distress, speaks in full sentences without difficulty EXTREMITIES: Normal range of motion, no clubbing or edema. Neurovascularly intact Able to stand and bear weight minimal pain with internal external rotation of hip no obvious bony deformity NEUROLOGICAL: Cranial nerves II through XII grossly intact. Normal gait and speech. SKIN: Warm, dry, no petechiae, no rashes or lesions. Course Orders Ordered: ED Orders 05/02/23 20:21 XR hip w pel if done RT 2V Stat Vital Signs Vital signs: Vital Signs - 8 hr 05/02/23 20:12 05/02/23 22:56 Temperature 97.7 F Pulse Rate 65 78 Respiratory Rate 20 16 Blood Pressure 148/67 H 145/72 H Pulse Oximetry 96 98 Oxygen Delivery Method Room Air Room Air MDM - Extremity (Nontraumatic) Imaging Data Extremity x-ray #1: Radiologist's Impression: PROCEDURE:? XR HIP W PEL IF DONE RT 2V ? INDICATIONS:? pain in hip, hip locked up ? TECHNIQUE:? AP pelvis with AP and lateral views of the right hip. ? COMPARISON:? [facility], CR, XR HIP W PEL IF DONE RT 2V, 01/12/2022, 15:24.? [facility], CR, XR HIP W PEL IF DONE RT 2V, 01/12/2022, 22:41. ? FINDINGS:? ? Bones:? No fractures or dislocations.? A right hip prosthesis is redemonstrated.? No suspicious periprosthetic lucencies.? Pelvic ring appears intact.? There is sclerosis redemonstrated within the left femoral head.? ? Soft tissues:? The visualized bowel gas pattern is normal.? No suspicious soft tissue calcifications.? ? ? IMPRESSION:? ? 1. No fracture or dislocation. ? 2. No evidence of hardware failure. ? 2. Sclerosis in the left femoral head suggestive of avascular necrosis.? Dictated by: Manny Mcgovern M.D. on 05/02/2023 at 21:45 ? ? Approved by: Manny Mcgovern M.D. on 05/02/2023 at 21:4 MDM Narrative Medical decision making narrative: Patient had sudden onset of right hip pain and spasm now able to stand minimal pain with movement. Back to baseline. 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 States that she will take Tylenol at home. Discharge Plan Departure Patient Disposition: Home Clinical Impression: Acute pain of right hip Instructions: DI for Hip Pain Activity Restrictions/Additional Instructions: *You have been diagnosed with right hip pain *What to do: Increase activity as tolerated may try a heating pad *Continue to take medications as directed Tylenol 500-650 mg every 4-6 hours if needed for glic-yb-dtlnsliy pain *Follow up with your primary care provider in 2-3 days or call [phone] *Return to ER if you should have increasing pain numbness tingling weakness or any new, worsening or concerning symptoms Prescriptions: No Action (DME) Disabled parking permit Qty: 1 0RF Dose Instruction: As directed Rx Instructions: As directed acetaminophen [Tylenol Extra Strength] 500 MG tablet 500 mg PO PRN PRN (Reason: pain) Qty: 0 mirtazapine 15 mg tablet See Rx Instructions .ROUTE .COMPLEX Qty: 90 1RF Dose Instruction: TAKE ONE TABLET BY MOUTH ONE TIME DAILY Rx Instructions: TAKE ONE TABLET BY MOUTH ONE TIME DAILY CMP Estradiol 0.0125% Vaginal Cream 0.5 g topical DAILY Qty: 30 5RF Rx Instructions: Apply to irritated areas on the external genitalia every day amlodipine 10 mg tablet See Rx Instructions .ROUTE .COMPLEX Qty: 90 0RF Dose Instruction: TAKE ONE TABLET BY MOUTH ONE TIME DAILY Rx Instructions: TAKE ONE TABLET BY MOUTH ONE TIME DAILY pravastatin 80 mg tablet See Rx Instructions .ROUTE .COMPLEX Qty: 90 3RF Dose Instruction: TAKE ONE TABLET BY MOUTH AT BEDTIME Rx Instructions: TAKE ONE TABLET BY MOUTH AT BEDTIME latanoprost 0.005 % drops EYE-BOTH aspirin [Adult Aspirin Regimen] 81 mg tablet,delayed release (DR/EC) 81 mg PO DAILY (DME) Lidocaine patch EX See Rx Instructions .Route .MEDSUPPLY Qty: 30 5RF Rx Instructions: 5% patch on skin daily PRN for pain losartan 50 mg tablet See Rx Instructions .ROUTE .COMPLEX Qty: 90 3RF Dose Instruction: TAKE ONE TABLET BY MOUTH ONE TIME DAILY Rx Instructions: TAKE ONE TABLET BY MOUTH ONE TIME DAILY carvedilol 6.25 mg Tablet 6.25 mg PO BID lactulose 10 gram packet 20 g PO DAILY PRN (Reason: constipation) Qty: 5 0RF Referrals: Rico Mayberry DO [Primary Care Provider] - Stand Alone Forms: Patient Portal/API
[2023-05-02 22:56] VITALS: BP 145/72; PULSE 78; RESP 16; O2SAT 98
== END 2023-05-02 22:57 | disposition home or self-care (01) ==
PROVIDERS: Emergency Provider Emergency Medicine; PCP Family Medicine
DX: M25.551 Pain in right hip (principal)
CPT/HCPCS: 73502; 99281; 99282

== ENCOUNTER → 2023-05-22 15:12 | Outpatient (CLI) | payer MEDICARE, SELFPAY ==
[2022-11-14 14:17] VITALS: BMI 21.1
[2023-05-22 17:19] LABS: Add Manual Diff / Slide Review NO; Basophils Absolute Auto 100 /uL (0-100); Basophils Percent Auto 1.4 % (0-2); Eosinophils Absolute Auto 400 /uL (0-450); Eosinophils Percent Auto 7.9 % (2-4); Hematocrit 31.6 % (36-46); Hemoglobin 10.7 g/dL (12.0-16.0); Lymphocytes Absolute Auto 900 /uL (1100-4500); Lymphocytes Percent Auto 16.8 % (25-40); Mean Corpuscular HGB Conc 33.9 % (30-36); Mean Corpuscular Hemoglobin 28.1 PG (26-34); Mean Corpuscular Volume 82.9 fL (80-100); Monocytes Absolute Auto 400 /uL (0-900); Monocytes Percent Auto 6.5 % (3-14); Neutrophils Absolute Auto 3700 /uL (1500-7000); Neutrophils Percent Auto 67.4 % (50-75); Platelet Count 276 X10^3/uL (150-400); Red Blood Cell Count 3.81 X10^6/uL (4.0-5.2); Red Cell Distribution Width 17.3 % (11.6-14.8); White Blood Cell Count 5.4 X10^3/uL (4.5-11.0)
[2023-05-22 17:38] LABS: Appearance Urine UA CLEAR; Bilirubin Urine UA NEGATIVE (NEGATIVE); Color Urine UA YELLOW; Glucose Urine UA NEGATIVE (Negative); Ketones Urine UA NEGATIVE (NEGATIVE); Leukocyte Esterase Urine UA NEGATIVE (NEGATIVE); Nitrite Urine UA NEGATIVE (Negative); Occult Blood Urine UA 3+ (Negative); Protein Urine UA 2+ (Negative); Specific Gravity Urine UA <=1.005 (1.000-1.035); Urobilinogen Urine UA 0.2 E.U./dL (0.2)
[2023-05-22 17:59] LABS: Bacteria Urine Occasional (0-1); Culture Indicated Urine Cult Not Indicated; RBC Urine 5-10/HPF (0-5/HPF); Squamous Epithelial Cell Urine 1-5 /HPF (0-5/HPF); WBC Urine 0-1/HPF (0-5/HPF)
[2023-05-22 18:18] LABS: Alanine Aminotransferase 20 IU/L (<35); Albumin 4.6 g/dL (3.5-5.0); Albumin Globulin Ratio 1.3 (1.0-2.8); Alkaline Phosphatase 89 U/L (38-126); Aspartate Aminotransferase 28 IU/L (14-36); BUN Creatinine Ratio 16.3 (6-22); Bilirubin Total 0.6 mg/dL (0.2-1.3); Blood Urea Nitrogen 56 mg/dL (7-17); Calcium 9.7 mg/dL (8.4-10.2); Carbon Dioxide 22 mmol/L (22-32); Chloride 97 mmol/L (98-107); Estimated Glomerular Filt Rate 12 mL/min (>60); Globulin 3.6 g/dL (1.7-4.1); Glucose 93 mg/dL (80-110); HEMOLYSIS < 15 (0-50); Phosphorous 4.4 mg/dL (2.8-4.1); Potassium 4.6 mmol/L (3.4-5.1); Sodium 132 mmol/L (137-145); Total Protein 8.2 g/dL (6.3-8.2)
[2023-05-22 18:53] LABS: Creatinine Urine Random 49.8 mg/dL; Protein (Total) Urine Random 119 mg/dL (0-12); Protein Creatinine Ratio Urine 2.38 GRAM/24H
[2023-05-24 09:01] LABS: Calcium 9.5 mg/dL (8.7-10.3); Parathyroid Hormone, Intact 151 pg/mL (15-65)
== END ==
PROVIDERS: PCP Family Medicine; Referring Provider Specialist; Visit Provider Specialist
DX: N18.4 Chronic kidney disease, stage 4 (severe) (principal); N25.81 Secondary hyperparathyroidism of renal origin
CPT/HCPCS: 36415; 80053; 81001; 82310; 82570; 83970; 84100; 84156; 85025

== ENCOUNTER → 2023-05-28 16:37 | Outpatient (CLI) | payer MEDICARE, SELFPAY ==
[2022-11-14 14:17] VITALS: BMI 21.1
[2023-05-28 18:13] LABS: Influenza A - CEPHEID Flu A NEGATIVE (NEGATIVE); Influenza B - CEPHEID Flu B NEGATIVE (NEGATIVE); Respiratory Syncytial Virus Negative (Negative)
[2023-05-28 18:14] LABS: COVID-19 CEPHEID 4-PLEX PCR POSITIVE (Negative)
== END ==
PROVIDERS: PCP Family Medicine; Visit Provider Student in an Organized Health Care Education/Training Program
DX: R05.1 Acute cough (principal)
CPT/HCPCS: 0241U

== ENCOUNTER → 2023-06-17 14:32 | Outpatient (CLI) | payer MEDICARE, SELFPAY ==
[2022-11-14 14:17] VITALS: BMI 21.1
[2023-06-17 17:09] LABS: Hepatitis B Surface Antigen NEGATIVE s/c (NEGATIVE)
[2023-06-17 17:29] LABS: Hep C Virus Ab w/Reflex Quant NEGATIVE s/c (NEGATIVE)
[2023-06-18 04:44] LABS: Hepatitis B Core AB w/Reflex Negative (Negative)
[2023-06-19 00:07] LABS: Hepatitis B Surf AB Quant <3.1 mIU/mL (Immunity>9.9)
[2023-06-21 10:40] LABS: Cytoplasmic C-ANCA <1:20 titer (Neg:<1:20); Perinuclear P-ANCA <1:20 titer (Neg:<1:20)
== END ==
PROVIDERS: PCP Family Medicine; Referring Provider Specialist; Visit Provider Specialist
DX: M31.31 Wegener's granulomatosis with renal involvement (principal); N18.6 End stage renal disease
CPT/HCPCS: 36415; 86256; 86704; 86706; 86803; 87340

== ENCOUNTER → 2023-06-21 15:49 | Outpatient (CLI) | payer MEDICARE, SELFPAY ==
[2022-11-14 14:17] VITALS: BMI 21.1
--- NOTE | 2023-06-21 | DI.RAD.S_ITS ---
PROCEDURE: XR CHEST 2V INDICATIONS: Chronic kidney disease, stage 4 (severe) TECHNIQUE: 2 views of the chest were acquired. COMPARISON: [facility], CR, XR CHEST 1V, 11/19/2019, 13:17. [facility], CR, XR CHEST 1V, 11/18/2019, 13:26. FINDINGS: Surgical changes and devices: Left chest wall pacemaker. Lungs and pleura: Lungs are clear. No pleural effusions or pneumothorax. Mediastinum: Mediastinal contours are normal. Heart size is enlarged. Bones and chest wall: No suspicious bony abnormalities. Soft tissues appear unremarkable. IMPRESSION: No acute cardiopulmonary process. Dictated by: Ismael Owens M.D. on 06/21/2023 at 16:43 Approved by: Ismael Owens M.D. on 06/21/2023 at 16:43
== END ==
PROVIDERS: PCP Family Medicine; Referring Provider Specialist; Visit Provider Specialist
DX: N18.4 Chronic kidney disease, stage 4 (severe) (principal)
CPT/HCPCS: 71046

== ENCOUNTER 2023-09-29 20:02 | Emergency (ER) | payer MEDICARE, SELFPAY ==
[2022-11-14 14:17] VITALS: BMI 21.1
[2023-09-29 20:22] VITALS: BP 161/65; PULSE 70; RESP 16; TEMP 36.9; O2SAT 94; BMI 19.1
[2023-09-29 21:22] LABS: Add Manual Diff / Slide Review NO; Basophils Absolute Auto 100 /uL (0-100); Basophils Percent Auto 1.9 % (0-2); Eosinophils Absolute Auto 200 /uL (0-450); Eosinophils Percent Auto 4.9 % (2-4); Hematocrit 27.3 % (36-46); Hemoglobin 9.4 g/dL (12.0-16.0); Lymphocytes Absolute Auto 800 /uL (1100-4500); Lymphocytes Percent Auto 18.4 % (25-40); Mean Corpuscular HGB Conc 34.5 % (30-36); Mean Corpuscular Hemoglobin 31.2 PG (26-34); Mean Corpuscular Volume 90.2 fL (80-100); Monocytes Absolute Auto 400 /uL (0-900); Monocytes Percent Auto 9.9 % (3-14); Neutrophils Absolute Auto 2700 /uL (1500-7000); Neutrophils Percent Auto 64.9 % (50-75); Platelet Count 233 X10^3/uL (150-400); Red Blood Cell Count 3.03 X10^6/uL (4.0-5.2); Red Cell Distribution Width 16.8 % (11.6-14.8); White Blood Cell Count 4.2 X10^3/uL (4.5-11.0)
[2023-09-29 21:30] LABS: Alanine Aminotransferase 19 IU/L (<35); Albumin 4.5 g/dL (3.5-5.0); Albumin Globulin Ratio 1.4 (1.0-2.8); Alkaline Phosphatase 84 U/L (38-126); Aspartate Aminotransferase 28 IU/L (14-36); BUN Creatinine Ratio 8.6 (6-22); Bilirubin Total 0.6 mg/dL (0.2-1.3); Blood Urea Nitrogen 35 mg/dL (7-17); Calcium 9.8 mg/dL (8.4-10.2); Carbon Dioxide 25 mmol/L (22-32); Chloride 97 mmol/L (98-107); Estimated Glomerular Filt Rate 10 mL/min (>60); Globulin 3.3 g/dL (1.7-4.1); Glucose 128 mg/dL (80-110); HEMOLYSIS < 15 (0-50); Potassium 4.4 mmol/L (3.4-5.1); Sodium 135 mmol/L (137-145); Total Protein 7.8 g/dL (6.3-8.2)
[2023-09-29 21:42] LABS: Troponin I < 0.012 ng/mL (0.01-0.034)
[2023-09-29 23:08] VITALS: PULSE 63; O2SAT 95
[2023-09-29 23:30] VITALS: BP 151/66; PULSE 62; RESP 16; O2SAT 94
[2023-09-30] VITALS: BP 147/67; PULSE 63; RESP 15; O2SAT 94
--- NOTE | 2023-09-30 00:06 | ED_ITS ---
HPI - General Adult General Chief complaint: Dizziness Stated complaint: dizzy spells x1 day Time Seen by Provider: 09/30/23 00:05 Source: patient and family Mode of arrival: Wheelchair History of Present Illness HPI narrative: 88-year-old woman with kidney failure on chronic dialysis, pacemaker, chronic back pain hypertension and history of ocular migraines presents complaining of dizziness. She describes up to 7 brief episodes of a sensation that the world was spinning. Lasted seconds, not associated with position or activity. Last episode was at 7:30 this evening and has not persisted. She was concerned that she may have been having stroke. Did not describe any additional neurologic complaints. She notes that yesterday she was scheduled for dialysis but there was a bit of bleeding when her right upper extremity fistula with accessed so she had a very brief session only and is scheduled for dialysis again tomorrow. She describes no recent fever, cough, chills, chest pain, nausea vomiting or diarrhea. No palpitations and no headaches. Related Data Home Medications Medication Instructions Recorded Confirmed acetaminophen 500 mg tablet 500 mg PO PRN PRN pain ##0 07/09/17 08/23/23 (Tylenol Extra Strength) carvedilol 6.25 mg tablet 6.25 mg PO BID 11/18/19 08/23/23 aspirin 81 mg tablet,delayed 81 mg PO DAILY 06/07/20 08/23/23 release (Adult Aspirin Regimen) CMP Estradiol 0.0125% Vaginal Cream 0.5 g topical DAILY 06/04/23 08/23/23 latanoprost 0.005 % eye drops 1 drp EYE-BOTH QPM 06/04/23 08/23/23 vitamin B complex-vitamin C-folic 1 tab PO DAILY 08/23/23 08/23/23 acid 0.8 mg tablet (Shaylee-Patrick) Previous Rx's Medication Instructions Recorded Disabled parking permit #1 ea 12/24/18 pravastatin 80 mg tablet See Rx Instructions .Route 12/04/22 .COMPLEX #90 tabs losartan 50 mg tablet See Rx Instructions .Route 03/01/23 .COMPLEX #90 tabs mirtazapine 15 mg tablet See Rx Instructions .Route 05/22/23 .COMPLEX #90 tabs amlodipine 10 mg tablet 10 mg PO DAILY #90 tabs 07/24/23 lidocaine 5 % topical ointment 1 applic topical DAILY PRN pain 08/23/23 #30 grams Allergies Allergy/AdvReac Type Severity Reaction Status Date / Time adhesive tape [ADHESIVE TAPE] Allergy Mild skin Verified 08/23/23 13:50 reaction amoxicillin [AMOXICILLIN] AdvReac Intermediate YEAST Verified 08/23/23 13:50 INFECTION doxycycline [DOXYCYCLINE] AdvReac Intermediate YEAST Verified 08/23/23 13:50 SYMPTOMS azithromycin [AZITHROMYCIN] AdvReac Mild DIARRHEA Verified 08/23/23 13:50 estrogens, conjugated AdvReac Mild LOCAL Verified 08/23/23 13:50 [ESTROGENS, CONJUGATED] IRRITATION WHEN TOPICAL hydrocodone [HYDROCODONE] AdvReac Mild GI UPSET Verified 08/23/23 13:50 levofloxacin [LEVOFLOXACIN] AdvReac Mild GI UPSET Verified 08/23/23 13:50 phenazopyridine AdvReac Mild GI UPSET Verified 08/23/23 13:50 [PHENAZOPYRIDINE] Review of Systems Review of Systems Narrative: Pertinent positive and negative findings as per HPI Patient History Medical History Kidney failure Fistula of artery Iliotibial band syndrome, left leg Chronic left shoulder pain POLST (Physician Orders for Life-Sustaining Treatment) Chronic low back pain with bilateral sciatica Pacemaker 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) Spinal stenosis (Unknown) Scoliosis (Unknown) Skin cancer (~2005) Hyperlipemia (Unknown) Hypertension (Unknown) Diverticular disease (Unknown) Glaucoma (Unknown) Osteoporosis (Unknown) Surgical History Hx of hysterectomy (Unknown) History of hip replacement (Unknown) Family History Father Heart disease Mother Osteoporosis Social History household members: spouse Smoking Status: Never smoker alcohol intake: current substance use type: does not use Smoking Status: Never smoker alcohol intake frequency: holidays/special occasions only Substance Use Type: does not use Exam Initial Vital Signs Initial Vital Signs: Vital Signs Temperature 98.4 F 09/29/23 20:22 Pulse Rate 70 09/29/23 20:22 Respiratory Rate 16 09/29/23 20:22 Blood Pressure 161/65 H 09/29/23 20:22 Pulse Oximetry 94 09/29/23 20:22 Oxygen Delivery Method Room Air 09/29/23 20:22 General: Frail-appearing but in no acute distress. Able to give a complete and coherent history. Well-nourished well-developed HEENT: Moist mucous membranes, normal sclera with reactive pupils, tympanic membranes are easily visualized and within normal limits. No cervical adenopathy Neck: Moderate JVD, supple Respiratory: Lungs are clear to auscultation, no wheezing no rales no rhonchi. Full and symmetrical air movement Cardiac: Regular rate and rhythm no murmurs no bruits Abdomen: Soft, nontender, good bowel tones, no flank pain Skin: Warm and dry, no rashes Neurologic: Grossly neurologically intact with no obvious asymmetries or abnormalities Extremities: No trauma, there is a right upper extremity fistula some bruising up into the axilla but good thrill in the fistula itself Psych: Cooperative, appropriate insight and affect Course Orders Ordered: ED Orders 09/29/23 20:53 EKG-12 Lead Stat 09/29/23 20:54 Complete Blood Count AUTO DIFF Stat Comprehensive Metabolic Panel Stat Troponin I Stat Vital Signs Vital signs: Vital Signs - 8 hr 09/29/23 20:22 Temperature 98.4 F Pulse Rate 70 Respiratory Rate 16 Blood Pressure 161/65 H Pulse Oximetry 94 Oxygen Delivery Method Room Air Medical Decision Making Lab Data 09/29/23 20:54 09/29/23 20:54 Labs: Lab Results 09/29/23 Range/Units 20:54 WBC 4.2 L (4.5-11.0) X10^3/uL RBC 3.03 L (4.0-5.2) X10^6/uL Hgb 9.4 L (12.0-16.0) g/dL Hct 27.3 L (36-46) % MCV 90.2 (80-100) fL MCH 31.2 (26-34) PG MCHC 34.5 (30-36) % RDW 16.8 H (11.6-14.8) % Plt Count 233 (150-400) X10^3/uL Neut % (Auto) 64.9 (50-75) % Lymph % (Auto) 18.4 L (25-40) % [place] % (Auto) 9.9 (3-14) % Eos % (Auto) 4.9 H (2-4) % Baso % (Auto) 1.9 (0-2) % Neut # (Auto) 2700 (9248-0537) /uL Lymph # (Auto) 800 L (8365-4911) /uL [place] # (Auto) 400 (0-900) /uL Eos # (Auto) 200 (0-450) /uL Baso # (Auto) 100 (0-100) /uL Sodium 135 L (137-145) mmol/L Potassium 4.4 (3.4-5.1) mmol/L Chloride 97 L (98-107) mmol/L Carbon Dioxide 25 (22-32) mmol/L BUN 35 H (7-17) mg/dL Creatinine 4.09 H (0.52-1.04) mg/dL Estimated GFR 10 L (>60) mL/min BUN/Creatinine Ratio 8.6 (6-22) Glucose 128 H (80-110) mg/dL Calcium 9.8 (8.4-10.2) mg/dL Total Bilirubin 0.6 (0.2-1.3) mg/dL AST 28 (14-36) IU/L ALT 19 (<35) IU/L Alkaline Phosphatase 84 (38-126) U/L Troponin I < 0.012 (0.01-0.034) ng/mL Total Protein 7.8 (6.3-8.2) g/dL Albumin 4.5 (3.5-5.0) g/dL Globulin 3.3 (1.7-4.1) g/dL Albumin/Globulin Ratio 1.4 (1.0-2.8) MDM Narrative Medical decision making narrative: CC: Brief episodes of dizziness Complicating co-morbidities: Kidney failure, dialysis patient Data collected from: patient, Medical records reviewed: Primary care notes reviewed Differential considered: Stroke, benign positional vertigo, infection, your abnormalities Exam documented above, pertinent findings include: Delightful 88-year-old woman with fairly benign exam. No findings to suggest stroke or explain the episodes of vertigo that she experienced earlier today. Her right upper extremity fistula has a nice thrill there is some bruising up into the axilla secondary to dialysis access yesterday. Lab Test results independently reviewed as above. Pertinent findings: CBC appears to be close to her baseline with a white count at 4.2, chronic anemia at 9.4 and 27.3 Chemistries are also appeared to be at baseline with creatinine at 4 potassium appropriate at 4.4. Troponin is not elevated Independently reviewed EKG Sinus rhythm rate of 62. Slightly leftward axis, no acute ischemia Discussion: 88-year-old woman with a scattered number of very brief episodes of vertigo. No other associated neurologic findings all resolving spontaneously. No episodes for the past 5 hours. At this point I have no obvious explanation for the symptoms however they have resolved. I do not appreciate clinical evidence of stroke, electrolytes are appropriate in light of her known renal failure there was no evidence of infection and no cerumen impaction that might be influencing symptoms. At this point I believe she is safe for discharge did encourage her to keep her appointment for dialysis and follow up with her primary care doctor if she continues to have episodes of vertigo. Given the very brief nature of the episodes I did not recommend any additional treatment or medications at this time. Discharge Plan Departure Patient Disposition: Home Clinical Impression: Vertigo Instructions: DI for Vertigo Activity Restrictions/Additional Instructions: Thank you for coming in today Fortunately, I am not seeing any evidence of a stroke. With the short discrete episodes of dizziness that you are describing, I am less concerned with stroke. Your blood work was reassuring, your physical exam was equally reassuring. Sometimes the best I can do with complaints of dizziness is reassuring that I am not finding a life-threatening abnormality. Because these episodes were so short and have now stopped, I am not going to recommend any additional medication. Most of the medications that we do use for dizziness do have notable amounts of side effects. Please do keep your dialysis appointment for September 30 If you find that you are getting worse or develop any new symptoms, please feel free to return to the emergency department for further evaluation. Prescriptions: No Action (DME) Disabled parking permit Qty: 1 0RF Dose Instruction: As directed Rx Instructions: As directed acetaminophen [Tylenol Extra Strength] 500 MG tablet 500 mg PO PRN PRN (Reason: pain) Qty: 0 mirtazapine 15 mg tablet See Rx Instructions .ROUTE .COMPLEX Qty: 90 1RF Dose Instruction: TAKE ONE TABLET BY MOUTH ONE TIME DAILY Rx Instructions: TAKE ONE TABLET BY MOUTH ONE TIME DAILY amlodipine 10 mg tablet 10 mg PO DAILY Qty: 90 1RF pravastatin 80 mg tablet See Rx Instructions .ROUTE .COMPLEX Qty: 90 3RF Dose Instruction: TAKE ONE TABLET BY MOUTH AT BEDTIME Rx Instructions: TAKE ONE TABLET BY MOUTH AT BEDTIME CMP Estradiol 0.0125% Vaginal Cream 0.5 g topical DAILY Patient Comments: Pt states she applies cream three times per week 06/04/23 Rx Instructions: Apply to irritated areas on the external genitalia every day aspirin [Adult Aspirin Regimen] 81 mg tablet,delayed release (DR/EC) 81 mg PO DAILY latanoprost 0.005 % drops 1 drp EYE-BOTH QPM losartan 50 mg tablet See Rx Instructions .ROUTE .COMPLEX Qty: 90 3RF Dose Instruction: TAKE ONE TABLET BY MOUTH ONE TIME DAILY Rx Instructions: TAKE ONE TABLET BY MOUTH ONE TIME DAILY Shaylee-Patrick 0.8 mg tablet 1 tab PO DAILY lidocaine 5 % ointment 1 applic topical DAILY PRN (Reason: pain) Qty: 30 11RF carvedilol 6.25 mg Tablet 6.25 mg PO BID Referrals: Rico Mayberry DO [Primary Care Provider] - Stand Alone Forms: Patient Portal/API
[2023-09-30 00:30] VITALS: BP 146/68; PULSE 64; RESP 17; O2SAT 93
[2023-09-30 00:48] VITALS: TEMP 36.6
== END 2023-09-30 00:50 | disposition home or self-care (01) ==
PROVIDERS: Emergency Provider Emergency Medicine; PCP Family Medicine
DX: R42 Dizziness and giddiness (principal); R94.31 Abnormal electrocardiogram [ECG] [EKG]
CPT/HCPCS: 36415; 80053; 84484; 85025; 93005; 93010; 99283

== ENCOUNTER 2023-11-19 20:03 | Emergency (ER) | payer MEDICARE, SELFPAY ==
[2022-11-14 14:17] VITALS: BMI 21.1
[2023-11-19 20:13] VITALS: BP 177/76; PULSE 74; RESP 18; TEMP 36.4; O2SAT 99; BMI 19.3
--- NOTE | 2023-11-19 20:23 | DI.RAD.S_ITS ---
PROCEDURE: XR CHEST 1V INDICATIONS: chest pain TECHNIQUE: One view of the chest was acquired. COMPARISON: [facility], , CHEST 1 VIEW, 01/22/2017, 21:15. [facility], , CHEST 1 VIEW, 12/14/2012, 15:31. (More recent radiographs are unable to be retrieved on PACS.) FINDINGS: Surgical changes and devices: Left chest wall pulse generator with dual-chamber electrode leads. Lungs and pleura: Suspected senescent lung markings and right hemidiaphragm eventration. No dense consolidation or drainable pleural effusion. Mediastinum: Borderline cardiomegaly. Aortic calcifications. Prominent mediastinal fat. Bones and chest wall: Scoliosis. Degenerative changes. Right axillary clips. IMPRESSION: Single view radiograph without acute abnormality. Dictated by: Oniel Robles M.D. on 11/19/2023 at 21:29 Approved by: Oniel Robles M.D. on 11/19/2023 at 21:30
[2023-11-19 20:42] LABS: Add Manual Diff / Slide Review NO; Basophils Absolute Auto 100 /uL (0-100); Basophils Percent Auto 1.7 % (0-2); Eosinophils Absolute Auto 200 /uL (0-450); Eosinophils Percent Auto 5.1 % (2-4); Hematocrit 31.9 % (36-46); Lymphocytes Absolute Auto 800 /uL (1100-4500); Lymphocytes Percent Auto 19.4 % (25-40); Mean Corpuscular HGB Conc 34.6 % (30-36); Mean Corpuscular Hemoglobin 31.8 PG (26-34); Monocytes Absolute Auto 400 /uL (0-900); Monocytes Percent Auto 9.8 % (3-14); Neutrophils Absolute Auto 2700 /uL (1500-7000); Platelet Count 245 X10^3/uL (150-400); Red Blood Cell Count 3.47 X10^6/uL (4.0-5.2); Red Cell Distribution Width 15.7 % (11.6-14.8); White Blood Cell Count 4.2 X10^3/uL (4.5-11.0)
[2023-11-19 20:53] LABS: Prothrombin Time 11.3 SECONDS (9.4-12.5)
[2023-11-19 20:56] LABS: PTT Partial Thromboplastin Tim 31 SECONDS (25.1-36.5)
[2023-11-19 20:57] LABS: Alanine Aminotransferase 19 IU/L (<35); Albumin 4.5 g/dL (3.5-5.0); Albumin Globulin Ratio 1.3 (1.0-2.8); Alkaline Phosphatase 119 U/L (38-126); Aspartate Aminotransferase 34 IU/L (14-36); BUN Creatinine Ratio 6.3 (6-22); Bilirubin Total 0.7 mg/dL (0.2-1.3); Blood Urea Nitrogen 9 mg/dL (7-17); Calcium 9.2 mg/dL (8.4-10.2); Carbon Dioxide 28 mmol/L (22-32); Chloride 93 mmol/L (98-107); Creatine Kinase 37 U/L (30-135); Estimated Glomerular Filt Rate 35 mL/min (>60); Globulin 3.4 g/dL (1.7-4.1); Glucose 89 mg/dL (80-110); HEMOLYSIS < 15 (0-50); Lipase 262 U/L (23-300); Magnesium 1.8 mg/dL (1.6-2.3); Potassium 3.7 mmol/L (3.4-5.1); Sodium 130 mmol/L (137-145); Total Protein 7.9 g/dL (6.3-8.2)
[2023-11-19 21:08] LABS: Troponin I < 0.012 ng/mL (0.01-0.034)
[2023-11-19 21:24] VITALS: PULSE 74; RESP 18; O2SAT 94
[2023-11-19 21:26] VITALS: BP 186/77; PULSE 71; RESP 17; O2SAT 94
[2023-11-19 21:30] VITALS: BP 178/71; PULSE 70; RESP 18; O2SAT 93
--- NOTE | 2023-11-19 21:52 | ED_ITS ---
HPI - Chest Pain General Chief Complaint: Chest Pain Stated Complaint: chest pain Time Seen by Provider: 11/19/23 20:55 Source: patient Mode of arrival: Wheelchair Limitations: no limitations History of Present Illness HPI narrative: Patient is an 88-year-old female. She is here for evaluation of right-sided chest discomfort. She states that it occurred when she was finishing dialysis today. She does not think that it was associated with palpation or movement or breathing. She was currently asymptomatic. Thinks that it lasted for several minutes and then resolved. She has had similar symptoms like this in the past but has never sought treatment. She thinks that it did start when they were doing the process of removing the dialysis needles from her fistula. No abdominal pain or nausea vomiting. Related Data Home Medications Medication Instructions Recorded Confirmed acetaminophen 500 mg tablet 500 mg PO PRN PRN pain ##0 07/09/17 10/09/23 (Tylenol Extra Strength) carvedilol 6.25 mg tablet 6.25 mg PO BID 11/18/19 10/09/23 CMP Estradiol 0.0125% Vaginal Cream 0.5 g topical DAILY 06/04/23 10/09/23 latanoprost 0.005 % eye drops 1 drp EYE-BOTH QPM 06/04/23 10/09/23 vitamin B complex-vitamin C-folic 1 tab PO DAILY 08/23/23 10/09/23 acid 0.8 mg tablet (Shaylee-Patrick) Previous Rx's Medication Instructions Recorded Disabled parking permit #1 ea 12/24/18 pravastatin 80 mg tablet See Rx Instructions .Route 12/04/22 .COMPLEX #90 tabs losartan 50 mg tablet See Rx Instructions .Route 03/01/23 .COMPLEX #90 tabs amlodipine 10 mg tablet 10 mg PO DAILY #90 tabs 07/24/23 lidocaine 5 % topical ointment 1 applic topical DAILY PRN pain 08/23/23 #30 grams mirtazapine 15 mg tablet 15 mg PO DAILY #90 tabs 11/12/23 Allergies Allergy/AdvReac Type Severity Reaction Status Date / Time adhesive tape [ADHESIVE TAPE] Allergy Mild skin Verified 10/09/23 13:14 reaction amoxicillin [AMOXICILLIN] AdvReac Intermediate YEAST Verified 10/09/23 13:14 INFECTION doxycycline [DOXYCYCLINE] AdvReac Intermediate YEAST Verified 10/09/23 13:14 SYMPTOMS azithromycin [AZITHROMYCIN] AdvReac Mild DIARRHEA Verified 10/09/23 13:14 estrogens, conjugated AdvReac Mild LOCAL Verified 10/09/23 13:14 [ESTROGENS, CONJUGATED] IRRITATION WHEN TOPICAL hydrocodone [HYDROCODONE] AdvReac Mild GI UPSET Verified 10/09/23 13:14 levofloxacin [LEVOFLOXACIN] AdvReac Mild GI UPSET Verified 10/09/23 13:14 phenazopyridine AdvReac Mild GI UPSET Verified 10/09/23 13:14 [PHENAZOPYRIDINE] Review of Systems Constitutional Constitutional: Reports system reviewed and no additional complaints, except as documented Cardiovascular Cardiovascular: Reports system reviewed and no additional complaints, except as documented Respiratory Respiratory: Reports system reviewed and no additional complaints, except as documented Gastrointestinal Gastrointestinal: Reports system reviewed and no additional complaints, except as documented Integumentary/Breasts Skin/Breast: Reports system reviewed and no additional complaints, except as documented Neurologic Neurologic: Reports system reviewed and no additional complaints, except as documented Patient History Medical History Dehydration Kidney failure Fistula of artery Iliotibial band syndrome, left leg Chronic left shoulder pain POLST (Physician Orders for Life-Sustaining Treatment) Chronic low back pain with bilateral sciatica Pacemaker 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) Spinal stenosis (Unknown) Scoliosis (Unknown) Skin cancer (~2005) Hyperlipemia (Unknown) Hypertension (Unknown) Diverticular disease (Unknown) Glaucoma (Unknown) Osteoporosis (Unknown) Surgical History Hx of hysterectomy (Unknown) History of hip replacement (Unknown) Family History Father Heart disease Mother Osteoporosis Social History household members: spouse Smoking Status: Never smoker alcohol intake: current substance use type: does not use Smoking Status: Never smoker alcohol intake frequency: holidays/special occasions only Substance Use Type: does not use Exam Initial Vital Signs Initial Vital Signs: Vital Signs Temperature 97.6 F 11/19/23 20:13 Pulse Rate 74 11/19/23 20:13 Respiratory Rate 18 11/19/23 20:13 Blood Pressure 177/76 H 11/19/23 20:13 Pulse Oximetry 99 01/09/24 20:13 Oxygen Delivery Method Room Air 11/19/23 20:13 HENMT Head: normal to inspection and normocephalic Resp Effort & Inspection: normal respiratory effort Auscultation: clear to auscultation bilaterally Cardio Rate: regular rate Rhythm: regular rhythm GI Inspection: normal to inspection Neuro General: patient alert and patient awake Extrem Other: Dialysis fistula of the right upper extremity Course Orders Ordered: ED Orders 11/19/23 20:23 XR chest 1V Stat EKG-12 Lead Stat 11/19/23 20:30 Complete Blood Count AUTO DIFF Stat Comprehensive Metabolic Panel Stat Lipase Stat Magnesium Stat PTT Partial Thromboplastin Goran Stat Prothrombin Time INR Stat Troponin & CK Cardiac Panel Stat Vital Signs Vital signs: Vital Signs - 8 hr 11/19/23 20:13 11/19/23 21:24 11/19/23 21:26 Temperature 97.6 F Pulse Rate 74 74 71 Respiratory Rate 18 18 17 Blood Pressure 177/76 H Pulse Oximetry 99 94 94 Oxygen Delivery Method Room Air Room Air Room Air 11/19/23 21:26 11/19/23 21:30 11/19/23 21:30 Temperature Pulse Rate 70 Respiratory Rate 18 Blood Pressure 186/77 H 178/71 H Pulse Oximetry 93 Oxygen Delivery Method Room Air MDM - Chest Pain Lab Data Attestation: I reviewed the patient's lab results. 11/19/23 20:30 11/19/23 20:30 Labs: Lab Results 11/19/23 Range/Units 20:30 WBC 4.2 L (4.5-11.0) X10^3/uL RBC 3.47 L (4.0-5.2) X10^6/uL Hgb 11.0 L (12.0-16.0) g/dL Hct 31.9 L (36-46) % MCV 92.0 (80-100) fL MCH 31.8 (26-34) PG MCHC 34.6 (30-36) % RDW 15.7 H (11.6-14.8) % Plt Count 245 (150-400) X10^3/uL Neut % (Auto) 64.0 (50-75) % Lymph % (Auto) 19.4 L (25-40) % [place] % (Auto) 9.8 (3-14) % Eos % (Auto) 5.1 H (2-4) % Baso % (Auto) 1.7 (0-2) % Neut # (Auto) 2700 (8759-3434) /uL Lymph # (Auto) 800 L (7216-5820) /uL [place] # (Auto) 400 (0-900) /uL Eos # (Auto) 200 (0-450) /uL Baso # (Auto) 100 (0-100) /uL PT 11.3 (9.4-12.5) SECONDS INR 1.0 (0.9-1.3) APTT 31 (25.1-36.5) SECONDS Sodium 130 L (137-145) mmol/L Potassium 3.7 (3.4-5.1) mmol/L Chloride 93 L (98-107) mmol/L Carbon Dioxide 28 (22-32) mmol/L BUN 9 (7-17) mg/dL Creatinine 1.44 H (0.52-1.04) mg/dL Estimated GFR 35 L (>60) mL/min BUN/Creatinine Ratio 6.3 (6-22) Glucose 89 (80-110) mg/dL Calcium 9.2 (8.4-10.2) mg/dL Magnesium 1.8 (1.6-2.3) mg/dL Total Bilirubin 0.7 (0.2-1.3) mg/dL AST 34 (14-36) IU/L ALT 19 (<35) IU/L Alkaline Phosphatase 119 (38-126) U/L Total Creatine Kinase 37 (30-135) U/L Troponin I < 0.012 (0.01-0.034) ng/mL Total Protein 7.9 (6.3-8.2) g/dL Albumin 4.5 (3.5-5.0) g/dL Globulin 3.4 (1.7-4.1) g/dL Albumin/Globulin Ratio 1.3 (1.0-2.8) Lipase 262 (23-300) U/L Imaging Data Chest x-ray: Radiologist's Impression: PROCEDURE: XR CHEST 1V INDICATIONS: chest pain TECHNIQUE: One view of the chest was acquired. COMPARISON: [facility], CHEST 1 VIEW, 01/22/2017, 21:15. [facility], CHEST 1 VIEW, 12/14/2012, 15:31. (More recent radiographs are unable to be retrieved on PACS.) FINDINGS: Surgical changes and devices: Left chest wall pulse generator with dual-chamber electrode leads. Lungs and pleura: Suspected senescent lung markings and right hemidiaphragm eventration. No dense consolidation or drainable pleural effusion. Mediastinum: Borderline cardiomegaly. Aortic calcifications. Prominent mediastinal fat. Bones and chest wall: Scoliosis. Degenerative changes. Right axillary clips. IMPRESSION: Single view radiograph without acute abnormality. ECG Data Attestation: I personally reviewed and interpreted this ECG as follows: Interpretation: Sinus rhythm Left axis deviation Normal QRS Normal QTC No ST T wave changes MDM Narrative Medical decision making narrative: Patient is now asymptomatic. Chest x-ray is unremarkable. EKGs unremarkable. Troponin is negative. Her symptoms today are not classic for ACS as was right- sided discomfort. I had a discussion with the patient her at bedside regarding options to include discharge home given what we have done so far in the fact that she is asymptomatic versus staying in the emergency department repeating a troponin. We discussed risks and benefits of this. After discussion patient would like to be discharged home. We will hold on further workup for now and have her contact primary provider for follow-up. She can continue dialysis as directed. She was given return precautions. She expressed understanding and agreement. Discharge Plan Departure Patient Disposition: Home Clinical Impression: Chest pain Instructions: DI for Chest Pain Activity Restrictions/Additional Instructions: Continue to take all of your medications as directed. Keep all of your scheduled medical appointments. Return to the emergency department for new or worsening symptoms. Prescriptions: No Action (DME) Disabled parking permit Qty: 1 0RF Dose Instruction: As directed Rx Instructions: As directed acetaminophen [Tylenol Extra Strength] 500 MG tablet 500 mg PO PRN PRN (Reason: pain) Qty: 0 amlodipine 10 mg tablet 10 mg PO DAILY Qty: 90 1RF mirtazapine 15 mg tablet 15 mg PO DAILY Qty: 90 0RF pravastatin 80 mg tablet See Rx Instructions .ROUTE .COMPLEX Qty: 90 3RF Dose Instruction: TAKE ONE TABLET BY MOUTH AT BEDTIME Rx Instructions: TAKE ONE TABLET BY MOUTH AT BEDTIME CMP Estradiol 0.0125% Vaginal Cream 0.5 g topical DAILY Patient Comments: Pt states she applies cream three times per week 06/04/23 Rx Instructions: Apply to irritated areas on the external genitalia every day latanoprost 0.005 % drops 1 drp EYE-BOTH QPM losartan 50 mg tablet See Rx Instructions .ROUTE .COMPLEX Qty: 90 3RF Dose Instruction: TAKE ONE TABLET BY MOUTH ONE TIME DAILY Rx Instructions: TAKE ONE TABLET BY MOUTH ONE TIME DAILY Shaylee-Patrick 0.8 mg tablet 1 tab PO DAILY lidocaine 5 % ointment 1 applic topical DAILY PRN (Reason: pain) Qty: 30 11RF carvedilol 6.25 mg Tablet 6.25 mg PO BID Referrals: Rico Mayberry DO [Primary Care Provider] - Stand Alone Forms: Patient Portal/API
== END 2023-11-19 22:12 | disposition home or self-care (01) ==
PROVIDERS: Emergency Provider Emergency Medicine; PCP Family Medicine
DX: R07.9 Chest pain, unspecified (principal); R79.89 Other specified abnormal findings of blood chemistry; Z99.2 Dependence on renal dialysis
CPT/HCPCS: 36415; 71045; 80053; 82550; 83690; 83735; 84484; 85025; 85610; 85730; 93005; 93010; 99283; 99284

== ENCOUNTER → 2024-03-04 11:46 | Outpatient (CLI) | payer MEDICARE, SELFPAY ==
[2023-11-20 13:52] VITALS: BMI 21.1
--- NOTE | 2024-03-04 11:50 | DI.RAD.S_ITS ---
PROCEDURE: XR FINGER RT MIN 2V INDICATIONS: thumb pain TECHNIQUE: AP hand, 2 views of the 1st finger(s) acquired. COMPARISON: None. FINDINGS: Bones: Diffuse osteopenia is seen. There is suggestion of prior resection of trapezium. Severe 1st CMC joint osteoarthritic changes also seen. No acute fracture or dislocation. No suspicious bony lesions. Soft tissues: No suspicious soft tissue calcifications. 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 Suggestion of prior resection of trapezium. No acute fracture or dislocation. Dictated by: Selwyn Colon M.D. on 03/04/2024 at 15:28 Approved by: Selwyn Colon M.D. on 03/04/2024 at 15:32
== END ==
PROVIDERS: PCP Family Medicine; Referring Provider Nurse Practitioner Family; Visit Provider Nurse Practitioner Family
DX: M18.11 Unilateral primary osteoarthritis of first carpometacarpal joint, right hand (principal); M85.841 Other specified disorders of bone density and structure, right hand; M79.646 Pain in unspecified finger(s)
CPT/HCPCS: 73140

== ENCOUNTER 2024-03-06 05:11 | Emergency (ER) | payer MEDICARE, SELFPAY ==
[2023-11-20 13:52] VITALS: BMI 21.1
[2024-03-06 05:18] VITALS: BP 184/78; PULSE 68; RESP 16; TEMP 36.2; O2SAT 94; BMI 17.0
--- NOTE | 2024-03-06 05:28 | ED.UPPEXIN ---
HPI - Extremity Injury (Upper) General Chief Complaint: Extremity Injury, Upper Stated Complaint: infected rt thumb Time Seen by Provider: 03/06/24 05:17 Source: patient Mode of arrival: Ambulatory History of Present Illness HPI narrative: Patient 88-year-old female history of hemodialysis, pacemaker, presents today with right thumb pain. She was seen and evaluated at the walk-in clinic on 03/04/2024 she reports that she bumped into the handle of her walker about a week ago continues to have significant pain. She was started on Keflex she is taken 5 doses of it scheduled q.i.d. x-ray at that time which showed osteoarthritis osteopenia but no fracture Related Data Home Medications Medication Instructions Recorded Confirmed acetaminophen 500 mg tablet 500 mg PO PRN PRN pain ##0 07/09/17 03/04/24 (Tylenol Extra Strength) carvedilol 6.25 mg tablet 6.25 mg PO BID 11/18/19 03/04/24 CMP Estradiol 0.0125% Vaginal Cream 0.5 g topical DAILY 06/04/23 03/04/24 latanoprost 0.005 % eye drops 1 drp EYE-BOTH QPM 06/04/23 03/04/24 vitamin B complex-vitamin C-folic 1 tab PO DAILY 08/23/23 03/04/24 acid 0.8 mg tablet (Shaylee-Patrick) Previous Rx's Medication Instructions Recorded Disabled parking permit #1 ea 12/24/18 losartan 50 mg tablet See Rx Instructions .Route 03/01/23 .COMPLEX #90 tabs lidocaine 5 % topical ointment 1 applic topical DAILY PRN pain 08/23/23 #30 grams pravastatin 80 mg tablet 80 mg PO ONCE PM #90 tabs 12/25/23 amlodipine 10 mg tablet 10 mg PO DAILY #90 tabs 01/01/24 mirtazapine 15 mg tablet 15 mg PO DAILY #90 tabs 02/12/24 cephalexin 500 mg capsule 500 mg PO QID 7 days #28 caps 03/04/24 hydrocodone 5 mg-acetaminophen 325 1 tab PO Q6H PRN pain #10 tabs 03/06/24 mg tablet ondansetron 4 mg disintegrating 4 mg PO Q8H PRN nausea and 03/06/24 tablet vomiting #10 tabs Allergies Allergy/AdvReac Type Severity Reaction Status Date / Time adhesive tape [ADHESIVE TAPE] Allergy Mild skin Verified 03/04/24 11:19 reaction amoxicillin [AMOXICILLIN] AdvReac Intermediate YEAST Verified 03/04/24 11:19 INFECTION doxycycline [DOXYCYCLINE] AdvReac Intermediate YEAST Verified 03/04/24 11:19 SYMPTOMS azithromycin [AZITHROMYCIN] AdvReac Mild DIARRHEA Verified 03/04/24 11:19 estrogens, conjugated AdvReac Mild LOCAL Verified 03/04/24 11:19 [ESTROGENS, CONJUGATED] IRRITATION WHEN TOPICAL hydrocodone [HYDROCODONE] AdvReac Mild GI UPSET Verified 03/04/24 11:19 levofloxacin [LEVOFLOXACIN] AdvReac Mild GI UPSET Verified 03/04/24 11:19 phenazopyridine AdvReac Mild GI UPSET Verified 03/04/24 11:19 [PHENAZOPYRIDINE] Patient History Medical History Buttock pain Right arm pain Dialysis patient Rib tenderness Dehydration Kidney failure Fistula of artery Iliotibial band syndrome, left leg Chronic left shoulder pain POLST (Physician Orders for Life-Sustaining Treatment) Chronic low back pain with bilateral sciatica Pacemaker 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) Spinal stenosis (Unknown) Scoliosis (Unknown) Skin cancer (~2005) Hyperlipemia (Unknown) Hypertension (Unknown) Diverticular disease (Unknown) Glaucoma (Unknown) Osteoporosis (Unknown) Surgical History Hx of hysterectomy (Unknown) History of hip replacement (Unknown) Family History Father Heart disease Mother Osteoporosis Social History household members: spouse Smoking Status: Never smoker alcohol intake: current substance use type: does not use Smoking Status: Never smoker alcohol intake frequency: holidays/special occasions only Substance Use Type: does not use Exam Initial Vital Signs Initial Vital Signs: Vital Signs Temperature 97.2 F L 03/06/24 05:18 Pulse Rate 68 03/06/24 05:18 Respiratory Rate 16 03/06/24 05:18 Blood Pressure 184/78 H 03/06/24 05:18 Pulse Oximetry 94 03/06/24 05:18 Oxygen Delivery Method Room Air 03/06/24 05:18 GENERAL: Alert pleasant well-appearing 88-year-old female CARDIOVASCULAR: peripheral pulses in tact, cap refill <2 sec RESPIRATORY: No respiratory distress, speaks in full sentences without difficulty EXTREMITIES: Normal range of motion, no clubbing or edema. Neurovascularly intact Right thumb is noted to be swollen less than 50% subungual hematoma is minimal surrounding erythema tender to touch full range of motion no streaking NEUROLOGICAL: Cranial nerves II through XII grossly intact. Normal gait and speech. SKIN: Warm, dry, no petechiae, no rashes or lesions. Course Orders Ordered: Discontinued Medications Hydrocodone Bitart/Acetaminophen (Hydrocodone/Acet 5/325 Tablet) 0.5 tab PO NOW ONE Stop: 03/06/24 05:36 Last Admin: 03/06/24 05:43 Dose: 0.5 tab Documented By: MYRIAM Vital Signs Vital signs: Vital Signs - 8 hr 03/06/24 05:18 Temperature 97.2 F L Pulse Rate 68 Respiratory Rate 16 Blood Pressure 184/78 H Pulse Oximetry 94 Oxygen Delivery Method Room Air MDM - Extremity Injury (Upper) MDM Narrative Medical decision making narrative: Patient 88-year-old female multiple comorbidities including dialysis and pacemaker presenting today with right thumb pain and swelling. Has happened about a week after injury although timing seems a little bit off. She has already had an x-ray which is negative. She does have obvious swelling no significant ingrown nail my male erythema at the cuticle area no fluctuation no abscess the tip of her fingers also where she is tender and there seems to be a contusion. There is less than 50% subungual hematoma there as well. It does not need draining at this time it is unlikely the cause. It looks like she has the very early really beginnings of a paronychia. I recommend warm soaks and continuation of antibiotics. She is really only been on 24 hours of Keflex. Discussed with her warning signs when to return. She otherwise appears well nontoxic no evidence of sepsis. Does not need blood work or further evaluation Discharge Plan Departure Patient Disposition: Home Clinical Impression: Contusion of right thumb Instructions: Contusion Activity Restrictions/Additional Instructions: *You have been diagnosed with right thumb contusion *What to do: At this time trying elevate your hand and them as often as possible. Recommend warm soaks in water see if that helps. You will need longer on antibiotics about 3 days before you see improvement. *Continue to take medications as directed Douglas half a tablet (break in half) every 6 hours if needed for severe pain Continue antibiotics as previously prescribed *Follow up with your primary care provider in 2-3 days or call [phone] *Return to ER if you should have increasing pain swelling redness or any new, worsening or concerning symptoms CONTROLLED SUBSTANCE DISCHARGE (Narcotoic/benzodiazepine/Flexeril/Phenergan) 1. You have been prescribed narcotic medications, it does have acetaminophen/Tylenol/paracetamol in it, DO NOT TAKE MORE THAN 4,00mg in 24 hours of Tylenol. TRAMADOL DOES NOT CONTAIN TYLENOL 2. Please understand that we cannot provide further refills of narcotics, benzodiazepines or controlled substances through the ED and her pain management will need to be through your provider. 3. While on these medications you cannot drive or operate heavy machinery. 4. You cannot sign legal documents or perform any duties such as this. 5. As long as you're taking opiate pain medications he should also be taking a stool softener such as Colace, Dulcolax, MiraLAX or prune juice, to help avoid constipation. Prescriptions: New hydrocodone-acetaminophen 5-325 mg tablet 1 tab PO Q6H PRN (Reason: pain) Qty: 10 0RF ondansetron 4 mg tablet,disintegrating 4 mg PO Q8H PRN (Reason: nausea and vomiting) Qty: 10 0RF No Action (DME) Disabled parking permit Qty: 1 0RF Dose Instruction: As directed Rx Instructions: As directed acetaminophen [Tylenol Extra Strength] 500 MG tablet 500 mg PO PRN PRN (Reason: pain) Qty: 0 pravastatin 80 mg tablet 80 mg PO ONCE PM Qty: 90 0RF mirtazapine 15 mg tablet 15 mg PO DAILY Qty: 90 0RF cephalexin 500 mg capsule 500 mg PO QID 7 Days Qty: 28 0RF CMP Estradiol 0.0125% Vaginal Cream 0.5 g topical DAILY Patient Comments: Pt states she applies cream three times per week 06/04/23 Rx Instructions: Apply to irritated areas on the external genitalia every day latanoprost 0.005 % drops 1 drp EYE-BOTH QPM losartan 50 mg tablet See Rx Instructions .ROUTE .COMPLEX Qty: 90 3RF Dose Instruction: TAKE ONE TABLET BY MOUTH ONE TIME DAILY Rx Instructions: TAKE ONE TABLET BY MOUTH ONE TIME DAILY Shaylee-Patrick 0.8 mg tablet 1 tab PO DAILY lidocaine 5 % ointment 1 applic topical DAILY PRN (Reason: pain) Qty: 30 11RF amlodipine 10 mg tablet 10 mg PO DAILY Qty: 90 3RF carvedilol 6.25 mg Tablet 6.25 mg PO BID Referrals: Rico Mayberry DO [Primary Care Provider] - Stand Alone Forms: Patient Portal/API
[2024-03-06] MEDS: HYDROCODONE/ACET 5/325 TABLET 0.5 TAB PO (05:43)
== END 2024-03-06 05:59 | disposition home or self-care (01) ==
PROVIDERS: Emergency Provider Emergency Medicine; PCP Family Medicine
DX: S60.011A Contusion of right thumb without damage to nail, initial encounter (principal); W22.8XXA Striking against or struck by other objects, initial encounter
CPT/HCPCS: 99283

== ENCOUNTER 2024-09-29 03:21 | Emergency (ER) | payer MEDICARE, SELFPAY ==
[2023-11-20 13:52] VITALS: BMI 21.1
[2024-09-29] VITALS (20 sets, daily range): BP systolic 149–197; BP diastolic 66–85; PULSE 65–91; RESP 18–36; TEMP 36.6; O2SAT 90–97; BMI 19.1
--- NOTE | 2024-09-29 03:30 | DI.RAD.S_ITS ---
PROCEDURE: XR CHEST 1V INDICATIONS: Shortness of breath TECHNIQUE: One view of the chest was acquired. COMPARISON: [facility], CR, XR CHEST 1V, 11/19/2023, 20:30. [facility], CR, XR CHEST 2V, 06/21/2023, 16:01. FINDINGS: Surgical changes and devices: Left chest wall pulse generator with electrode leads in place. Lungs and pleura: Mildly prominent interstitium and perihilar opacities, more involving the right lung. [id number] right pleural effusion. Mediastinum: Heart size is borderline enlarged, unchanged Bones and chest wall: Degenerative findings IMPRESSION: Right greater left pulmonary opacities, interstitial prominence, and [id number] right pleural effusion. This could represent edema or infection. Consider future imaging surveillance to assess for resolution. Agree with preliminary report Dictated by: Oniel Robles M.D. on 09/29/2024 at 7:20 Approved by: Oniel Robles M.D. on 09/29/2024 at 7:22
--- NOTE | 2024-09-29 03:39 | EKG_ITS ---
[address] [address] Test Date: 2024-09-29 Pat Name: Quique Blood Department: [facility] Room: Gender: Female Corporate Health Consultant: SAMANTHA : 1935 Requested By: Order Number: [id number] Reading MD: Keith Elder Measurements Intervals [place] Rate: 81 P: 57 MN: QRS: -27 QRSD: 74 T: 59 QT: 372 QTc: 432 Interpretive Statements Critical Test Result: AV Block Sinus tachycardia with 2nd degree AV block ([place]ob[place] I) with frequent premature ventricular complexes Electronically Signed On 09-30-2024 19:03:27 PST by Keith Elder
--- NOTE | 2024-09-29 03:39 | EKG_ITS ---
[address] [address] Test Date: 2024-09-29 Pat Name: Quique Blood Department: [facility] Room: Gender: Female Bull Bucker: SAMANTHA : 1935 Requested By: Order Number: [id number] Reading MD: Keith Elder Measurements Intervals [place] Rate: 84 P: [place]: QRS: -26 QRSD: 76 T: 68 QT: 370 QTc: 437 Interpretive Statements Atrial fibrillation Electronically Signed On 09-30-2024 19:03:28 PST by Keith Elder
--- NOTE | 2024-09-29 03:43 | ED_ITS ---
HPI - SOB/Dyspnea General Chief Complaint: Shortness of Breath/Dyspnea Stated Complaint: SOB Time Seen by Provider: 09/29/24 03:34 Source: patient and family Mode of arrival: Wheelchair History of Present Illness HPI Narrative: Patient 89-year-old female history of chronic kidney disease stage 4 on dialysis history of pacemaker in 2019 ocular migraine presents today with increasing shortness of breath. She reports that over the last few times it dialysis she has needed oxygen while at dialysis. Ever over the last few days she has not increasing shortness of breath all the time. She reports significant heaviness and pressure on her chest tonight. She is unable to sleep due to inability to breathe. No fever or chills. She does cough up some sputum tonight. She has no known coronary artery disease denies any back pain. She makes very little urine. She is scheduled for dialysis tomorrow. She is followed by Dr. Medina. Related Data Home Medications Medication Instructions Recorded Confirmed acetaminophen 500 mg tablet 500 mg PO PRN PRN pain ##0 07/09/17 09/02/24 (Tylenol Extra Strength) latanoprost 0.005 % eye drops 1 drp EYE-BOTH QPM 06/04/23 09/02/24 cinacalcet 30 mg tablet 30 mg PO .3 times weekly 05/26/24 09/02/24 Previous Rx's Medication Instructions Recorded Disabled parking permit #1 ea 12/24/18 amlodipine 10 mg tablet 10 mg PO DAILY #90 tabs 01/01/24 ondansetron 4 mg disintegrating 4 mg PO Q8H PRN nausea and 03/06/24 tablet vomiting #10 tabs CMP Estradiol 0.0125% Vaginal Cream 0.5 g topical DAILY #30 grams 05/18/24 carvedilol 6.25 mg tablet 6.25 mg PO BID #180 tabs 05/19/24 mirtazapine 15 mg tablet 15 mg PO DAILY #90 tabs 05/19/24 vitamin B complex-vitamin C-folic 1 tab PO DAILY #90 tabs 05/26/24 acid 0.8 mg tablet (Nephro Vitamins) pravastatin 80 mg tablet 80 mg PO ONCE PM #90 tabs 06/16/24 lidocaine 5 % topical ointment 1 applic topical DAILY PRN pain 09/02/24 #30 grams losartan 100 mg tablet 100 mg PO DAILY #90 tabs 09/02/24 dronabinol 2.5 mg capsule (Marinol) 2.5 mg PO BID Anorexia #60 caps 09/14/24 Allergies Allergy/AdvReac Type Severity Reaction Status Date / Time adhesive tape [ADHESIVE TAPE] Allergy Mild skin Verified 09/09/24 13:57 reaction amoxicillin [AMOXICILLIN] AdvReac Intermediate YEAST Verified 09/09/24 13:57 INFECTION doxycycline [DOXYCYCLINE] AdvReac Intermediate YEAST Verified 09/09/24 13:57 SYMPTOMS azithromycin [AZITHROMYCIN] AdvReac Mild DIARRHEA Verified 09/09/24 13:57 estrogens, conjugated AdvReac Mild LOCAL Verified 09/09/24 13:57 [ESTROGENS, CONJUGATED] IRRITATION WHEN TOPICAL hydrocodone [HYDROCODONE] AdvReac Mild GI UPSET Verified 09/09/24 13:57 levofloxacin [LEVOFLOXACIN] AdvReac Mild GI UPSET Verified 09/09/24 13:57 phenazopyridine AdvReac Mild GI UPSET Verified 09/09/24 13:57 [PHENAZOPYRIDINE] Patient History Medical History Anorexia Dislocation of hip, right, closed Buttock pain Right arm pain Dialysis patient Rib tenderness Dehydration Kidney failure Fistula of artery Iliotibial band syndrome, left leg Chronic left shoulder pain POLST (Physician Orders for Life-Sustaining Treatment) Chronic low back pain with bilateral sciatica Pacemaker 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) Spinal stenosis (Unknown) Scoliosis (Unknown) Skin cancer (~2005) Hyperlipemia (Unknown) Hypertension (Unknown) Diverticular disease (Unknown) Glaucoma (Unknown) Osteoporosis (Unknown) Surgical History Hx of hysterectomy (Unknown) History of hip replacement (Unknown) Family History Father Heart disease Mother Osteoporosis Social History household members: spouse Smoking Status: Never smoker alcohol intake: current substance use type: does not use Smoking Status: Never smoker alcohol intake frequency: holidays/special occasions only Substance Use Type: does not use Exam Initial Vital Signs Initial Vital Signs: Vital Signs Pulse Rate 73 09/29/24 03:28 Blood Pressure 197/85 H 09/29/24 03:28 Pulse Oximetry 95 09/29/24 03:28 GENERAL: Alert pleasant 89-year-old and in [no acute] distress. HEENT: Head atraumatic,EOMI, pupils reactive, face symmetric, + JVD bilaterally CARDIOVASCULAR: Regular rate and rhythm without murmurs, rubs or gallops. RESPIRATORY: Mild dyspnea noted some rales at bases minimal wheezing ABDOMEN: Soft, nontender. Normoactive bowel sounds all 4 quadrants. No guarding or rebound. EXTREMITIES: Normal range of motion, no clubbing or edema. Neurovascularly intact NEUROLOGICAL: Alert and oriented x4.Normal gait and speech. Cranial nerves II through XII grossly intact. SKIN: Warm, dry, no laceration, no petechiae, no rashes or lesions. Course Orders Ordered: Discontinued Medications Albuterol (Albuterol 2.5 Mg/3 Ml Neb (Adult)) 2.5 mg INH NOW ONE Stop: 09/29/24 03:55 Last Admin: 09/29/24 04:00 Dose: 2.5 mg Documented By: JULIO Furosemide (Furosemide 40 Mg/4 Ml Vial) 40 mg IV NOW ONE Stop: 09/29/24 04:55 Last Admin: 09/29/24 05:09 Dose: 40 mg Documented By: DHEERAJ Ceftriaxone Sodium 1,000 mg/ (Sodium Chloride) 100 mls @ 200 mls/hr IV NOW ONE Stop: 09/29/24 04:39 Last Infusion: 09/29/24 05:47 Dose: Infused Documented By: Admin: 09/29/24 05:09 Dose: 200 mls/hr Documented By: DHEERAJ Nitroglycerin (Nitroglycerin 0.4 Mg Sl Tab) 0.4 mg SL NOW ONE Stop: 09/29/24 03:56 Last Admin: 09/29/24 04:04 Dose: 0.4 mg Documented By: ROLLY Vital Signs Vital signs: Vital Signs - 8 hr 09/29/24 03:28 09/29/24 03:28 09/29/24 03:30 Temperature 97.9 F Pulse Rate 73 75 Respiratory Rate 28 H Blood Pressure 197/85 H 197/85 H Pulse Oximetry 95 90 L Oxygen Delivery Method Room Air Oxygen Flow Rate Fraction of Inspired Oxygen 09/29/24 03:30 09/29/24 03:36 09/29/24 04:00 Temperature Pulse Rate 91 H 80 Respiratory Rate 18 Blood Pressure Pulse Oximetry 97 96 96 Oxygen Delivery Method Nasal Cannula Nasal Cannula Nasal Cannula Oxygen Flow Rate 3 3.5 2 Fraction of Inspired Oxygen 28 09/29/24 04:00 09/29/24 04:02 09/29/24 04:02 Temperature Pulse Rate 73 76 Respiratory Rate 18 18 Blood Pressure 192/77 H Pulse Oximetry 97 96 Oxygen Delivery Method Nasal Cannula Nasal Cannula Oxygen Flow Rate 3 3 Fraction of Inspired Oxygen 09/29/24 04:04 09/29/24 04:10 09/29/24 04:10 Temperature Pulse Rate 72 83 Respiratory Rate 18 Blood Pressure 192/77 H 159/70 H Pulse Oximetry 96 Oxygen Delivery Method Nasal Cannula Oxygen Flow Rate 3 Fraction of Inspired Oxygen 09/29/24 04:20 09/29/24 04:20 09/29/24 04:30 Temperature Pulse Rate 81 Respiratory Rate 19 Blood Pressure 149/66 H 159/70 H Pulse Oximetry 97 Oxygen Delivery Method Oxygen Flow Rate Fraction of Inspired Oxygen 09/29/24 04:30 09/29/24 04:40 09/29/24 04:40 Temperature Pulse Rate 72 67 Respiratory Rate 20 30 H Blood Pressure 151/72 H Pulse Oximetry 97 97 Oxygen Delivery Method Nasal Cannula Oxygen Flow Rate 3 Fraction of Inspired Oxygen 09/29/24 05:00 09/29/24 05:01 09/29/24 05:01 Temperature Pulse Rate 70 67 Respiratory Rate 24 28 H Blood Pressure 154/68 H Pulse Oximetry 93 94 Oxygen Delivery Method Nasal Cannula Nasal Cannula Oxygen Flow Rate 3 3 Fraction of Inspired Oxygen 09/29/24 05:30 09/29/24 05:33 09/29/24 05:33 Temperature Pulse Rate 72 71 Respiratory Rate 25 H 25 H Blood Pressure 168/77 H Pulse Oximetry 93 94 Oxygen Delivery Method Nasal Cannula Nasal Cannula Oxygen Flow Rate 3 3 Fraction of Inspired Oxygen 09/29/24 06:00 09/29/24 06:01 09/29/24 06:01 Temperature Pulse Rate 65 67 Respiratory Rate 32 H 35 H Blood Pressure 163/71 H Pulse Oximetry 94 93 Oxygen Delivery Method Oxygen Flow Rate Fraction of Inspired Oxygen 09/29/24 06:30 09/29/24 06:31 09/29/24 06:31 Temperature Pulse Rate 68 70 Respiratory Rate 30 H 36 H Blood Pressure 177/75 H Pulse Oximetry 97 96 Oxygen Delivery Method Oxygen Flow Rate 3 Fraction of Inspired Oxygen MDM - SOB/Dyspnea Lab Data 09/29/24 03:48 09/29/24 03:48 Labs: Lab Results 09/29/24 09/29/24 Range/Units 03:48 05:05 WBC 5.5 (4.5-11.0) X10^3/uL RBC 3.67 L (4.0-5.2) X10^6/uL Hgb 11.8 L (12.0-16.0) g/dL Hct 35.3 L (36-46) % MCV 96.2 (80-100) fL MCH 32.2 (26-34) PG MCHC 33.5 (30-36) % RDW 16.9 H (11.6-14.8) % Plt Count 223 (150-400) X10^3/uL Neut % (Auto) 71.6 (50-75) % Lymph % (Auto) 15.4 L (25-40) % [place] % (Auto) 9.2 (3-14) % Eos % (Auto) 2.5 (2-4) % Baso % (Auto) 1.3 (0-2) % Neut # (Auto) 3900 (0571-1382) /uL Lymph # (Auto) 900 L (6435-4632) /uL [place] # (Auto) 500 (0-900) /uL Eos # (Auto) 100 (0-450) /uL Baso # (Auto) 100 (0-100) /uL PT 11.0 (9.4-12.5) SECONDS INR 1.0 (0.9-1.3) Sodium 129 L (137-145) mmol/L Potassium 5.5 H (3.4-5.1) mmol/L Chloride 93 L (98-107) mmol/L Carbon Dioxide 24 (22-32) mmol/L BUN 34 H (7-17) mg/dL Creatinine 5.07 H (0.52-1.04) mg/dL Estimated GFR 8 L (>60) mL/min BUN/Creatinine Ratio 6.7 (6-22) Glucose 109 (80-110) mg/dL Lactate 1.0 (0.7-2.1) mmol/L Calcium 9.6 (8.4-10.2) mg/dL Total Bilirubin 0.9 (0.2-1.3) mg/dL AST 41 H (14-36) IU/L ALT 29 (<35) IU/L Alkaline Phosphatase 103 (38-126) U/L Troponin I < 0.012 (0.01-0.034) ng/mL NT-Pro-B Natriuret Pep > 84631 H (<450) pg/mL Total Protein 7.8 (6.3-8.2) g/dL Albumin 4.7 (3.5-5.0) g/dL Globulin 3.1 (1.7-4.1) g/dL Albumin/Globulin Ratio 1.5 (1.0-2.8) Chlamy pneumoniae PCR Not detected (Not Detect) Adenovirus (PCR) Not detected (Not Detect) B. pertussis DNA (PCR) Not detected (Not Detect) B.parapertussis DNA PCR Not detected (Not Detecte) Coronavirus OC43 (PCR) Not detected (Not Detect) Coronavirus HKU1 (PCR) Not detected (Not Detect) Coronavirus 229E (PCR) Not detected (Not Detect) SARS-CoV-2 (PCR) Not detected (Not Detecte) Coronavirus NL63 (PCR) Not detected (Not Detect) Human Metapneumovir PCR Not detected (Not Detect) Influenza Type A (PCR) Not detected (Not Detect) Influenza Type B (PCR) Not detected (Not Detect) M. pneumoniae (PCR) Not detected (Not Detect) Parainfluenza 1 (PCR) Not detected (Not Detect) Parainfluenza 2 (PCR) Not detected (Not Detect) Parainfluenza 3 (PCR) Not detected (Not Detect) Parainfluenza 4 (PCR) Not detected (Not Detect) RSV (PCR) Not detected (Not Detect) Entero/Rhino (PCR) Not detected (Not Detect) Imaging Data Chest x-ray: Radiologist's Impression: Preliminary report right pleural effusion multifocal pulmonary infiltrates within a right lung ECG Data Interpretation: Atrial fibrillation rate 84 no ischemic changes MDM Narrative Medical decision making narrative: MDM CC: Shortness of breath Complicating co-morbidities: Chronic kidney disease on dialysis 2 days a week Medical records reviewed: Previous PCP visits Differential considered: Fluid overload pneumonia respiratory viral illness Exam documented above, pertinent findings include: Mild decreased breath sounds bilaterally minimal conversational dyspnea she does have JVD noted bilaterally no significant peripheral edema Lab Test results independently reviewed as above. Pertinent findings: WBC 5.5, hemoglobin 11.8 hematocrit 35.3 platelets 223 Potassium 5.5 creatinine is 5.0 previously 1.4 in November of 2023 Troponin negative BNP greater than 30,000 Lactate 1.0 Independently reviewed EKG as above atrial fibrillation no ischemia Imaging studies independently reviewed: Pleural effusion with multi focal infiltrate Consultations: 0430 Dr. medina at [facility] updated agrees need to transfer Treatments: Nitro albuterol Lasix, rocephin Re-evaluations: Patient reports some improvement after nitro and albuterol but still has some pressure although it is improved. Discussion: 89-year-old female with chronic kidney disease on dialysis twice a day weak presenting today with increasing shortness of breath. It is reported that she is needed oxygen while at dialysis but tonight is hypoxic at rest and having increasing shortness of breath. She has significant JVD on exam x-ray does show right pleural effusion and multifocal infiltrate. Concern for fluid overload. She was also noted to have mild hyperkalemia with a potassium of 5.5 and elevated creatinine. With multifocal infiltrate x-ray can and sputum concern for possible pneumonia. Blood cultures pending she was given a dose of Rocephin. However she has no evidence of sepsis she has a normal lactate and normal white count. Concern is that patient is fluid overloaded she has a pleural effusion on chest x-ray and bilateral JVD. I think ultimately she will need dialysis to resolved is but she has given a dose of Lasix Nephrology was consulted recommended transfer. [facility] is full [facility] in the morning 1829 Dr. Smith hospitalist updated on patient's symptoms test results and accepts patient Discharge Plan Departure Patient Disposition: Xfer Acute [facility] Clinical Impression: Hypoxia, End stage chronic kidney disease Prescriptions: No Action (DME) Disabled parking permit Qty: 1 0RF Dose Instruction: As directed Rx Instructions: As directed acetaminophen [Tylenol Extra Strength] 500 MG tablet 500 mg PO PRN PRN (Reason: pain) Qty: 0 CMP Estradiol 0.0125% Vaginal Cream 0.5 g topical DAILY Qty: 30 2RF Rx Instructions: Apply to irritated areas on the external genitalia every day mirtazapine 15 mg tablet 15 mg PO DAILY Qty: 90 1RF carvedilol 6.25 mg tablet 6.25 mg PO BID Qty: 180 3RF pravastatin 80 mg tablet 80 mg PO ONCE PM Qty: 90 3RF dronabinol [Marinol] 2.5 mg capsule 2.5 mg PO BID Qty: 60 5RF Rx Instructions: administer before lunch and evening meal/dinner latanoprost 0.005 % drops 1 drp EYE-BOTH QPM amlodipine 10 mg tablet 10 mg PO DAILY Qty: 90 3RF cinacalcet 30 mg tablet 30 mg PO .3 times weekly Nephro Vitamins 0.8 mg tablet 1 tab PO DAILY Qty: 90 3RF lidocaine 5 % ointment 1 applic topical DAILY PRN (Reason: pain) Qty: 30 11RF losartan 100 mg tablet 100 mg PO DAILY Qty: 90 0RF ondansetron 4 mg tablet,disintegrating 4 mg PO Q8H PRN (Reason: nausea and vomiting) Qty: 10 0RF Referrals: Rico Mayberry DO [Primary Care Provider] -
[2024-09-29 03:59] LABS: Add Manual Diff / Slide Review NO; Basophils Absolute Auto 100 /uL (0-100); Basophils Percent Auto 1.3 % (0-2); Eosinophils Absolute Auto 100 /uL (0-450); Eosinophils Percent Auto 2.5 % (2-4); Hematocrit 35.3 % (36-46); Hemoglobin 11.8 g/dL (12.0-16.0); Lymphocytes Absolute Auto 900 /uL (1100-4500); Lymphocytes Percent Auto 15.4 % (25-40); Mean Corpuscular HGB Conc 33.5 % (30-36); Mean Corpuscular Hemoglobin 32.2 PG (26-34); Mean Corpuscular Volume 96.2 fL (80-100); Monocytes Absolute Auto 500 /uL (0-900); Monocytes Percent Auto 9.2 % (3-14); Neutrophils Absolute Auto 3900 /uL (1500-7000); Neutrophils Percent Auto 71.6 % (50-75); Platelet Count 223 X10^3/uL (150-400); Red Blood Cell Count 3.67 X10^6/uL (4.0-5.2); Red Cell Distribution Width 16.9 % (11.6-14.8); White Blood Cell Count 5.5 X10^3/uL (4.5-11.0)
[2024-09-29] MEDS: ALBUTEROL 2.5 MG/3 ML NEB (ADULT) INH (04:00)
[2024-09-29] MEDS: NITROGLYCERIN 0.4 MG SL TAB SL (04:04)
--- NOTE | 2024-09-29 04:17 | PC.NURSE ---
04:03 pt reports 7/10 chest pressure administered 1 sublingual nitro-- see JAN 04:15 pt reports her chest pressure is now down to a 3/10. Dr. Raya notified, no new orders.
[2024-09-29 04:19] LABS: Alanine Aminotransferase 29 IU/L (<35); Albumin 4.7 g/dL (3.5-5.0); Albumin Globulin Ratio 1.5 (1.0-2.8); Alkaline Phosphatase 103 U/L (38-126); Aspartate Aminotransferase 41 IU/L (14-36); BUN Creatinine Ratio 6.7 (6-22); Bilirubin Total 0.9 mg/dL (0.2-1.3); Blood Urea Nitrogen 34 mg/dL (7-17); Calcium 9.6 mg/dL (8.4-10.2); Carbon Dioxide 24 mmol/L (22-32); Chloride 93 mmol/L (98-107); Estimated Glomerular Filt Rate 8 mL/min (>60); Globulin 3.1 g/dL (1.7-4.1); Glucose 109 mg/dL (80-110); HEMOLYSIS 18 (0-50); Sodium 129 mmol/L (137-145); Total Protein 7.8 g/dL (6.3-8.2)
[2024-09-29 04:27] LABS: Potassium 5.5 mmol/L (3.4-5.1)
[2024-09-29 04:30] LABS: NT-proBNP (BNP-Adult 18+) > 30000 pg/mL (<450); Troponin I < 0.012 ng/mL (0.01-0.034)
[2024-09-29] MEDS: cefTRIAXone 1,000 MG in SODIUM CHLORIDE 0.9% 100 ML 200 MG IV (05:09)
[2024-09-29] MEDS: FUROSEMIDE 40 MG/4 ML VIAL IV (05:09)
[2024-09-29 06:07] LABS: Adenovirus Not Detected (Not Detect); B. parapertussis Not Detected (Not Detecte); Bordetella pertussis Not Detected (Not Detect); Chlamydophila pneumoniae Not Detected (Not Detect); Coronavirus 229E Not Detected (Not Detect); Coronavirus HKU1 Not Detected (Not Detect); Coronavirus NL 63 Not Detected (Not Detect); Coronavirus OC43 Not Detected (Not Detect); Human Metapneumovirus Not Detected (Not Detect); Human Rhinovirus/Enterovirus Not Detected (Not Detect); Influenza A Not Detected (Not Detect); Influenza B Not Detected (Not Detect); Mycoplasma pneumoniae Not Detected (Not Detect); Parainfluenza Virus 1 Not Detected (Not Detect); Parainfluenza Virus 2 Not Detected (Not Detect); Parainfluenza Virus 3 Not Detected (Not Detect); Parainfluenza Virus 4 Not Detected (Not Detect); Respiratory Syncytial Virus Not Detected (Not Detect); SARS- CoV-2 Not Detected (Not Detecte)
--- NOTE | 2024-09-29 07:23 | PC.NURSE ---
Addendum entered by Casi Chapin R.N. 09/29/24 07:24: Pt unsure how many liters they usually take off at dialysis. Original Note: Pt reports she does not wear oxygen at home but does wear oxygen at dialysis. Pt has not missed any dialysis sessions; pt states she has been on dialysis for almost 1.5 years.
== END 2024-09-29 08:05 | disposition short-term general hospital (02) ==
PROVIDERS: Emergency Provider Emergency Medicine; PCP Family Medicine
DX: N18.6 End stage renal disease (principal); Z99.2 Dependence on renal dialysis; R07.9 Chest pain, unspecified; E87.5 Hyperkalemia; R09.02 Hypoxemia; Z95.0 Presence of cardiac pacemaker; Z11.52 Encounter for screening for COVID-19
CPT/HCPCS: 36415; 71045; 80053; 83605; 83880; 84484; 85025; 85610; 87040; 87633; 93005; 96365; 96375; 99285; J0696; J1940; J7613

== ENCOUNTER 2024-10-07 09:11 | Observation (INO) | payer MEDICARE, SELFPAY ==
[2023-11-20 13:52] VITALS: BMI 21.1
[2024-10-07] VITALS (52 sets, daily range): BP systolic 101–186; BP diastolic 42–85; PULSE 60–82; RESP 12–40; TEMP 36.2–36.7; O2SAT 92–99; BMI 19.9
--- NOTE | 2024-10-07 09:15 | DI.RAD.S_ITS ---
PROCEDURE: XR HIP W PEL IF DONE RT 2V INDICATIONS: right hip pain, fall/injury TECHNIQUE: AP pelvis with lateral view(s) of the right hip(s). COMPARISON: [facility], , XR HIP W PEL IF DONE RT 2V, 05/02/2023, 20:56. FINDINGS: Bones: Dislocated total right hip arthroplasty. Acetabular cup is oriented relatively vertically. No acute fracture. Pelvic ring appears intact. No suspicious bony lesions. Soft tissues: The visualized bowel gas pattern is normal. No suspicious soft tissue calcifications. IMPRESSION: Dislocated total right hip arthroplasty without fracture. Relative vertical angulation of acetabular cup. Dictated by: Scottie Rios M.D. on 10/07/2024 at 10:12 Approved by: Scottie Rios M.D. on 10/07/2024 at 10:13
--- NOTE | 2024-10-07 09:44 | ED.LOWEXIN ---
HPI - Extremity Injury (Lower) General Chief Complaint: Extremity Injury, Lower Stated Complaint: Possible Right hip dislocation Time Seen by Provider: 10/07/24 09:14 Source: patient and EMS Mode of arrival: EMS History of Present Illness HPI Narrative: 89-year-old female with history of remote right hip replacement Malone, subsequent recurrent hip dislocations, last dislocation 2-1/2 years ago, was standing to pull up her underwear when she twisted this morning at home, felt popping sensation and pain to right hip area, fell backwards into nearby adjacent chair, no ground level fall. Arrived by EMS for further evaluation with persisting right hip pain. No other injuries. History of end-stage renal disease, dialysis dependent, due for hemodialysis later today, has right arm AV shunt access. Related Data Home Medications Medication Instructions Recorded Confirmed acetaminophen 500 mg tablet 500 mg PO PRN PRN pain ##0 07/09/17 10/07/24 (Tylenol Extra Strength) latanoprost 0.005 % eye drops 1 drp EYE-BOTH QPM 06/04/23 10/07/24 cinacalcet 30 mg tablet (Sensipar) 30 mg PO .3 times weekly 05/26/24 10/07/24 Previous Rx's Medication Instructions Recorded Disabled parking permit #1 ea 12/24/18 amlodipine 10 mg tablet 10 mg PO DAILY #90 tabs 01/01/24 ondansetron 4 mg disintegrating 4 mg PO Q8H PRN nausea and 03/06/24 tablet vomiting #10 tabs CMP Estradiol 0.0125% Vaginal Cream 0.5 g topical DAILY #30 grams 05/18/24 carvedilol 6.25 mg tablet 6.25 mg PO BID #180 tabs 05/19/24 mirtazapine 15 mg tablet 15 mg PO DAILY #90 tabs 05/19/24 vitamin B complex-vitamin C-folic 1 tab PO DAILY #90 tabs 05/26/24 acid 0.8 mg tablet (Nephro Vitamins) pravastatin 80 mg tablet 80 mg PO ONCE PM #90 tabs 06/16/24 lidocaine 5 % topical ointment 1 applic topical DAILY PRN pain 09/02/24 #30 grams losartan 100 mg tablet 100 mg PO DAILY #90 tabs 09/02/24 dronabinol 2.5 mg capsule (Marinol) 2.5 mg PO BID Anorexia #60 caps 11/04/24 Allergies Allergy/AdvReac Type Severity Reaction Status Date / Time adhesive tape [ADHESIVE TAPE] Allergy Mild skin Verified 09/09/24 13:57 reaction amoxicillin [AMOXICILLIN] AdvReac Intermediate YEAST Verified 09/09/24 13:57 INFECTION doxycycline [DOXYCYCLINE] AdvReac Intermediate YEAST Verified 09/09/24 13:57 SYMPTOMS azithromycin [AZITHROMYCIN] AdvReac Mild DIARRHEA Verified 09/09/24 13:57 estrogens, conjugated AdvReac Mild LOCAL Verified 09/09/24 13:57 [ESTROGENS, CONJUGATED] IRRITATION WHEN TOPICAL hydrocodone [HYDROCODONE] AdvReac Mild GI UPSET Verified 09/09/24 13:57 levofloxacin [LEVOFLOXACIN] AdvReac Mild GI UPSET Verified 09/09/24 13:57 phenazopyridine AdvReac Mild GI UPSET Verified 09/09/24 13:57 [PHENAZOPYRIDINE] Review of Systems Review of Systems Narrative: see HPI Patient History Medical History (Updated 10/07/24 @ 16:32 by Sarah Luong RN) Dislocation of hip, right, closed Anorexia Buttock pain Right arm pain Dialysis patient Rib tenderness Dehydration Kidney failure Fistula of artery Iliotibial band syndrome, left leg Chronic left shoulder pain POLST (Physician Orders for Life-Sustaining Treatment) Chronic low back pain with bilateral sciatica Pacemaker 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) Spinal stenosis (Unknown) Scoliosis (Unknown) Skin cancer (~2005) Hyperlipemia (Unknown) Hypertension (Unknown) Diverticular disease (Unknown) Glaucoma (Unknown) Osteoporosis (Unknown) Surgical History Hx of hysterectomy (Unknown) History of hip replacement (Unknown) Family History Father Heart disease Mother Osteoporosis Social History household members: spouse Smoking Status: Never smoker alcohol intake: current substance use type: does not use Smoking Status: Never smoker alcohol intake frequency: holidays/special occasions only Substance Use Type: does not use Exam Narrative Exam Narrative: GENERAL: Well-developed patient, in mild distress. HEAD: Atraumatic. Normocephalic. EYES: Pupils equal round and reactive. Extraocular motions intact. No scleral icterus. No injection or drainage. ENT: Nose without bleeding, purulent drainage. Throat without erythema, tonsillar hypertrophy or exudate. Airway patent. NECK: Trachea midline. Non tender CARDIOVASCULAR: Regular rate and rhythm without murmurs, gallops, or rubs. RESPIRATORY: Clear to auscultation. Breath sounds equal bilaterally. No wheezes, rales, or rhonchi. GASTROINTESTINAL: Abdomen soft, non-tender, nondistended. EXTREMITIES: Right lower extremity limb length shortening compared to left, tenderness and fullness right trochanteric region, possible fracture/dislocation distal pulses normal. Good cap refill right foot/toes. Right upper arm AV shunt with palpable thrill noted, good cap refill distal right fingers. BACK: Nontender without deformity or crepitance. No flank tenderness. NEURO: AOx3. Motor functions grossly nonfocal SKIN: No rash or erythema of visible areas Initial Vital Signs Initial Vital Signs: Vital Signs Pulse Rate 76 10/07/24 09:19 Respiratory Rate 29 H 10/07/24 09:19 Blood Pressure 186/85 H 10/07/24 09:19 Pulse Oximetry 96 10/07/24 09:19 Procedures Orthopedic Joint Reduction Joint #1: Time of procedure: 09:30 Time Out Performed: Yes Side: right Joint Reduction Location: hip Analgesia: procedural sedation Technique used: traction/counter-traction Post Reduction X-Ray Obtained: Yes Post Reduction X-Ray Results: not reduced Additional Comments: Unsuccessful reduction attempt despite adequate sedation, we will contact Orthopedic surgery, likely will need general anesthesia reduction Procedural Sedation Time of procedure: 09:30 Consent signed: Yes Time out performed: Yes Indication: fracture/dislocation reduction Presedation Evaluation: Prior procedure dislocation reduction, has tolerated sedation before well ASA Class: I Mallampati Airway Classification: Class I Time of Last PO Intake: 07:00 IV Propofol dose (mg): 100 ED Sedation Level: Moderate (Concious) Complications: Respiratory Depression-Repositioning Required Interventions: Airway repositioned and Assist by BVM Additional Comments: Patient sedated for attempts at reduction hip prosthetic hip dislocation, RT performed transient bag mask ventilation, unsuccessful attempt, return to preprocedure baseline mental status. Course Orders Ordered: Discontinued Medications Propofol (Propofol 200 Mg/20 Ml Vial) 200 mg IV NOW ONE Stop: 10/07/24 10:22 Last Admin: 10/07/24 10:30 Dose: 100 mg Documented By: SHANI Vital Signs Vital signs: Vital Signs - 8 hr 10/07/24 11:55 10/07/24 12:00 10/07/24 12:05 Pulse Rate 65 66 65 Pulse Rate [Right Dorsalis Pedis] Respiratory Rate 22 25 H 22 Blood Pressure Pulse Oximetry 95 96 96 10/07/24 12:10 10/07/24 12:15 10/07/24 12:20 Pulse Rate 68 66 72 Pulse Rate [Right Dorsalis Pedis] Respiratory Rate 23 19 25 H Blood Pressure Pulse Oximetry 96 94 95 10/07/24 12:25 10/07/24 12:30 10/07/24 12:35 Pulse Rate 67 74 67 Pulse Rate [Right Dorsalis Pedis] Respiratory Rate 19 25 H 22 Blood Pressure Pulse Oximetry 95 95 96 10/07/24 12:40 10/07/24 12:45 10/07/24 12:50 Pulse Rate 68 69 70 Pulse Rate [Right Dorsalis Pedis] Respiratory Rate 19 27 H 32 H Blood Pressure Pulse Oximetry 96 97 97 10/07/24 12:54 10/07/24 13:00 10/07/24 13:15 Pulse Rate 68 69 Pulse Rate [Right Dorsalis Pedis] 66 Respiratory Rate 32 H 40 H Blood Pressure Pulse Oximetry 96 97 10/07/24 13:30 10/07/24 13:45 10/07/24 14:00 Pulse Rate 72 70 67 Pulse Rate [Right Dorsalis Pedis] Respiratory Rate 30 H 28 H 24 Blood Pressure Pulse Oximetry 98 97 98 10/07/24 14:06 10/07/24 14:06 Pulse Rate 74 Pulse Rate [Right Dorsalis Pedis] Respiratory Rate 17 Blood Pressure 185/81 H Pulse Oximetry 96 MDM - Extremity Injury (Lower) Lab Data Attestation: I reviewed the patient's lab results. Lab results narrative: White blood cell count 4000, hemoglobin 11.6, platelets adequate. Serum potassium 4.7. History of dialysis noted, BUN 31, with creatinine 4.46, glucose 111. INR 1.0 normal. LFTs unremarkable. 10/07/24 10:04 10/07/24 10:04 Labs: Lab Results 10/07/24 Range/Units 10:04 WBC 4.0 L (4.5-11.0) X10^3/uL RBC 3.58 L (4.0-5.2) X10^6/uL Hgb 11.6 L (12.0-16.0) g/dL Hct 34.6 L (36-46) % MCV 96.8 (80-100) fL MCH 32.5 (26-34) PG MCHC 33.6 (30-36) % RDW 16.4 H (11.6-14.8) % Plt Count 236 (150-400) X10^3/uL Neut % (Auto) 72.7 (50-75) % Lymph % (Auto) 16.8 L (25-40) % [place] % (Auto) 6.7 (3-14) % Eos % (Auto) 2.4 (2-4) % Baso % (Auto) 1.4 (0-2) % Neut # (Auto) 2900 (1083-5406) /uL Lymph # (Auto) 700 L (7528-6408) /uL [place] # (Auto) 300 (0-900) /uL Eos # (Auto) 100 (0-450) /uL Baso # (Auto) 100 (0-100) /uL PT 11.1 (9.4-12.5) SECONDS INR 1.0 (0.9-1.3) Sodium 133 L (137-145) mmol/L Potassium 4.7 (3.4-5.1) mmol/L Chloride 94 L (98-107) mmol/L Carbon Dioxide 28 (22-32) mmol/L BUN 31 H (7-17) mg/dL Creatinine 4.46 H (0.52-1.04) mg/dL Estimated GFR 9 L (>60) mL/min BUN/Creatinine Ratio 7.0 (6-22) Glucose 111 H (80-110) mg/dL Calcium 9.1 (8.4-10.2) mg/dL Total Bilirubin 0.7 (0.2-1.3) mg/dL AST 47 H (14-36) IU/L ALT 29 (<35) IU/L Alkaline Phosphatase 96 (38-126) U/L Total Protein 7.6 (6.3-8.2) g/dL Albumin 4.6 (3.5-5.0) g/dL Globulin 3.0 (1.7-4.1) g/dL Albumin/Globulin Ratio 1.5 (1.0-2.8) Point of Care Testing Glucose POC 109 Imaging Data Extremity x-ray #1: Radiologist's Impression: Close Hip X-Ray (Signed) Scottie Rios - 10/07/24 Launch?Image [address] [address] XRay Report Signed Patient: Quique Blood MR#: [id number] : 1935 Acct:[id number] Age/Sex: 89 / F Date of Service: 10/07/24 Loc: ED Accession Number: [id number] Procedure: XR hip w pel if done RT 2V Ordering Provider: Moises Crowe MD PROCEDURE: XR HIP W PEL IF DONE RT 2V INDICATIONS: right hip pain, fall/injury TECHNIQUE: AP pelvis with lateral view(s) of the right hip(s). COMPARISON: [facility], , XR HIP W PEL IF DONE RT 2V, 05/02/2023, 20:56. FINDINGS: Bones: Dislocated total right hip arthroplasty. Acetabular cup is oriented relatively vertically. No acute fracture. Pelvic ring appears intact. No suspicious bony lesions. Soft tissues: The visualized bowel gas pattern is normal. No suspicious soft tissue calcifications. IMPRESSION: Dislocated total right hip arthroplasty without fracture. Relative vertical angulation of acetabular cup. Dictated by: Scottie Rios M.D. on 10/07/2024 at 10:12 Approved by: Scottie Rios M.D. on 10/07/2024 at 10:13 [facility] Narrative Medical decision making narrative: 89-year-old female with history of remote right hip arthroplasty and subsequent dislocations, last dislocation 2-1/2 years ago, felt popping sensation while standing trying to put on her underwear. Limb length discrepancy on examination with good cap refill, x-rays right hip show dislocation right hip prosthetic, no fractures obvious, ED wet read. X-ray right hip, prosthetic dislocation, no fractures. See radiology report. Consented for attempted reduction, IV propofol, had respiratory therapy present, adequate sedation, in fact required some rescue bag mask ventilation, x2 attempts unable to reduce. We will contact Orthopedic surgery. Patient returned to pre sedation baseline. Has history of dialysis to later today, we will send labs. 1045, case discussed with Orthopedic surgery Dr. Colon, he/associate will do reduction in the operating room later today. Keep NPO Discharge Plan Departure Patient Disposition: Admitted to Surgery Clinical Impression: Hip dislocation, right Admit Date/Time: 10/07/24 14:15 Admit Provider: Antoinette Cuello
[2024-10-07] MEDS: propofoL 200 MG/20 ML VIAL IV (10:30)
--- NOTE | 2024-10-07 10:37 | DI.RAD.S_ITS ---
PROCEDURE: XR PELVIS 1-2V INDICATIONS: post reduction TECHNIQUE: 1 view(s) of the pelvis acquired. COMPARISON: [facility], CR, XR CHEST 1V, 09/29/2024, 3:29. [facility], CR, XR HIP W PEL IF DONE RT 2V, 10/07/2024, 9:17. FINDINGS: Bones: Continued superolateral dislocation of the femoral component of a total right hip arthroplasty. Relative vertical configuration of the acetabular cup. No fracture. Soft tissues: Visualized bowel gas pattern is normal. No suspicious soft tissue calcifications. IMPRESSION: Continued dislocation. Dictated by: Scottie Rios M.D. on 10/07/2024 at 11:21 Approved by: Scottie Rios M.D. on 10/07/2024 at 11:22
--- NOTE | 2024-10-07 11:03 | RT ---
RT called to patient ED room for con. sedation standby. Patient on 2L NC with monitored ETCO2. Patient tolerated procedure well. Ambu bag breaths given for suppressed respirations/lowered O2 sats. Patient sat recovered rapidly from mid 80s to 100%. Patient placed back on NC at 4L and respirations assisted with a jaw trust until patient fully able to breath without obstruction independantly. Patient regained abilily to breath completely independantly and placed on 2L NC with sat of 98%.
[2024-10-07 11:07] LABS: Prothrombin Time 11.1 SECONDS (9.4-12.5)
[2024-10-07 11:09] LABS: Add Manual Diff / Slide Review NO; Basophils Absolute Auto 100 /uL (0-100); Basophils Percent Auto 1.4 % (0-2); Eosinophils Absolute Auto 100 /uL (0-450); Eosinophils Percent Auto 2.4 % (2-4); Hematocrit 34.6 % (36-46); Hemoglobin 11.6 g/dL (12.0-16.0); Lymphocytes Absolute Auto 700 /uL (1100-4500); Lymphocytes Percent Auto 16.8 % (25-40); Mean Corpuscular HGB Conc 33.6 % (30-36); Mean Corpuscular Hemoglobin 32.5 PG (26-34); Mean Corpuscular Volume 96.8 fL (80-100); Monocytes Absolute Auto 300 /uL (0-900); Monocytes Percent Auto 6.7 % (3-14); Neutrophils Absolute Auto 2900 /uL (1500-7000); Neutrophils Percent Auto 72.7 % (50-75); Platelet Count 236 X10^3/uL (150-400); Red Blood Cell Count 3.58 X10^6/uL (4.0-5.2); Red Cell Distribution Width 16.4 % (11.6-14.8)
[2024-10-07 11:12] LABS: Alanine Aminotransferase 29 IU/L (<35); Albumin 4.6 g/dL (3.5-5.0); Albumin Globulin Ratio 1.5 (1.0-2.8); Alkaline Phosphatase 96 U/L (38-126); Aspartate Aminotransferase 47 IU/L (14-36); Bilirubin Total 0.7 mg/dL (0.2-1.3); Blood Urea Nitrogen 31 mg/dL (7-17); Calcium 9.1 mg/dL (8.4-10.2); Carbon Dioxide 28 mmol/L (22-32); Chloride 94 mmol/L (98-107); Estimated Glomerular Filt Rate 9 mL/min (>60); Glucose 111 mg/dL (80-110); HEMOLYSIS < 15 (0-50); Potassium 4.7 mmol/L (3.4-5.1); Sodium 133 mmol/L (137-145); Total Protein 7.6 g/dL (6.3-8.2)
--- NOTE | 2024-10-07 11:33 | PC.NURSE ---
Conscious sedation procedure @ 1030, physician/RT/Primary RN at bedside for procedure. Consent signed, time out called at 1031, 40mg propofol adminstered at 1032, 40mg propofol administered at 1034, 20mg propofol adminstered at 1036. VSS. Unable to reduce R-hip. Pt referred to surgery.
--- NOTE | 2024-10-07 15:12 | PM.HP.1 ---
History of Present Illness History of Present Illness Date Patient Seen: 10/07/24 Time Patient Seen: 15:12 Date of Onset of Symptoms: 10/07/24 Chief complaint: Possible Right hip dislocation Narrative: Patient was an 89-year-old female with end-stage renal disease on dialysis that has a history of a right total hip arthroplasty and [place] about 13 years ago. She has had 3 dislocations the previous 1 was 2-1/2 years ago. She was standing putting on her underwear today and twisted and buckled sustaining a right total hip dislocation. She had unsuccessful reduction attempts by ER personnel and was indicated for closed reduction in the operating room and Orthopedic surgery was called. The on-call surgeon was busy in the operating room and asked me to step in and take a look at the patient as another orthopedic surgeon present at the facility. The patient denies any numbness or tingling. She does have some pain. She also states she has had sciatica symptoms on the contralateral side. She is lying in the gurney and denies other injury. They have dialysis this once her hip gets reduced. 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) Spinal stenosis (Unknown) Scoliosis (Unknown) Skin cancer (~2005) Hyperlipemia (Unknown) Hypertension (Unknown) Diverticular disease (Unknown) Glaucoma (Unknown) Osteoporosis (Unknown) Surgical History Hx of hysterectomy (Unknown) History of hip replacement (Unknown) Family History Father Heart disease Mother Osteoporosis Social History household members: spouse Smoking Status: Never smoker alcohol intake: current substance use type: does not use Meds Home Medications and Allergies Home Medications Medication Instructions Recorded Confirmed Type acetaminophen 500 mg tablet 500 mg PO PRN PRN pain ##0 07/09/17 10/07/24 History (Tylenol Extra Strength) Disabled parking permit #1 ea 12/24/18 09/02/24 Rx latanoprost 0.005 % eye drops 1 drp EYE-BOTH QPM 06/04/23 10/07/24 History amlodipine 10 mg tablet 10 mg PO DAILY #90 tabs 01/01/24 10/07/24 Rx ondansetron 4 mg disintegrating 4 mg PO Q8H PRN nausea and 03/06/24 09/02/24 Rx tablet vomiting #10 tabs CMP Estradiol 0.0125% Vaginal Cream 0.5 g topical DAILY #30 grams 05/18/24 09/02/24 Rx carvedilol 6.25 mg tablet 6.25 mg PO BID #180 tabs 05/19/24 10/07/24 Rx mirtazapine 15 mg tablet 15 mg PO DAILY #90 tabs 05/19/24 10/07/24 Rx cinacalcet 30 mg tablet (Sensipar) 30 mg PO .3 times weekly 05/26/24 10/07/24 History vitamin B complex-vitamin C-folic 1 tab PO DAILY #90 tabs 05/26/24 10/07/24 Rx acid 0.8 mg tablet (Nephro Vitamins) pravastatin 80 mg tablet 80 mg PO ONCE PM #90 tabs 06/16/24 10/07/24 Rx lidocaine 5 % topical ointment 1 applic topical DAILY PRN pain 09/02/24 09/02/24 Rx #30 grams losartan 100 mg tablet 100 mg PO DAILY #90 tabs 09/02/24 10/07/24 Rx dronabinol 2.5 mg capsule (Marinol) 2.5 mg PO BID Anorexia #60 caps 09/14/24 10/07/24 Rx Allergies Allergy/AdvReac Type Severity Reaction Status Date / Time adhesive tape [ADHESIVE TAPE] Allergy Mild skin Verified 09/09/24 13:57 reaction amoxicillin [AMOXICILLIN] AdvReac Intermediate YEAST Verified 09/09/24 13:57 INFECTION doxycycline [DOXYCYCLINE] AdvReac Intermediate YEAST Verified 09/09/24 13:57 SYMPTOMS azithromycin [AZITHROMYCIN] AdvReac Mild DIARRHEA Verified 09/09/24 13:57 estrogens, conjugated AdvReac Mild LOCAL Verified 09/09/24 13:57 [ESTROGENS, CONJUGATED] IRRITATION WHEN TOPICAL hydrocodone [HYDROCODONE] AdvReac Mild GI UPSET Verified 09/09/24 13:57 levofloxacin [LEVOFLOXACIN] AdvReac Mild GI UPSET Verified 09/09/24 13:57 phenazopyridine AdvReac Mild GI UPSET Verified 09/09/24 13:57 [PHENAZOPYRIDINE] Review of Systems Review of Systems Narrative: End-stage renal disease ROS: Yes All systems reviewed with the patient and are negative except as otherwise documented Exam Vital Signs (past 8 hours): - 10/07/24 09:19 10/07/24 09:24 10/07/24 09:28 Temperature 97.7 F Pulse Rate 76 82 Pulse Rate [Right Dorsalis Pedis] 80 Respiratory Rate 29 H 16 Blood Pressure 186/85 H 186/75 H Pulse Oximetry 96 97 Oxygen Delivery Method Room Air Oxygen Flow Rate 10/07/24 09:36 10/07/24 10:00 10/07/24 10:13 Temperature Pulse Rate 77 66 Pulse Rate [Right Dorsalis Pedis] Respiratory Rate 27 H Blood Pressure 172/74 H Pulse Oximetry 99 Oxygen Delivery Method Oxygen Flow Rate 10/07/24 10:13 10/07/24 10:15 10/07/24 10:15 Temperature Pulse Rate 60 61 Pulse Rate [Right Dorsalis Pedis] Respiratory Rate 30 H 24 Blood Pressure 156/69 H Pulse Oximetry 99 98 Oxygen Delivery Method Oxygen Flow Rate 10/07/24 10:20 10/07/24 10:20 10/07/24 10:25 Temperature Pulse Rate 61 61 Pulse Rate [Right Dorsalis Pedis] Respiratory Rate 29 H 28 H Blood Pressure 153/66 H Pulse Oximetry 98 97 Oxygen Delivery Method Oxygen Flow Rate 10/07/24 10:25 10/07/24 10:30 10/07/24 10:30 Temperature Pulse Rate 69 Pulse Rate [Right Dorsalis Pedis] Respiratory Rate 25 H Blood Pressure 159/71 H 163/68 H Pulse Oximetry 98 Oxygen Delivery Method Oxygen Flow Rate 10/07/24 10:35 10/07/24 10:35 10/07/24 10:40 Temperature Pulse Rate 60 60 Pulse Rate [Right Dorsalis Pedis] Respiratory Rate 34 H 34 H Blood Pressure 153/65 H Pulse Oximetry 93 99 Oxygen Delivery Method Oxygen Flow Rate 10/07/24 10:41 10/07/24 10:41 10/07/24 10:45 Temperature Pulse Rate 63 Pulse Rate [Right Dorsalis Pedis] Respiratory Rate 23 Blood Pressure 145/62 H 134/62 Pulse Oximetry 97 Oxygen Delivery Method Oxygen Flow Rate 10/07/24 10:45 10/07/24 10:50 10/07/24 10:55 Temperature Pulse Rate 61 62 61 Pulse Rate [Right Dorsalis Pedis] Respiratory Rate 18 13 14 Blood Pressure Pulse Oximetry 93 96 99 Oxygen Delivery Method Oxygen Flow Rate 10/07/24 11:00 10/07/24 11:05 10/07/24 11:10 Temperature Pulse Rate 60 60 60 Pulse Rate [Right Dorsalis Pedis] Respiratory Rate 12 17 16 Blood Pressure Pulse Oximetry 97 96 95 Oxygen Delivery Method Oxygen Flow Rate 10/07/24 11:15 10/07/24 11:20 10/07/24 11:25 Temperature Pulse Rate 60 64 64 Pulse Rate [Right Dorsalis Pedis] Respiratory Rate 13 23 22 Blood Pressure Pulse Oximetry 94 95 96 Oxygen Delivery Method Oxygen Flow Rate 10/07/24 11:30 10/07/24 11:35 10/07/24 11:40 Temperature Pulse Rate 60 60 64 Pulse Rate [Right Dorsalis Pedis] Respiratory Rate 20 15 20 Blood Pressure Pulse Oximetry 96 96 95 Oxygen Delivery Method Oxygen Flow Rate 10/07/24 11:45 10/07/24 11:50 10/07/24 11:55 Temperature Pulse Rate 63 62 65 Pulse Rate [Right Dorsalis Pedis] Respiratory Rate 20 19 22 Blood Pressure Pulse Oximetry 96 95 95 Oxygen Delivery Method Oxygen Flow Rate 10/07/24 12:00 10/07/24 12:05 10/07/24 12:10 Temperature Pulse Rate 66 65 68 Pulse Rate [Right Dorsalis Pedis] Respiratory Rate 25 H 22 23 Blood Pressure Pulse Oximetry 96 96 96 Oxygen Delivery Method Oxygen Flow Rate 10/07/24 12:15 10/07/24 12:20 10/07/24 12:25 Temperature Pulse Rate 66 72 67 Pulse Rate [Right Dorsalis Pedis] Respiratory Rate 19 25 H 19 Blood Pressure Pulse Oximetry 94 95 95 Oxygen Delivery Method Oxygen Flow Rate 10/07/24 12:30 10/07/24 12:35 10/07/24 12:40 Temperature Pulse Rate 74 67 68 Pulse Rate [Right Dorsalis Pedis] Respiratory Rate 25 H 22 19 Blood Pressure Pulse Oximetry 95 96 96 Oxygen Delivery Method Oxygen Flow Rate 10/07/24 12:45 10/07/24 12:50 10/07/24 12:54 Temperature Pulse Rate 69 70 Pulse Rate [Right Dorsalis Pedis] 66 Respiratory Rate 27 H 32 H Blood Pressure Pulse Oximetry 97 97 Oxygen Delivery Method Oxygen Flow Rate 10/07/24 13:00 10/07/24 13:15 10/07/24 13:30 Temperature Pulse Rate 68 69 72 Pulse Rate [Right Dorsalis Pedis] Respiratory Rate 32 H 40 H 30 H Blood Pressure Pulse Oximetry 96 97 98 Oxygen Delivery Method Oxygen Flow Rate 10/07/24 13:45 10/07/24 14:00 10/07/24 14:06 Temperature Pulse Rate 70 67 74 Pulse Rate [Right Dorsalis Pedis] Respiratory Rate 28 H 24 17 Blood Pressure Pulse Oximetry 97 98 96 Oxygen Delivery Method Oxygen Flow Rate 10/07/24 14:06 10/07/24 14:45 Temperature 98.0 F Pulse Rate 70 Pulse Rate [Right Dorsalis Pedis] Respiratory Rate 14 Blood Pressure 185/81 H 173/62 H Pulse Oximetry 96 Oxygen Delivery Method Nasal Cannula Oxygen Flow Rate 2 Oxygen Delivery Method Nasal Cannula Oxygen Flow Rate 2 Narrative Exam Narrative: Alert oriented lying in bed. Family at bedside. No acute distress. Right lower extremity shortened and internally rotated. Demonstrates dorsiflexion plantar flexion of the right ankle. Palpable dorsalis pedis pulse. No calf or thigh swelling. Knee benign. Heart regular rate and rhythm. Breathing unlabored on room air with clear lung sounds bilaterally Objective Imaging AP pelvis: My impression: Right hip dislocation, prosthesis Labs 10/07/24 10:04 10/07/24 10:04 Labs: Laboratory Results - last 24 hr 10/07/24 10:04 WBC 4.0 L RBC 3.58 L Hgb 11.6 L Hct 34.6 L MCV 96.8 MCH 32.5 MCHC 33.6 RDW 16.4 H Plt Count 236 Neut % (Auto) 72.7 Lymph % (Auto) 16.[address] [place] % (Auto) 6.7 Eos % (Auto) 2.4 Baso % (Auto) 1.4 Neut # (Auto) 2900 Lymph # (Auto) [address] [place] # (Auto) 300 Eos # (Auto) 100 Baso # (Auto) 100 PT 11.1 INR 1.0 Sodium 133 L Potassium 4.7 Chloride 94 L Carbon Dioxide 28 BUN 31 H Creatinine 4.46 H Estimated GFR 9 L BUN/Creatinine Ratio 7.0 Glucose 111 H Calcium 9.1 Total Bilirubin 0.7 AST 47 H ALT 29 Alkaline Phosphatase 96 Total Protein 7.6 Albumin 4.6 Globulin 3.0 Albumin/Globulin Ratio 1.5 Assessment & Plan Assessment and plan (1) Dislocation of hip, right, closed: Qualifiers: Encounter type: initial encounter Qualified Code(s): S73.004A - Unspecified dislocation of right hip, initial encounter Status: Acute Plan Patient was a right closed prosthetic hip dislocation. She had unsuccessful reduction attempts by the ER personnel. She was indicated for closed reduction in the operating room with general anesthetic. Risks were discussed with the patient including risks of fracture, risk of recurrent or persistent dislocation or need for additional procedures. We discussed risk of nerve damage or foot drop and risks associated with general anesthesia. The patient has elected to proceed. The site has been marked. The risks and benefits of the procedure have been discussed with the patient and given the opportunity to ask questions. The risks of the procedure include but are not limited to skin tear, fracture, persistent dislocation, recurrence, need for additional procedure, pain, nerve damage, cardiac and pulmonary complications of general anesthesia. The patient expressed a thorough understanding of the risks and benefits of surgery and has elected to proceed. Consent was signed/ Medical decision-making decision for urgent OR for closed reduction prosthetic total hip under general anesthesia. Time-Based Coding :: [TOTAL MINUTES] spent with patient and on the chart (including review of chart, obtaining history, exam, reviewing outside data, placing orders, documenting exam and treatment plan, and counseling patient) on [DATE]. Quality VTE Deep Vein Thrombosis/Pulmonary Embolism Present on Admission: No
--- NOTE | 2024-10-07 15:44 | PM.OP.1 ---
Operative Date/Time/Diagnoses Date of procedure: 10/07/24 Time of procedure: 15:45 Pre-op diagnosis: Right prosthetic total hip dislocation T8 4.0288, hip dislocation s72.004a Post-op diagnosis: same Procedure & Clinicians Procedure: Closed reduction right total hip arthroplasty dislocation under general anesthetic CPT code 45076 This is a closed reduction of an anterior total hip dislocation Same procedure as scheduled: Yes Indications: The patient is an 89-year-old female that sustained a anterior hip dislocation of her right total hip replacement. She would unsuccessful reduction attempts in the ER. And was indicated for closed reduction under general anesthetic in the OR. Risks and benefits of the procedure were discussed. Patient elects to proceed. Consent was signed. Surgeon: Antoinette Cuello Click Yes if Unassisted: Yes Anesthesia Type: General Operative Notes Findings: Closed, right, anterior dislocation of the total hip prosthesis. After general anesthetic manipulation with longitudinal traction and internal rotation demonstrated palpable audible clunk and concentric reduction of the total hip arthroplasty. Closure Type: not applicable Specimen(s): none sent Estimated Blood Loss (mL): 0 Blood products transfused: none Tourniquet time (min): 0 Procedure in detail: Patient was seen in the preoperative area the site of procedure was marked and informed consent confirmed this was the right hip. The patient was brought back to the operating room by the anesthesia team positioned supine on operative table. General anesthetic was administered. Formal time-out procedure was performed confirming the patient's side and site of procedure. This was a closed procedure no antibiotics were indicated. Initial position of the leg was shortened and in external rotation consistent with the anterior total hip dislocation. Attention was turned to the right hip. Counter pressure was placed anteriorly on the pelvis and over the anterior hip and then gentle straight leg longitudinal traction was applied and internal rotation this demonstrated a palpable and audible clunk of the hip reducing back into the acetabulum. Intraoperative fluoroscopy confirmed this. The reduction was relatively simple with longitudinal traction and internal rotation. Leg lengths were restored. Hip range of motion was restored and demonstrated under live fluoroscopy. Once this was complete the patient was awoken from general anesthesia and taken to the recovery room in good conditions there were no complications from this procedure. Complications: none Post-operative Condition: stable Disposition: PACU Plan for aftercare: Avoid hyper extension and maximum external rotation. Avoid falls. Hip is safest in a flexed position.
--- NOTE | 2024-10-07 15:45 | SUR.OPER ---
Supine on padded OR bed, head on pillow, arms secured on padded arm boards at <90 degrees abduction, legs uncrossed, safety belt at abdomen
--- NOTE | 2024-10-07 15:59 | DI.RAD.S_ITS ---
PROCEDURE: XR HIP RT 1V INDICATIONS: HIP RELOCATION TECHNIQUE: Single intraoperative fluoroscopic view(s) of the hip acquired. COMPARISON: [facility], CR, XR HIP W PEL IF DONE RT 2V, 10/07/2024, 9:17. FINDINGS: Intraoperative fluoroscopic image shows reduction of earlier noted right hip prosthesis dislocation with now anatomic right hip alignment. IMPRESSION: Fluoro guidance was provided intraoperatively for reduction of earlier noted right hip prosthesis dislocation. Dictated by: Selwyn Colon M.D. on 10/07/2024 at 16:39 Approved by: Selwyn Colon M.D. on 10/07/2024 at 16:40
== END 2024-10-07 16:51 | disposition home or self-care (01) ==
LOC: ED 12:29 → AC 14:16
PROVIDERS: Admitting Provider Orthopaedic Surgery Foot and Ankle Surgery; Emergency Provider Emergency Medicine; PCP Family Medicine; Referring Provider Emergency Medicine; Visit Provider Orthopaedic Surgery Foot and Ankle Surgery
PROC: (CPT 27266; principal; 2024-10-07 14:15)
DX: T84.020A Dislocation of internal right hip prosthesis, initial encounter (principal)
CPT/HCPCS: 27266; 27265; 72170; 73501; 73502; 76000; 80053; 82962; 85025; 85610; 99152; 99284; G0378; J2704